=== PATIENT | male | born 1950 | race Caucasian/White ===

== ENCOUNTER 2017-03-28 13:37 | Inpatient (IN) ==
[2017-03-28] MEDS ORDERED: FUROSEMIDE 40 MG/4 ML VIAL IV ONE (15:26)
[2017-03-28] MEDS ORDERED: ONDANSETRON 4 MG/2 ML VIAL IV PRN (15:27)
[2017-03-28] MEDS ORDERED: SENNOSIDES 1 TABLET PO PRN (15:27)
[2017-03-28] MEDS ORDERED: DEXTROSE 31 GM ORAL.SUSP PO PRN (15:27)
[2017-03-28] MEDS ORDERED: DEXTROSE 50% 50 ML VIAL IV PRN (15:27)
[2017-03-28] MEDS ORDERED: HYDROmorphone 2 MG/ML SYRINGE IV PRN (15:27)
[2017-03-28] MEDS ORDERED: IPRATROPIUM/ALBUTEROL 3 ML AMPUL.NEB NEB PRN (15:27)
[2017-03-28] MEDS ORDERED: ACETAMINOPHEN 325 MG TABLET PO PRN (15:27)
[2017-03-28] MEDS ORDERED: NALOXONE HCL 0.4 MG/ML VIAL IV PRN (15:27)
--- NOTE | 2017-03-28 15:45 | Internal Med History&Physical ---
Medical - H&P: HPI Patient information: Note initiated : 03/28/17 at 3:38 pm Service Date, if different from initiated Date: [] Patient: Sandro Bailey 66 y/o M admitted on 03/28/17 for CHF, ESRD. Chief Complaint: [] History of present illness: Mr. Bailey is a 66 year old Male with h/o dm, htn, hld, and ckd stage 5 presents to the hospital from another ER. According to the patient he was doing well till this AM, when he noted he was more short of breath than usual, the patient also notes increased edema in the lower extremities for the last few days. In the ER at the outside facility he underwent a Chest X ray which was reported as pulmonary congestion, his labs were significant for wbc count of 12.8, hb of 8.0, platlet of 296, Na 140, creat 8.63, glucose of 64. FOB was reported as negative. The patient was noted to be in renal failure with fluid overload and wound need dialysis. This is a patient of Dr Hernandez and as per the last note it seems that he has declined dialysis, but is willing to undergo it now. He was therefore transferred here for further eval and management. He was noted to be hypoglycemic on presentation and he did recelive d50 times x by the ER there. GLucose is 118 here The patient denies any other complaints besides sob and edema feet, no fever or chills no urinary complaints, houser was placed by outside facility The patient will be sent to [facility] for Tunneled catheter placement All systems: reviewed and no additional remarkable complaints except as stated ( as per HPI) Medical - H&P: PMH Medical history: Medical History (Last Reviewed 12/06/16 @ 16:26 by Rosa Elena Hernandez MD) Tinea corporis (Chronic) Edema of lower extremity (Chronic) CKD stage 4 due to type 2 diabetes mellitus (Chronic) Gastritis (Chronic) CKD (chronic kidney disease), stage III (Chronic) Guillain-Wayne syndrome (Chronic) Lone atrial fibrillation (Chronic) Bronchitis (Chronic) Presbyopia (Chronic) Regular astigmatism (Chronic) Hypermetropia (Chronic) Nuclear sclerosis (Chronic) Heat exhaustion (Chronic) Nonproliferative diabetic retinopathy (Chronic) 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) Nuclear senile cataract (Chronic) Diabetic neuropathy (Chronic) Seasonal allergic rhinitis (Chronic) Diabetes mellitus, type II (Chronic) Vitamin D deficiency (Chronic) Cervical nerve root compression (Chronic) Left median nerve neuropathy (Chronic) Low back pain (Chronic) Foot drop (Chronic) Obesity (Chronic) Injury of lumbar spine (Chronic) Injury of cervical spine (Chronic) Shoulder pain (Chronic) Carpal tunnel syndrome (Chronic) Cervical disc disorder (Chronic) Hyperlipidemia (Chronic) Gastritis due to nonsteroidal anti-inflammatory drug (NSAID) (Chronic) Diabetic retinopathy (Chronic) Hypertension (Chronic) Metatarsal fracture (Chronic 01/21/11) Surgical history: Past Surgical History (Last Reviewed 12/06/16 @ 16:26 by Rosa Elena Hernandez MD) History of cholecystectomy (Chronic 06/25/80) Pertinent family history: Family History (Last Reviewed 12/06/16 @ 16:26 by Rosa Elena Hernandez MD) Father Diabetes mellitus Cerebrovascular accident (CVA) Dementia Mother Diabetes mellitus Systemic Lupus Erythematosus Cardiomegaly Medical - H&P: Meds Home Medications Medication Instructions Recorded Confirmed Type aspirin 81 mg tablet,delayed 81 mg PO QDAY 08/31/15 12/06/16 History release gabapentin 300 mg capsule 300 mg PO TID 08/31/15 12/06/16 History insulin detemir 100 unit/mL (3 mL) 24 unit SUB-Q QAM ml 08/31/15 12/06/16 History subcutaneous pen glipizide ER 10 mg tablet, 10 mg PO QDAY 10/21/15 12/06/16 History extended release 24 hr calcium acetate 667 mg capsule 667 mg PO TID #90 cap 04/11/16 12/06/16 Rx amlodipine 10 mg tablet 10 mg PO QDAY 30 Days #30 tab 07/21/16 12/06/16 Rx losartan 100 mg tablet 100 mg PO QDAY 30 Days #30 tab 07/21/16 12/06/16 Rx metoprolol tartrate 50 mg tablet 100 mg PO BID 30 Days #120 tab 07/21/16 Rx atorvastatin 40 mg tablet 40 mg PO QDAY 30 Days #30 tab 12/06/16 12/06/16 Rx ergocalciferol (vitamin D2) 50,000 50,000 unit PO QWEEK cap 12/06/16 12/06/16 History unit capsule furosemide 80 mg tablet 80 mg PO BID 30 Days #60 tab 12/06/16 12/06/16 Rx hydralazine 100 mg tablet 100 mg PO TID 30 Days #90 tab 12/06/16 12/06/16 Rx sodium bicarbonate 650 mg tablet 1,300 mg PO BID 30 Days #120 tab 12/06/1612/06 Rx Allergies Allergy/AdvReac Type Severity Reaction Status Date / Time influenza virus vacc Allergy Unknown Unknown Unverified 12/06/16 14:33 trivalent, split [From Fluzone] Medical - H&P: Exam - Constitutional Exam: GENERAL: The patient is a well-developed, well-nourished in no apparent distress. Is alert and oriented x3. VITAL SIGNS: Reviewed and as noted elsewhere. HEENT: Head is normocephalic and atraumatic. Extraocular muscles are intact. Pupils are equal, round, and reactive to light. Nares appeared normal. Mouth appears any without lesions. Mucous membranes are moist. NECK: Normal to inspection, Supple, No lymphadenopathy or thyromegaly. LUNGS: Air entry equal on both sides, no wheezing, adama lower crackles upto mid lungs noted. No accessory muscles of respiration, but pt is mildly tachypenic HEART: Regular rate and rhythm normal, S1 and S2 heard, no Gallop, S3 or Rub Noted, No Gross murmur heard. ABDOMEN: Soft, nontender, and nondistended. Positive bowel sounds. No hepatosplenomegaly was noted. EXTREMITIES: No cyanosis, clubbing, rash, lesions adama edema ++++ NEUROLOGIC: Cranial nerves II through XII are grossly intact. Motor and Sensory System Grossly Intact PSYCHIATRIC: Normal affect, Normal Mood. Appropriate Behavior. SKIN: No ulceration or wounds noted, No jaundice, No rash noted. Medical - H&P: Reslt - Impressions labs done at outside facility reviewed. Medical - H&P: A/P - Narrative A/P Narrative: A/P Renal failure with Fluid overload: Pt to get cath placed today and HD as per nephrology, monitor in pcu status, pt has ckd which has progressed, secondary to uncontrolled htn and dm. Acidosis: nagama secondary to renal failure, check ABG Anemia: normocytic anemia, check iron studies, fob negative at outside facility , monitor, transfuse if drops < 7.0 DM: sliding sacle insulin while in the hospital Hypoglycemia: hold oral meds, d50x2 given glucose normal now, pt asymptomatic. HTN: hold meds for now, monitor bp and resume as tolerated. Leucocytosis: etiology unknown, check ua and procalcitonin, repeat CXR DVT hep sq Diet carb cosnistent renal cardiac Full code Social History - Social History marital status: single occupational status: disabled - Tobacco smoking status: Former smoker - Alcohol alcohol intake frequency: holiday/special occasion only
[2017-03-28] MEDS ORDERED: FUROSEMIDE 100 MG/10 ML VIAL IV ONE (16:12)
[2017-03-28] MEDS: INSULIN LISPRO 1 UNIT/0.01 ML UNIT SQ SCH ×2 (16:20→21:22)
--- NOTE | 2017-03-28 17:00 | Nephrology Consult Note ---
History of Present Illness - Reason for Consult Patient information: Note initiated : 03/28/17 at 4:56 pm Service Date, if different from initiated Date: [] Patient: Sandro Bailey 66 y/o M admitted on 03/28/17 for CHF, ESRD. Chief Complaint: [] Consult date: 03/28/17 chronic renal failure Requesting physician: Linda Eid - Chief Complaint SOB - History of Present Illness Mr Lynn is a 66 y/o pleasant male with PMH of HTN, DM type 2 , CKD and other multiple medical issues who is hospitalised for SOB Patient was feeling well until this am when he noted progressive SOB with minimal exertion. He c/o LE swelling for the last few days He presented to the ER in [place] with this. He was noted to have severe anemia with Hb of 8.0, BUN in 70's, s.creatinine of 8.6 and acidosis with bicarb of 16 He had pulmonary congestion on his CXR Given this patient was transferred to [facility] for evaluation of his renal issues Patient has h/o CKD stage V and he has declined dialysis in the past and chose not to follow with nephrology despite repeated request He agreed for dialysis today and hence was transferred here He denies CP no GI symptoms, denies nausea, vomiting no confusion reported by the family no other recent issues reported Review of Systems All systems PM: reviewed and no additional remarkable complaints except as stated (as in HPI) Past History Past medical history: Uncontrolled HTN Diabetes type 2 with retinopathy, neuropathy and diabetic kidney disease renal osteodystrophy anemia of CKD h/o ? GBS Past surgical history: H/O Cholecystectomy Past family history: parents had DM, father had CVA, mother has h/o SLE Past social history: LIVES ALONE Family states they live close by no current addictions Medications and Allergies Home Medications Medication Instructions Recorded Confirmed Type aspirin 81 mg tablet,delayed 81 mg PO QDAY 08/31/15 03/28/17 History release gabapentin 300 mg capsule 300 mg PO TID 08/31/15 03/28/17 History insulin detemir 100 unit/mL (3 mL) 30 unit SUB-Q QAM ml 08/31/15 03/28/17 History subcutaneous pen glipizide ER 10 mg tablet, 10 mg PO QDAY 10/21/15 03/28/17 History extended release 24 hr calcium acetate 667 mg capsule 667 mg PO TID #90 cap 04/11/16 03/28/17 Rx amlodipine 10 mg tablet 10 mg PO QDAY 30 Days #30 tab 07/21/16 03/28/17 Rx metoprolol tartrate 50 mg tablet 100 mg PO BID 30 Days #120 tab 07/21/16 Rx ergocalciferol (vitamin D2) 50,000 50,000 unit PO QWEEK cap 12/06/16 03/28/17 History unit capsule furosemide 80 mg tablet 80 mg PO BID 30 Days #60 tab 12/06/16 03/28/17 Rx hydralazine 100 mg tablet 100 mg PO TID 30 Days #90 tab 12/06/16 03/28/17 Rx sodium bicarbonate 650 mg tablet 1,300 mg PO BID 30 Days #120 tab 12/06/1603/28 Rx Atorvastatin [Lipitor] 40 mg PO HS 03/28/17 03/28/17 History Allergies Allergy/AdvReac Type Severity Reaction Status Date / Time influenza virus vacc Allergy Unknown Unknown Unverified 12/06/16 14:33 trivalent, split [From Fluzone] Exam - Vital Signs Vital signs: Temp Resp BP Pulse Ox 98.5 F 20 157/84 96 03/28/17 15:09 03/28/17 15:09 03/28/17 15:09 03/28/17 15:09 - General Appearance General appearance: appears started age, obese EENT: mucous membranes moist Neck: JVD Respiratory: rales Cardiology: no rub, edema, normal S1, normal S2 Gastrointestinal: no tenderness, no guarding Integumentary: no rash, warm and dry Neurologic: no asterixis, alert and oriented x3 Musculoskeletal: no erythema, no cyanosis Psychiatric: mood/affect appropriate Assessment and Plan (1) ESRD (end stage renal disease) Patient agrees to initiate dialysis he will have TCC placed at [facility] today will do HD for 2 hrs using revclear 300 dialyser, 3K/2.5ca dialysate at QB 200ML /MIN, QD 300ML/MIN, UF goal of 500cc Will plan on dialysing again tomorrow HTN: h/o uncontrolled HTN will ct home meds UF removal should help anemia: will need work up will follow and manage accordingly Fluid excess: IV lasix and IF removal with dialysis Will follow along appreciate hospitalist help in managing this patient Status: Acute
[2017-03-28 19:33] LABS: Basophils # (Auto) 0.1 K/mcL (0.0-0.3); Basophils % (Auto) 0.4 % (0.0-2.0); Eosinophils # (Auto) 0.5 K/mcL (0.0-0.7); Eosinophils % (Auto) 3.9 % (0.0-7.0); Granulocytes % (Auto) 83.9 % (38.0-78.0); Lymphocytes # (Auto) 0.9 K/mcL (1.5-4.8); Lymphocytes % (Auto) 6.7 % (15.5-49.0); Mean Cell Volume 88.7 fL (80.0-100.0); Mean Corpuscular HGB Conc 33.6 g/dL (31.0-36.0); Mean Corpuscular Hemoglobin 29.8 pg (26.0-34.0); Monocytes # (Auto) 0.7 K/mcL (0.1-0.9); Monocytes % (Auto) 5.1 % (1.0-12.0); Platelet Count 250 K/mcL (140-440); RBC 2.61 M/mcL (4.50-5.90); Red Cell Distribution Width 14.5 % (11.5-14.5)
[2017-03-28 19:56] LABS: ALT/SGPT 9 U/l (0-40); Albumin 3.1 gm/dL (3.2-5.2); Alkaline Phosphatase 82 U/L (39-117); Bilirubin,Direct < 0.2 mg/dL (0.0-0.3); Blood Urea Nitrogen 70 mg/dl (8-23); Gamma Glutamyl Transpeptidase 13 U/L (8-61); Iron 29 mcg/dl (61-157); Magnesium 1.5 mg/dL (1.6-2.5); Transferrin % Saturation 16 % (20-50); Unsaturated Iron Binding 152 mcg/dL (112-346); Uric Acid 8.3 mg/dL (2.5-8.0)
[2017-03-28 20:04] LABS: Ferritin 234.1 ng/ml (30-400)
[2017-03-28 20:11] LABS: Vitamin B12 578.5 pg/ml (243-894)
[2017-03-28] MEDS ORDERED: MAGNESIUM SULFATE 2 GM/50 ML BAG IV ONE (20:24)
[2017-03-28] MEDS: HEPARIN 5,000 UNIT/ML VIAL SQ SCH (21:22)
[2017-03-28] MEDS: 0.9 % SODIUM CHLORIDE 10 ML SYRINGE IV SCH (21:27)
[2017-03-28 23:05] LABS: Appearance,Urine CLEAR; Bacteria,Urine 0 /hpf (0); Bilirubin,Urine NEG (NEG); Color,Urine STRAW; Glucose,Urine (UA) 50 mg/dL (NEG); Leukocyte Esterase,Urine 25 /uL (NEG); Mucus,Urine FEW /hpf (0); Nitrate,Urine NEG (NEG); Protein,Urine 100 mg/dL (NEG); Specific Gravity,Urine 1.006 (1.000-1.035); Urine Blood 0.2 mg/dL (<0.03); Urine RBC > 182 /hpf (0-1); Urine Squamous Epithelial Cell 0 /hpf (0-4); Urine Transitional Epi Cells < 1 /hpf (0-2); Urine WBC 3 /hpf (0-4); Urobilinogen,Urine NEG (NEG)
[2017-03-29] MEDS: 0.9 % SODIUM CHLORIDE 10 ML SYRINGE IV SCH ×3 (05:24→21:28)
[2017-03-29 05:57] LABS: Basophils # (Auto) 0.1 K/mcL (0.0-0.3); Basophils % (Auto) 0.7 % (0.0-2.0); Eosinophils # (Auto) 0.5 K/mcL (0.0-0.7); Eosinophils % (Auto) 4.4 % (0.0-7.0); Granulocytes % (Auto) 80.2 % (38.0-78.0); Lymphocytes # (Auto) 0.9 K/mcL (1.5-4.8); Lymphocytes % (Auto) 8.2 % (15.5-49.0); Mean Cell Volume 88.4 fL (80.0-100.0); Mean Corpuscular HGB Conc 34.2 g/dL (31.0-36.0); Mean Corpuscular Hemoglobin 30.3 pg (26.0-34.0); Monocytes # (Auto) 0.7 K/mcL (0.1-0.9); Monocytes % (Auto) 6.5 % (1.0-12.0); Platelet Count 250 K/mcL (140-440); RBC 2.74 M/mcL (4.50-5.90); Red Cell Distribution Width 14.3 % (11.5-14.5)
[2017-03-29 06:58] LABS: ALT/SGPT 8 U/l (0-40); Albumin 2.9 gm/dL (3.2-5.2); Albumin/Globulin Ratio 0.9 (1.0-2.3); Alkaline Phosphatase 90 U/L (39-117); Bilirubin,Direct < 0.2 mg/dL (0.0-0.3); Blood Urea Nitrogen 52 mg/dl (8-23); Gamma Glutamyl Transpeptidase 13 U/L (8-61); Magnesium 1.9 mg/dL (1.6-2.5); Uric Acid 6.2 mg/dL (2.5-8.0)
[2017-03-29] MEDS: INSULIN LISPRO 1 UNIT/0.01 ML UNIT SQ SCH ×4 (07:25→21:27)
[2017-03-29] MEDS ORDERED: PANTOPRAZOLE 40 MG TABLET PO SCH (07:30)
--- NOTE | 2017-03-29 08:31 | XRay Report ---
HISTORY: Reason for Exam:shortness of breath FINDINGS: There is a generalized haziness in the lung parenchyma bilaterally affecting the right lung greater than left. There is no lobar consolidation or pleural effusion. The heart size is normal. There is a dual-lumen central venous catheter placed through the right subclavian vein into the superior vena cava. No pneumothorax is present. No prior study is available for comparison. IMPRESSION: Bilateral alveolar opacities which could be due to fluid overload, congestive heart failure, pneumonia or nonspecific inflammatory reaction Interpreted and Authenticated by: Cameron Yusuf 03/29/17
[2017-03-29] MEDS: HEPARIN 5,000 UNIT/ML VIAL SQ SCH ×2 (09:06→21:26)
[2017-03-29] MEDS ORDERED: CALCIUM ACETATE 667 MG CAPSULE PO SCH (12:00)
[2017-03-29] MEDS ORDERED: IRON SUCROSE COMPLEX 100 MG/5 ML VIAL IV SCH (12:00)
--- NOTE | 2017-03-29 16:04 | Internal Med Progress Note ---
Medical - PN: Subj Patient information: Note initiated : 03/29/17 at 4:02 pm Service Date, if different from initiated Date: [] Patient: Sandro Bailey 66 y/o M admitted on 03/28/17 for CHF, ESRD/Renal Failure with Fluid Overload. Chief Complaint: [] Interval history: Mr. Bailey is a 66 year old Male with h/o dm, htn, hld, and ckd stage 5 presents to the hospital from another ER. According to the patient he was doing well till this AM, when he noted he was more short of breath than usual, the patient also notes increased edema in the lower extremities for the last few days. In the ER at the outside facility he underwent a Chest X ray which was reported as pulmonary congestion, his labs were significant for wbc count of 12.8, hb of 8.0, platlet of 296, Na 140, creat 8.63, glucose of 64. FOB was reported as negative. The patient was noted to be in renal failure with fluid overload and wound need dialysis. This is a patient of Dr Hernandez and as per the last note it seems that he has declined dialysis, but is willing to undergo it now. He was therefore transferred here for further eval and management. He was noted to be hypoglycemic on presentation and he did recelive d50 times x by the ER there. GLucose is 118 here The patient denies any other complaints besides sob and edema feet, no fever or chills no urinary complaints, houser was placed by outside facility The patient will be sent to [facility] for Tunneled catheter placement March 29 Patient seen examined CXR this AM still showed some congestion, but pt linda for HD today and plan to remove 2 L fluid, repeat CXR after HD Denies any complaints, vitals stable, no fever WBC trending down. clinically stable at this point, xfer to med surg Pertinent ROS: Denies headache, dizziness Denies chest pain, palpitations Denies cough or shortness of breath Denies abdominal pain, nausea or vomiting. - Constitutional Vitals: Vital Signs Temp Pulse Resp BP Pulse Ox 99.1 F H 86 22 157/77 97 03/29/17 14:47 03/29/17 14:47 03/29/17 13:24 03/29/17 14:47 03/29/17 13:01 Period Temp Pulse Resp BP Sys/Frank Pulse Ox Last 24 Hr 98.2 F-99.1 F 65-95 10-28 132-174/69-105 90-98 Intake and Output 03/29/17 03/29/17 03/29/17 05:59 13:59 21:59 Intake Total 50 / 50 580 / 580 Output Total 2420 / 2420 420 / 420 1900 / 1900 Balance -2370 / -2370 160 / 160 -1900 / -1900 Weight 232 lb 14.4 oz Patient Weight 03/30/17 05:59 Weight 232 lb 14.4 oz Intake & Output: Intake & Output 03/29/17 03/29/17 03/29/17 05:59 13:59 21:59 Intake Total 50 / 50 580 / 580 Output Total 2420 / 2420 420 / 420 1900 / 1900 Balance -2370 / -2370 160 / 160 -1900 / -1900 Weight 232 lb 14.4 oz Intake: IV 50 / 50 Oral 580 / 580 Output: Urine Catheter Amount 2420 / 2420 420 / 420 Hemodialysis UF 1900 / 1900 Other: Meal Breakfast Percent of Meal Consumed 100% Exam: Constitutional; Afebrile, cooperative, alert, not in distress. Eyes- No icterus, , No periorbital swelling Ears- Ext ear normal, hearing normal to conversation. Neck- Midline trachea, supple Respiratory system: Air Entry equal on both sides, No crackles or wheezing, no rhonchi. CVS- Rate rhythm regular, S1,S2 heard, no gallop, no rub. edema ++ present Abdomen- Soft nontender abdomen, no organomegaly, no tenderness, no guarding or rigidity, BIRD KEEPER- AOOx3, moving all extremities, no gross focal deficit noted. Medical - PN: Obj Da - Labs CBC & Chem 7: 03/29/17 04:05 03/29/17 04:05 Labs: Abnormal Lab Results 03/29/17 03/29/17 03/28/17 04:05 04:05 22:05 WBC 11.6 H RBC 2.74 L Hgb 8.3 L Hct 24.2 L Gran % 80.2 H Lymph % (Auto) 8.2 L Gran # 9.3 H Lymph # (Auto) 0.9 L Carbon Dioxide 21 L BUN 52 H Creatinine 6.4 H* Glucose Uric Acid Calcium 8.3 L Phosphorus 5.1 H Magnesium Iron TIBC Transferrin % Sat Lactate Dehydrogenase 261 H Albumin 2.9 L Albumin/Globulin Ratio 0.9 L Urine Protein 100 A Urine Glucose (UA) 50 A Urine Occult Blood 0.2 A Ur Leukocyte Esterase 25 A Urine RBC > 182 H 03/28/17 03/28/17 19:00 19:00 WBC 13.0 H RBC 2.61 L Hgb 7.8 L Hct 23.1 L Gran % 83.9 H Lymph % (Auto) 6.7 L Gran # 10.9 H Lymph # (Auto) 0.9 L Carbon Dioxide 18 L BUN 70 H Creatinine 7.4 H* Glucose 109 H Uric Acid 8.3 H Calcium 8.0 L Phosphorus 5.9 H Magnesium 1.5 L Iron 29 L TIBC 181 L Transferrin % Sat 16 L Lactate Dehydrogenase 256 H Albumin 3.1 L Albumin/Globulin Ratio Urine Protein Urine Glucose (UA) Urine Occult Blood Ur Leukocyte Esterase Urine RBC Meds: Medications Acetaminophen (Tylenol) 650 mg PO Q4-6HP PRN PRN Reason: PAIN/FEVER > 101 Albuterol/Ipratropium (Duoneb) 3 ml NEB Q4HRT PRN PRN Reason: Shortness Of Breath Or Wheezing Amlodipine Besylate (Norvasc) 5 mg PO HS [facility] Calcium Acetate (Phoslo) 667 mg PO TIDCC [facility] Last Admin: 03/29/17 12:38 Dose: 667 mg Dextrose (Dextrose 50%) 0 ml IV UD PRN PRN Reason: Hypoglycemia Diagnostic Test (Pha) (Accu-Chek) 1 each FS ACHS [facility] Last Admin: 03/29/17 12:33 Dose: 1 each Ferrous Gluconate (Fergon) 324 mg PO DAILY [facility] Glucose (Insta-Glucose) 15 gm PO PRN PRN PRN Reason: Hypoglycemia Heparin Sodium (Porcine) (Heparin) 5,000 unit SQ Q12 [facility] Last Admin: 03/29/17 09:06 Dose: 5,000 unit Hydromorphone HCl (Dilaudid) 0.5 mg IV Q2HP PRN PRN Reason: Pain Insulin Human Lispro (Humalog) 0 unit SQ ACHS [facility] PRN Reason: Protocol Last Admin: 03/29/17 12:36 Dose: 2 unit Iron Sucrose (Venofer) 200 mg IV TuThSa@1200 [facility] Metoprolol Tartrate (Lopressor) 50 mg PO BID [facility] Naloxone HCl (Narcan) 0.1 mg IV Q2MIN PRN PRN Reason: Opiate Reversal Ondansetron HCl (Zofran) 4 mg IV Q4-6HP PRN PRN Reason: Nausea And Vomiting Pantoprazole Sodium (Protonix) 40 mg PO QAMAC [facility] Last Admin: 03/29/17 07:25 Dose: 40 mg Senna (Senokot) 1 tab PO HSP PRN PRN Reason: Constipation Sodium Chloride (Saline Flush) 10 ml IV Q8 [facility] Last Admin: 03/29/17 05:24 Dose: 10 ml Medical - PN: A/P - Time Spent With Patient Total time spent is greater than 50% in coordination of care (as documented) at patient's floor/unit and/or counseling patient: - Narrative A/P Narrative: A/P Renal failure with Fluid overload: HD yesterday adn today, Check cxr again today Acidosis: nagama secondary to renal failure, should improve with HD Anemia: normocytic anemia, check iron studies, fob negative at outside facility , monitor, transfuse if drops < 7.0, hb is stable so far. DM: sliding sacle insulin while in the hospital HTN: resume home meds. Leucocytosis: etiology unknown, ua has mild leuck esterase, CXR has congestion but could be pna, procalcitonin is low, but given he has low grade temp will culture and start on rocephin and zithromax for now. DVT hep sq Diet carb cosnistent renal cardiac Full code Medical - PN: Qual - VTE Deep Vein Thrombosis/Pulmonary Embolism Present on Admission: No
[2017-03-29] MEDS ORDERED: amLODIPine 10 MG TABLET PO SCH (16:15)
[2017-03-29] MEDS ORDERED: HYDROmorphone 2 MG/ML SYRINGE IV PRN (16:17)
[2017-03-29] MEDS ORDERED: IPRATROPIUM/ALBUTEROL 3 ML AMPUL.NEB NEB PRN (16:17)
[2017-03-29] MEDS ORDERED: ONDANSETRON 4 MG/2 ML VIAL IV PRN (16:17)
[2017-03-29] MEDS ORDERED: DEXTROSE 31 GM ORAL.SUSP PO PRN (16:17)
[2017-03-29] MEDS ORDERED: DEXTROSE 50% 50 ML VIAL IV PRN (16:17)
[2017-03-29] MEDS ORDERED: NALOXONE HCL 0.4 MG/ML VIAL IV PRN (16:17)
[2017-03-29] MEDS ORDERED: AZITHROMYCIN 250 MG TABLET PO ONE (16:17)
[2017-03-29] MEDS ORDERED: ACETAMINOPHEN 325 MG TABLET PO PRN (16:17)
--- NOTE | 2017-03-29 16:59 | XRay Report ---
HISTORY: Reason for Exam:evaluate resolution of chf FINDINGS: The widespread alveolar opacities seen throughout both lungs at 6:42 AM of the same date have improved but not completely resolved. The relatively rapid improvement would be more consistent with pulmonary edema and fluid overload rather than infection or inflammation. There is no pleural effusion. The heart size is within upper limits of normal and remains stable. The dialysis catheter remains well-positioned. IMPRESSION: Improving congestive heart failure or fluid overload Interpreted and Authenticated by: Cameron Yusuf 03/29/17
[2017-03-29] MEDS ORDERED: FUROSEMIDE 40 MG TABLET PO SCH (17:00)
[2017-03-29] MEDS ORDERED: cefTRIAXone 2 GM in DEXTROSE 5% IN WATER 50 ML IV SCH (17:00)
[2017-03-29] MEDS: cefTRIAXone 2 GM in DEXTROSE 5% IN WATER 50 ML IV SCH (17:01)
[2017-03-29] MEDS: CALCIUM ACETATE 667 MG CAPSULE PO SCH (17:02)
--- NOTE | 2017-03-29 20:02 | Nephrology Progress Note ---
Subjective Patient information: Note initiated : 03/29/17 at 8:00 pm Service Date, if different from initiated Date: [] Patient: Sandro Bailey 66 y/o M admitted on 03/28/17 for CHF, ESRD/Renal Failure with Fluid Overload. Chief Complaint: [] Principal diagnosis: Fluid overload Interval history: dialysis initiated last night, no concerns with dialysis feels a little better no SOB reported, denies CP, dizziness edema + Pertinent ROS: as above Objective - Vital Signs Vital signs: Vital Signs Temp Pulse Pulse Resp BP Pulse Ox 03/29/17 14:47 99.1 F H 86 157/77 03/29/17 14:10 91 H 157/82 03/29/17 14:00 80 03/29/17 13:41 94 H 158/71 03/29/17 13:24 22 03/29/17 13:14 26 H 165/81 03/29/17 13:10 90 165/81 03/29/17 13:01 88 19 174/85 97 03/29/17 12:57 95 H 17 164/85 96 03/29/17 12:50 92 H 174/85 03/29/17 12:31 88 24 H 97 03/29/17 12:14 88 26 H 163/82 97 03/29/17 12:09 72 163/82 03/29/17 12:01 89 22 157/83 98 03/29/17 12:00 99.1 F H 03/29/17 11:45 99.1 F H 94 H 140/105 03/29/17 11:44 90 15 140/105 96 03/29/17 11:02 79 24 H 154/78 96 03/29/17 10:02 80 15 154/74 97 03/29/17 09:12 90 10 L 97 03/29/17 09:02 94 H 24 H 164/82 96 03/29/17 08:02 19 164/80 03/29/17 08:00 84 03/29/17 07:02 25 H 156/77 03/29/17 06:05 24 H 03/29/17 06:01 28 H 156/76 03/29/17 05:01 26 H 153/78 03/29/17 04:16 21 03/29/17 04:01 99.0 F H 14 147/70 03/29/17 03:02 24 H 10/05/17 03:01 16 151/76 03/29/17 02:15 26 H 03/29/17 02:01 25 H 148/73 03/29/17 01:01 23 H 137/69 03/29/17 00:01 19 149/71 03/28/17 23:01 24 H 136/76 03/28/17 22:01 24 H 154/76 03/28/17 21:06 20 164/77 03/28/17 21:01 19 144/85 03/28/17 20:51 98.2 F 87 145/78 03/28/17 20:38 20 03/28/17 20:33 21 153/79 03/28/17 20:27 65 153/79 03/28/17 20:01 21 162/81 Intake and Output 03/29/17 03/29/17 03/29/17 05:59 13:59 21:59 Intake Total 50 / 50 580 / 580 Output Total 2420 / 2420 420 / 420 1900 / 1900 Balance -2370 / -2370 160 / 160 -1900 / -1900 Intake: IV 50 / 50 Oral 580 / 580 Output: Urine Catheter Amount 2420 / 2420 420 / 420 Hemodialysis UF 1900 / 1900 Other: Meal Breakfast Percent of Meal Consumed 100% Weight 232 lb 14.4 oz Patient Weight 03/30/17 05:59 Weight 232 lb 14.4 oz Intake & Output: Intake & Output 03/29/17 03/29/17 03/29/17 05:59 13:59 21:59 Intake Total 50 / 50 580 / 580 Output Total 2420 / 2420 420 / 420 1900 / 1900 Balance -2370 / -2370 160 / 160 -1900 / -1900 Weight 232 lb 14.4 oz Intake: IV 50 / 50 Oral 580 / 580 Output: Urine Catheter Amount 2420 / 2420 420 / 420 Hemodialysis UF 1900 / 1900 Other: Meal Breakfast Percent of Meal Consumed 100% - General Appearance General appearance: appears started age EENT: mucous membranes moist Neck: no JVD Respiratory: clear Cardiology: no rub, edema, normal S1, normal S2 Gastrointestinal: no tenderness, no guarding Integumentary: warm and dry Neurologic: no focal deficit, alert and oriented x3 Musculoskeletal: no deformities, no erythema Psychiatric: mood/affect appropriate - Lab 03/29/17 04:05 03/29/17 04:05 Most recent lab results Calcium 8.3 mg/dl (8.6-10.4) L 03/29/17 04:05 Phosphorus 5.1 mg/dL (2.7-4.5) H 03/29/17 04:05 Magnesium 1.9 mg/dL (1.6-2.5) 03/29/17 04:05 Assessment and Plan (1) ESRD (end stage renal disease) ESRD, Will continue HD today, 3 hrs, revaclear 300 dialyser, 3K/2.5CA DIALYSATE , 35 bicarb, UF of 1.5-2L next HD tomorrow, then can be discharged if stable HTN: antihypertensives resumed will follow and optimize anemia: started oral iron will need IV iron and then aranesp malnutrition: will start nepro renal osteodystrophy: will add phos binders Will follow along Status: Acute
[2017-03-29] MEDS ORDERED: CALCIUM ACETATE 667 MG PO SCH ×2 (21:00)
[2017-03-29] MEDS ORDERED: amLODIPine 5 MG TABLET PO SCH ×2 (21:00)
[2017-03-29] MEDS ORDERED: hydrALAZINE 25 MG TABLET PO SCH (21:00)
[2017-03-29] MEDS ORDERED: METOPROLOL TARTRATE 50 MG TABLET PO SCH (21:00)
[2017-03-29] MEDS ORDERED: SENNOSIDES 1 TABLET PO PRN (21:00)
[2017-03-29] MEDS ORDERED: ATORVASTATIN 40 MG TABLET PO SCH (21:00)
[2017-03-29] MEDS ORDERED: GABAPENTIN 300 MG CAPSULE PO SCH (21:00)
[2017-03-29] MEDS ORDERED: METOPROLOL TARTRATE 25 MG TABLET PO SCH ×2 (21:00)
[2017-03-29] MEDS: ATORVASTATIN 20 MG TABLET PO SCH (21:26)
[2017-03-29] MEDS: FUROSEMIDE 40 MG TABLET PO SCH (21:27)
[2017-03-29] MEDS: METOPROLOL TARTRATE 50 MG TABLET PO SCH (21:27)
[2017-03-29] MEDS: GABAPENTIN 300 MG CAPSULE PO SCH (21:28)
[2017-03-29] MEDS: hydrALAZINE 25 MG TABLET PO SCH (21:28)
[2017-03-30] MEDS: 0.9 % SODIUM CHLORIDE 10 ML SYRINGE IV SCH ×3 (05:30→20:20)
[2017-03-30 06:06] LABS: Basophils # (Auto) 0 K/mcL (0.0-0.3); Basophils % (Auto) 0.4 % (0.0-2.0); Eosinophils # (Auto) 0.8 K/mcL (0.0-0.7); Eosinophils % (Auto) 6.7 % (0.0-7.0); Granulocytes % (Auto) 70.6 % (38.0-78.0); Lymphocytes # (Auto) 1.5 K/mcL (1.5-4.8); Lymphocytes % (Auto) 12.9 % (15.5-49.0); Mean Cell Volume 89.6 fL (80.0-100.0); Mean Corpuscular HGB Conc 33.8 g/dL (31.0-36.0); Mean Corpuscular Hemoglobin 30.3 pg (26.0-34.0); Monocytes # (Auto) 1.1 K/mcL (0.1-0.9); Monocytes % (Auto) 9.4 % (1.0-12.0); Platelet Count 254 K/mcL (140-440); Red Cell Distribution Width 14.1 % (11.5-14.5)
[2017-03-30 06:28] LABS: ALT/SGPT 7 U/l (0-40); Albumin 2.8 gm/dL (3.2-5.2); Albumin/Globulin Ratio 0.8 (1.0-2.3); Alkaline Phosphatase 89 U/L (39-117); Bilirubin,Direct < 0.2 mg/dL (0.0-0.3); Blood Urea Nitrogen 31 mg/dl (8-23); Gamma Glutamyl Transpeptidase 13 U/L (8-61); Magnesium 1.7 mg/dL (1.6-2.5); Uric Acid 4.7 mg/dL (2.5-8.0)
[2017-03-30] MEDS: INSULIN LISPRO 1 UNIT/0.01 ML UNIT SQ SCH ×4 (07:13→21:55)
[2017-03-30] MEDS: PANTOPRAZOLE 40 MG TABLET PO SCH (07:14)
[2017-03-30] MEDS: CALCIUM ACETATE 667 MG CAPSULE PO SCH ×3 (08:24→17:20)
[2017-03-30] MEDS: FERROUS GLUCONATE 324 MG TABLET PO SCH (08:25)
[2017-03-30] MEDS: METOPROLOL TARTRATE 50 MG TABLET PO SCH ×2 (08:25→20:18)
[2017-03-30] MEDS: FUROSEMIDE 40 MG TABLET PO SCH ×2 (08:25→20:18)
[2017-03-30] MEDS: hydrALAZINE 25 MG TABLET PO SCH ×3 (08:25→20:17)
[2017-03-30] MEDS: AZITHROMYCIN 250 MG TABLET PO SCH (08:25)
[2017-03-30] MEDS: GABAPENTIN 300 MG CAPSULE PO SCH ×3 (08:26→20:19)
[2017-03-30] MEDS: HEPARIN 5,000 UNIT/ML VIAL SQ SCH ×2 (08:26→20:16)
[2017-03-30] MEDS: cefTRIAXone 2 GM in DEXTROSE 5% IN WATER 50 ML IV SCH (08:26)
[2017-03-30] MEDS: ASPIRIN 81 MG TAB.CHEW PO SCH (08:26)
[2017-03-30] MEDS ORDERED: amLODIPine 10 MG TABLET PO SCH (09:00)
[2017-03-30] MEDS ORDERED: ASPIRIN 81 MG TAB.CHEW PO SCH (09:00)
[2017-03-30] MEDS ORDERED: FERROUS GLUCONATE 324 MG TABLET PO SCH (09:00)
--- NOTE | 2017-03-30 12:11 | Internal Med Progress Note ---
Medical - PN: Subj Patient information: Note initiated : 03/30/17 at 12:08 pm Service Date, if different from initiated Date: [] Patient: Sandro Bailey 66 y/o M admitted on 03/28/17 for CHF, ESRD/Renal Failure with Fluid Overload. Chief Complaint: [] Interval history: Mr. Bailey is a 66 year old Male with h/o dm, htn, hld, and ckd stage 5 presents to the hospital from another ER. According to the patient he was doing well till this AM, when he noted he was more short of breath than usual, the patient also notes increased edema in the lower extremities for the last few days. In the ER at the outside facility he underwent a Chest X ray which was reported as pulmonary congestion, his labs were significant for wbc count of 12.8, hb of 8.0, platlet of 296, Na 140, creat 8.63, glucose of 64. FOB was reported as negative. The patient was noted to be in renal failure with fluid overload and wound need dialysis. This is a patient of Dr Hernandez and as per the last note it seems that he has declined dialysis, but is willing to undergo it now. He was therefore transferred here for further eval and management. He was noted to be hypoglycemic on presentation and he did recelive d50 times x by the ER there. GLucose is 118 here The patient denies any other complaints besides sob and edema feet, no fever or chills no urinary complaints, houser was placed by outside facility The patient will be sent to [facility] for Tunneled catheter placement March 29 Patient seen examined CXR this AM still showed some congestion, but pt linda for HD today and plan to remove 2 L fluid, repeat CXR after HD Denies any complaints, vitals stable, no fever WBC trending down. clinically stable at this point, xfer to med surg March 30 Patient seen examined, no acute overnight events still has leucocytosis, on abx but no other complaints hD today or tomorrow as per nephrology, may be d/c home after HD tomorrow if remains stable microbiology neg so far cxr shows improving congestion. Pertinent ROS: Denies headache, dizziness Denies chest pain, palpitations Denies cough or shortness of breath Denies abdominal pain, nausea or vomiting. - Constitutional Vitals: Vital Signs Temp Pulse Resp BP Pulse Ox 98.2 F 80 20 159/82 95 03/30/17 04:43 03/30/17 04:43 03/30/17 04:43 03/30/17 04:43 03/30/17 04:43 Period Temp Pulse Resp BP Sys/Frank Pulse Ox Last 24 Hr 98.1 F-99.3 F 72-95 17-26 144-174/71-85 95-97 Intake and Output 03/29/17 03/30/17 03/30/17 21:59 05:59 13:59 Intake Total 50 / 50 660 / 660 1210 / 1210 Output Total 1900 / 1900 875 / 875 Balance -1850 / -1850 -215 / -215 1210 / 1210 Weight 233 lb 8 oz Intake & Output: Intake & Output 03/29/17 03/30/17 03/30/17 21:59 05:59 13:59 Intake Total 50 / 50 660 / 660 1210 / 1210 Output Total 1900 / 1900 875 / 875 Balance -1850 / -1850 -215 / -215 1210 / 1210 Weight 233 lb 8 oz Intake: IV 50 / 50 50 / 50 Rocephin 2 gm In Dextrose 5% in 50 / 50 50 / 50 Water 50 ml @ 100 mls/hr IV DAILY [facility] Rx#:[id number] Oral 660 / 660 360 / 360 GI Tube Flush 800 / 800 Output: Urine Catheter Amount 875 / 875 Hemodialysis UF 1900 / 1900 Other: Meal Breakfast Percent of Meal Consumed 100% Feeding Ability Independent Exam: Constitutional; Afebrile, cooperative, alert, not in distress. Eyes- No icterus, , No periorbital swelling Ears- Ext ear normal, hearing normal to conversation. Neck- Midline trachea, supple Respiratory system: Air Entry equal on both sides, No crackles or wheezing, no rhonchi. CVS- Rate rhythm regular, S1,S2 heard, no gallop, no rub. Abdomen- Soft nontender abdomen, no organomegaly, no tenderness, no guarding or rigidity, PROCESS STEWARD- AOOx3, moving all extremities, no gross focal deficit noted. Medical - PN: Obj Da - Labs CBC & Chem 7: 03/30/17 04:50 03/30/17 04:50 Labs: Abnormal Lab Results 03/30/17 03/30/17 03/29/17 04:50 04:50 04:05 WBC 12.0 H RBC 2.70 L Hgb 8.2 L Hct 24.2 L Gran % Lymph % (Auto) 12.9 L Gran # 8.5 H Lymph # (Auto) Cross # (Auto) 1.1 H Eos # (Auto) 0.8 H Carbon Dioxide 21 L BUN 31 H 52 H Creatinine 5.3 H* 6.4 H* Glucose Uric Acid Calcium 8.0 L 8.3 L Phosphorus 5.1 H Magnesium Iron TIBC Transferrin % Sat Lactate Dehydrogenase 261 H Albumin 2.8 L 2.9 L Albumin/Globulin Ratio 0.8 L 0.9 L Urine Protein Urine Glucose (UA) Urine Occult Blood Ur Leukocyte Esterase Urine RBC 03/29/17 03/28/17 03/28/17 04:05 22:05 19:00 WBC 11.6 H RBC 2.74 L Hgb 8.3 L Hct 24.2 L Gran % 80.2 H Lymph % (Auto) 8.2 L Gran # 9.3 H Lymph # (Auto) 0.9 L Cross # (Auto) Eos # (Auto) Carbon Dioxide 18 L BUN 70 H Creatinine 7.4 H* Glucose 109 H Uric Acid 8.3 H Calcium 8.0 L Phosphorus 5.9 H Magnesium 1.5 L Iron 29 L TIBC 181 L Transferrin % Sat 16 L Lactate Dehydrogenase 256 H Albumin 3.1 L Albumin/Globulin Ratio Urine Protein 100 A Urine Glucose (UA) 50 A Urine Occult Blood 0.2 A Ur Leukocyte Esterase 25 A Urine RBC > 182 H 03/28/17 19:00 WBC 13.0 H RBC 2.61 L Hgb 7.8 L Hct 23.1 L Gran % 83.9 H Lymph % (Auto) 6.7 L Gran # 10.9 H Lymph # (Auto) 0.9 L Cross # (Auto) Eos # (Auto) Carbon Dioxide BUN Creatinine Glucose Uric Acid Calcium Phosphorus Magnesium Iron TIBC Transferrin % Sat Lactate Dehydrogenase Albumin Albumin/Globulin Ratio Urine Protein Urine Glucose (UA) Urine Occult Blood Ur Leukocyte Esterase Urine RBC Meds: Medications Acetaminophen (Tylenol) 650 mg PO Q4-6HP PRN PRN Reason: PAIN/FEVER > 101 Albuterol/Ipratropium (Duoneb) 3 ml NEB Q4HRT PRN PRN Reason: Shortness Of Breath Or Wheezing Amlodipine Besylate (Norvasc) 5 mg PO HS [facility] Last Admin: 03/29/17 21:28 Dose: 5 mg Aspirin (Aspirin) 81 mg PO DAILY [facility] Last Admin: 03/30/17 08:26 Dose: 81 mg Atorvastatin Calcium (Lipitor) 40 mg PO HS [facility] Last Admin: 03/29/17 21:26 Dose: 40 mg Azithromycin (Zithromax) 250 mg PO DAILY [facility] Stop: 04/02/17 09:01 Last Admin: 03/30/17 08:25 Dose: 250 mg Calcium Acetate (Phoslo) 667 mg PO TIDCC [facility] Last Admin: 03/30/17 08:24 Dose: 667 mg Dextrose (Dextrose 50%) 0 ml IV UD PRN PRN Reason: Hypoglycemia Diagnostic Test (Pha) (Accu-Chek) 1 each FS ACHS [facility] Last Admin: 03/30/17 07:13 Dose: 1 each Ferrous Gluconate (Fergon) 324 mg PO QAC [facility] Last Admin: 03/30/17 08:25 Dose: 324 mg Furosemide (Lasix) 80 mg PO BID [facility] Last Admin: 03/30/17 08:25 Dose: 80 mg Gabapentin (Neurontin) 300 mg PO TID [facility] Last Admin: 03/30/17 08:26 Dose: 300 mg Glucose (Insta-Glucose) 15 gm PO PRN PRN PRN Reason: Hypoglycemia Heparin Sodium (Porcine) (Heparin) 5,000 unit SQ Q12 [facility] Last Admin: 03/30/17 08:26 Dose: 5,000 unit Hydralazine HCl (Apresoline) 100 mg PO TID [facility] Last Admin: 03/30/17 08:25 Dose: 100 mg Hydromorphone HCl (Dilaudid) 0.5 mg IV Q2HP PRN PRN Reason: Pain Ceftriaxone Sodium 2 gm/ (Dextrose) 50 mls @ 100 mls/hr IV DAILY [facility] Last Infusion: 03/30/17 09:05 Dose: Infused Insulin Human Lispro (Humalog) 0 unit SQ ACHS [facility] PRN Reason: Protocol Last Admin: 03/30/17 07:13 Dose: 1 unit Iron Sucrose (Venofer) 200 mg IV TuThSa@1200 [facility] Metoprolol Tartrate (Lopressor) 50 mg PO BID [facility] Last Admin: 03/30/17 08:25 Dose: 50 mg Naloxone HCl (Narcan) 0.1 mg IV Q2MIN PRN PRN Reason: Opiate Reversal Ondansetron HCl (Zofran) 4 mg IV Q4-6HP PRN PRN Reason: Nausea And Vomiting Pantoprazole Sodium (Protonix) 40 mg PO QAMAC [facility] Last Admin: 03/30/17 07:14 Dose: 40 mg Senna (Senokot) 1 tab PO HSP PRN PRN Reason: Constipation Sodium Chloride (Saline Flush) 10 ml IV Q8 [facility] Last Admin: 03/30/17 05:30 Dose: 10 ml Medical - PN: A/P - Time Spent With Patient Total time spent is greater than 50% in coordination of care (as documented) at patient's floor/unit and/or counseling patient: - Narrative A/P Narrative: A/P Renal failure with Fluid overload: HD x 2, nephrology following, monitor for now. Acidosis: nagama. improved Anemia: normocytic anemia, check iron studies, fob negative at outside facility , monitor, transfuse if drops < 7.0, hb is stable so far. iv iiron as per nephrology DM: sliding sacle insulin while in the hospital HTN: resume home meds. as per nephrology Leucocytosis: stable, on antibiotics, likely early pna? monitor. DVT hep sq Diet carb cosnistent renal cardiac Full code Medical - PN: Qual - VTE Deep Vein Thrombosis/Pulmonary Embolism Present on Admission: No
--- NOTE | 2017-03-30 15:30 | Nephrology Progress Note ---
Subjective Patient information: Note initiated : 03/30/17 at 3:20 pm Service Date, if different from initiated Date: [] Patient: Sandro Bailey 66 y/o M admitted on 03/28/17 for CHF, ESRD/Renal Failure with Fluid Overload. Chief Complaint: [] Principal diagnosis: Fluid overload Interval history: no overnight events SOB is better LE edema has near resolved will get PT today denies any uremic symptoms No GI symptoms Pertinent ROS: as above, all other negative Objective - Vital Signs Vital signs: Vital Signs Temp Pulse Pulse Resp BP BP Pulse Ox 03/30/17 15:18 74 150/89 03/30/17 14:50 72 152/94 03/30/17 14:18 79 150/89 03/30/17 13:48 72 135/89 03/30/17 13:18 71 158/97 03/30/17 12:48 72 152/87 03/30/17 12:23 98.8 F 75 149/87 03/30/17 12:00 98.8 F 149/87 03/30/17 04:43 98.2 F 80 20 159/82 95 03/30/17 00:00 98.1 F 76 18 144/76 96 03/29/17 20:00 99.3 F H 89 20 162/72 96 Intake and Output 03/30/17 03/30/17 03/30/17 05:59 13:59 21:59 Intake Total 660 / 660 1210 / 1210 Output Total 875 / 875 Balance -215 / -215 1210 / 1210 Intake: IV 50 / 50 Rocephin 2 gm In Dextrose 5% in 50 / 50 Water 50 ml @ 100 mls/hr IV DAILY [facility] Rx#:[id number] Oral 660 / 660 360 / 360 GI Tube Flush 800 / 800 Output: Urine Catheter Amount 875 / 875 Other: Meal Breakfast Percent of Meal Consumed 100% Feeding Ability Independent Intake & Output: Intake & Output 03/30/17 03/30/17 03/30/17 05:59 13:59 21:59 Intake Total 660 / 660 1210 / 1210 Output Total 875 / 875 Balance -215 / -215 1210 / 1210 Intake: IV 50 / 50 Rocephin 2 gm In Dextrose 5% in 50 / 50 Water 50 ml @ 100 mls/hr IV DAILY [facility] Rx#:[id number] Oral 660 / 660 360 / 360 GI Tube Flush 800 / 800 Output: Urine Catheter Amount 875 / 875 Other: Meal Breakfast Percent of Meal Consumed 100% Feeding Ability Independent - General Appearance General appearance: appears started age EENT: mucous membranes moist Neck: no JVD Respiratory: clear Cardiology: no rub, no edema, normal S1, normal S2 Gastrointestinal: no tenderness, no guarding Integumentary: no rash, warm and dry Neurologic: no focal deficit Musculoskeletal: no erythema, no clubbing Psychiatric: mood/affect appropriate - Lab 03/30/17 04:50 03/30/17 04:50 Most recent lab results Calcium 8.0 mg/dl (8.6-10.4) L 03/30/17 04:50 Phosphorus 4.1 mg/dL (2.7-4.5) 03/30/17 04:50 Magnesium 1.7 mg/dL (1.6-2.5) 03/30/17 04:50 Assessment and Plan (1) ESRD (end stage renal disease) ESRD, Will continue HD today, 3.5 hrs, revaclear 300 dialyser, 3K/2.5CA DIALYSATE, 35 bicarb, UF of 1.5-2L next HD next week HTN: antihypertensives resumed, will increase amlodipine to 10mg po daily tonight will follow and optimize anemia: started oral iron will need IV iron and then aranesp malnutrition: please start on nepro 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
[2017-03-30] MEDS: ATORVASTATIN 20 MG TABLET PO SCH (20:18)
[2017-03-30] MEDS ORDERED: amLODIPine 5 MG TABLET PO SCH (21:00)
[2017-03-31] MEDS: 0.9 % SODIUM CHLORIDE 10 ML SYRINGE IV SCH ×2 (05:37→14:06)
[2017-03-31 07:32] LABS: Basophils # (Auto) 0.1 K/mcL (0.0-0.3); Basophils % (Auto) 0.7 % (0.0-2.0); Eosinophils # (Auto) 1.2 K/mcL (0.0-0.7); Eosinophils % (Auto) 9.1 % (0.0-7.0); Granulocytes % (Auto) 70.9 % (38.0-78.0); Lymphocytes # (Auto) 1.5 K/mcL (1.5-4.8); Lymphocytes % (Auto) 11.5 % (15.5-49.0); Mean Cell Volume 88.8 fL (80.0-100.0); Mean Corpuscular HGB Conc 33.9 g/dL (31.0-36.0); Mean Corpuscular Hemoglobin 30.1 pg (26.0-34.0); Monocytes % (Auto) 7.8 % (1.0-12.0); Platelet Count 250 K/mcL (140-440); RBC 2.98 M/mcL (4.50-5.90); Red Cell Distribution Width 14.1 % (11.5-14.5)
[2017-03-31 08:09] LABS: ALT/SGPT 8 U/l (0-40); Albumin 2.7 gm/dL (3.2-5.2); Albumin/Globulin Ratio 0.7 (1.0-2.3); Alkaline Phosphatase 108 U/L (39-117); Bilirubin,Direct < 0.2 mg/dL (0.0-0.3); Blood Urea Nitrogen 22 mg/dl (8-23); Gamma Glutamyl Transpeptidase 15 U/L (8-61); Magnesium 1.8 mg/dL (1.6-2.5); Uric Acid 3.3 mg/dL (2.5-8.0)
[2017-03-31] MEDS: PANTOPRAZOLE 40 MG TABLET PO SCH (08:21)
[2017-03-31] MEDS: INSULIN LISPRO 1 UNIT/0.01 ML UNIT SQ SCH ×2 (08:22→12:23)
[2017-03-31] MEDS: hydrALAZINE 25 MG TABLET PO SCH (09:34)
[2017-03-31] MEDS: ASPIRIN 81 MG TAB.CHEW PO SCH (09:35)
[2017-03-31] MEDS: AZITHROMYCIN 250 MG TABLET PO SCH (09:35)
[2017-03-31] MEDS: CALCIUM ACETATE 667 MG CAPSULE PO SCH ×2 (09:35→12:23)
[2017-03-31] MEDS: FUROSEMIDE 40 MG TABLET PO SCH (09:35)
[2017-03-31] MEDS: METOPROLOL TARTRATE 50 MG TABLET PO SCH (09:36)
[2017-03-31] MEDS: FERROUS GLUCONATE 324 MG TABLET PO SCH (09:36)
[2017-03-31] MEDS: GABAPENTIN 300 MG CAPSULE PO SCH (09:36)
[2017-03-31] MEDS: cefTRIAXone 2 GM in DEXTROSE 5% IN WATER 50 ML IV SCH (09:37)
[2017-03-31] MEDS: HEPARIN 5,000 UNIT/ML VIAL SQ SCH (09:37)
[2017-03-31] MEDS ORDERED: IRON SUCROSE COMPLEX 100 MG/5 ML VIAL IV SCH (12:00)
[2017-03-31] MEDS ORDERED: SODIUM POLYSTYRENE SULFONATE 15 GM/60 ML SUSPENSION PO ONE (13:36)
--- NOTE | 2017-03-31 13:38 | Nephrology Progress Note ---
Subjective Patient information: Note initiated : 03/31/17 at 1:37 pm Service Date, if different from initiated Date: [] Patient: Sandro Bailey 66 y/o M admitted on 03/28/17 for CHF, ESRD/Renal Failure with Fluid Overload. Chief Complaint: [] Principal diagnosis: Fluid overload Interval history: patient has no new issues today he denies SOB, CP, dizziness LE edema resolved labs show mild hyperkalemia today Pertinent ROS: as above, all other negative Objective - Vital Signs Vital signs: Vital Signs Temp Pulse Pulse Pulse Resp BP BP 03/31/17 08:00 97.9 F 18 03/31/17 03:43 97.8 F 77 18 03/30/17 23:40 97.8 F 75 20 03/30/17 20:00 98.6 F 82 18 03/30/17 16:00 98.4 F 83 18 162/92 03/30/17 15:45 98.5 F 79 167/92 03/30/17 15:18 74 150/89 03/30/17 14:50 72 152/94 03/30/17 14:18 79 150/89 03/30/17 13:48 72 135/89 BP Pulse Ox 03/31/17 08:00 129/82 94 03/31/17 03:43 127/69 94 03/30/17 23:40 143/78 95 03/30/17 20:00 135/79 95 03/30/17 16:00 95 03/30/17 15:45 03/30/17 15:18 03/30/17 14:50 03/30/17 14:18 03/30/17 13:48 Intake and Output 03/30/17 03/31/17 03/31/17 21:59 05:59 13:59 Intake Total 500 / 500 650 / 650 650 / 650 Output Total 2600 / 2600 850 / 850 1175 / 1175 Balance -2100 / -2100 -200 / -200 -525 / -525 Intake: IV 50 / 50 Rocephin 2 gm In Dextrose 5% in 50 / 50 Water 50 ml @ 100 mls/hr IV DAILY [facility] Rx#:[id number] Oral 500 / 500 650 / 650 600 / 600 Output: Void Amount 1100 / 1100 850 / 850 1175 / 1175 Hemodialysis UF 1500 / 1500 Other: Meal Dinner Lunch Percent of Meal Consumed 100% 100% Feeding Ability Independent Weight 234 lb 8 oz Intake & Output: Intake & Output 03/30/17 03/31/17 03/31/17 21:59 05:59 13:59 Intake Total 500 / 500 650 / 650 650 / 650 Output Total 2600 / 2600 850 / 850 1175 / 1175 Balance -2100 / -2100 -200 / -200 -525 / -525 Weight 234 lb 8 oz Intake: IV 50 / 50 Rocephin 2 gm In Dextrose 5% in 50 / 50 Water 50 ml @ 100 mls/hr IV DAILY [facility] Rx#:[id number] Oral 500 / 500 650 / 650 600 / 600 Output: Void Amount 1100 / 1100 850 / 850 1175 / 1175 Hemodialysis UF 1500 / 1500 Other: Meal Dinner Lunch Percent of Meal Consumed 100% 100% Feeding Ability Independent - General Appearance General appearance: appears started age EENT: mucous membranes moist Neck: no JVD Respiratory: clear Cardiology: no rub, no edema, normal S1, normal S2 Gastrointestinal: no tenderness, no guarding Integumentary: no rash, warm and dry Neurologic: alert and oriented x3 Musculoskeletal: no erythema, no cyanosis Psychiatric: mood/affect appropriate - Lab 03/31/17 05:40 03/31/17 05:40 Most recent lab results Calcium 8.1 mg/dl (8.6-10.4) L 03/31/17 05:40 Phosphorus 3.7 mg/dL (2.7-4.5) 03/31/17 05:40 Magnesium 1.8 mg/dL (1.6-2.5) 03/31/17 05:40 Assessment and Plan (1) ESRD (end stage renal disease) ESRD, HD initiated he will come for HD on Sunday, time provided requested to follow low K diet, one dose of kayexlate given HTN: antihypertensives resumed, hydralazine was cut back will follow on HD and optimize will follow outpt HD appreciate hospitalist help in managing this pt Status: Acute
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
[2017-03-31] MEDS ORDERED: hydrALAZINE 25 MG TABLET PO SCH (21:00)
== END 2017-03-31 15:50 | disposition home or self-care (01) | DRG 683 ==
LOC: ICU 15:09 → SUATTDRO 15:09 → MEDSUR 03-29 15:54
PROVIDERS: ADMIT Internal Medicine; ATTEND Internal Medicine

== ENCOUNTER 2017-05-23 11:50 | Inpatient (IN) ==
[2017-05-23] MEDS ORDERED: INSULIN REGULAR, HUMAN 1 UNIT/0.01 ML UNIT SQ ONE ×2 (12:37→14:24)
--- NOTE | 2017-05-23 12:40 | Cat Scan Report ---
CLINICAL INFORMATION: Trauma loss of consciousness COMPARISON: None. TECHNIQUE: 2.5 mm helical slices were obtained in the skull base to vertex. Following reconstruction, axial reformatted images were reviewed at bone and parenchymal windows. The exam was performed using radiation dose optimization techniques including, but not limited to, automated exposure control, adjustment of the mA and/or kV according to patient size and use of iterative reconstruction technique. FINDINGS: The ventricles, sulci, fissures, and cisterns are symmetrically enlarged compatible with moderate age-related atrophy - no subdural hemorrhage or extra-axial fluid collection appreciated. Patchy chronic ischemic changes in the cerebral white matter are typical for age. There is a 11 mm curvilinear remote infarct in the lateral left thalamus and a 13 mm remote lacunar infarct in the junction of the left internal capsule and left lentiform nucleus. There is no acute cerebral hemorrhage, mass effect, edema or other acute finding. Bone windows show no evidence of fracture or other osseous abnormality IMPRESSION: Moderate atrophy and chronic ischemic changes in the cerebral white matter with old lacunar infarcts in the left lentiform nucleus and left thalamus. There is no hemorrhage or other acute intracerebral abnormality Interpreted and Authenticated by: Kirill Severino 05/23/17
--- NOTE | 2017-05-23 13:02 | Emergency Department Note ---
Fall HPI - General Chief Complaint: Fall Stated Complaint: Fall Time Seen by Provider: 05/23/17 11:53 Source: patient Mode of arrival: wheelchair - History of Present Illness HPI Narrative: Patient presents, states closed head injury. Believes that he fell, hit his head, loss of consciousness last night. States that he feels slightly confused today. Per nursing, oriented to person and place but not well to time or situation. No other pain. Due for dialysis today,it is not been using his usual dose of insulin. Otherwise, poor historian. Denies fevers chills cough shortness of breath abdominal pain or otherwise. - Related Data Home Medications Medication Instructions Recorded Confirmed aspirin 81 mg tablet,delayed 81 mg PO QDAY 08/31/15 03/28/17 release gabapentin 300 mg capsule 300 mg PO TID 08/31/15 03/28/17 insulin detemir 100 unit/mL (3 mL) 30 unit SUB-Q QAM ml 08/31/15 03/28/17 subcutaneous pen glipizide ER 10 mg tablet, 10 mg PO QDAY 10/21/15 03/28/17 extended release 24 hr ergocalciferol (vitamin D2) 50,000 50,000 unit PO QWEEK cap 12/06/16 03/28/17 unit capsule Atorvastatin [Lipitor] 40 mg PO HS 03/28/17 03/28/17 Previous Rx's Medication Instructions Recorded calcium acetate 667 mg capsule 667 mg PO TID #90 cap 04/11/16 amlodipine 10 mg tablet 10 mg PO QDAY 30 Days #30 tab 07/21/16 metoprolol tartrate 50 mg tablet 100 mg PO BID 30 Days #120 tab 07/21/16 Accu-Chek 1 each FS ACHS strip 03/31/17 Acetaminophen [Tylenol] 650 mg PO Q4-6HP PRN tab 03/31/17 Calcium Acetate [Phoslo] 667 mg PO TIDCC cap 03/31/17 Ferrous Gluconate [Fergon] 324 mg PO QAMCC #30 tab 03/31/17 Iron Sucrose Complex [Venofer] 200 mg IV TuThSa@1200 vial 03/31/17 Metoprolol Tartrate [Lopressor] 50 mg PO BID #1 tab 03/31/17 amLODIPine [Norvasc] 10 mg PO HS tab 03/31/17 hydrALAZINE HCL [Hydralazine HCl] 50 mg PO BID 1 Days #90 tab 03/31/17 Allergies Allergy/AdvReac Type Severity Reaction Status Date / Time influenza virus vacc Allergy Unknown Confusion Verified 05/23/17 11:54 trivalent, split [From Fluzone] Review of Systems All systems ED: reviewed and negative except as stated. Fall PMH - Past Medical History Medical history: Reports: diabetes, renal disease Surgical history ED: Reports: non-contributory - Social History smoking status: Former smoker Physical Exam Limitations: no limitations General appearance: other (mild sedation, arouses; normal speech) Head: atraumatic, normocephalic Eye: Present: normal appearance ENT: normal exam, mucous membranes moist Neck: Present: normal inspection Chest: Present: normal inspection, symmetric chest wall rise Respiratory: Present: normal lung sounds bilaterally. Absent: respiratory distress Cardiovascular: Present: regular rate, normal rhythm. Absent: systolic murmur Abdominal: Present: soft. Absent: tenderness Extremities: Present: normal inspection Back: Present: normal inspection Neurological: Absent: alert, oriented X3 Psychiatric: Present: normal affect Skin: Present: warm, dry. Absent: rash Course - Reevaluation(s) Reevaluation #1: Patient continues to be sedate, mild confusion. Labs reviewed, elevated white count Second survey identifies a large diabetic foot ulcer on the right foot, lateral with associated cellulitis Vital Signs Temperature 99.1 F H 05/23/17 11:51 Pulse Rate 83 05/23/17 11:51 Respiratory Rate 18 05/23/17 11:51 Blood Pressure 121/67 05/23/17 11:51 Pulse Oximetry (%) 96 05/23/17 11:51 Temperature 99.1 F H 05/23/17 11:51 Pulse Rate 82 05/23/17 14:02 Respiratory Rate 16 05/23/17 14:02 Blood Pressure 130/69 05/23/17 14:02 Pulse Oximetry (%) 96 05/23/17 14:02 Fall - Lab Data Lab results reviewed: Yes I reviewed the patient's lab results. Result diagrams: 05/23/17 12:32 Lab Results 05/23/17 05/23/17 05/23/17 Range/Units 12:32 12:32 12:32 WBC 22.5 H (4.5-11.0) K/mcL RBC 3.57 L (4.50-5.90) M/mcL Hgb 10.6 L (13.5-16.5) g/dL Hct 31.7 L (41.0-55.0) % POC Hct 33.0 L (41.0-55.0) % MCV 88.9 (80.0-100.0) fL MCH 29.8 (26.0-34.0) pg MCHC 33.5 (31.0-36.0) g/dL RDW 14.4 (11.5-14.5) % Plt Count 330 (140-440) K/mcL MPV 7.9 (7.4-10.4) fL Gran % 85.3 H (38.0-78.0) % Lymph % (Auto) 6.7 L (15.5-49.0) % [place] % (Auto) 6.4 (1.0-12.0) % Eos % (Auto) 1.4 (0.0-7.0) % Baso % (Auto) 0.2 (0.0-2.0) % Gran # 19.2 H (1.8-8.0) K/mcL Lymph # (Auto) 1.5 (1.5-4.8) K/mcL [place] # (Auto) 1.4 H (0.1-0.9) K/mcL Eos # (Auto) 0.3 (0.0-0.7) K/mcL Baso # (Auto) 0 (0.0-0.3) K/mcL VBG Lactic Acid (0.5-2.2) mmol/L POC Sodium 131 L (133-145) mmol/L POC Potassium 4.1 (3.3-5.1) mmol/L POC Chloride 93 L (96-108) mmol/L POC Total CO2 28 (22-30) mmol/L POC BUN 45 H (8-23) mg/dl POC Creatinine 8.7 H* (0.7-1.2) mg/dl POC Glucose 456 H* (70-105) mg/dL POC WB Ioniz Calcium 0.93 L (1.16-1.32) mmol/L Ethyl Alcohol < 0.010 (<0.010) gm/dl 11/29/17 Range/Units 13:17 WBC (4.5-11.0) K/mcL RBC (4.50-5.90) M/mcL Hgb (13.5-16.5) g/dL Hct (41.0-55.0) % POC Hct (41.0-55.0) % MCV (80.0-100.0) fL MCH (26.0-34.0) pg MCHC (31.0-36.0) g/dL RDW (11.5-14.5) % Plt Count (140-440) K/mcL MPV (7.4-10.4) fL Gran % (38.0-78.0) % Lymph % (Auto) (15.5-49.0) % [place] % (Auto) (1.0-12.0) % Eos % (Auto) (0.0-7.0) % Baso % (Auto) (0.0-2.0) % Gran # (1.8-8.0) K/mcL Lymph # (Auto) (1.5-4.8) K/mcL [place] # (Auto) (0.1-0.9) K/mcL Eos # (Auto) (0.0-0.7) K/mcL Baso # (Auto) (0.0-0.3) K/mcL VBG Lactic Acid 1.6 (0.5-2.2) mmol/L POC Sodium (133-145) mmol/L POC Potassium (3.3-5.1) mmol/L POC Chloride (96-108) mmol/L POC Total CO2 (22-30) mmol/L POC BUN (8-23) mg/dl POC Creatinine (0.7-1.2) mg/dl POC Glucose (70-105) mg/dL POC WB Ioniz Calcium (1.16-1.32) mmol/L Ethyl Alcohol (<0.010) gm/dl Disposition Pt seen by MIRR[facility] INSTALLER/PA only: No Clinical Impression: Cellulitis of foot without toes, right, Delirium Diabetic foot ulcer Qualifiers: Diabetic foot ulcer location: midfoot Diabetes mellitus type: type 2 Laterality : right Non-pressure ulcer stage: with fat layer exposed Qualified Code(s): E11.621 - Type 2 diabetes mellitus with foot ulcer; L97.412 - Non-pressure chronic ulcer of right heel and midfoot with fat layer exposed; L97.412 - Non- pressure chronic ulcer of right heel and midfoot with fat layer exposed; L97.412 - Non-pressure chronic ulcer of right heel and midfoot with fat layer exposed; L97.412 - Non-pressure chronic ulcer of right heel and midfoot with fat layer exposed Leukocytosis Qualifiers: Leukocytosis type: bandemia Qualified Code(s): D72.825 - Bandemia Disposition: Xfer As Inpt ([facility]) Condition: Fair Referrals: Brandon Neville [Primary Care Provider] -
[2017-05-23 13:32] LABS: Basophils # (Auto) 0 K/mcL (0.0-0.3); Basophils % (Auto) 0.2 % (0.0-2.0); Eosinophils # (Auto) 0.3 K/mcL (0.0-0.7); Eosinophils % (Auto) 1.4 % (0.0-7.0); Granulocytes % (Auto) 85.3 % (38.0-78.0); Lymphocytes # (Auto) 1.5 K/mcL (1.5-4.8); Lymphocytes % (Auto) 6.7 % (15.5-49.0); Mean Cell Volume 88.9 fL (80.0-100.0); Mean Corpuscular HGB Conc 33.5 g/dL (31.0-36.0); Mean Corpuscular Hemoglobin 29.8 pg (26.0-34.0); Monocytes # (Auto) 1.4 K/mcL (0.1-0.9); Monocytes % (Auto) 6.4 % (1.0-12.0); Platelet Count 330 K/mcL (140-440); RBC 3.57 M/mcL (4.50-5.90); Red Cell Distribution Width 14.4 % (11.5-14.5)
--- NOTE | 2017-05-23 13:55 | XRay Report ---
CLINICAL INFORMATION: Confusion COMPARISON: 03/29/2017 FINDINGS: Right IJ double-lumen catheter tip overlies the right atrium near tricuspid valve. The heart is mildly enlarged but unchanged. Mediastinum and pulmonary vessels are normal. Lungs are clear. No effusions. IMPRESSION: No acute disease - stable Interpreted and Authenticated by: Kirill Severino 05/23/17
[2017-05-23] MEDS ORDERED: PIPERACILLIN SODIUM/TAZOBACTAM 3.375 GM in DEXTROSE 5% IN WATER 50 ML IV ONE (14:14)
[2017-05-23] MEDS ORDERED: VANCOMYCIN 1,000 MG in 0.9 % SODIUM CHLORIDE 250 ML IV ONE (14:14)
[2017-05-23] MEDS ORDERED: PIPERACILLIN SODIUM/TAZOBACTAM 3.375 GM VIAL IV ONE (14:30)
--- NOTE | 2017-05-23 14:56 | Internal Med History&Physical ---
Medical - H&P: HPI Patient information: Note initiated : 05/23/17 at 2:53 pm Service Date, if different from initiated Date: [] Patient: Sandro Bailey 66 y/o M admitted on for Fall. Chief Complaint: [] History of present illness: Mr. Bailey is a 66 year old man with a history of type 2 diabetes, end-stage renal disease, atrial fibrillation, neuropathy, etc. He was apparently in his normal state of health until about 2 days ago when he noticed increased pain and swelling of his right foot. I believe he had a fall as well, although that is less certain. He has been more sleepy than usual, and was sent to the emergency room for evaluation today. In the intensive care unit where I met him, he is quite somnolent. He does awaken for a minute or so with strong verbal and physical stimulation, but then drifts back to sleep again. He seems to indicate that he has not been having fever or chills, headaches or dizziness, new eye or ear symptoms, sore throat or cough. He denies chest pain or palpitations, shortness of breath, abdominal pain, nausea or vomiting, diarrhea or constipation, dysuria. He only admits to pain and swelling of his right foot. He does admit that he has been falling, but could not give me any details about that. He lives alone. Apparently his sister was here earlier, but has left for the day. ER evaluation found him to be delirious. Glucose was greater than 400. Head CT was reported as negative. Lactic acid was normal. White blood cell count was markedly elevated at 22. 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) Lone atrial fibrillation (Chronic) Bronchitis (Chronic) Heat exhaustion (Chronic) Nonproliferative diabetic retinopathy (Chronic) Diabetic neuropathy (Chronic) Seasonal allergic rhinitis (Chronic) Diabetes mellitus, type II (Chronic) Vitamin D deficiency (Chronic) Cervical nerve root compression (Chronic) Left median nerve neuropathy (Chronic) Low back pain (Chronic) Foot drop (Chronic) Obesity (Chronic) Injury of lumbar spine (Chronic) Injury of cervical spine (Chronic) Shoulder pain (Chronic) Carpal tunnel syndrome (Chronic) Cervical disc disorder (Chronic) Hyperlipidemia (Chronic) Gastritis due to nonsteroidal anti-inflammatory drug (NSAID) (Chronic) Hypertension (Chronic) Metatarsal fracture (Chronic 01/21/11) Surgical history: Past Surgical History History of cholecystectomy (Chronic 06/25/80) Medications: Tylenol 650 mg every 6 hours as needed Amlodipine 10 mg nightly Aspirin 81 mg daily Lipitor 40 mg nightly Calcium acetate (PhosLo) 667 mg p.o. 3 times daily Ferrous gluconate 324 mg every morning Lasix 80 mg p.o. twice daily Gabapentin 300 mg 3 times daily Hydralazine decreased 25mg tid? Iron sucrose 200 mg IV Sunday and Sunday Metoprolol tartrate decreased to 50 mg twice daily Vitamin D 2 50,000 units weekly Glipizide ER 10 mg daily Insulin detemir 30 units subcu every morning Tylenol 325 mg every 4 hours as needed Sodium bicarbonate 1300 mg p.o. twice daily Allergies: Influenza vaccine. Family History Father Diabetes mellitus Cerebrovascular accident (CVA) Dementia Mother Diabetes mellitus Systemic Lupus Erythematosus Cardiomegaly social history: LIVES ALONE. Patient denies using tobacco, alcohol, drugs, but his history does not currently appear all that reliable. He says his sister lives nearby. Family states they live close by Medical - H&P: Meds Home Medications Medication Instructions Recorded Confirmed Type Acetaminophen [Tylenol] 325 mg PO Q4-6HP PRN 05/23/17 05/23/17 History Aspirin [Charmaine Chewable Aspirin] 81 mg PO DAILY 05/23/17 05/23/17 History Atorvastatin [Lipitor] 40 mg PO HS 05/23/17 05/23/17 History Calcium Acetate [Phoslo] 667 mg PO TIDCC 05/23/17 05/23/17 History Ergocalciferol (Vitamin D2) 50,000 unit PO WEEKLY 05/23/17 05/23/17 History [Vitamin D2] Ferrous Gluconate [Fergon] 324 mg PO DAILY 05/23/17 05/23/17 History Furosemide [Lasix] 80 mg PO BID 05/23/17 05/23/17 History Gabapentin [Neurontin] 300 mg PO TID 05/23/17 05/23/17 History Insulin Detemir [Levemir Flextouch] 30 unit SQ DAILY 05/23/17 05/23/17 History Metoprolol Tartrate [Lopressor] 50 mg PO BID 05/23/17 05/23/17 History Sodium Bicarbonate 1,300 mg PO BID 05/23/17 05/23/17 History amLODIPine [Norvasc] 10 mg PO DAILY 05/23/17 05/23/17 History glipiZIDE [Glipizide ER] 10 mg PO DAILY 05/23/17 05/23/17 History hydrALAZINE [Apresoline] 25 mg PO TID 05/23/17 05/23/17 History Allergies Allergy/AdvReac Type Severity Reaction Status Date / Time influenza virus vacc Allergy Unknown Confusion Verified 05/23/17 11:54 trivalent, split [From Fluzone] Medical - H&P: Exam - Constitutional Vitals: Temp Pulse Resp BP Pulse Ox 99.1 F H 82 26 H 137/75 96 05/23/17 11:51 05/23/17 14:02 05/23/17 14:32 05/23/17 14:32 05/23/17 14:02 On exam, he is a fairly somnolent man, who is otherwise not in acute distress. He does arouse to voice and tactile stimulation. Head: Normocephalic, atraumatic. Eyes: PERRLA, EOMI, anicteric. Ears: TMs and canals are clear. Pharynx: Pharynx is crowded. No lesions are noted. No exudates are noted. Neck: Appears supple, without lymphadenopathy, JVD, thyromegaly, bruits. Cardiac exam shows regular rate and rhythm with normal S1 and S2, without murmurs, rubs, gallops. Lungs are clear to auscultation, without rales, rhonchi, wheezes. Abdomen is soft and nontender without obvious masses. Bowel sounds are active. Extremities: Both lower legs have a evidence of old stasis dermatitis. His right foot is mildly swollen. The lateral edge of his right distal foot is swollen and has a necrotic appearing ulcer with surrounding erythema and a strong odor. No definite discharge is noted. Neurologic exam: The patient is fairly lethargic, but arousable. Motor exam is grossly nonfocal. Medical - H&P: Reslt - Labs CBC & Chem 7: 05/23/17 12:32 Labs: Short CBC 05/23/17 Range/Units 12:32 WBC 22.5 H (4.5-11.0) K/mcL Hgb 10.6 L (13.5-16.5) g/dL Hct 31.7 L (41.0-55.0) % Plt Count 330 (140-440) K/mcL May 23: CBC: Differential shows 19,200 neutrophils, 1400 monocytes. Chemistry panel: Show sodium 131, chloride 93, BUN 45, creatinine 8.7, glucose 456, ionized calcium low at 0.93 Alcohol level is less than 0.01 Foot x-ray: IMPRESSION: No evidence of osteomyelitis. Large soft tissue ulcer over the fifth metatarsal head with associated cellulitis Chest x-ray: Shows no acute disease. There is a right IJ double-lumen catheter tip at the right atrium. 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 There is no hemorrhage or other acute intracerebral abnormality Medical - H&P: A/P (1) DM type 2, uncontrolled, with renal complications Current visit: Yes Status: Acute (2) Cellulitis of foot without toes, right Current visit: Yes Status: Acute (3) Delirium Current visit: Yes Status: Acute (4) Leukocytosis Current visit: Yes Status: Acute (5) ESRD (end stage renal disease) Current visit: No Status: Acute - Narrative A/P Narrative: #1. Infectious disease. SIRS syndrome Patient presents with signs and symptoms of cellulitis related to a diabetic foot ulcer. -There is no open wound to culture, but blood cultures have been done. -Admit for empiric IV antibiotics with vancomycin and Zosyn. -Wound care consult. -Check pro-calcitonin. - 2. Neurologic. Patient presents with confusion, likely due to medical delirium. -We will watch closely on telemetry. -Frequent Accu-Cheks with the goal of getting his glucoses closer to normal. 3. CODE STATUS: Full code. 4. DVT prophylaxis: Subcu heparin. 5. Endocrine. Type 2 diabetes, patient presents with severe hyperglycemia. He has been given IV insulin, and we will continue with Accu-Cheks and sliding scale insulin, in addition to twice daily Lantus. He is not being given aggressive fluid management at this time, regarding renal failure and tendency to volume overload. -Hyponatremia, likely due to elevated glucose. Hypocalcemia. Continue to monitor. Nephrology to address. 6. Renal. End-stage renal disease. He is due for dialysis this afternoon. -Nephrology consult with Dr. Navarro. -Hypertension. Blood pressures are currently running in a reasonable range. Hold Lasix for now, regarding possible early sepsis. Hold amlodipine if needed. Continue metoprolol and hydralazine. Today's visit took approximately 60 minutes, to review his case with the ER MD, review test results and records, interview and examine the patient, and write orders.
--- NOTE | 2017-05-23 15:28 | XRay Report ---
CLINICAL INFORMATION: Large recurrent foot ulcer on the lateral the MTP joint COMPARISON: None. FINDINGS: Large soft tissue ulceration over the lateral mid metatarsal head appreciated. Moderate inflammation and subcutaneous gas appreciated. There is no specific evidence for osteomyelitis. Hammertoe deformity seen in the second through fifth digits. Joint spaces otherwise normal with alignment. Pes planus noted IMPRESSION: No evidence of osteomyelitis. Large soft tissue ulcer over the fifth metatarsal head with associated cellulitis Interpreted and Authenticated by: Kirill Severino 05/23/17
[2017-05-23] MEDS ORDERED: ONDANSETRON 4 MG/2 ML VIAL IV PRN (16:04)
[2017-05-23] MEDS ORDERED: DOCUSATE SODIUM 100 MG CAPSULE PO PRN (16:04)
[2017-05-23] MEDS ORDERED: ACETAMINOPHEN 325 MG TABLET PO PRN (16:04)
[2017-05-23] MEDS ORDERED: DEXTROSE 50% 50 ML VIAL IV PRN (16:04)
[2017-05-23] MEDS ORDERED: DEXTROSE 31 GM ORAL.SUSP PO PRN (16:04)
[2017-05-23] MEDS ORDERED: VANCOMYCIN PER PHARMACY IV SCH (16:04)
[2017-05-23] MEDS ORDERED: NALOXONE HCL 0.4 MG/ML VIAL IV PRN (16:04)
[2017-05-23] MEDS ORDERED: ALBUTEROL SULFATE 2.5 MG/3 ML NEBULIZER NEB PRN (16:04)
[2017-05-23] MEDS ORDERED: VANCOMYCIN 500 MG in 0.9 % SODIUM CHLORIDE 100 ML IV ONE (16:15)
[2017-05-23] MEDS: INSULIN LISPRO 1 UNIT/0.01 ML UNIT SQ SCH ×2 (16:39→23:01)
--- NOTE | 2017-05-23 17:56 | Nephrology Consult Note ---
History of Present Illness - Reason for Consult Patient information: Note initiated : 05/23/17 at 5:54 pm Service Date, if different from initiated Date: [] Patient: Sandro Bailey 66 y/o M admitted on 05/23/17 for Fall. 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) Nuclear senile cataract (Chronic) Diabetic neuropathy (Chronic) Seasonal allergic rhinitis (Chronic) Diabetes mellitus, type II (Chronic) Vitamin D deficiency (Chronic) Cervical nerve root compression (Chronic) Left median nerve neuropathy (Chronic) Low back pain (Chronic) Foot drop (Chronic) Obesity (Chronic) Injury of lumbar spine (Chronic) Injury of cervical spine (Chronic) Shoulder pain (Chronic) Carpal tunnel syndrome (Chronic) Cervical disc disorder (Chronic) Hyperlipidemia (Chronic) Gastritis due to nonsteroidal anti-inflammatory drug (NSAID) (Chronic) Diabetic retinopathy (Chronic) Hypertension (Chronic) Metatarsal fracture (Chronic 01/21/11) Past surgical history: Past Surgical History History of cholecystectomy (Chronic 06/25/80) Past family history: Family History Father Diabetes mellitus Cerebrovascular accident (CVA) Dementia Mother Diabetes mellitus Systemic Lupus Erythematosus Cardiomegaly Past social history: Past social history: LIVES ALONE Family states they live close by no current addictions Medications and Allergies Allergies Allergy/AdvReac Type Severity Reaction Status Date / Time influenza virus vacc Allergy Unknown Confusion Verified 05/23/17 11:54 trivalent, split [From Fluzone] Exam - Vital Signs Vital signs: Temp Pulse Resp BP Pulse Ox 97.9 F 79 18 138/70 99 05/23/17 16:10 05/23/17 15:45 05/23/17 16:10 05/23/17 16:10 05/23/17 16:10 - General Appearance General appearance: well-developed, well-nourished, appears started age EENT: ATNC, PERRL Neck: no JVD, no thyromegaly Cardiology: no murmurs, no rub, no gallops, regular rate, regular rhythm Gastrointestinal: no tenderness Results - Lab Results 05/23/17 12:32 Assessment and Plan (1) ESRD (end stage renal disease) Plan for hemodialysis in ICU tonight according to his usual HD regimen He is receiving empiric IV antibiotics, follow cultures, CBC Status: Acute
[2017-05-23 18:46] LABS: Estimated Average Glucose(eAG) 214 mg/dL; Hemoglobin A1C 9.1 % HGB (4.0-6.0)
[2017-05-23] MEDS ORDERED: INSULIN DETEMIR 15 UNIT SQ SCH (21:00)
[2017-05-23] MEDS: SODIUM BICARBONATE 650 MG TABLET PO SCH (23:00)
[2017-05-23] MEDS: ATORVASTATIN 20 MG TABLET PO SCH (23:00)
[2017-05-23] MEDS: hydrALAZINE 25 MG TABLET PO SCH (23:00)
[2017-05-23] MEDS: HEPARIN 5,000 UNIT/ML VIAL SQ SCH (23:00)
[2017-05-23] MEDS: METOPROLOL TARTRATE 50 MG TABLET PO SCH (23:00)
[2017-05-23] MEDS: GABAPENTIN 300 MG CAPSULE PO SCH (23:01)
[2017-05-23] MEDS: INSULIN GLARGINE, HUMAN 1 UNIT/0.01 ML SQ SCH (23:02)
[2017-05-24] MEDS: PIPERACILLIN SODIUM/TAZOBACTAM 2.25 GM in DEXTROSE 5% IN WATER 50 ML IV SCH ×2 (00:34→12:10)
[2017-05-24] MEDS: HYDROcodone/APAP 5/325MG TABLET PO PRN ×2 (02:51→10:21)
[2017-05-24 05:08] LABS: Basophils # (Auto) 0 K/mcL (0.0-0.3); Basophils % (Auto) 0.2 % (0.0-2.0); Eosinophils # (Auto) 0.6 K/mcL (0.0-0.7); Eosinophils % (Auto) 2.8 % (0.0-7.0); Granulocytes % (Auto) 84.3 % (38.0-78.0); Lymphocytes # (Auto) 1.7 K/mcL (1.5-4.8); Lymphocytes % (Auto) 7.5 % (15.5-49.0); Mean Cell Volume 89.8 fL (80.0-100.0); Mean Corpuscular HGB Conc 33.1 g/dL (31.0-36.0); Mean Corpuscular Hemoglobin 29.8 pg (26.0-34.0); Monocytes # (Auto) 1.2 K/mcL (0.1-0.9); Monocytes % (Auto) 5.2 % (1.0-12.0); Platelet Count 349 K/mcL (140-440); RBC 3.66 M/mcL (4.50-5.90); Red Cell Distribution Width 14.6 % (11.5-14.5)
[2017-05-24 05:29] LABS: ALT/SGPT 17 U/l (0-40); Albumin 3.3 gm/dL (3.2-5.2); Albumin/Globulin Ratio 0.8 (1.0-2.3); Alkaline Phosphatase 112 U/L (39-117); Bilirubin,Direct < 0.2 mg/dL (0.0-0.3); Blood Urea Nitrogen 25 mg/dl (8-23); Gamma Glutamyl Transpeptidase 23 U/L (8-61); Magnesium 1.8 mg/dL (1.6-2.5); Uric Acid 3.4 mg/dL (2.5-8.0)
[2017-05-24] MEDS: CALCIUM ACETATE 667 MG CAPSULE PO SCH ×3 (07:32→17:32)
[2017-05-24] MEDS: INSULIN GLARGINE, HUMAN 1 UNIT/0.01 ML SQ SCH ×2 (07:32→20:38)
[2017-05-24] MEDS: INSULIN LISPRO 1 UNIT/0.01 ML UNIT SQ SCH ×4 (07:32→20:37)
[2017-05-24] MEDS: METOPROLOL TARTRATE 50 MG TABLET PO SCH ×2 (08:10→20:37)
[2017-05-24] MEDS: ASPIRIN 81 MG TAB.CHEW PO SCH (08:10)
[2017-05-24] MEDS: SODIUM BICARBONATE 650 MG TABLET PO SCH ×2 (08:10→20:49)
[2017-05-24] MEDS: HEPARIN 5,000 UNIT/ML VIAL SQ SCH ×2 (08:10→20:38)
[2017-05-24] MEDS: amLODIPine 10 MG TABLET PO SCH (08:11)
[2017-05-24] MEDS: hydrALAZINE 25 MG TABLET PO SCH ×3 (08:11→20:49)
[2017-05-24] MEDS: FERROUS GLUCONATE 324 MG TABLET PO SCH (08:11)
[2017-05-24] MEDS: GABAPENTIN 300 MG CAPSULE PO SCH ×3 (08:11→20:37)
--- NOTE | 2017-05-24 11:46 | Internal Med Progress Note ---
Medical - PN: Subj Patient information: Note initiated : 05/24/17 at 11:46 am Service Date, if different from initiated Date: [] Patient: Sandro Bailey 66 y/o M admitted on 05/23/17 for Fall/Cellulitis of Right Foot, Diabetic Foot Ulcer. Chief Complaint: [] Interval history: May 23, 2017: History of present illness: Mr. Bailey is a 66 year old man with a history of type 2 diabetes, end-stage renal disease, atrial fibrillation, neuropathy, etc. He was apparently in his normal state of health until about 2 days ago when he noticed increased pain and swelling of his right foot. I believe he had a fall as well, although that is less certain. He has been more sleepy than usual, and was sent to the emergency room for evaluation today. In the intensive care unit where I met him, he is quite somnolent. He does awaken for a minute or so with strong verbal and physical stimulation, but then drifts back to sleep again. He seems to indicate that he has not been having fever or chills, headaches or dizziness, new eye or ear symptoms, sore throat or cough. He denies chest pain or palpitations, shortness of breath, abdominal pain, nausea or vomiting, diarrhea or constipation, dysuria. He only admits to pain and swelling of his right foot. He does admit that he has been falling, but could not give me any details about that. He lives alone. Apparently his sister was here earlier, but has left for the day. ER evaluation found him to be delirious. Glucose was greater than 400. Head CT was reported as negative. Lactic acid was normal. White blood cell count was markedly elevated at 22. May 24: Today, the patient states he is feeling quite a bit better. However, he is still having significant pain in his right foot, which he rates as 9 out of 10. Otherwise, he denies fever chills, chest pain or shortness of breath, abdominal pain, nausea or vomiting, diarrhea or constipation. He underwent dialysis last night, and appears to have tolerated that well. - Constitutional Vitals: Vital Signs Temp Pulse Resp BP Pulse Ox 98.0 F 80 18 145/73 98 05/24/17 07:35 05/24/17 07:37 05/24/17 07:35 05/24/17 07:35 05/24/17 07:35 Period Temp Pulse Resp BP Sys/Frank Pulse Ox Last 24 Hr 97.9 F-99.1 F 79-88 10-26 121-154/65-84 94-100 Intake and Output 05/23/17 05/24/17 05/24/17 21:59 05:59 13:59 Intake Total 300 / 300 500 / 500 600 / 600 Output Total 2049 Balance 300 / 300 -1550 / -1550 600 / 600 Weight 224 lb 8 oz Intake & Output: Intake & Output 05/23/17 05/24/17 05/24/17 21:59 05:59 13:59 Intake Total 300 / 300 500 / 500 600 / 600 Output Total 2049 Balance 300 / 300 -1550 / -1550 600 / 600 Weight 224 lb 8 oz Intake: IV 300 / 300 Zosyn 3.375 gm In Dextrose 5% 50 / 50 in Water 50 ml @ 100 mls/hr IV ONCE ONE Rx#:[id number] Vancomycin 1,000 mg In Sodium 250 / 250 Chloride 0.9% 250 ml @ 250 mls/ hr IV ONCE ONE Rx#:[id number] Oral 500 / 500 600 / 600 Output: Hemodialysis UF 2049 Other: Meal Breakfast Percent of Meal Consumed 100% Feeding Ability Assist with Tray Set Up The patient is awake and alert, sitting up in bed and watching television. Neck is supple without obvious lymphadenopathy or JVD. Cardiac exam shows regular rate and rhythm. Lungs are clear to auscultation. Abdomen is soft and nontender. Extremities: Left foot appears fairly normal. Right foot continues to be quite swollen, red, warm, and very tender to touch. There is a necrotic ulcer on the lateral aspect of the foot, which is very foul- smelling. Neurologic exam: Patient is awake and alert, and exam is generally nonfocal. Medical - PN: Obj Da - Labs CBC & Chem 7: 05/24/17 04:10 05/24/17 04:10 Labs: Abnormal Lab Results 05/24/17 05/24/17 05/23/17 04:10 04:10 16:55 WBC 23.3 H RBC 3.66 L Hgb 10.9 L Hct 32.9 L POC Hct RDW 14.6 H Gran % 84.3 H Lymph % (Auto) 7.5 L Gran # 19.7 H [place] # (Auto) 1.2 H POC Sodium POC Chloride Chloride 93 L POC BUN BUN 25 H Creatinine 4.6 H POC Creatinine POC Glucose Hemoglobin A1c 9.1 H Calcium 8.4 L POC WB Ioniz Calcium Lactate Dehydrogenase 289 H Globulin 3.9 H Albumin/Globulin Ratio 0.8 L 05/23/17 05/23/17 12:32 12:32 WBC 22.5 H RBC 3.57 L Hgb 10.6 L Hct 31.7 L POC Hct 33.0 L RDW Gran % 85.3 H Lymph % (Auto) 6.7 L Gran # 19.2 H [place] # (Auto) 1.4 H POC Sodium 131 L POC Chloride 93 L Chloride POC BUN 45 H BUN Creatinine POC Creatinine 8.7 H* POC Glucose 456 H* Hemoglobin A1c Calcium POC WB Ioniz Calcium 0.93 L Lactate Dehydrogenase Globulin Albumin/Globulin Ratio May 23: Pro-calcitonin is elevated at 1.4, consistent with possible sepsis. Lactic acid was normal at 1.6. Wound Gram stain: Shows many gram-positive cocci in clusters, many gram- negative bacilli. Blood cultures are negative so far. CBC: White blood cell count is 22,500, hemoglobin 10, hematocrit 31, platelets 330,000. Differential shows 19,200 neutrophils, 1400 monocytes. Chemistry panel: Show sodium 131, chloride 93, BUN 45, creatinine 8.7, glucose 456, ionized calcium low at 0.93 Alcohol level is less than 0.01 Foot x-ray: IMPRESSION: No evidence of osteomyelitis. Large soft tissue ulcer over the fifth metatarsal head with associated cellulitis Chest x-ray: Shows no acute disease. There is a right IJ double-lumen catheter tip at the right atrium. 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 There is no hemorrhage or other acute intracerebral abnormality Meds: Medications Acetaminophen (Tylenol) 650 mg PO Q6HP PRN PRN Reason: PAIN/FEVER > 101 Hydrocodone Bitart/Acetaminophen ([place] 5/325mg) 1 tab PO Q4HP PRN PRN Reason: PAIN LEVEL 3-6 Last Admin: 05/24/17 10:21 Dose: 1 tab Albuterol Sulfate (Ventolin) 2.5 mg NEB Q6HRT PRN PRN Reason: Shortness Of Breath Or Wheezing Amlodipine Besylate (Norvasc) 10 mg PO DAILY [facility] Last Admin: 05/24/17 08:11 Dose: 10 mg Aspirin (Aspirin) 81 mg PO DAILY [facility] Last Admin: 05/24/17 08:10 Dose: 81 mg Atorvastatin Calcium (Lipitor) 40 mg PO HS [facility] Last Admin: 05/23/17 23:00 Dose: 40 mg Calcium Acetate (Phoslo) 667 mg PO TIDCC [facility] Last Admin: 05/24/17 07:32 Dose: 667 mg Dextrose (Dextrose 50%) 0 ml IV UD PRN PRN Reason: Hypoglycemia Diagnostic Test (Pha) (Accu-Chek) 1 each FS ACHS [facility] Last Admin: 05/24/17 07:31 Dose: 1 each Docusate Sodium (Colace) 100 mg PO BID PRN PRN Reason: Constipation Ergocalciferol (Drisdol) 50,000 unit PO WEEKLY [facility] Ferrous Gluconate (Fergon) 324 mg PO DAILY [facility] Last Admin: 05/24/17 08:11 Dose: 324 mg Gabapentin (Neurontin) 300 mg PO TID [facility] Last Admin: 05/24/17 08:11 Dose: 300 mg Glucose (Insta-Glucose) 15 gm PO PRN PRN PRN Reason: Hypoglycemia Heparin Sodium (Porcine) (Heparin) 5,000 unit SQ Q12 [facility] Last Admin: 05/24/17 08:10 Dose: 5,000 unit Hydralazine HCl (Apresoline) 25 mg PO TID [facility] Last Admin: 05/24/17 08:11 Dose: 25 mg Piperacillin Sod/Tazobactam (Sod 2.25 gm/ Dextrose) 50 mls @ 100 mls/hr IV Q12H [facility] Last Admin: 05/24/17 00:34 Dose: 100 mls/hr Insulin Glargine (Lantus) 10 unit SQ BID [facility] Last Admin: 05/24/17 07:32 Dose: 10 unit Insulin Human Lispro (Humalog) 0 unit SQ ACHS [facility] PRN Reason: Protocol Last Admin: 05/24/17 07:32 Dose: Not Given Metoprolol Tartrate (Lopressor) 50 mg PO BID [facility] Last Admin: 05/24/17 08:10 Dose: 50 mg Naloxone HCl (Narcan) 0.1 mg IV Q2MIN PRN PRN Reason: Opiate Reversal Ondansetron HCl (Zofran) 4 mg IV Q4HP PRN PRN Reason: Nausea And Vomiting Sodium Bicarbonate (Sodium Bicarbonate) 1,300 mg PO BID [facility] Last Admin: 05/24/17 08:10 Dose: 1,300 mg Vancomycin HCl (Vancomycin Per Pharmacy) 1 order IV UD [facility] Medical - PN: A/P - Time Spent With Patient Total time spent is greater than 50% in coordination of care (as documented) at patient's floor/unit and/or counseling patient: 25 - 35 minutes (1) DM type 2, uncontrolled, with renal complications Status: Acute Current Visit: Yes (2) Cellulitis of foot without toes, right Status: Acute Current Visit: Yes (3) Delirium Status: Acute Current Visit: Yes (4) Leukocytosis Status: Acute Current Visit: Yes (5) ESRD (end stage renal disease) Status: Acute Current Visit: No - Narrative A/P Narrative: #1. Infectious disease. SIRS syndrome Patient presents with signs and symptoms of cellulitis related to a diabetic foot ulcer. Pro-calcitonin indicates possible early sepsis. -The patient is clinically much improved today, although significant leukocytosis persists. He was seen by of wound care today. He may end up doing a debridement tomorrow or Sunday. Vascular studies are pending. -Continue with empiric vancomycin and Zosyn. -Cultures are negative so far. - 2. Neurologic. Patient presents with confusion, likely due to medical delirium. -Mental status is significantly improved today. 3. CODE STATUS: Full code. 4. DVT prophylaxis: Subcu heparin. 5. Endocrine. Type 2 diabetes, patient presents with severe hyperglycemia. -Accu-Cheks are improved today, ranging from 70- 243. We will continue with Accu-Cheks and sliding scale insulin, in addition to twice daily Lantus. He is not being given aggressive fluid management at this time, regarding renal failure and tendency to volume overload. -Hyponatremia, likely due to elevated glucose. Approved. Hypocalcemia. Continue to monitor. Nephrology to address. Continue calcium acetate. 6. Renal. End-stage renal disease. He is due for dialysis again tomorrow. -Nephrology consult with Dr. Navarro initiated.. -Hypertension. Blood pressures are currently running in a reasonable range. Hold Lasix for now, regarding possible early sepsis. Hold amlodipine if needed. Continue metoprolol and hydralazine. Medical - PN: Qual - VTE Deep Vein Thrombosis/Pulmonary Embolism Present on Admission: No
[2017-05-24] MEDS ORDERED: VANCOMYCIN 1,500 MG in 0.9 % SODIUM CHLORIDE 500 ML IV ONE (15:00)
--- NOTE | 2017-05-24 17:37 | Nephrology Progress Note ---
Subjective Patient information: Note initiated : 05/24/17 at 5:35 pm Service Date, if different from initiated Date: [] Patient: Sandro Bailey 66 y/o M admitted on 05/23/17 for Fall/Cellulitis of Right Foot, Diabetic Foot Ulcer. Chief Complaint: [] Principal diagnosis: right diabetic foot Interval history: Sandro appears more alert and conversant today. He denied subjective fever or chills, dyspnea or chest pain. He had hemodialysis last night and tolerated it well. AVF site reveals good bruit, no erythema. He is receiving empiric antimicrobial coverage with iv Vancomycin and Zosyn. Objective - Vital Signs Vital signs: Vital Signs Temp Pulse Pulse Resp BP Pulse Ox 05/24/17 16:00 99.3 F H 84 18 158/72 94 05/24/17 12:13 98.9 F 74 18 132/73 95 05/24/17 07:37 80 05/24/17 07:35 98.0 F 18 145/73 98 05/24/17 07:34 145/73 05/24/17 04:23 135/74 05/24/17 04:22 99.1 F H 16 135/74 96 05/24/17 00:00 98.9 F 84 16 145/74 94 05/23/17 22:05 98 F 05/23/17 21:45 88 141/83 05/23/17 21:30 87 149/74 05/23/17 21:15 86 154/84 05/23/17 21:00 88 149/78 05/23/17 20:30 85 148/82 05/23/17 20:01 82 148/79 05/23/17 20:00 98.8 F 86 81 16 148/78 98 05/23/17 19:30 85 144/80 05/23/17 19:01 81 151/82 05/23/17 18:30 98.1 F 80 140/78 Intake and Output 05/24/17 05/24/17 05/24/17 05:59 13:59 21:59 Intake Total 500 / 500 650 / 650 350 / 350 Output Total 2049 0 / 0 Balance -1550 / -1550 650 / 650 350 / 350 Intake: IV 50 / 50 50 / 50 Zosyn 2.25 gm In Dextrose 5% in 50 / 50 50 / 50 Water 50 ml @ 100 mls/hr IV Q12H [facility] Rx#:[id number] Oral 500 / 500 600 / 600 300 / 300 Output: Void Amount 0 / 0 Hemodialysis UF 2049 Other: Meal Lunch Percent of Meal Consumed 100% Feeding Ability Assist with Tray Set Up Intake & Output: Intake & Output 05/24/17 05/24/17 05/24/17 05:59 13:59 21:59 Intake Total 500 / 500 650 / 650 350 / 350 Output Total 2049 0 / 0 Balance -1550 / -1550 650 / 650 350 / 350 Intake: IV 50 / 50 50 / 50 Zosyn 2.25 gm In Dextrose 5% in 50 / 50 50 / 50 Water 50 ml @ 100 mls/hr IV Q12H [facility] Rx#:[id number] Oral 500 / 500 600 / 600 300 / 300 Output: Void Amount 0 / 0 Hemodialysis UF 2049 Other: Meal Lunch Percent of Meal Consumed 100% Feeding Ability Assist with Tray Set Up - General Appearance General appearance: well-developed, well-nourished, appears started age EENT: ATNC Neck: no JVD, no thyromegaly Cardiology: no murmurs, no rub, no gallops, regular rhythm Gastrointestinal: no tenderness - Lab 05/24/17 04:10 05/24/17 04:10 Most recent lab results Calcium 8.4 mg/dl (8.6-10.4) L 05/24/17 04:10 Phosphorus 3.2 mg/dL (2.7-4.5) 05/24/17 04:10 Magnesium 1.8 mg/dL (1.6-2.5) 05/24/17 04:10 Assessment and Plan (1) ESRD (end stage renal disease) ESRD on HD, admitted with altered mentation and fever. Source is likely right foot infection, possible osteomyelitis, on empiric antibiotics. Hemodynamically stable. Plan for hemodialysis as in patient in am tomorrow. Status: Acute
--- NOTE | 2017-05-24 18:45 | General Surgery Consult Note ---
History of Present Illness Patient information: Note initiated : 05/24/17 at 6:35 pm Service Date, if different from initiated Date: [] Patient: Sandro Bailey 66 y/o M admitted on 05/23/17 for Fall/Cellulitis of Right Foot, Diabetic Foot Ulcer. Chief Complaint: [] Consult date: 05/24/17 Requesting physician: Janeth Yancey (wound care consult) History of present illness: I saw this patient for FIRST time today. HE is admitted to the Hospitalist Service. 66/M IDDM, ESRD on Hemodialysis . Admitted after fall and altered mental status. Noted to have cellulitis and skin necrosis lateral aspect of Right anterior lateral foot. patient on IV Vanco and Zosyn. Wound care services consulted for further management of csssi and sepsis related to DFU infection. Patient for HJD on 05/25/2017 Medications and Allergies Home Medications Medication Instructions Recorded Confirmed Type Acetaminophen [Tylenol] 325 mg PO Q4-6HP PRN 05/23/17 05/23/17 History Aspirin [Charmaine Chewable Aspirin] 81 mg PO DAILY 05/23/17 05/23/17 History Atorvastatin [Lipitor] 40 mg PO HS 05/23/17 05/23/17 History Calcium Acetate [Phoslo] 667 mg PO TIDCC 05/23/17 05/23/17 History Ergocalciferol (Vitamin D2) 50,000 unit PO WEEKLY 05/23/17 05/23/17 History [Vitamin D2] Ferrous Gluconate [Fergon] 324 mg PO DAILY 05/23/17 05/23/17 History Furosemide [Lasix] 80 mg PO BID 05/23/17 05/23/17 History Gabapentin [Neurontin] 300 mg PO TID 05/23/17 05/23/17 History Insulin Detemir [Levemir Flextouch] 30 unit SQ DAILY 05/23/17 05/23/17 History Metoprolol Tartrate [Lopressor] 50 mg PO BID 05/23/17 05/23/17 History Sodium Bicarbonate 1,300 mg PO BID 05/23/17 05/23/17 History amLODIPine [Norvasc] 10 mg PO DAILY 05/23/17 05/23/17 History glipiZIDE [Glipizide ER] 10 mg PO DAILY 05/23/17 05/23/17 History hydrALAZINE [Apresoline] 25 mg PO TID 05/23/17 05/23/17 History Allergies Allergy/AdvReac Type Severity Reaction Status Date / Time influenza virus vacc Allergy Unknown Confusion Verified 05/23/17 11:54 trivalent, split [From Fluzone] Exam Temp Pulse Resp BP Pulse Ox 99.3 F H 84 18 158/72 94 05/24/17 16:00 05/24/17 16:00 05/24/17 16:00 05/24/17 16:00 05/24/17 16:00 - General physical appearance well developed, well nourished, severe distress - Eyes PERRL, normal ocular movement - ENT normal pinna, normal nares, normal mucosa, no congestion - Head Head exam IM: Present: atraumatic, normal inspection, normocephalic - Neck no masses, no bruits, trachea midline, no lymphadectomy, no venous distension - Cardiovascular Cardiovascular exam IM: Present: normal rate and rhythm - Respiratory normal expansion, normal respiratory effort, clear to auscultation - Abdomen Abdomen: Present: soft, non tender, bowel sounds - Integumentary Present: other (CSSSI with skin and sub cutaneous necrosis. RESOLVING periwound erythema and cellulitis. ) - Neurologic Present: other (Peripheral neuropathy both feet and ankle. No other gross focal neurological deficits. No lateralizinf signs and moves all extremities. ) - Musculoskeletal Present: other (Non ambulatory. X- ray right foot soft tissue edema with cellulitis and NO evidence of osteomyelitis or fracture. ) - Psychiatric Present: oriented to time, oriented to person, oriented to place, speech is normal Results - Labs 05/25/17 04:10 05/25/17 04:10 Abnormal lab results 05/23/17 05/24/17 05/24/17 Range/Units 16:55 04:10 04:10 WBC 23.3 H (4.5-11.0) K/mcL RBC 3.66 L (4.50-5.90) M/mcL Hgb 10.9 L (13.5-16.5) g/dL Hct 32.9 L (41.0-55.0) % RDW 14.6 H (11.5-14.5) % Gran % 84.3 H (38.0-78.0) % Lymph % (Auto) 7.5 L (15.5-49.0) % Gran # 19.7 H (1.8-8.0) K/mcL [place] # (Auto) 1.2 H (0.1-0.9) K/mcL Chloride 93 L (96-108) mmol/L BUN 25 H (8-23) mg/dl Creatinine 4.6 H (0.7-1.2) mg/dl Hemoglobin A1c 9.1 H (4.0-6.0) % HGB Calcium 8.4 L (8.6-10.4) mg/dl Lactate Dehydrogenase 289 H (94-250) U/L Globulin 3.9 H (2.2-3.7) gm/dL Albumin/Globulin Ratio 0.8 L (1.0-2.3) Diabetes panel 05/23/17 05/24/17 Range/Units 16:55 04:10 Sodium 135 (133-145) mmol/L Potassium 3.8 (3.3-5.1) mmol/L Chloride 93 L (96-108) mmol/L Carbon Dioxide 27 (22-30) mmol/L BUN 25 H (8-23) mg/dl Creatinine 4.6 H (0.7-1.2) mg/dl Glucose 78 (70-105) mg/dL Hemoglobin A1c 9.1 H (4.0-6.0) % HGB Calcium 8.4 L (8.6-10.4) mg/dl AST 29 (0-37) U/l ALT 17 (0-40) U/l Alkaline Phosphatase 112 (39-117) U/L Total Protein 7.2 (5.9-8.4) gm/dL Albumin 3.3 (3.2-5.2) gm/dL Triglycerides 88 (<150) mg/dl Calcium panel 05/24/17 Range/Units 04:10 Calcium 8.4 L (8.6-10.4) mg/dl Phosphorus 3.2 (2.7-4.5) mg/dL Albumin 3.3 (3.2-5.2) gm/dL Pituitary panel 05/24/17 Range/Units 04:10 Sodium 135 (133-145) mmol/L Potassium 3.8 (3.3-5.1) mmol/L Chloride 93 L (96-108) mmol/L Carbon Dioxide 27 (22-30) mmol/L BUN 25 H (8-23) mg/dl Creatinine 4.6 H (0.7-1.2) mg/dl Glucose 78 (70-105) mg/dL Calcium 8.4 L (8.6-10.4) mg/dl Adrenal panel 05/24/17 Range/Units 04:10 Sodium 135 (133-145) mmol/L Potassium 3.8 (3.3-5.1) mmol/L Chloride 93 L (96-108) mmol/L Carbon Dioxide 27 (22-30) mmol/L BUN 25 H (8-23) mg/dl Creatinine 4.6 H (0.7-1.2) mg/dl Glucose 78 (70-105) mg/dL Calcium 8.4 L (8.6-10.4) mg/dl Total Bilirubin 0.5 (0.0-1.0) mg/dL AST 29 (0-37) U/l ALT 17 (0-40) U/l Alkaline Phosphatase 112 (39-117) U/L Total Protein 7.2 (5.9-8.4) gm/dL Albumin 3.3 (3.2-5.2) gm/dL All other labs normal. Assessment and Plan (1) Sepsis affecting skin Acute csssi, with sepsis affecting skin and sub cutaneous tissue right anterior lateral foot and over fifth toe. Fungal debris toe nails. PLAN : Continue IV antibiotics . Will check wound cultures. Local wound care and await non invasive laser Doppler Sensilase non invasive vascular studies. Wound care orders written. Will reassess again and follow along with you. NEED to speak with patient's family. Explained to patient about wound care management of sepsis. Await stabilization of diabetes and hyperglycemia and hyperosmolar status. Spoke with patient about surgery and possible toe amputation and nail trimming. Status: Acute Priority: High Comment: Plan of care discussed with Dr. Cristiano Terrell Hospitalist Physician.
[2017-05-24] MEDS: ATORVASTATIN 20 MG TABLET PO SCH (20:49)
[2017-05-25] MEDS: PIPERACILLIN SODIUM/TAZOBACTAM 2.25 GM in DEXTROSE 5% IN WATER 50 ML IV SCH ×3 (01:42→23:39)
[2017-05-25 05:22] LABS: Basophils # (Auto) 0.1 K/mcL (0.0-0.3); Basophils % (Auto) 0.3 % (0.0-2.0); Eosinophils # (Auto) 0.5 K/mcL (0.0-0.7); Eosinophils % (Auto) 2.4 % (0.0-7.0); Granulocytes % (Auto) 82.9 % (38.0-78.0); Lymphocytes # (Auto) 1.7 K/mcL (1.5-4.8); Lymphocytes % (Auto) 8.2 % (15.5-49.0); Mean Cell Volume 88.6 fL (80.0-100.0); Mean Corpuscular HGB Conc 33.6 g/dL (31.0-36.0); Mean Corpuscular Hemoglobin 29.7 pg (26.0-34.0); Monocytes # (Auto) 1.3 K/mcL (0.1-0.9); Monocytes % (Auto) 6.2 % (1.0-12.0); Platelet Count 338 K/mcL (140-440); RBC 3.45 M/mcL (4.50-5.90); Red Cell Distribution Width 14.1 % (11.5-14.5)
[2017-05-25 06:14] LABS: ALT/SGPT 24 U/l (0-40); Albumin 2.9 gm/dL (3.2-5.2); Albumin/Globulin Ratio 0.7 (1.0-2.3); Alkaline Phosphatase 104 U/L (39-117); Bilirubin,Direct < 0.2 mg/dL (0.0-0.3); Blood Urea Nitrogen 45 mg/dl (8-23); Gamma Glutamyl Transpeptidase 27 U/L (8-61); Magnesium 1.9 mg/dL (1.6-2.5); Uric Acid 5.2 mg/dL (2.5-8.0)
[2017-05-25] MEDS: INSULIN GLARGINE, HUMAN 1 UNIT/0.01 ML SQ SCH ×2 (08:25→21:48)
[2017-05-25] MEDS: INSULIN LISPRO 1 UNIT/0.01 ML UNIT SQ SCH ×4 (08:26→21:47)
[2017-05-25] MEDS: CALCIUM ACETATE 667 MG CAPSULE PO SCH ×3 (08:54→18:45)
--- NOTE | 2017-05-25 11:05 | Internal Med Progress Note ---
Medical - PN: Subj Patient information: Note initiated : 05/25/17 at 11:04 am Service Date, if different from initiated Date: [] Patient: Sandro Bailey 66 y/o M admitted on 05/23/17 for Fall/Cellulitis of Right Foot, Diabetic Foot Ulcer. Chief Complaint: [] Interval history: May 23, 2017: History of present illness: Mr. Bailey is a 66 year old man with a history of type 2 diabetes, end-stage renal disease, atrial fibrillation, neuropathy, etc. He was apparently in his normal state of health until about 2 days ago when he noticed increased pain and swelling of his right foot. I believe he had a fall as well, although that is less certain. He has been more sleepy than usual, and was sent to the emergency room for evaluation today. In the intensive care unit where I met him, he is quite somnolent. He does awaken for a minute or so with strong verbal and physical stimulation, but then drifts back to sleep again. He seems to indicate that he has not been having fever or chills, headaches or dizziness, new eye or ear symptoms, sore throat or cough. He denies chest pain or palpitations, shortness of breath, abdominal pain, nausea or vomiting, diarrhea or constipation, dysuria. He only admits to pain and swelling of his right foot. He does admit that he has been falling, but could not give me any details about that. He lives alone. Apparently his sister was here earlier, but has left for the day. ER evaluation found him to be delirious. Glucose was greater than 400. Head CT was reported as negative. Lactic acid was normal. White blood cell count was markedly elevated at 22. May 24: Today, the patient states he is feeling quite a bit better. However, he is still having significant pain in his right foot, which he rates as 9 out of 10. Otherwise, he denies fever chills, chest pain or shortness of breath, abdominal pain, nausea or vomiting, diarrhea or constipation. He underwent dialysis last night, and appears to have tolerated that well. May 25: The patient had dialysis this morning. He was quite sleepy when I evaluated him. He continues to run low-grade fevers. Leukocytosis is only modestly improved today. He awakens with significant verbal stimulation. He says his right foot pain is much improved today. He apparently told the dietitian that he does not check blood sugars at home and does not own a glucometer. He is normally followed by a doctor pop at [facility] clinic. He otherwise denies fever or chills, chest pain or palpitations, shortness of breath, abdominal pain, nausea or vomiting or diarrhea. - Constitutional Vitals: Vital Signs Temp Pulse Resp BP Pulse Ox 99.4 F H 85 18 129/79 99 05/25/17 10:50 05/25/17 10:50 05/25/17 07:40 05/25/17 10:50 05/25/17 07:40 Period Temp Pulse Resp BP Sys/Frank Pulse Ox Last 24 Hr 98.9 F-100.6 F 74-96 18-20 129-168/64-80 91-99 Intake and Output 05/24/17 05/25/17 05/25/17 21:59 05:59 13:59 Intake Total 750 / 750 Output Total 0 / 0 Balance 750 / 750 Weight 232 lb 232 lb Patient Weight 05/26/17 05:59 Weight 232 lb Intake & Output: Intake & Output 05/24/17 05/25/17 05/25/17 21:59 05:59 13:59 Intake Total 750 / 750 Output Total 0 / 0 Balance 750 / 750 Weight 232 lb 232 lb Intake: IV 50 / 50 Zosyn 2.25 gm In Dextrose 5% in 50 / 50 Water 50 ml @ 100 mls/hr IV Q12H [facility] Rx#:[id number] Oral 700 / 700 Output: Void Amount 0 / 0 Other: Meal Dinner Percent of Meal Consumed 100% Feeding Ability Assist with Tray Set Up Neck is supple without obvious lymphadenopathy or JVD. Temperature is ranging from 98.8-100.6 Cardiac exam shows regular rate and rhythm. Lungs are clear to auscultation. Abdomen is soft and nontender. Extremities: Left foot appears fairly normal. Right foot continues to be quite swollen, red, warm, and very tender to touch. There is a necrotic ulcer on the lateral aspect of the foot, which is very foul- smelling. Neurologic exam: Patient is quite sleepy today, but notes he is often sleepy after dialysis. exam is generally nonfocal. Medical - PN: Obj Da - Labs CBC & Chem 7: 05/25/17 04:10 05/25/17 04:10 Labs: Abnormal Lab Results 05/25/17 05/25/17 05/24/17 04:10 04:10 04:10 WBC 20.5 H 23.3 H RBC 3.45 L 3.66 L Hgb 10.3 L 10.9 L Hct 30.6 L 32.9 L POC Hct RDW 14.6 H Gran % 82.9 H 84.3 H Lymph % (Auto) 8.2 L 7.5 L Gran # 17.0 H 19.7 H [place] # (Auto) 1.3 H 1.2 H POC Sodium Sodium 131 L POC Chloride Chloride 89 L Anion Gap 19.0 H POC BUN BUN 45 H Creatinine 6.7 H* POC Creatinine Glucose 227 H POC Glucose Hemoglobin A1c Calcium 8.0 L POC WB Ioniz Calcium Lactate Dehydrogenase 260 H Albumin 2.9 L Globulin 3.9 H Albumin/Globulin Ratio 0.7 L 05/24/17 05/23/17 05/23/17 04:10 16:55 12:32 WBC 22.5 H RBC 3.57 L Hgb 10.6 L Hct 31.7 L POC Hct RDW Gran % 85.3 H Lymph % (Auto) 6.7 L Gran # 19.2 H [place] # (Auto) 1.4 H POC Sodium Sodium POC Chloride Chloride 93 L Anion Gap POC BUN BUN 25 H Creatinine 4.6 H POC Creatinine Glucose POC Glucose Hemoglobin A1c 9.1 H Calcium 8.4 L POC WB Ioniz Calcium Lactate Dehydrogenase 289 H Albumin Globulin 3.9 H Albumin/Globulin Ratio 0.8 L 05/23/17 12:32 WBC RBC Hgb Hct POC Hct 33.0 L RDW Gran % Lymph % (Auto) Gran # [place] # (Auto) POC Sodium 131 L Sodium POC Chloride 93 L Chloride Anion Gap POC BUN 45 H BUN Creatinine POC Creatinine 8.7 H* Glucose POC Glucose 456 H* Hemoglobin A1c Calcium POC WB Ioniz Calcium 0.93 L Lactate Dehydrogenase Albumin Globulin Albumin/Globulin Ratio May 25: Wound culture: Is growing strep agalactiae, group B, as well as staph aureus. Susceptibility to follow. May 23: Pro-calcitonin is elevated at 1.4, consistent with possible sepsis. Lactic acid was normal at 1.6. Wound Gram stain: Shows many gram-positive cocci in clusters, many gram- negative bacilli. Blood cultures are negative so far. CBC: White blood cell count is 22,500, hemoglobin 10, hematocrit 31, platelets 330,000. Differential shows 19,200 neutrophils, 1400 monocytes. Chemistry panel: Show sodium 131, chloride 93, BUN 45, creatinine 8.7, glucose 456, ionized calcium low at 0.93 Alcohol level is less than 0.01 Foot x-ray: IMPRESSION: No evidence of osteomyelitis. Large soft tissue ulcer over the fifth metatarsal head with associated cellulitis Chest x-ray: Shows no acute disease. There is a right IJ double-lumen catheter tip at the right atrium. 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 There is no hemorrhage or other acute intracerebral abnormality Meds: Medications Acetaminophen (Tylenol) 650 mg PO Q6HP PRN PRN Reason: PAIN/FEVER > 101 Hydrocodone Bitart/Acetaminophen ([place] 5/325mg) 1 tab PO Q4HP PRN PRN Reason: PAIN LEVEL 3-6 Last Admin: 05/24/17 10:21 Dose: 1 tab Albuterol Sulfate (Ventolin) 2.5 mg NEB Q6HRT PRN PRN Reason: Shortness Of Breath Or Wheezing Amlodipine Besylate (Norvasc) 10 mg PO DAILY [facility] Last Admin: 05/24/17 08:11 Dose: 10 mg Aspirin (Aspirin) 81 mg PO DAILY [facility] Last Admin: 05/24/17 08:10 Dose: 81 mg Atorvastatin Calcium (Lipitor) 40 mg PO HS [facility] Last Admin: 05/24/17 20:49 Dose: 40 mg Calcium Acetate (Phoslo) 667 mg PO TIDCC [facility] Last Admin: 05/25/17 08:54 Dose: 667 mg Dextrose (Dextrose 50%) 0 ml IV UD PRN PRN Reason: Hypoglycemia Diagnostic Test (Pha) (Accu-Chek) 1 each FS ACHS [facility] Last Admin: 05/25/17 07:50 Dose: 1 each Docusate Sodium (Colace) 100 mg PO BID PRN PRN Reason: Constipation Ergocalciferol (Drisdol) 50,000 unit PO WEEKLY [facility] Ferrous Gluconate (Fergon) 324 mg PO DAILY [facility] Last Admin: 05/24/17 08:11 Dose: 324 mg Gabapentin (Neurontin) 300 mg PO TID [facility] Last Admin: 05/24/17 20:37 Dose: 300 mg Glucose (Insta-Glucose) 15 gm PO PRN PRN PRN Reason: Hypoglycemia Heparin Sodium (Porcine) (Heparin) 5,000 unit SQ Q12 [facility] Last Admin: 05/24/17 20:38 Dose: 5,000 unit Hydralazine HCl (Apresoline) 25 mg PO TID [facility] Last Admin: 05/24/17 20:49 Dose: 25 mg Piperacillin Sod/Tazobactam (Sod 2.25 gm/ Dextrose) 50 mls @ 100 mls/hr IV Q12H [facility] Last Admin: 05/25/17 01:42 Dose: 100 mls/hr Insulin Glargine (Lantus) 10 unit SQ BID [facility] Last Admin: 05/25/17 08:25 Dose: 10 unit Insulin Human Lispro (Humalog) 0 unit SQ ACHS [facility] PRN Reason: Protocol Last Admin: 05/25/17 08:26 Dose: 2 unit Metoprolol Tartrate (Lopressor) 50 mg PO BID [facility] Last Admin: 05/24/17 20:37 Dose: 50 mg Naloxone HCl (Narcan) 0.1 mg IV Q2MIN PRN PRN Reason: Opiate Reversal Ondansetron HCl (Zofran) 4 mg IV Q4HP PRN PRN Reason: Nausea And Vomiting Sodium Bicarbonate (Sodium Bicarbonate) 1,300 mg PO BID [facility] Last Admin: 05/24/17 20:49 Dose: 1,300 mg Vancomycin HCl (Vancomycin Per Pharmacy) 1 order IV [facility] [place] Medical - PN: A/P - Time Spent With Patient Total time spent is greater than 50% in coordination of care (as documented) at patient's floor/unit and/or counseling patient: 25 - 35 minutes (1) DM type 2, uncontrolled, with renal complications Status: Acute Current Visit: Yes (2) Cellulitis of foot without toes, right Status: Acute Current Visit: Yes (3) Delirium Status: Acute Current Visit: Yes (4) Leukocytosis Status: Acute Current Visit: Yes (5) ESRD (end stage renal disease) Status: Acute Current Visit: No - Narrative A/P Narrative: #1. Infectious disease. SIRS syndrome Patient presents with signs and symptoms of cellulitis related to a diabetic foot ulcer. Pro-calcitonin indicates possible early sepsis. -The patient is clinically improved today, although significant leukocytosis persists. He was seen by of wound care . He may end up doing a debridement today or tomorrow. Vascular studies are pending. -Continue with empiric vancomycin and Zosyn. -Foot culture is growing staph and strep. Sensitivities are pending. Ideally we would get some deep tissue cultures after debridement. 2. Neurologic. Patient presents with confusion, likely due to medical delirium. -Mental status is waxing and waning a bit. Patient is fairly new to dialysis, and he says it tends to make him very sleepy and fatigued. 3. CODE STATUS: Full code. 4. DVT prophylaxis: Subcu heparin. 5. Endocrine. Type 2 diabetes, patient presents with severe hyperglycemia. -Accu-Cheks are improved today, ranging from 139-310 we will continue with Accu- Cheks and sliding scale insulin, in addition to twice daily Lantus. He is not being given aggressive fluid management at this time, regarding renal failure and tendency to volume overload. -Hyponatremia, likely due to elevated glucose. Hypocalcemia. Continue to monitor. Nephrology to address. Continue calcium acetate. 6. Renal. End-stage renal disease. He is dialyzed today. -Nephrology consult with Dr. Navarro/David. -Hypertension. Blood pressures are currently running a bit high. We will see where he is after dialysis/diuresis. Hold Lasix for now, regarding possible early sepsis. Hold amlodipine if needed. Continue metoprolol and hydralazine. Medical - PN: Qual - VTE Deep Vein Thrombosis/Pulmonary Embolism Present on Admission: No
[2017-05-25] MEDS: METOPROLOL TARTRATE 50 MG TABLET PO SCH ×2 (11:17→21:49)
[2017-05-25] MEDS: GABAPENTIN 300 MG CAPSULE PO SCH ×3 (11:17→21:49)
[2017-05-25] MEDS: amLODIPine 10 MG TABLET PO SCH (11:17)
[2017-05-25] MEDS: FERROUS GLUCONATE 324 MG TABLET PO SCH (11:17)
[2017-05-25] MEDS: ASPIRIN 81 MG TAB.CHEW PO SCH (11:17)
[2017-05-25] MEDS: hydrALAZINE 25 MG TABLET PO SCH ×3 (11:17→21:49)
[2017-05-25] MEDS: HEPARIN 5,000 UNIT/ML VIAL SQ SCH ×2 (13:39→21:50)
[2017-05-25] MEDS: SODIUM BICARBONATE 650 MG TABLET PO SCH ×2 (13:39→21:50)
[2017-05-25] MEDS: HYDROcodone/APAP 5/325MG TABLET PO PRN (15:28)
[2017-05-25] MEDS ORDERED: ONDANSETRON 4 MG/2 ML VIAL IV PRN (15:41)
[2017-05-25] MEDS ORDERED: HYDROcodone/APAP 5/325MG TABLET PO PRN (15:41)
[2017-05-25] MEDS ORDERED: ALBUTEROL SULFATE 2.5 MG/3 ML NEBULIZER NEB PRN (15:41)
[2017-05-25] MEDS ORDERED: DEXTROSE 50% 50 ML VIAL IV PRN (15:41)
[2017-05-25] MEDS ORDERED: DEXTROSE 31 GM ORAL.SUSP PO PRN (15:41)
[2017-05-25] MEDS ORDERED: VANCOMYCIN PER PHARMACY IV SCH (15:41)
[2017-05-25] MEDS ORDERED: DOCUSATE SODIUM 100 MG CAPSULE PO PRN (15:41)
[2017-05-25] MEDS ORDERED: NALOXONE HCL 0.4 MG/ML VIAL IV PRN (15:41)
[2017-05-25] MEDS ORDERED: ACETAMINOPHEN 325 MG TABLET PO PRN (15:41)
--- NOTE | 2017-05-25 16:15 | Nephrology Progress Note ---
Subjective Patient information: Note initiated : 05/25/17 at 4:12 pm Service Date, if different from initiated Date: [] Patient: Sandro Bailey 66 y/o M admitted on 05/23/17 for Fall/Cellulitis of Right Foot, Diabetic Foot Ulcer. Chief Complaint: [] Principal diagnosis: right diabetic foot Interval history: seen this am denies any complaints still has Right foot pain no SOB, CP, dizziness No edema mental status improved fever improving, wbc count trending down Pertinent ROS: negative Objective - Vital Signs Vital signs: Vital Signs Temp Pulse Resp BP Pulse Ox 05/25/17 13:12 99.3 F H 85 137/82 05/25/17 12:51 81 141/85 05/25/17 12:21 85 130/80 05/25/17 12:00 98.8 F 83 18 130/80 95 05/25/17 11:50 98.8 F 81 128/81 05/25/17 11:20 80 126/76 05/25/17 10:50 99.4 F H 85 129/79 05/25/17 10:19 85 141/79 05/25/17 10:00 100.3 F H 87 136/80 05/25/17 07:40 99 F 18 152/66 99 05/25/17 04:00 100.3 F H 91 H 20 149/64 91 05/25/17 00:00 18 168/74 05/24/17 20:00 100.6 F H 96 H 18 163/74 95 Intake and Output 05/25/17 05/25/17 05/25/17 05:59 13:59 21:59 Intake Total 50 / 50 Output Total 1999 Balance 50 / 50 -1999 Intake: IV 50 / 50 Zosyn 2.25 gm In Dextrose 5% in 50 / 50 Water 50 ml @ 100 mls/hr IV Q12H [facility] Rx#:[id number] Output: Hemodialysis UF 1999 Other: Weight 232 lb Patient Weight 05/26/17 05:59 Weight 232 lb Intake & Output: Intake & Output 05/25/17 05/25/17 05/25/17 05:59 13:59 21:59 Intake Total 50 / 50 Output Total 1999 Balance 50 / 50 -1999 Weight 232 lb Intake: IV 50 / 50 Zosyn 2.25 gm In Dextrose 5% in 50 / 50 Water 50 ml @ 100 mls/hr IV Q12H [facility] Rx#:[id number] Output: Hemodialysis UF 1999 - General Appearance General appearance: appears started age EENT: mucous membranes moist Neck: no JVD Respiratory: clear Cardiology: no rub, no edema, normal S1, normal S2 Gastrointestinal: no tenderness, no guarding Integumentary: warm and dry Neurologic: alert and oriented x3 Musculoskeletal: no cyanosis, no clubbing Psychiatric: mood/affect appropriate - Lab 05/25/17 04:10 05/25/17 04:10 Most recent lab results Calcium 8.0 mg/dl (8.6-10.4) L 05/25/17 04:10 Phosphorus 4.3 mg/dL (2.7-4.5) 05/25/17 04:10 Magnesium 1.9 mg/dL (1.6-2.5) 05/25/17 04:10 Assessment and Plan (1) Anemia Status: Acute (2) ESRD (end stage renal disease) HD today for 3.5 hr susing revaclear dialyser, QB 400ML/MIN, QD 800ml/min, 3K/ 2.5Ca dialysate and UF goal of 2-3L Next HD on sunday please dose meds to HD Anemia: Hb at goal WILL MONITOR LE foot cellulitis/infection: culture with staph aureus and strep: on zosyn and vancomycin will need to follow susceptibility HTN: controlled ct current meds Will follow along appreciate hospitalist and wound care help in managing this patient Status: Acute (3) Cellulitis of foot without toes, right Status: Acute
[2017-05-25] MEDS: ATORVASTATIN 20 MG TABLET PO SCH (21:49)
[2017-05-25] MEDS: GENTAMICIN SULFATE 40 MG, CLINDAMYCIN 300 MG, BACITRACIN 25,000 UNIT in SODIUM CHLORIDE... IRR SCH (21:51)
[2017-05-26 06:46] LABS: Basophils # (Auto) 0.1 K/mcL (0.0-0.3); Basophils % (Auto) 0.3 % (0.0-2.0); Eosinophils # (Auto) 0.9 K/mcL (0.0-0.7); Eosinophils % (Auto) 4.7 % (0.0-7.0); Granulocytes % (Auto) 76.9 % (38.0-78.0); Lymphocytes # (Auto) 1.9 K/mcL (1.5-4.8); Lymphocytes % (Auto) 10.1 % (15.5-49.0); Mean Cell Volume 88.4 fL (80.0-100.0); Mean Corpuscular HGB Conc 33.7 g/dL (31.0-36.0); Mean Corpuscular Hemoglobin 29.8 pg (26.0-34.0); Monocytes # (Auto) 1.5 K/mcL (0.1-0.9); Platelet Count 358 K/mcL (140-440); RBC 3.42 M/mcL (4.50-5.90); Red Cell Distribution Width 14.5 % (11.5-14.5)
[2017-05-26 07:15] LABS: ALT/SGPT 30 U/l (0-40); Albumin 3.1 gm/dL (3.2-5.2); Albumin/Globulin Ratio 0.8 (1.0-2.3); Alkaline Phosphatase 101 U/L (39-117); Bilirubin,Direct < 0.2 mg/dL (0.0-0.3); Blood Urea Nitrogen 33 mg/dl (8-23); Gamma Glutamyl Transpeptidase 32 U/L (8-61); Magnesium 1.9 mg/dL (1.6-2.5)
[2017-05-26] MEDS: INSULIN LISPRO 1 UNIT/0.01 ML UNIT SQ SCH ×4 (07:55→21:07)
[2017-05-26] MEDS: amLODIPine 10 MG TABLET PO SCH (09:04)
[2017-05-26] MEDS: GABAPENTIN 300 MG CAPSULE PO SCH ×3 (09:04→21:07)
[2017-05-26] MEDS: INSULIN GLARGINE, HUMAN 1 UNIT/0.01 ML SQ SCH ×2 (09:04→21:06)
[2017-05-26] MEDS: METOPROLOL TARTRATE 50 MG TABLET PO SCH ×2 (09:04→21:08)
[2017-05-26] MEDS: ASPIRIN 81 MG TAB.CHEW PO SCH (09:04)
[2017-05-26] MEDS: CALCIUM ACETATE 667 MG CAPSULE PO SCH ×3 (09:05→17:03)
[2017-05-26] MEDS: hydrALAZINE 25 MG TABLET PO SCH ×3 (09:05→21:07)
[2017-05-26] MEDS: HEPARIN 5,000 UNIT/ML VIAL SQ SCH ×2 (09:05→21:06)
[2017-05-26] MEDS: FERROUS GLUCONATE 324 MG TABLET PO SCH (09:06)
[2017-05-26] MEDS: SODIUM BICARBONATE 650 MG TABLET PO SCH ×2 (09:06→21:15)
[2017-05-26] MEDS: GENTAMICIN SULFATE 40 MG, CLINDAMYCIN 300 MG, BACITRACIN 25,000 UNIT in SODIUM CHLORIDE... IRR SCH (10:45)
[2017-05-26] MEDS: PIPERACILLIN SODIUM/TAZOBACTAM 2.25 GM in DEXTROSE 5% IN WATER 50 ML IV SCH (11:52)
--- NOTE | 2017-05-26 11:57 | Internal Med Progress Note ---
Medical - PN: Subj Patient information: Note initiated : 05/26/17 at 11:57 am Service Date, if different from initiated Date: [] Patient: Sandro Bailey 66 y/o M admitted on 05/23/17 for Fall/Cellulitis of Right Foot, Diabetic Foot Ulcer. Chief Complaint: [] Interval history: May 23, 2017: History of present illness: Mr. Bailey is a 66 year old man with a history of type 2 diabetes, end-stage renal disease, atrial fibrillation, neuropathy, etc. He was apparently in his normal state of health until about 2 days ago when he noticed increased pain and swelling of his right foot. I believe he had a fall as well, although that is less certain. He has been more sleepy than usual, and was sent to the emergency room for evaluation today. In the intensive care unit where I met him, he is quite somnolent. He does awaken for a minute or so with strong verbal and physical stimulation, but then drifts back to sleep again. He seems to indicate that he has not been having fever or chills, headaches or dizziness, new eye or ear symptoms, sore throat or cough. He denies chest pain or palpitations, shortness of breath, abdominal pain, nausea or vomiting, diarrhea or constipation, dysuria. He only admits to pain and swelling of his right foot. He does admit that he has been falling, but could not give me any details about that. He lives alone. Apparently his sister was here earlier, but has left for the day. ER evaluation found him to be delirious. Glucose was greater than 400. Head CT was reported as negative. Lactic acid was normal. White blood cell count was markedly elevated at 22. May 24: Today, the patient states he is feeling quite a bit better. However, he is still having significant pain in his right foot, which he rates as 9 out of 10. Otherwise, he denies fever chills, chest pain or shortness of breath, abdominal pain, nausea or vomiting, diarrhea or constipation. He underwent dialysis last night, and appears to have tolerated that well. May 25: The patient had dialysis this morning. He was quite sleepy when I evaluated him. He continues to run low-grade fevers. Leukocytosis is only modestly improved today. He awakens with significant verbal stimulation. He says his right foot pain is much improved today. He apparently told the dietitian that he does not check blood sugars at home and does not own a glucometer. He is normally followed by a doctor pop at [facility]. He otherwise denies fever or chills, chest pain or palpitations, shortness of breath, abdominal pain, nausea or vomiting or diarrhea. May 26: Today, the patient says he is feeling relatively well. He is noticing only minimal right foot discomfort. He continues to run low-grade fevers and high white blood cell counts, although these are improving. Today he has 2 family members in the room, his mother and I believe his sister. They have lots of questions. Case was reviewed with and Dr. Hernandez. Patient is to go to the OR on Sunday to have further wound debridement, and then decide if the patient might benefit from hyperbaric therapy to help heal his diabetic foot ulcer. Dr. Hernandez says the patient is on a kidney transplant wait list. Her plan is to start peritoneal dialysis once there is no longer infection going on, while awaiting kidney transplant. Patient lives over 2 hours from a hospital. Otherwise, patient denies fever chills, chest pain or shortness of breath, abdominal pain, nausea or vomiting or diarrhea or dysuria. - Constitutional Vitals: Vital Signs Temp Pulse Resp BP Pulse Ox 99.3 F H 80 18 162/69 98 05/26/17 07:15 05/26/17 07:15 05/26/17 07:15 05/26/17 07:15 05/26/17 07:15 Period Temp Pulse Resp BP Sys/Frank Pulse Ox Last 24 Hr 98 F-100.1 F 75-85 18-20 119-162/62-94 94-100 Intake and Output 05/25/17 05/26/17 05/26/17 21:59 05:59 13:59 Intake Total 410 / 410 410 / 410 360 / 360 Output Total 300 / 300 Balance 110 / 110 410 / 410 360 / 360 Weight 224 lb Intake & Output: Intake & Output 05/25/17 05/26/17 05/26/17 21:59 05:59 13:59 Intake Total 410 / 410 410 / 410 360 / 360 Output Total 300 / 300 Balance 110 / 110 410 / 410 360 / 360 Weight 224 lb Intake: IV 50 / 50 50 / 50 Zosyn 2.25 gm In Dextrose 5% in 50 / 50 Water 50 ml @ 100 mls/hr IV Q12H [facility] Rx#:[id number] Oral 360 / 360 360 / 360 360 / 360 Output: Void Amount 300 / 300 Other: Meal Dinner Breakfast Percent of Meal Consumed 100% 100% Feeding Ability Assist with Tray Set Up Independent # Voids 1 0 1 # Bowel Movements 1 1 Neck is supple without obvious lymphadenopathy or JVD. Temperature is ranging from 98-100.1 Cardiac exam shows regular rate and rhythm. Lungs are clear to auscultation. Abdomen is soft and nontender. Extremities: Left foot appears fairly normal. Right foot continues to be swollen, red, warm, but much improved compared to yesterday.. Wound has been debrided, and is now much bladder cleaner, and has no odor. There is still necrotic periwound tissue. Neurologic exam: Patient is more awake today, but continues to be minimally verbal. His family does most of the talking. Medical - PN: Obj Da - Labs CBC & Chem 7: 05/26/17 06:00 05/26/17 06:00 Labs: Abnormal Lab Results 05/26/17 05/26/17 05/25/17 06:00 06:00 04:10 WBC 19.0 H 20.5 H RBC 3.42 L 3.45 L Hgb 10.2 L 10.3 L Hct 30.2 L 30.6 L POC Hct RDW Gran % 82.9 H Lymph % (Auto) 10.1 L 8.2 L Gran # 14.6 H 17.0 H Coryell # (Auto) 1.5 H 1.3 H Eos # (Auto) 0.9 H POC Sodium Sodium POC Chloride Chloride 94 L Anion Gap POC BUN BUN 33 H Creatinine 5.4 H* POC Creatinine Glucose 123 H POC Glucose Hemoglobin A1c Calcium 8.2 L POC WB Ioniz Calcium Phosphorus 4.7 H Lactate Dehydrogenase Albumin 3.1 L Globulin Albumin/Globulin Ratio 0.8 L 05/25/17 05/24/17 05/24/17 04:10 04:10 04:10 WBC 23.3 H RBC 3.66 L Hgb 10.9 L Hct 32.9 L POC Hct RDW 14.6 H Gran % 84.3 H Lymph % (Auto) 7.5 L Gran # 19.7 H Coryell # (Auto) 1.2 H Eos # (Auto) POC Sodium Sodium 131 L POC Chloride Chloride 89 L 93 L Anion Gap 19.0 H POC BUN BUN 45 H 25 H Creatinine 6.7 H* 4.6 H POC Creatinine Glucose 227 H POC Glucose Hemoglobin A1c Calcium 8.0 L 8.4 L POC WB Ioniz Calcium Phosphorus Lactate Dehydrogenase 260 H 289 H Albumin 2.9 L Globulin 3.9 H 3.9 H Albumin/Globulin Ratio 0.7 L 0.8 L 05/23/17 05/23/17 05/23/17 16:55 12:32 12:32 WBC 22.5 H RBC 3.57 L Hgb 10.6 L Hct 31.7 L POC Hct 33.0 L RDW Gran % 85.3 H Lymph % (Auto) 6.7 L Gran # 19.2 H Coryell # (Auto) 1.4 H Eos # (Auto) POC Sodium 131 L Sodium POC Chloride 93 L Chloride Anion Gap POC BUN 45 H BUN Creatinine POC Creatinine 8.7 H* Glucose POC Glucose 456 H* Hemoglobin A1c 9.1 H Calcium POC WB Ioniz Calcium 0.93 L Phosphorus Lactate Dehydrogenase Albumin Globulin Albumin/Globulin Ratio May 25: Wound culture: Is growing strep agalactiae, group B, as well as staph aureus. No susceptibilities done on the strep. Staph aureus is pansensitive. May 23: Pro-calcitonin is elevated at 1.4, consistent with possible sepsis. Lactic acid was normal at 1.6. Wound Gram stain: Shows many gram-positive cocci in clusters, many gram- negative bacilli. Blood cultures are negative so far. CBC: White blood cell count is 22,500, hemoglobin 10, hematocrit 31, platelets 330,000. Differential shows 19,200 neutrophils, 1400 monocytes. Chemistry panel: Show sodium 131, chloride 93, BUN 45, creatinine 8.7, glucose 456, ionized calcium low at 0.93 Alcohol level is less than 0.01 Foot x-ray: IMPRESSION: No evidence of osteomyelitis. Large soft tissue ulcer over the fifth metatarsal head with associated cellulitis Chest x-ray: Shows no acute disease. There is a right IJ double-lumen catheter tip at the right atrium. 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 There is no hemorrhage or other acute intracerebral abnormality Meds: Medications Acetaminophen (Tylenol) 650 mg PO Q6HP PRN PRN Reason: PAIN/FEVER > 101 Hydrocodone Bitart/Acetaminophen ([place] 5/325mg) 1 tab PO Q4HP PRN PRN Reason: PAIN LEVEL 3-6 Last Admin: 05/25/17 21:48 Dose: 1 tab Albuterol Sulfate (Ventolin) 2.5 mg NEB Q6HRT PRN PRN Reason: Shortness Of Breath Or Wheezing Amlodipine Besylate (Norvasc) 10 mg PO DAILY [facility] Last Admin: 05/26/17 09:04 Dose: 10 mg Aspirin (Aspirin) 81 mg PO DAILY [facility] Last Admin: 05/26/17 09:04 Dose: 81 mg Atorvastatin Calcium (Lipitor) 40 mg PO HS [facility] Last Admin: 05/25/17 21:49 Dose: 40 mg Calcium Acetate (Phoslo) 667 mg PO TIDCC [facility] Last Admin: 05/26/17 11:53 Dose: 667 mg Dextrose (Dextrose 50%) 0 ml IV UD PRN PRN Reason: Hypoglycemia Diagnostic Test (Pha) (Accu-Chek) 1 each FS ACHS [facility] Last Admin: 05/26/17 07:15 Dose: 1 each Docusate Sodium (Colace) 100 mg PO BID PRN PRN Reason: Constipation Ergocalciferol (Drisdol) 50,000 unit PO Landa@0900 [facility] Ferrous Gluconate (Fergon) 324 mg PO DAILY [facility] Last Admin: 05/26/17 09:06 Dose: 324 mg Gabapentin (Neurontin) 300 mg PO TID [facility] Last Admin: 05/26/17 09:04 Dose: 300 mg Glucose (Insta-Glucose) 15 gm PO PRN PRN PRN Reason: Hypoglycemia Heparin Sodium (Porcine) (Heparin) 5,000 unit SQ Q12 [facility] Last Admin: 05/26/17 09:05 Dose: 5,000 unit Hydralazine HCl (Apresoline) 25 mg PO TID [facility] Last Admin: 05/26/17 09:05 Dose: 25 mg Piperacillin Sod/Tazobactam (Sod 2.25 gm/ Dextrose) 50 mls @ 100 mls/hr IV Q12H [facility] Last Admin: 05/26/17 11:52 Dose: 100 mls/hr Gentamicin Sulfate 40 mg/Clindamycin Phosphate 300 mg/Bacitracin 25,000 unit/ Sodium Chloride 503 mls @ 0 mls/hr IRR 3-4XD [facility] PRN Reason: As Directed Last Admin: 05/25/17 21:51 Dose: 1 mls/hr Insulin Glargine (Lantus) 10 unit SQ BID [facility] Last Admin: 05/26/17 09:04 Dose: 10 unit Insulin Human Lispro (Humalog) 0 unit SQ ACHS [facility] PRN Reason: Protocol Last Admin: 05/26/17 07:55 Dose: Not Given Metoprolol Tartrate (Lopressor) 50 mg PO BID [facility] Last Admin: 05/26/17 09:04 Dose: 50 mg Naloxone HCl (Narcan) 0.1 mg IV Q2MIN PRN PRN Reason: Opiate Reversal Ondansetron HCl (Zofran) 4 mg IV Q4HP PRN PRN Reason: Nausea And Vomiting Sodium Bicarbonate (Sodium Bicarbonate) 1,300 mg PO BID [facility] Last Admin: 05/26/17 09:06 Dose: 1,300 mg Vancomycin HCl (Vancomycin Per Pharmacy) [address] [facility] Medical - PN: A/P - Time Spent With Patient Total time spent is greater than 50% in coordination of care (as documented) at patient's floor/unit and/or counseling patient: 25 - 35 minutes (1) DM type 2, uncontrolled, with renal complications Status: Acute Current Visit: Yes (2) Cellulitis of foot without toes, right Status: Acute Current Visit: Yes (3) Delirium Status: Acute Current Visit: Yes (4) Leukocytosis Status: Acute Current Visit: Yes (5) ESRD (end stage renal disease) Status: Acute Current Visit: No - Narrative A/P Narrative: #1. Infectious disease. SIRS syndrome Patient presents with signs and symptoms of cellulitis related to a diabetic foot ulcer. Pro-calcitonin indicates possible early sepsis. -The patient is clinically improved today, and leukocytosis is starting to trend down, as is his fever. He is status post debridement, but Dr. Esteves will take him to the OR on Sunday for further debridement. -Continue with empiric vancomycin and Zosyn. -Ideally we would get deep tissue cultures after debridement. -Given that the patient is a diabetic, he may require hyperbaric oxygen to completely heal this wound and avoid amputation. 2. Neurologic. Patient presents with confusion, likely due to medical delirium. Level of alertness seems improved today. 3. CODE STATUS: Full code. 4. DVT prophylaxis: Subcu heparin. 5. Endocrine. Type 2 diabetes, patient presents with severe hyperglycemia. -Accu-Cheks are improved today, ranging from 130 -310 we will continue with Accu -Cheks and sliding scale insulin, -Increase Lantus to 15 units twice daily, as his home dose is 30 units daily. Add back low-dose glipizide and follow. -Hyponatremia, resolved. Hypocalcemia. Continue to monitor. By nephrology, dialysis. Continue calcium acetate. 6. Renal. End-stage renal disease. He is for dialysis tomorrow. Dr. Hernandez plans to start peritoneal dialysis when he is stable, while awaiting kidney transplant. - -Hypertension. Blood pressures are currently running a bit high. Continue amlodipine, hydralazine, metoprolol. Resume Lasix. Medical - PN: Qual - VTE Deep Vein Thrombosis/Pulmonary Embolism Present on Admission: No
--- NOTE | 2017-05-26 14:05 | General Surgery Progress Note ---
Subjective Narrative: Note initiated : 05/26/17 at 1:58 pm Service Date, if different from initiated Date: [] Patient: Sandro Bailey 66 y/o M admitted on 05/23/17 for Fall/Cellulitis of Right Foot, Diabetic Foot Ulcer. Chief Complaint: []I saw patient on 05/25/2017 evening and carried out a bedside selective debridement of necrotic skin and sub cutaneous tissue over Right lateral aspect of 5 th toe. I reassessed patient this morning and reviewed wounds and wound care with Consuelo MONTES DE OCA and patient's sister a nd mother in the room 116 on Telemetry bed. Patient has had an uneventful night. Wound cleaned with Vashe and dressed with GCB solution as instructed. Patient is tolerating this well. There is decreased pain and the malodor from the wound has since resolved. There is periwound dry necrosis along the edges. This wound extends to subcutaneous tissue and synovial soft tissue over bone. RIVAS DFU 2/3 Wound c/s report seen. pansensitive staph aureus. I reviewed his progress with Consuelo MONTES DE OCA and spoke with Dr. Burgess dEwards , Hospitlaist Physician and subsequently with Dr. Hernandez Assistant County Attorney. Objective Temp Pulse Resp BP Pulse Ox 99.1 F H 77 16 134/55 94 05/26/17 11:30 05/26/17 11:30 05/26/17 11:30 05/26/17 11:30 05/26/17 11:30 Low grade temperature. HD stable. No arrhythmias. No pain and the wound odor has resolved. There is demarcating eschar around periwound margin. Wound base showing patch granulation tissue and exposed synovial tissue . DFU Rivas 2/3 Wound culture results reviewed. Pansensitive staph and patient is on IV Zosyn and vancomycin. THere is marginal improvement in leucocytosis and electrolytes. - Additional Data Intake & Output - Last 24 hours: Intake & Output 05/24/17 05/25/17 05/26/17 05/27/17 05:59 05:59 05:59 05:59 Intake Total 800 / 800 1949 / 1949 820 / 820 530 / 530 Output Total 2049 0 / 0 2950 / 2950 Balance -1250 / -1250 1949 -2130 / -2130 530 / 530 Weight 224 lb 8 oz 232 lb 224 lb - Labs 05/26/17 06:00 05/26/17 06:00 Diabetes panel 05/26/17 Range/Units 06:00 Sodium 135 (133-145) mmol/L Potassium 4.3 (3.3-5.1) mmol/L Chloride 94 L (96-108) mmol/L Carbon Dioxide 26 (22-30) mmol/L BUN 33 H (8-23) mg/dl Creatinine 5.4 H* (0.7-1.2) mg/dl Glucose 123 H (70-105) mg/dL Calcium 8.2 L (8.6-10.4) mg/dl AST 33 (0-37) U/l ALT 30 (0-40) U/l Alkaline Phosphatase 101 (39-117) U/L Total Protein 6.8 (5.9-8.4) gm/dL Albumin 3.1 L (3.2-5.2) gm/dL Triglycerides 78 (<150) mg/dl Calcium panel 05/26/17 Range/Units 06:00 Calcium 8.2 L (8.6-10.4) mg/dl Phosphorus 4.7 H (2.7-4.5) mg/dL Albumin 3.1 L (3.2-5.2) gm/dL Pituitary panel 05/26/17 Range/Units 06:00 Sodium 135 (133-145) mmol/L Potassium 4.3 (3.3-5.1) mmol/L Chloride 94 L (96-108) mmol/L Carbon Dioxide 26 (22-30) mmol/L BUN 33 H (8-23) mg/dl Creatinine 5.4 H* (0.7-1.2) mg/dl Glucose 123 H (70-105) mg/dL Calcium 8.2 L (8.6-10.4) mg/dl Adrenal panel 05/26/17 Range/Units 06:00 Sodium 135 (133-145) mmol/L Potassium 4.3 (3.3-5.1) mmol/L Chloride 94 L (96-108) mmol/L Carbon Dioxide 26 (22-30) mmol/L BUN 33 H (8-23) mg/dl Creatinine 5.4 H* (0.7-1.2) mg/dl Glucose 123 H (70-105) mg/dL Calcium 8.2 L (8.6-10.4) mg/dl Total Bilirubin 0.4 (0.0-1.0) mg/dL AST 33 (0-37) U/l ALT 30 (0-40) U/l Alkaline Phosphatase 101 (39-117) U/L Total Protein 6.8 (5.9-8.4) gm/dL Albumin 3.1 L (3.2-5.2) gm/dL Assessment and Plan (1) Sepsis affecting skin Problem details: Plan [facility]. Status: Acute Current Visit: Yes - Narrative A/P Narrative: Assessment : CSSSI with source being right lateral foot alont the distal half of 5 th metatarsal bone. marginal decrease of WBC, Creatinine. Plan: Patient will be hemodialyzed on Sunday on 05/27/2017 . I Plan to schedule his surgery for RIGHT 5 th toe wound debridement vs possible toe amputation and trimming of toe nails on Sunday05/29/2017 I spoke with patient and his family at length . Explained the plan of care ALONG with risks, benefits and complications. FOR OR surgical debridement on 05/26/2017, Possibility of right 5 th toe amputation cannot be ruled out. I have answered all questions of patient and his family. - Time Spent With Patient Total time spent is greater than 50% in coordination of care (as documented) at patient's floor/unit and/or counseling patient: 25 - 35 minutes
--- NOTE | 2017-05-26 14:49 | Nephrology Progress Note ---
Subjective Patient information: Note initiated : 05/26/17 at 2:44 pm Service Date, if different from initiated Date: [] Patient: Sandro Bailey 66 y/o M admitted on 05/23/17 for Fall/Cellulitis of Right Foot, Diabetic Foot Ulcer. Chief Complaint: [] Principal diagnosis: right diabetic foot Interval history: Patient seen this am, family was present as well He still has pain at the wound site No other complaints denies SOB, CP, dizziness Discussed with Dr Priest from wound care, plan is debride the wound in ER on Sunday and then initiate hyperbaric treatment wound culture growing staph aureus which is pansensitive and strep agalactaie no other concerns at this time Pertinent ROS: as above Objective - Vital Signs Vital signs: Vital Signs Temp Pulse Resp BP Pulse Ox 05/26/17 11:30 99.1 F H 77 16 134/55 94 05/26/17 07:15 99.3 F H 80 18 162/69 98 05/26/17 03:38 99.4 F H 77 19 119/71 94 05/25/17 23:47 98 F 75 20 130/70 95 05/25/17 20:00 99.1 F H 78 18 146/62 95 05/25/17 15:46 100.1 F H 18 130/94 100 Intake and Output 05/26/17 05/26/17 05/26/17 05:59 13:59 21:59 Intake Total 410 / 410 530 / 530 Balance 410 / 410 530 / 530 Intake: IV 50 / 50 50 / 50 Zosyn 2.25 gm In Dextrose 5% in 50 / 50 50 / 50 Water 50 ml @ 100 mls/hr IV Q12H [facility] Rx#:[id number] Oral 360 / 360 480 / 480 Other: Meal Lunch Percent of Meal Consumed 100% Feeding Ability Independent # Voids 0 1 # Bowel Movements 1 1 Intake & Output: Intake & Output 05/26/17 05/26/17 05/26/17 05:59 13:59 21:59 Intake Total 410 / 410 530 / 530 Balance 410 / 410 530 / 530 Intake: IV 50 / 50 50 / 50 Zosyn 2.25 gm In Dextrose 5% in 50 / 50 50 / 50 Water 50 ml @ 100 mls/hr IV Q12H [facility] Rx#:[id number] Oral 360 / 360 480 / 480 Other: Meal Lunch Percent of Meal Consumed 100% Feeding Ability Independent # Voids 0 1 # Bowel Movements 1 1 - General Appearance General appearance: appears started age EENT: mucous membranes moist Neck: no JVD Respiratory: clear Cardiology: no rub, no edema, normal S1, normal S2 Gastrointestinal: no tenderness, no organomegaly Integumentary: warm and dry Neurologic: no asterixis, alert and oriented x3 Musculoskeletal: no cyanosis, no clubbing Psychiatric: mood/affect appropriate - Lab 05/26/17 06:00 05/26/17 06:00 Most recent lab results Calcium 8.2 mg/dl (8.6-10.4) L 05/26/17 06:00 Phosphorus 4.7 mg/dL (2.7-4.5) H 05/26/17 06:00 Magnesium 1.9 mg/dL (1.6-2.5) 05/26/17 06:00 Assessment and Plan (1) Anemia Status: Acute (2) ESRD (end stage renal disease) Patient will be diaysed tomorrow in preparation to get his debridement on Sunday please dose meds to HD Anemia: Hb at goal WILL MONITOR LE foot cellulitis/infection: culture with staph aureus and strep: on zosyn and vancomycin HTN: controlled ct current meds Will follow along appreciate hospitalist and wound care help in managing this patient Status: Acute (3) Cellulitis of foot without toes, right Status: Acute
[2017-05-26] MEDS ORDERED: INSULIN GLARGINE, HUMAN 1 UNIT/0.01 ML SQ ONE (16:00)
[2017-05-26] MEDS: glipiZIDE 2.5 MG TAB.XL.24H PO SCH (17:03)
[2017-05-26] MEDS: FUROSEMIDE 80 MG TABLET PO SCH (21:07)
[2017-05-26] MEDS: ATORVASTATIN 20 MG TABLET PO SCH (21:08)
[2017-05-27] MEDS: PIPERACILLIN SODIUM/TAZOBACTAM 2.25 GM in DEXTROSE 5% IN WATER 50 ML IV SCH ×3 (00:10→23:41)
[2017-05-27 06:03] LABS: Basophils # (Auto) 0 K/mcL (0.0-0.3); Basophils % (Auto) 0.2 % (0.0-2.0); Eosinophils % (Auto) 5.7 % (0.0-7.0); Granulocytes % (Auto) 75.7 % (38.0-78.0); Lymphocytes # (Auto) 1.9 K/mcL (1.5-4.8); Lymphocytes % (Auto) 10.6 % (15.5-49.0); Mean Cell Volume 88.6 fL (80.0-100.0); Mean Corpuscular HGB Conc 33.5 g/dL (31.0-36.0); Mean Corpuscular Hemoglobin 29.7 pg (26.0-34.0); Monocytes # (Auto) 1.4 K/mcL (0.1-0.9); Monocytes % (Auto) 7.8 % (1.0-12.0); Platelet Count 400 K/mcL (140-440); RBC 3.46 M/mcL (4.50-5.90); Red Cell Distribution Width 14.5 % (11.5-14.5)
[2017-05-27 06:07] LABS: Appearance,Urine CLEAR; Bacteria,Urine 0 /hpf (0); Bilirubin,Urine NEG (NEG); Color,Urine YELLOW; Glucose,Urine (UA) 150 mg/dL (NEG); Leukocyte Esterase,Urine NEG /uL (NEG); Mucus,Urine FEW /hpf (0); Nitrate,Urine NEG (NEG); Protein,Urine >=500 mg/dL (NEG); Specific Gravity,Urine 1.017 (1.000-1.035); Urine Blood NEG mg/dL (<0.03); Urine Granular Cast 4 /lpf (0); Urine RBC 4 /hpf (0-1); Urine Squamous Epithelial Cell 0 /hpf (0-4); Urine Transitional Epi Cells < 1 /hpf (0-2); Urine WBC 2 /hpf (0-4)
[2017-05-27 06:53] LABS: ALT/SGPT 30 U/l (0-40); Albumin 2.9 gm/dL (3.2-5.2); Albumin/Globulin Ratio 0.8 (1.0-2.3); Alkaline Phosphatase 125 U/L (39-117); Bilirubin,Direct < 0.2 mg/dL (0.0-0.3); Blood Urea Nitrogen 46 mg/dl (8-23); Gamma Glutamyl Transpeptidase 40 U/L (8-61); Magnesium 1.9 mg/dL (1.6-2.5)
[2017-05-27] MEDS: HEPARIN 5,000 UNIT/ML VIAL SQ SCH ×2 (07:38→20:56)
[2017-05-27] MEDS: CALCIUM ACETATE 667 MG CAPSULE PO SCH ×3 (07:38→18:24)
[2017-05-27] MEDS: SODIUM BICARBONATE 650 MG TABLET PO SCH ×2 (07:38→20:54)
[2017-05-27] MEDS: METOPROLOL TARTRATE 50 MG TABLET PO SCH ×2 (07:39→20:55)
[2017-05-27] MEDS: hydrALAZINE 25 MG TABLET PO SCH ×3 (07:39→20:55)
[2017-05-27] MEDS: GABAPENTIN 300 MG CAPSULE PO SCH ×3 (07:39→20:54)
[2017-05-27] MEDS: FUROSEMIDE 80 MG TABLET PO SCH ×2 (07:39→20:55)
[2017-05-27] MEDS: FERROUS GLUCONATE 324 MG TABLET PO SCH (07:39)
[2017-05-27] MEDS: INSULIN LISPRO 1 UNIT/0.01 ML UNIT SQ SCH ×4 (08:12→20:53)
[2017-05-27] MEDS ORDERED: ERGOCALCIFEROL (VITAMIN D2) 50,000 UNIT CAPSULE PO SCH ×2 (09:00)
[2017-05-27] MEDS: amLODIPine 10 MG TABLET PO SCH (09:26)
[2017-05-27] MEDS: glipiZIDE 2.5 MG TAB.XL.24H PO SCH ×2 (09:26→18:24)
[2017-05-27] MEDS: INSULIN GLARGINE, HUMAN 1 UNIT/0.01 ML SQ SCH ×2 (09:26→20:54)
[2017-05-27] MEDS: ASPIRIN 81 MG TAB.CHEW PO SCH (09:26)
--- NOTE | 2017-05-27 11:24 | General Surgery Progress Note ---
Subjective Patient reports: other (Uneventful night. Patient currently undergoing hemodialysis. For OR 05/28/2017) Narrative: Note initiated : 05/27/17 at 11:21 am Service Date, if different from initiated Date: [] Patient: Sandro Bailey 66 y/o M admitted on 05/23/17 for Fall/Cellulitis of Right Foot, Diabetic Foot Ulcer. Chief Complaint: [] Objective Temp Pulse Resp BP Pulse Ox 99.7 F H 82 16 141/57 96 05/27/17 03:50 05/27/17 03:50 05/27/17 03:50 05/27/17 03:50 05/27/17 03:50 T. Max < 100 F. Hemodynamically stable. Currently undergoing hemodialysis. No changes in clinical examination. LOCAL wound care and dressing changes ongoing. Reviewed with FALGUNI Singletary - Additional Data Intake & Output - Last 24 hours: Intake & Output 05/25/17 05/26/17 05/27/17 05/28/17 05:59 05:59 05:59 05:59 Intake Total 1949 820 / 820 1710 / 1710 Output Total 0 / 0 2950 / 2950 300 / 300 Balance 1949 -2130 / -2130 1410 / 1410 Weight 232 lb 224 lb 220 lb - Labs 05/27/17 04:00 05/27/17 04:00 Diabetes panel 05/27/17 Range/Units 04:00 Sodium 136 (133-145) mmol/L Potassium 4.2 (3.3-5.1) mmol/L Chloride 92 L (96-108) mmol/L Carbon Dioxide 24 (22-30) mmol/L BUN 46 H (8-23) mg/dl Creatinine 6.6 H* (0.7-1.2) mg/dl Glucose 127 H (70-105) mg/dL Calcium 8.3 L (8.6-10.4) mg/dl AST 29 (0-37) U/l ALT 30 (0-40) U/l Alkaline Phosphatase 125 H (39-117) U/L Total Protein 6.7 (5.9-8.4) gm/dL Albumin 2.9 L (3.2-5.2) gm/dL Triglycerides 78 (<150) mg/dl Calcium panel 05/27/17 Range/Units 04:00 Calcium 8.3 L (8.6-10.4) mg/dl Phosphorus 4.9 H (2.7-4.5) mg/dL Albumin 2.9 L (3.2-5.2) gm/dL Pituitary panel 05/27/17 Range/Units 04:00 Sodium 136 (133-145) mmol/L Potassium 4.2 (3.3-5.1) mmol/L Chloride 92 L (96-108) mmol/L Carbon Dioxide 24 (22-30) mmol/L BUN 46 H (8-23) mg/dl Creatinine 6.6 H* (0.7-1.2) mg/dl Glucose 127 H (70-105) mg/dL Calcium 8.3 L (8.6-10.4) mg/dl Adrenal panel 05/27/17 Range/Units 04:00 Sodium 136 (133-145) mmol/L Potassium 4.2 (3.3-5.1) mmol/L Chloride 92 L (96-108) mmol/L Carbon Dioxide 24 (22-30) mmol/L BUN 46 H (8-23) mg/dl Creatinine 6.6 H* (0.7-1.2) mg/dl Glucose 127 H (70-105) mg/dL Calcium 8.3 L (8.6-10.4) mg/dl Total Bilirubin 0.3 (0.0-1.0) mg/dL AST 29 (0-37) U/l ALT 30 (0-40) U/l Alkaline Phosphatase 125 H (39-117) U/L Total Protein 6.7 (5.9-8.4) gm/dL Albumin 2.9 L (3.2-5.2) gm/dL Assessment and Plan (1) Sepsis affecting skin Problem details: Plan of care discussed with Dr. Edwards Hospitalist Physician. Status: Acute Current Visit: Yes - Narrative A/P Narrative: Assessment: Cellulitis RIGHT foot improving. CSSSI Right 5 th toe with gangrene demarcating well. X ray reviewed Vascular calcifications Plan: Debridement and toe amputation Right 5 th toe OR 05/28/2017 at 13:00 hours Spoke with patient , family and nursing staff. All questions answered. - Time Spent With Patient Total time spent is greater than 50% in coordination of care (as documented) at patient's floor/unit and/or counseling patient: 15 - 24 minutes
--- NOTE | 2017-05-27 15:15 | Internal Med Progress Note ---
Medical - PN: Subj Patient information: Note initiated : 05/27/17 at 3:08 pm Service Date, if different from initiated Date: [] Patient: Sandro Bailey 66 y/o M admitted on 05/23/17 for Fall/Cellulitis of Right Foot, Diabetic Foot Ulcer. Chief Complaint: [] Interval history: May 23, 2017: History of present illness: Mr. Bailey is a 66 year old man with a history of type 2 diabetes, end-stage renal disease, atrial fibrillation, neuropathy, etc. He was apparently in his normal state of health until about 2 days ago when he noticed increased pain and swelling of his right foot. I believe he had a fall as well, although that is less certain. He has been more sleepy than usual, and was sent to the emergency room for evaluation today. In the intensive care unit where I met him, he is quite somnolent. He does awaken for a minute or so with strong verbal and physical stimulation, but then drifts back to sleep again. He seems to indicate that he has not been having fever or chills, headaches or dizziness, new eye or ear symptoms, sore throat or cough. He denies chest pain or palpitations, shortness of breath, abdominal pain, nausea or vomiting, diarrhea or constipation, dysuria. He only admits to pain and swelling of his right foot. He does admit that he has been falling, but could not give me any details about that. He lives alone. Apparently his sister was here earlier, but has left for the day. ER evaluation found him to be delirious. Glucose was greater than 400. Head CT was reported as negative. Lactic acid was normal. White blood cell count was markedly elevated at 22. May 24: Today, the patient states he is feeling quite a bit better. However, he is still having significant pain in his right foot, which he rates as 9 out of 10. Otherwise, he denies fever chills, chest pain or shortness of breath, abdominal pain, nausea or vomiting, diarrhea or constipation. He underwent dialysis last night, and appears to have tolerated that well. May 25: The patient had dialysis this morning. He was quite sleepy when I evaluated him. He continues to run low-grade fevers. Leukocytosis is only modestly improved today. He awakens with significant verbal stimulation. He says his right foot pain is much improved today. He apparently told the dietitian that he does not check blood sugars at home and does not own a glucometer. He is normally followed by a doctor pop at [facility]. He otherwise denies fever or chills, chest pain or palpitations, shortness of breath, abdominal pain, nausea or vomiting or diarrhea. May 26: Today, the patient says he is feeling relatively well. He is noticing only minimal right foot discomfort. He continues to run low-grade fevers and high white blood cell counts, although these are improving. Today he has 2 family members in the room, his mother and I believe his sister. They have lots of questions. Case was reviewed with and Dr. Hernandez. Patient is to go to the OR on Sunday to have further wound debridement, and then decide if the patient might benefit from hyperbaric therapy to help heal his diabetic foot ulcer. Dr. Hernandez says the patient is on a kidney transplant wait list. Her plan is to start peritoneal dialysis once there is no longer infection going on, while awaiting kidney transplant. Patient lives over 2 hours from a hospital. Otherwise, patient denies fever chills, chest pain or shortness of breath, abdominal pain, nausea or vomiting or diarrhea or dysuria. May 27: The patient continues to be fairly sleepy today. When awakened, he really has no complaints. He is to go to the OR tomorrow for further debridement of his foot ulcer. Appearance of his cellulitis continues to improve, and temperature is trending down, and he is currently afebrile. Leukocytosis has improved from 22,000 down to 18,000, and absolute granulocyte count is trending down as well. Dr. Hernandez thinks that after dialysis today, he should be able to go back to his regular dialysis schedule starting on Sunday. Patient otherwise denies subjective fever or chills, chest pain or shortness of breath, GI or complaints - Constitutional Vitals: Vital Signs Temp Pulse Resp BP Pulse Ox 98.5 F 73 16 133/82 96 05/27/17 11:50 05/27/17 15:00 05/27/17 03:50 05/27/17 15:00 05/27/17 03:50 Period Temp Pulse Resp BP Sys/Frank Pulse Ox Last 24 Hr 98.5 F-100.6 F 70-84 16-24 124-178/57-93 93-96 Intake and Output 05/27/17 05/27/17 05/27/17 05:59 13:59 21:59 Intake Total 100 / 100 Output Total 0 / 0 Balance 100 / 100 He is sleepy, but in no acute distress. Neck is supple without obvious lymphadenopathy or JVD. Cardiac exam shows regular rate and rhythm. Lungs are clear to auscultation. Abdomen is soft and nontender. Extremities: Left foot appears fairly normal. Right foot continues to be swollen, red, warm, but much improved compared to yesterday.. Dressing is clean and dry today. Neurologic exam: Patient is more awake today, but continues to be minimally verbal. Intake & Output: Intake & Output 05/27/17 05/27/17 05/27/17 05:59 13:59 21:59 Intake Total 100 / 100 Output Total 0 / 0 Balance 100 / 100 Intake: Oral 100 / 100 Output: Void Amount 0 / 0 Medical - PN: Obj Da - Labs CBC & Chem 7: 05/27/17 04:00 05/27/17 04:00 Labs: Abnormal Lab Results 05/27/17 05/27/17 05/26/17 04:00 04:00 16:00 WBC 18.3 H RBC 3.46 L Hgb 10.3 L Hct 30.6 L Gran % Lymph % (Auto) 10.6 L Gran # 13.9 H Ogle # (Auto) 1.4 H Eos # (Auto) 1.0 H Sodium Chloride 92 L Anion Gap 20.0 H BUN 46 H Creatinine 6.6 H* Glucose 127 H Calcium 8.3 L Phosphorus 4.9 H Alkaline Phosphatase 125 H Lactate Dehydrogenase 264 H Albumin 2.9 L Globulin 3.8 H Albumin/Globulin Ratio 0.8 L Urine Protein >=500 A Urine Glucose (UA) 150 A Urine Urobilinogen 2.0 A Urine RBC 4 H Granular Casts 4 H 05/26/17 05/26/17 05/25/17 06:00 06:00 04:10 WBC 19.0 H 20.5 H RBC 3.42 L 3.45 L Hgb 10.2 L 10.3 L Hct 30.2 L 30.6 L Gran % 82.9 H Lymph % (Auto) 10.1 L 8.2 L Gran # 14.6 H 17.0 H Ogle # (Auto) 1.5 H 1.3 H Eos # (Auto) 0.9 H Sodium Chloride 94 L Anion Gap BUN 33 H Creatinine 5.4 H* Glucose 123 H Calcium 8.2 L Phosphorus 4.7 H Alkaline Phosphatase Lactate Dehydrogenase Albumin 3.1 L Globulin Albumin/Globulin Ratio 0.8 L Urine Protein Urine Glucose (UA) Urine Urobilinogen Urine RBC Granular Casts 05/25/17 04:10 WBC RBC Hgb Hct Gran % Lymph % (Auto) Gran # Ogle # (Auto) Eos # (Auto) Sodium 131 L Chloride 89 L Anion Gap 19.0 H BUN 45 H Creatinine 6.7 H* Glucose 227 H Calcium 8.0 L Phosphorus Alkaline Phosphatase Lactate Dehydrogenase 260 H Albumin 2.9 L Globulin 3.9 H Albumin/Globulin Ratio 0.7 L Urine Protein Urine Glucose (UA) Urine Urobilinogen Urine RBC Granular Casts May 25: Wound culture: Is growing strep agalactiae, group B, as well as staph aureus. No susceptibilities done on the strep. Staph aureus is pansensitive. May 23: Pro-calcitonin is elevated at 1.4, consistent with possible sepsis. Lactic acid was normal at 1.6. Wound Gram stain: Shows many gram-positive cocci in clusters, many gram- negative bacilli. Blood cultures are negative so far. CBC: White blood cell count is 22,500, hemoglobin 10, hematocrit 31, platelets 330,000. Differential shows 19,200 neutrophils, 1400 monocytes. Chemistry panel: Show sodium 131, chloride 93, BUN 45, creatinine 8.7, glucose 456, ionized calcium low at 0.93 Alcohol level is less than 0.01 Foot x-ray: IMPRESSION: No evidence of osteomyelitis. Large soft tissue ulcer over the fifth metatarsal head with associated cellulitis Chest x-ray: Shows no acute disease. There is a right IJ double-lumen catheter tip at the right atrium. 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 There is no hemorrhage or other acute intracerebral abnormality Meds: Medications Acetaminophen (Tylenol) 650 mg PO Q6HP PRN PRN Reason: PAIN/FEVER > 101 Hydrocodone Bitart/Acetaminophen ([place] 5/325mg) 1 tab PO Q4HP PRN PRN Reason: PAIN LEVEL 3-6 Last Admin: 05/25/17 21:48 Dose: 1 tab Albuterol Sulfate (Ventolin) 2.5 mg NEB Q6HRT PRN PRN Reason: Shortness Of Breath Or Wheezing Amlodipine Besylate (Norvasc) 10 mg PO DAILY [facility] Last Admin: 05/27/17 09:26 Dose: 10 mg Aspirin (Aspirin) 81 mg PO DAILY [facility] Last Admin: 05/27/17 09:26 Dose: 81 mg Atorvastatin Calcium (Lipitor) 40 mg PO HS [facility] Last Admin: 05/26/17 21:08 Dose: 40 mg Calcium Acetate (Phoslo) 667 mg PO TIDCC [facility] Last Admin: 05/27/17 07:38 Dose: 667 mg Dextrose (Dextrose 50%) 0 ml IV UD PRN PRN Reason: Hypoglycemia Diagnostic Test (Pha) (Accu-Chek) 1 each FS ACHS [facility] Last Admin: 05/27/17 08:11 Dose: 1 each Docusate Sodium (Colace) 100 mg PO BID PRN PRN Reason: Constipation Ergocalciferol (Drisdol) 50,000 unit PO Landa@0900 [facility] Last Admin: 05/27/17 07:39 Dose: 50,000 unit Ferrous Gluconate (Fergon) 324 mg PO DAILY [facility] Last Admin: 05/27/17 07:39 Dose: 324 mg Furosemide (Lasix) 80 mg PO BID [facility] Last Admin: 05/27/17 07:39 Dose: 80 mg Gabapentin (Neurontin) 300 mg PO TID [facility] Last Admin: 05/27/17 07:39 Dose: 300 mg Glipizide (Glucotrol Xl) 2.5 mg PO BIDAC [facility] Last Admin: 05/27/17 09:26 Dose: 2.5 mg Glucose (Insta-Glucose) 15 gm PO PRN PRN PRN Reason: Hypoglycemia Heparin Sodium (Porcine) (Heparin) 5,000 unit SQ Q12 [facility] Last Admin: 05/27/17 07:38 Dose: 5,000 unit Hydralazine HCl (Apresoline) 25 mg PO TID [facility] Last Admin: 05/27/17 07:39 Dose: 25 mg Piperacillin Sod/Tazobactam (Sod 2.25 gm/ Dextrose) 50 mls @ 100 mls/hr IV Q12H [facility] Last Admin: 05/27/17 00:10 Dose: 100 mls/hr Gentamicin Sulfate 40 mg/Clindamycin Phosphate 300 mg/Bacitracin 25,000 unit/ Sodium Chloride 503 mls @ 0 mls/hr IRR 3-4XD [facility] PRN Reason: As Directed Last Admin: 05/26/17 10:45 Dose: 1 mls/hr Insulin Glargine (Lantus) 15 unit SQ BID [facility] Last Admin: 05/27/17 09:26 Dose: 15 unit Insulin Human Lispro (Humalog) 0 unit SQ ACHS [facility] PRN Reason: Protocol Last Admin: 05/27/17 08:12 Dose: Not Given Metoprolol Tartrate (Lopressor) 50 mg PO BID [facility] Last Admin: 05/27/17 07:39 Dose: 50 mg Naloxone HCl (Narcan) 0.1 mg IV Q2MIN PRN PRN Reason: Opiate Reversal Ondansetron HCl (Zofran) 4 mg IV Q4HP PRN PRN Reason: Nausea And Vomiting Sodium Bicarbonate (Sodium Bicarbonate) 1,300 mg PO BID [facility] Last Admin: 05/27/17 07:38 Dose: 1,300 mg Vancomycin HCl (Vancomycin Per Pharmacy) 1 order IV UD [facility] Medical - PN: A/P - Time Spent With Patient Total time spent is greater than 50% in coordination of care (as documented) at patient's floor/unit and/or counseling patient: 25 - 35 minutes (1) DM type 2, uncontrolled, with renal complications Status: Acute Current Visit: Yes (2) Cellulitis of foot without toes, right Status: Acute Current Visit: Yes (3) Delirium Status: Acute Current Visit: Yes (4) Leukocytosis Status: Acute Current Visit: Yes (5) ESRD (end stage renal disease) Status: Acute Current Visit: No - Narrative A/P Narrative: #1. Infectious disease. SIRS syndrome Patient presents with signs and symptoms of cellulitis related to a diabetic foot ulcer. Pro-calcitonin indicates possible early sepsis. -The patient is clinically improved today, and leukocytosis is starting to trend down, as is his fever. He is status post debridement, but Dr. Esteves will take him to the OR on Sunday for further debridement. -Continue with empiric vancomycin and Zosyn. -Ideally we would get deep tissue cultures after debridement. -Given that the patient is a diabetic, he may require hyperbaric oxygen to completely heal this wound and avoid amputation. 2. Neurologic. Patient presents with confusion, likely due to medical delirium. Level of alertness seems improved . 3. CODE STATUS: Full code. 4. DVT prophylaxis: Subcu heparin. 5. Endocrine. Type 2 diabetes, patient presents with severe hyperglycemia. -Accu-Cheks are ranging from 101-384 we will continue with Accu-Cheks and sliding scale insulin, -Increase Lantus to 15 units twice daily, as his home dose is 30 units daily. Added back low-dose glipizide and follow. Last Accu-Chek read at 101. -Hyponatremia, resolved. Hypocalcemia. Continue to monitor. By nephrology, dialysis. Continue calcium acetate. 6. Renal. End-stage renal disease. He is having dialysis today, and then probably again on Sunday. Dr. Hernandez plans to start peritoneal dialysis when he is stable, while awaiting kidney transplant. We will not have an inpatient dialysis nurse available starting tomorrow, but her current tentative plan will be to discharge the patient to swing bed status , and then continue with outpatient dialysis on Sunday. This would allow us to keep him here while continues to work on his wound care. - -Hypertension. Blood pressures were running a bit high. Continue amlodipine, hydralazine, metoprolol. Lasix was resumed, and blood pressures are improved. Approximately 35 minutes was spent today, reviewing patient's test results, interviewing and examining him, having several discussions with staff about plan of care, and touching base with Dr. Hernandez and Dr. Esteves. Medical - PN: Qual - VTE Deep Vein Thrombosis/Pulmonary Embolism Present on Admission: No
--- NOTE | 2017-05-27 16:07 | Nephrology Progress Note ---
Subjective Patient information: Note initiated : 05/27/17 at 4:05 pm Service Date, if different from initiated Date: [] Patient: Sandro Bailey 66 y/o M admitted on 05/23/17 for Fall/Cellulitis of Right Foot, Diabetic Foot Ulcer. Chief Complaint: [] Principal diagnosis: right diabetic foot Interval history: Patient seen today during dialysis He has no n ew compliants he denies SOB, CP, dizziness He denies any GI complaints He is anticipated to go to OR tomorrow for debridement of his wound Pertinent ROS: as above Objective - Vital Signs Vital signs: Vital Signs Temp Pulse Pulse Resp BP BP Pulse Ox 05/27/17 15:50 97.6 F 78 132/82 05/27/17 15:30 75 135/71 05/27/17 15:15 79 129/81 05/27/17 15:00 73 133/82 05/27/17 14:45 75 124/80 05/27/17 14:30 74 133/81 05/27/17 14:15 78 134/80 05/27/17 14:00 79 136/78 05/27/17 13:45 73 178/78 05/27/17 13:30 72 135/85 05/27/17 13:15 78 156/83 05/27/17 13:00 73 136/93 05/27/17 12:45 72 151/83 05/27/17 12:30 75 133/81 05/27/17 12:15 74 144/81 05/27/17 12:00 71 144/80 05/27/17 11:50 98.5 F 70 140/78 05/27/17 03:50 99.7 F H 82 16 141/57 96 05/27/17 00:15 99.9 F H 77 20 146/57 94 05/26/17 20:40 100.6 F H 84 24 H 151/66 93 05/26/17 17:50 99.6 F H 80 18 137/73 93 Intake and Output 05/27/17 05/27/17 05/27/17 05:59 13:59 21:59 Intake Total 100 / 100 Output Total 0 / 0 3050 / 3050 Balance 100 / 100 -3050 / -3050 Intake: Oral 100 / 100 Output: Void Amount 0 / 0 Hemodialysis UF 3050 / 3050 Intake & Output: Intake & Output 05/27/17 05/27/17 05/27/17 05:59 13:59 21:59 Intake Total 100 / 100 Output Total 0 / 0 3050 / 3050 Balance 100 / 100 -3050 / -3050 Intake: Oral 100 / 100 Output: Void Amount 0 / 0 Hemodialysis UF 3049 / 3049 - General Appearance General appearance: appears started age EENT: mucous membranes moist Neck: no JVD Respiratory: clear Cardiology: no rub, no edema, normal S1, normal S2 Gastrointestinal: no tenderness, no organomegaly Integumentary: no rash, warm and dry Neurologic: alert and oriented x3 Musculoskeletal: no erythema, no cyanosis Psychiatric: mood/affect appropriate - Lab 05/27/17 04:00 05/27/17 04:00 Most recent lab results Calcium 8.3 mg/dl (8.6-10.4) L 05/27/17 04:00 Phosphorus 4.9 mg/dL (2.7-4.5) H 05/27/17 04:00 Magnesium 1.9 mg/dL (1.6-2.5) 05/27/17 04:00 Assessment and Plan (1) Anemia Status: Acute (2) ESRD (end stage renal disease) Patient dialysed today for 4 hrs using revaclear max dialyser, 3K/2.5Ca dialysate, at FH153FT/MIN, ep410gx/min and UF goal of 3L achieved please dose meds to HD next HD likely on sunday until interim need arises Anemia: Hb at goal WILL MONITOR LE foot cellulitis/infection: culture with staph aureus and strep: on zosyn and vancomycin, wound irrigation, debridement tomorrow HTN: controlled ct current meds Will follow along no acute human resources operations manager dialysis nurse starting tomorrow until 06/08 will need to discuss dialysis with case management and administration, if stable may consider dialysing in outpt until appreciate hospitalist and wound care help in managing this patient Status: Acute (3) Cellulitis of foot without toes, right Status: Acute
--- NOTE | 2017-05-27 17:52 | XRay Report ---
CLINICAL INFORMATION: PICC PLACEMENT COMPARISON: 05/23/2017 FINDINGS: Moderate cardiomegaly is unchanged. Mediastinum and pulmonary vasculature are normal Right double-lumen catheter tip is near the tricuspid valve. PICC line tip is within the right atrium. Lungs are clear - suboptimal inspiratory result IMPRESSION: No acute disease Right PICC line tip in the right atrium. Right-sided double-lumen catheter tip near the tricuspid valve. Consider withdrawing double-lumen catheter 6 cm and the PICC line 4 cm Interpreted and Authenticated by: Kirill Severino 05/27/17
[2017-05-27 19:20] LABS: Ionized Calcium 1.08 mmol/L (1.16-1.32)
[2017-05-27 19:39] LABS: Blood Urea Nitrogen 17 mg/dl (8-23)
[2017-05-27] MEDS: ATORVASTATIN 20 MG TABLET PO SCH (20:55)
[2017-05-27] MEDS: 0.9 % SODIUM CHLORIDE 10 ML SYRINGE IV SCH (20:58)
[2017-05-28 05:03] LABS: Basophils # (Auto) 0.1 K/mcL (0.0-0.3); Basophils % (Auto) 0.3 % (0.0-2.0); Eosinophils # (Auto) 0.8 K/mcL (0.0-0.7); Eosinophils % (Auto) 4.2 % (0.0-7.0); Granulocytes % (Auto) 77.2 % (38.0-78.0); Lymphocytes # (Auto) 1.9 K/mcL (1.5-4.8); Lymphocytes % (Auto) 10.3 % (15.5-49.0); Mean Cell Volume 88.6 fL (80.0-100.0); Mean Corpuscular HGB Conc 33.6 g/dL (31.0-36.0); Mean Corpuscular Hemoglobin 29.8 pg (26.0-34.0); Monocytes # (Auto) 1.5 K/mcL (0.1-0.9); Platelet Count 447 K/mcL (140-440); RBC 3.63 M/mcL (4.50-5.90); Red Cell Distribution Width 14.1 % (11.5-14.5)
[2017-05-28] MEDS: INSULIN LISPRO 1 UNIT/0.01 ML UNIT SQ SCH ×4 (07:15→22:09)
[2017-05-28] MEDS: glipiZIDE 2.5 MG TAB.XL.24H PO SCH ×2 (07:20→16:48)
[2017-05-28] MEDS: FERROUS GLUCONATE 324 MG TABLET PO SCH (07:21)
[2017-05-28] MEDS: HEPARIN 5,000 UNIT/ML VIAL SQ SCH (07:21)
[2017-05-28] MEDS: FUROSEMIDE 80 MG TABLET PO SCH ×2 (07:21→20:26)
[2017-05-28] MEDS: CALCIUM ACETATE 667 MG CAPSULE PO SCH ×3 (07:21→16:49)
[2017-05-28] MEDS: ASPIRIN 81 MG TAB.CHEW PO SCH (07:21)
[2017-05-28] MEDS: SODIUM BICARBONATE 650 MG TABLET PO SCH (07:22)
[2017-05-28] MEDS: GABAPENTIN 300 MG CAPSULE PO SCH ×2 (07:22→14:47)
[2017-05-28] MEDS: INSULIN GLARGINE, HUMAN 1 UNIT/0.01 ML SQ SCH (07:23)
[2017-05-28] MEDS: amLODIPine 10 MG TABLET PO SCH (08:39)
[2017-05-28] MEDS: 0.9 % SODIUM CHLORIDE 10 ML SYRINGE IV SCH (08:39)
[2017-05-28] MEDS: hydrALAZINE 25 MG TABLET PO SCH ×2 (08:39→14:55)
[2017-05-28] MEDS: METOPROLOL TARTRATE 50 MG TABLET PO SCH (08:39)
[2017-05-28] MEDS: PIPERACILLIN SODIUM/TAZOBACTAM 2.25 GM in DEXTROSE 5% IN WATER 50 ML IV SCH (11:30)
[2017-05-28] MEDS ORDERED: VANCOMYCIN 1,500 MG in 0.9 % SODIUM CHLORIDE 500 ML IV ONE (14:00)
--- NOTE | 2017-05-28 14:22 | Discharge Summary ---
Medical - DS: Prov Patient information: Note initiated : 05/28/17 at 2:06 pm Service Date, if different from initiated Date: [] Patient: Sandro Bailey 66 y/o M admitted on 05/23/17 for Fall/Cellulitis of Right Foot, Diabetic Foot Ulcer. Chief Complaint: [] Date of admission: 05/23/17 15:45 Discharge date: 05/28/17 Primary care physician: Nelson Faith. Nephrology: Dr. Hernandez Admitting clinician: Janeth Yancey Consults: 05/23/17 16:04 Consult to Physician [CONS] Stat Comment: esrd Consulting Provider: Ricky Navarro Reason For Exam: Physician to Consult 05/24/17 07:46 Consult to Physician [CONS] Routine Comment: R foot wound, cellulitis Consulting Provider: Marcus Priest Reason For Exam: Physician to Consult Attending physician on discharge: Janeth Yancey Medical - DS: Meds - Discharge Medications Active and Home Medications: Home Medications Acetaminophen [Tylenol] 325 mg PO Q4-6HP PRN 05/23/17 [History Confirmed Last Taken Unknown] Aspirin [Charmaine Chewable Aspirin] 81 mg PO DAILY 05/23/17 [History Confirmed Last Taken Unknown] Atorvastatin [Lipitor] 40 mg PO HS 05/23/17 [History Confirmed 05/23/17 Last Taken Unknown] Calcium Acetate [Phoslo] 667 mg PO TIDCC 05/23/17 [History Confirmed 05/23/17 Last Taken Unknown] Ergocalciferol (Vitamin D2) [Vitamin D2] 50,000 unit PO WEEKLY 05/23/17 [ History Confirmed 05/23/17 Last Taken Unknown] Ferrous Gluconate [Fergon] 324 mg PO DAILY 05/23/17 [History Confirmed 05/23/17 Last Taken Unknown] Furosemide [Lasix] 80 mg PO BID 05/23/17 [History Confirmed 05/23/17 Last Taken Unknown] Gabapentin [Neurontin] 300 mg PO TID 05/23/17 [History Confirmed 05/23/17 Last Taken Unknown] Insulin Detemir [Levemir Flextouch] 30 unit SQ DAILY 05/23/17 [History Confirmed 05/23/17 Last Taken Unknown] Metoprolol Tartrate [Lopressor] 50 mg PO BID 05/23/17 [History Confirmed Last Taken Unknown] Sodium Bicarbonate 1,300 mg PO BID 05/23/17 [History Confirmed 05/23/17 Last Taken Unknown] amLODIPine [Norvasc] 10 mg PO DAILY 05/23/17 [History Confirmed 05/23/17 Last Taken Unknown] glipiZIDE [Glipizide ER] 10 mg PO DAILY 05/23/17 [History Confirmed 05/23/17 Last Taken Unknown] hydrALAZINE [Apresoline] 25 mg PO TID 05/23/17 [History Confirmed 05/23/17 Last Taken Unknown] Medical - DS: Hosp Hospital course: Mr. Bailey is a 66 year old M - Time Spent with Patient Total time spent providing and/or coordinating discharge services: Medical - DS: Exam - Constitutional Vitals: Vital Signs Temp Pulse Pulse Resp BP BP BP 05/28/17 11:35 97.7 F 18 161/70 05/28/17 07:44 99.3 F H 84 20 144/66 05/28/17 04:00 99.9 F H 83 20 147/68 05/27/17 23:50 98.7 F 79 22 149/78 05/27/17 19:10 97.9 F 81 22 145/76 05/27/17 16:00 98.8 F 74 16 137/70 05/27/17 15:50 97.6 F 78 132/82 05/27/17 15:30 75 135/71 05/27/17 15:15 79 129/81 05/27/17 15:00 73 133/82 05/27/17 14:45 75 124/80 05/27/17 14:30 74 133/81 05/27/17 14:15 78 134/80 Pulse Ox 05/28/17 11:35 94 05/28/17 07:44 95 05/28/17 04:00 93 05/27/17 23:50 95 05/27/17 19:10 95 05/27/17 16:00 95 05/27/17 15:50 05/27/17 15:30 05/27/17 15:15 05/27/17 15:00 05/27/17 14:45 05/27/17 14:30 05/27/17 14:15 Intake and Output 12/04/17 12/04/17 12/04/17 05:59 13:59 21:59 Intake Total 50 / 50 Output Total 450 / 450 Balance -400 / -400 Intake: IV 50 / 50 Zosyn 2.25 gm In Dextrose 5% in 50 / 50 Water 50 ml @ 100 mls/hr IV Q12H [facility] Rx#:[id number] Output: Void Amount 450 / 450 Other: Weight 221 lb Medical - DS: Data Labs on day of discharge: Labs from last 24 hours 05/28/17 05/28/17 05/28/17 05:45 04:00 04:00 WBC 18.2 H RBC 3.63 L Hgb 10.8 L Hct 32.2 L MCV 88.6 MCH 29.8 MCHC 33.6 RDW 14.1 Plt Count 447 H MPV 7.7 Gran % 77.2 Lymph % (Auto) 10.3 L [place] % (Auto) 8.0 Eos % (Auto) 4.2 Baso % (Auto) 0.3 Gran # 14.0 H Lymph # (Auto) 1.9 [place] # (Auto) 1.5 H Eos # (Auto) 0.8 H Baso # (Auto) 0.1 POC PT POC INR APTT 44 H TNP Sodium Potassium Chloride Carbon Dioxide Anion Gap BUN Creatinine GFR Calculation Glucose Ionized Calcium Danita Random Vancomycin Vancomycin Dose Vanco Last Dose Time 05/28/17 05/27/17 05/27/17 04:00 16:20 16:20 WBC RBC Hgb Hct MCV MCH MCHC RDW Plt Count MPV Gran % Lymph % (Auto) [place] % (Auto) Eos % (Auto) Baso % (Auto) Gran # Lymph # (Auto) [place] # (Auto) Eos # (Auto) Baso # (Auto) POC PT 11.7 L POC INR 1.0 APTT 40 H Sodium 134 Potassium 3.7 Chloride 89 L Carbon Dioxide 28 Anion Gap 17.0 H BUN 17 Creatinine 3.1 H GFR Calculation 20 Glucose 111 H Ionized Calcium Danita 1.08 L Random Vancomycin 9.0 Vancomycin Dose Not Reportable Vanco Last Dose Time Not Reportable Preliminary micro results at discharge 05/23/17 13:11 Blood Culture - Preliminary Blood 05/23/17 13:17 Blood Culture - Preliminary Blood Medical - DS: A/P - Problem Maintenance (1) DM type 2, uncontrolled, with renal complications Status: Acute (2) Cellulitis of foot without toes, right Status: Acute (3) Delirium Status: Acute (4) Leukocytosis Status: Acute Qualifiers: Leukocytosis type: bandemia Qualified Code(s): D72.825 - Bandemia (5) ESRD (end stage renal disease) Status: Acute - Follow up Plan Follow up with: Brandon Neville [Primary Care Provider] - Prognosis: Fair Medical - DS: Qual - VTE Deep Vein Thrombosis/Pulmonary Embolism Present on Admission: No
--- NOTE | 2017-05-28 17:05 | Orthopedic Consult Note ---
History of Present Illness - [facility] Patient information: Note initiated : 05/28/17 at 5:03 pm Service Date, if different from initiated Date: [] Patient: Sandro Bailey 66 y/o M admitted on 05/23/17 for Fall/Cellulitis of Right Foot, Diabetic Foot Ulcer. Chief Complaint: [right foot infection] Consult date: 05/28/17 Requesting physician: Marcus Priest Consult reason: other (osteo right foot) History of present illness: Severe sudden onset infection with necrosis of the right foot lateral aspect. He has a severe set of medical problems including advanced renal failure and is currently on dialysis. The would has been progressing rapidly. Review of Systems Constitutional: as per HPI Medications and Allergies Home Medications Medication Instructions Recorded Confirmed Type Aspirin [Charmaine Chewable Aspirin] 81 mg PO DAILY 05/23/17 05/23/17 History Atorvastatin [Lipitor] 40 mg PO HS 05/23/17 05/23/17 History Calcium Acetate [Phoslo] 667 mg PO TIDCC 05/23/17 05/23/17 History Ergocalciferol (Vitamin D2) 50,000 unit PO WEEKLY 05/23/17 05/23/17 History [Vitamin D2] Ferrous Gluconate [Fergon] 324 mg PO DAILY 05/23/17 05/23/17 History Furosemide [Lasix] 80 mg PO BID 05/23/17 05/23/17 History Gabapentin [Neurontin] 300 mg PO TID 05/23/17 05/23/17 History Metoprolol Tartrate [Lopressor] 50 mg PO BID 05/23/17 05/23/17 History Sodium Bicarbonate 1,300 mg PO BID 05/23/17 05/23/17 History amLODIPine [Norvasc] 10 mg PO DAILY 05/23/17 05/23/17 History hydrALAZINE [Apresoline] 25 mg PO TID 05/23/17 05/23/17 History 0.9 % Sodium Chloride [Saline 10 ml IV Q12 syringe 05/28/17 Rx Flush] Accu-Chek 1 each FS ACHS strip 05/28/17 Rx Acetaminophen [Tylenol] 650 mg PO Q6HP PRN tablet 05/28/17 Rx Albuterol Sulfate [Ventolin] 2.5 mg NEB Q6HRT PRN ampul.neb 05/28/17 Rx Bacitracin 25,000 unit IRR 3-4XD vial 05/28/17 Rx Clindamycin [Cleocin] 300 mg IRR 3-4XD vial 05/28/17 Rx Docusate Sodium [Colace] 100 mg PO BID PRN capsule 05/28/17 Rx Gentamicin Sulfate 40 mg IRR 3-4XD vial 05/28/17 Rx HYDROcodone/APAP 5/325MG [[place] 1 tab PO Q4HP PRN tablet 05/28/17 Rx 5/325Mg] Heparin 5,000 unit SQ Q12 vial 05/28/17 Rx Heparin Flush 2 ml IV Q12 syringe 05/28/17 Rx Insulin Glargine, Human [Lantus] 15 unit SQ BID unit 05/28/17 Rx Insulin Lispro [Humalog] See Protocol SQ ACHS unit 05/28/17 Rx Naloxone HCl [Narcan] 0.1 mg IV Q2MIN PRN vial 05/28/17 Rx Ondansetron [Zofran] 4 mg IV Q4HP PRN vial 05/28/17 Rx Piperacillin Sodium/Tazobactam 2.25 gm IV Q12H vial 05/28/17 Rx [Zosyn] glipiZIDE [Glucotrol Xl] 2.5 mg PO BIDAC tab.xl.24h 05/28/17 Rx Allergies Allergy/AdvReac Type Severity Reaction Status Date / Time influenza virus vacc Allergy Unknown Confusion Verified 05/23/17 11:54 trivalent, split [From Fluzone] Physical Examination - Ankle & Foot right Ankle appearance: erythema (Open lesion to right fifth MTPJ with probing to bone. Consistent with osteomyelitis.) Foot appearance: normal Foot swelling: lateral Tenderness with palpation: none Ankle alignment: normal Foot alignment: normal Hammer toe location: none Claw toe location: none Full ROM: yes ROM: dorsiflexion: [id number]_46_OR0_45_40 6 ROM: plantarflexion: [id number]_OR0_45_40 6 ROM: eversion: [id number]_OR0_[id number]_40 6 ROM: first MTP joint flexion: [id number]_OR45_45_0 1 ROM: first MTP joint extension: [id number]_OR45_45_0 1 Strength: dorsiflexion: 5/5 Strength: plantarflexion: 5/5 Strength: inversion: 5/5 Strength: eversion: 5/5 Strength: toe extension: 5/5 Strength: toe flexion: 5/5 - Cervical Spine Neck pain: none Tenderness with palpation: none Full ROM: yes ROM: flexion: [id number]_46_OR0_45_90 11 ROM: extension: [id number]_[id number]_45_90 11 ROM: rotation right: [id number]_[id number]_90 11 ROM: rotation left: [id number]_[id number]_45_90 11 ROM: lateral flexion right: [id number]_46_OR0_45_60 8 ROM: lateral flexion left: [id number]_46_OR0_45_60 8 - Lumbar Spine Back pain: none Tenderness with palpation: none Appearance: normal Full ROM: yes ROM: flexion: [id number]_140 12 ROM: extension: [id number]_46_OR45_45_0 1 ROM: rotation right: [id number]_46_OR45_45_0 1 ROM: rotation left: [id number]_46_OR45_45_0 1 ROM: lateral flexion right: [id number]_46_OR45_45_0 1 ROM: lateral flexion left: [id number]_46_OR45_45_0 1 Assessment and Plan (1) Cellulitis of foot without toes, right Cardiac exam shows regular rate and rhythm with normal S1 and S2, without murmurs, rubs, gallops. Lungs are clear to auscultation, without rales, rhonchi, wheezes Status: Acute Priority: High Comment: PLAN: Amputation of right fifth toe and metatarsal, debridment of necrotic tissue right foot
[2017-05-28] MEDS ORDERED: PROPOFOL 200 MG/20 ML VIAL IV ONE (17:20)
[2017-05-28] MEDS ORDERED: MIDAZOLAM 2 MG/2 ML VIAL IV ONE (17:20)
[2017-05-28] MEDS ORDERED: DEXAMETHASONE 10 MG/ML VIAL IV ONE (17:20)
[2017-05-28] MEDS ORDERED: fentaNYL 100 MCG/2 ML VIAL IV ONE (17:20)
[2017-05-28] MEDS ORDERED: ONDANSETRON 4 MG/2 ML VIAL IV ONE (17:20)
[2017-05-28] MEDS ORDERED: LIDOCAINE HCL/PF 100 MG/5 ML SYRINGE IV ONE (17:20)
[2017-05-28] MEDS ORDERED: IPRATROPIUM/ALBUTEROL 3 ML AMPUL.NEB NEB PRN ×2 (17:32→19:22)
[2017-05-28] MEDS ORDERED: LACTATED RINGERS 250 ML IV PRN ×2 (17:32→19:22)
[2017-05-28] MEDS ORDERED: BENZOCAINE/MENTHOL 1 LOZENGE PO PRN ×2 (17:32→19:22)
[2017-05-28] MEDS ORDERED: NALOXONE HCL 0.4 MG/ML VIAL IV PRN ×2 (17:32→19:22)
[2017-05-28] MEDS ORDERED: MEPERIDINE 25 MG/ML SYRINGE IV PRN ×2 (17:32→19:22)
[2017-05-28] MEDS ORDERED: ONDANSETRON 4 MG/2 ML VIAL IV PRN ×3 (17:32→19:22)
[2017-05-28] MEDS ORDERED: diphenhydrAMINE 50 MG/ML VIAL IV PRN ×2 (17:32→19:22)
[2017-05-28] MEDS ORDERED: FLUMAZENIL 0.1 MG/ML ML IV PRN ×2 (17:32→19:22)
[2017-05-28] MEDS ORDERED: fentaNYL 100 MCG/2 ML VIAL IV PRN ×2 (17:32→19:22)
--- NOTE | 2017-05-28 17:32 | Internal Med Progress Note ---
Medical - PN: Subj Patient information: Note initiated : 05/28/17 at 5:28 pm Service Date, if different from initiated Date: [] Patient: Sandro Bailey 66 y/o M admitted on 05/23/17 for Fall/Cellulitis of Right Foot, Diabetic Foot Ulcer. Chief Complaint: [] Interval history: May 23, 2017: History of present illness: Mr. Bailey is a 66 year old man with a history of type 2 diabetes, end-stage renal disease, atrial fibrillation, neuropathy, etc. He was apparently in his normal state of health until about 2 days ago when he noticed increased pain and swelling of his right foot. I believe he had a fall as well, although that is less certain. He has been more sleepy than usual, and was sent to the emergency room for evaluation today. In the intensive care unit where I met him, he is quite somnolent. He does awaken for a minute or so with strong verbal and physical stimulation, but then drifts back to sleep again. He seems to indicate that he has not been having fever or chills, headaches or dizziness, new eye or ear symptoms, sore throat or cough. He denies chest pain or palpitations, shortness of breath, abdominal pain, nausea or vomiting, diarrhea or constipation, dysuria. He only admits to pain and swelling of his right foot. He does admit that he has been falling, but could not give me any details about that. He lives alone. Apparently his sister was here earlier, but has left for the day. ER evaluation found him to be delirious. Glucose was greater than 400. Head CT was reported as negative. Lactic acid was normal. White blood cell count was markedly elevated at 22. May 24: Today, the patient states he is feeling quite a bit better. However, he is still having significant pain in his right foot, which he rates as 9 out of 10. Otherwise, he denies fever chills, chest pain or shortness of breath, abdominal pain, nausea or vomiting, diarrhea or constipation. He underwent dialysis last night, and appears to have tolerated that well. May 25: The patient had dialysis this morning. He was quite sleepy when I evaluated him. He continues to run low-grade fevers. Leukocytosis is only modestly improved today. He awakens with significant verbal stimulation. He says his right foot pain is much improved today. He apparently told the dietitian that he does not check blood sugars at home and does not own a glucometer. He is normally followed by a doctor pop at [facility]. He otherwise denies fever or chills, chest pain or palpitations, shortness of breath, abdominal pain, nausea or vomiting or diarrhea. May 26: Today, the patient says he is feeling relatively well. He is noticing only minimal right foot discomfort. He continues to run low-grade fevers and high white blood cell counts, although these are improving. Today he has 2 family members in the room, his mother and I believe his sister. They have lots of questions. Case was reviewed with and Dr. Hernandez. Patient is to go to the OR on Sunday to have further wound debridement, and then decide if the patient might benefit from hyperbaric therapy to help heal his diabetic foot ulcer. Dr. Hernandez says the patient is on a kidney transplant wait list. Her plan is to start peritoneal dialysis once there is no longer infection going on, while awaiting kidney transplant. Patient lives over 2 hours from a hospital. Otherwise, patient denies fever chills, chest pain or shortness of breath, abdominal pain, nausea or vomiting or diarrhea or dysuria. May 27: The patient continues to be fairly sleepy today. When awakened, he really has no complaints. He is to go to the OR tomorrow for further debridement of his foot ulcer. Appearance of his cellulitis continues to improve, and temperature is trending down, and he is currently afebrile. Leukocytosis has improved from 22,000 down to 18,000, and absolute granulocyte count is trending down as well. Dr. Hernandez thinks that after dialysis today, he should be able to go back to his regular dialysis schedule starting on Sunday. Patient otherwise denies subjective fever or chills, chest pain or shortness of breath, GI or complaints. May 28: Today, the patient is very sleepy, he does not wake up much when I try to interview him. He has been seen by podiatry today, and is going to the OR this evening for probable amputation and debridement of his wound. - Constitutional Vitals: Vital Signs Temp Pulse Resp BP Pulse Ox 98.7 F 84 20 140/76 93 05/28/17 15:50 05/28/17 07:44 05/28/17 15:50 05/28/17 15:50 05/28/17 15:50 Period Temp Pulse Resp BP Sys/Frank Pulse Ox Last 24 Hr 97.7 F-99.9 F 79-84 18-22 134-161/66-78 93-95 Intake and Output 05/28/17 05/28/17 05/28/17 05:59 13:59 21:59 Intake Total 50 / 50 50 / 50 500 / 500 Output Total 450 / 450 525 / 525 Balance -400 / -400 50 / 50 -25 / -25 Weight 221 lb Intake & Output: Intake & Output 05/28/17 05/28/17 05/28/17 05:59 13:59 21:59 Intake Total 50 / 50 50 / 50 500 / 500 Output Total 450 / 450 525 / 525 Balance -400 / -400 50 / 50 -25 / -25 Weight 221 lb Intake: IV 50 / 50 50 / 50 500 / 500 Zosyn 2.25 gm In Dextrose 5% in 50 / 50 50 / 50 Water 50 ml @ 100 mls/hr IV Q12H [facility] Rx#:[id number] Vancomycin 1,500 mg In Sodium 500 / 500 Chloride 0.9% 500 ml @ 333.3 mls/hr IV ONCE@1400 ONE Rx#: [id number] Output: Void Amount 450 / 450 525 / 525 Other: # Voids 2 He is sleepy, but in no acute distress. Neck is supple without obvious lymphadenopathy or JVD. Cardiac exam shows regular rate and rhythm. Lungs are clear to auscultation. Abdomen is soft and nontender. Extremities: Left foot appears fairly normal. Right foot continues to be swollen, red, warm, and wound has more necrotic tissue around it today. There is also increased odor today. Neurologic exam: Patient continues to appear groggy, and continues to be minimally verbal. Medical - PN: Obj Da - Labs CBC & Chem 7: 05/28/17 04:00 05/27/17 16:20 Labs: Abnormal Lab Results 05/28/17 05/28/17 05/27/17 05:45 04:00 16:20 WBC 18.2 H RBC 3.63 L Hgb 10.8 L Hct 32.2 L Plt Count 447 H Lymph % (Auto) 10.3 L Gran # 14.0 H Gates # (Auto) 1.5 H Eos # (Auto) 0.8 H POC PT 11.7 L APTT 44 H 40 H Chloride Anion Gap BUN Creatinine Glucose Calcium Ionized Calcium Danita Phosphorus Alkaline Phosphatase Lactate Dehydrogenase Albumin Globulin Albumin/Globulin Ratio Urine Protein Urine Glucose (UA) Urine Urobilinogen Urine RBC Granular Casts 05/27/17 05/27/17 05/27/17 16:20 04:00 04:00 WBC 18.3 H RBC 3.46 L Hgb 10.3 L Hct 30.6 L Plt Count Lymph % (Auto) 10.6 L Gran # 13.9 H Gates # (Auto) 1.4 H Eos # (Auto) 1.0 H POC PT APTT Chloride 89 L 92 L Anion Gap 17.0 H 20.0 H BUN 46 H Creatinine 3.1 H 6.6 H* Glucose 111 H 127 H Calcium 8.3 L Ionized Calcium Danita 1.08 L Phosphorus 4.9 H Alkaline Phosphatase 125 H Lactate Dehydrogenase 264 H Albumin 2.9 L Globulin 3.8 H Albumin/Globulin Ratio 0.8 L Urine Protein Urine Glucose (UA) Urine Urobilinogen Urine RBC Granular Casts 05/26/17 05/26/17 05/26/17 16:00 06:00 06:00 WBC 19.0 H RBC 3.42 L Hgb 10.2 L Hct 30.2 L Plt Count Lymph % (Auto) 10.1 L Gran # 14.6 H Gates # (Auto) 1.5 H Eos # (Auto) 0.9 H POC PT APTT Chloride 94 L Anion Gap BUN 33 H Creatinine 5.4 H* Glucose 123 H Calcium 8.2 L Ionized Calcium Danita Phosphorus 4.7 H Alkaline Phosphatase Lactate Dehydrogenase Albumin 3.1 L Globulin Albumin/Globulin Ratio 0.8 L Urine Protein >=500 A Urine Glucose (UA) 150 A Urine Urobilinogen 2.0 A Urine RBC 4 H Granular Casts 4 H May 27: Chest x-ray: IMPRESSION: No acute disease. Right PICC line tip in the right atrium. Right-sided double-lumen catheter tip near the tricuspid valve. Consider withdrawing double-lumen catheter 6 cm and the PICC line 4 cm May 25: Wound culture: Is growing strep agalactiae, group B, as well as staph aureus. No susceptibilities done on the strep. Staph aureus is pansensitive. May 23: Pro-calcitonin is elevated at 1.4, consistent with possible sepsis. Lactic acid was normal at 1.6. Wound Gram stain: Shows many gram-positive cocci in clusters, many gram- negative bacilli. Blood cultures are negative so far. CBC: White blood cell count is 22,500, hemoglobin 10, hematocrit 31, platelets 330,000. Differential shows 19,200 neutrophils, 1400 monocytes. Chemistry panel: Show sodium 131, chloride 93, BUN 45, creatinine 8.7, glucose 456, ionized calcium low at 0.93 Alcohol level is less than 0.01 Foot x-ray: IMPRESSION: No evidence of osteomyelitis. Large soft tissue ulcer over the fifth metatarsal head with associated cellulitis Chest x-ray: Shows no acute disease. There is a right IJ double-lumen catheter tip at the right atrium. 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 There is no hemorrhage or other acute intracerebral abnormality Meds: Medications Acetaminophen (Tylenol) 650 mg PO Q6HP PRN PRN Reason: PAIN/FEVER > 101 Hydrocodone Bitart/Acetaminophen ([place] 5/325mg) 1 tab PO Q4HP PRN PRN Reason: PAIN LEVEL 3-6 Last Admin: 05/25/17 21:48 Dose: 1 tab Albuterol Sulfate (Ventolin) 2.5 mg NEB Q6HRT PRN PRN Reason: Shortness Of Breath Or Wheezing Amlodipine Besylate (Norvasc) 10 mg PO DAILY [facility] Last Admin: 05/28/17 08:39 Dose: 10 mg Aspirin (Aspirin) 81 mg PO DAILY [facility] Last Admin: 05/28/17 07:21 Dose: Not Given Atorvastatin Calcium (Lipitor) 40 mg PO HS [facility] Last Admin: 05/27/17 20:55 Dose: 40 mg Calcium Acetate (Phoslo) 667 mg PO TIDCC [facility] Last Admin: 05/28/17 16:49 Dose: Not Given Dextrose (Dextrose 50%) 0 ml IV UD PRN PRN Reason: Hypoglycemia Diagnostic Test (Pha) (Accu-Chek) 1 each FS ACHS [facility] Last Admin: 05/28/17 16:48 Dose: 1 each Docusate Sodium (Colace) 100 mg PO BID PRN PRN Reason: Constipation Ergocalciferol (Drisdol) 50,000 unit PO Landa@0900 [facility] Last Admin: 05/27/17 07:39 Dose: 50,000 unit Ferrous Gluconate (Fergon) 324 mg PO DAILY [facility] Last Admin: 05/28/17 07:21 Dose: Not Given Furosemide (Lasix) 80 mg PO BID [facility] Last Admin: 05/28/17 07:21 Dose: Not Given Gabapentin (Neurontin) 300 mg PO TID [facility] Last Admin: 05/28/17 14:47 Dose: Not Given Glipizide (Glucotrol Xl) 2.5 mg PO BIDAC [facility] Last Admin: 05/28/17 16:48 Dose: Not Given Glucose (Insta-Glucose) 15 gm PO PRN PRN PRN Reason: Hypoglycemia Heparin Sodium (Porcine) (Heparin) 5,000 unit SQ Q12 [facility] Last Admin: 05/28/17 07:21 Dose: Not Given Heparin Sodium (Porcine) (Heparin Flush) 2 ml IV Q12 [facility] Last Admin: 05/28/17 13:40 Dose: 2 ml Hydralazine HCl (Apresoline) 25 mg PO TID [facility] Last Admin: 05/28/17 14:55 Dose: 25 mg Piperacillin Sod/Tazobactam (Sod 2.25 gm/ Dextrose) 50 mls @ 100 mls/hr IV Q12H [facility] Last Infusion: 05/28/17 12:05 Dose: Infused Gentamicin Sulfate 40 mg/Clindamycin Phosphate 300 mg/Bacitracin 25,000 unit/ Sodium Chloride 503 mls @ 0 mls/hr IRR 3-4XD [facility] PRN Reason: As Directed Last Admin: 05/26/17 10:45 Dose: 1 mls/hr Insulin Glargine (Lantus) 15 unit SQ BID [facility] Last Admin: 05/28/17 07:23 Dose: Not Given Insulin Human Lispro (Humalog) 0 unit SQ ACHS [facility] PRN Reason: Protocol Last Admin: 05/28/17 16:48 Dose: Not Given Metoprolol Tartrate (Lopressor) 50 mg PO BID [facility] Last Admin: 05/28/17 08:39 Dose: 50 mg Naloxone HCl (Narcan) 0.1 mg IV Q2MIN PRN PRN Reason: Opiate Reversal Ondansetron HCl (Zofran) 4 mg IV Q4HP PRN PRN Reason: Nausea And Vomiting Sodium Bicarbonate (Sodium Bicarbonate) 1,300 mg PO BID [facility] Last Admin: 05/28/17 07:22 Dose: Not Given Sodium Chloride (Saline Flush) 10 ml IV Q12 [facility] Last Admin: 05/28/17 08:39 Dose: 10 ml Vancomycin HCl (Vancomycin Per Pharmacy) 1 order IV UD [facility] Medical - PN: A/P - Time Spent With Patient Total time spent is greater than 50% in coordination of care (as documented) at patient's floor/unit and/or counseling patient: 15 - 24 minutes (1) DM type 2, uncontrolled, with renal complications Status: Acute Current Visit: Yes (2) Cellulitis of foot without toes, right Problem details: PLAN: Amputation of right fifth toe and metatarsal, debridment of necrotic tissue right foot Status: Acute Current Visit: Yes (3) Delirium Status: Acute Current Visit: Yes (4) Leukocytosis Status: Acute Current Visit: Yes (5) ESRD (end stage renal disease) Status: Acute Current Visit: No - Narrative A/P Narrative: #1. Infectious disease. SIRS syndrome Patient presents with signs and symptoms of cellulitis related to a diabetic foot ulcer. Pro-calcitonin indicates possible early sepsis. -The patient is clinically improved but his leukocytosis is not coming down quickly. He will go for wound debridement and possible partial foot amputation this evening. -Continue with empiric vancomycin and Zosyn. -Ideally we would get deep tissue cultures after debridement. -Given that the patient is a diabetic, he may require hyperbaric oxygen to completely heal this wound and avoid amputation. 2. Neurologic. Patient presents with confusion, likely due to medical delirium. Level of alertness seems improved . 3. CODE STATUS: Full code. 4. DVT prophylaxis: Subcu heparin. 5. Endocrine. Type 2 diabetes, patient presents with severe hyperglycemia. -Accu-Cheks are ranging from 71-255 we will continue with Accu-Cheks and sliding scale insulin, -Increased Lantus to 15 units twice daily, as his home dose is 30 units daily. Added back low-dose glipizide and follow. -Hyponatremia, resolved. Hypocalcemia. Continue to monitor. By nephrology, dialysis. Continue calcium acetate. 6. Renal. End-stage renal disease. He is having dialysis today, and then probably again on Sunday. Dr. Hernandez plans to start peritoneal dialysis when he is stable, while awaiting kidney transplant. We will not have an inpatient dialysis nurse available starting today, but her current tentative plan will be to discharge the patient to swing bed status, and then continue with outpatient dialysis on Sunday. This would allow us to keep him here while and Dr. Salazar continues to work on his wound care. - -Hypertension. Blood pressures were running a bit high. Continue amlodipine, hydralazine, metoprolol. Lasix was resumed, and blood pressures are improved. Approximately 25 minutes was spent today, reviewing patient's test results, interviewing and examining him, reviewing plan of care with staff, and writing orders. Medical - PN: Qual - VTE Deep Vein Thrombosis/Pulmonary Embolism Present on Admission: No
[2017-05-28] MEDS ORDERED: BACITRACIN 50,000 UNIT VIAL IR ONE (17:40)
[2017-05-28] MEDS ORDERED: CLINDAMYCIN 600 MG/4 ML VIAL IR ONE (17:40)
[2017-05-28] MEDS ORDERED: GENTAMICIN SULFATE 800 MG/20 ML VIAL IR ONE (17:41)
[2017-05-28] MEDS ORDERED: LACTATED RINGERS 1,000 ML IV SCH ×2 (17:45→19:22)
--- NOTE | 2017-05-28 17:54 | Brief Operative Note ---
Date of procedure: 05/28/17 Pre-op diagnosis: Osteomyelitis with necrosis right fifth mtpj Post-op diagnosis: same Procedure: Amputation right fifth toe, Partial amputation right fifth metatarsal, Debridement right fifth lateral ulceration Grafts/Implants: No Anesthesia: GETA Complications: none Surgeon: Roberth Salazar [employer] O[employer] Planner: Marcus Priest Estimated blood loss (cc): 50 Specimens Removed/Pathology: other (bone and soft tissue right foot) Condition: stable Disposition: floor
[2017-05-28] MEDS ORDERED: VANCOMYCIN PER PHARMACY IV SCH (19:22)
[2017-05-28] MEDS ORDERED: DOCUSATE SODIUM 100 MG CAPSULE PO PRN (19:22)
[2017-05-28] MEDS ORDERED: HYDROcodone/APAP 5/325MG TABLET PO PRN (19:22)
[2017-05-28] MEDS ORDERED: DEXTROSE 50% 50 ML VIAL IV PRN (19:22)
[2017-05-28] MEDS ORDERED: ACETAMINOPHEN 325 MG TABLET PO PRN (19:22)
[2017-05-28] MEDS ORDERED: DEXTROSE 31 GM ORAL.SUSP PO PRN (19:22)
[2017-05-28] MEDS ORDERED: ALBUTEROL SULFATE 2.5 MG/3 ML NEBULIZER NEB PRN (19:22)
[2017-05-28] MEDS ORDERED: HYDROcodone/APAP 5/325MG TABLET PO ONE (19:44)
[2017-05-28] MEDS ORDERED: ATORVASTATIN 20 MG TABLET PO SCH (21:00)
[2017-05-28] MEDS ORDERED: SODIUM BICARBONATE 650 MG TABLET PO SCH (21:00)
[2017-05-28] MEDS ORDERED: METOPROLOL TARTRATE 50 MG TABLET PO SCH (21:00)
[2017-05-28] MEDS ORDERED: GABAPENTIN 300 MG CAPSULE PO SCH (21:00)
[2017-05-28] MEDS ORDERED: 0.9 % SODIUM CHLORIDE 10 ML SYRINGE IV SCH (21:00)
[2017-05-28] MEDS ORDERED: hydrALAZINE 25 MG TABLET PO SCH (21:00)
[2017-05-28] MEDS ORDERED: HEPARIN 5,000 UNIT/ML VIAL SQ SCH (21:00)
[2017-05-28] MEDS ORDERED: INSULIN GLARGINE, HUMAN 1 UNIT/0.01 ML SQ SCH (21:00)
[2017-05-28 21:26] LABS: Ionized Calcium 1.07 mmol/L (1.16-1.32)
[2017-05-28 21:39] LABS: Blood Urea Nitrogen 35 mg/dl (8-23)
[2017-05-29] MEDS ORDERED: PIPERACILLIN SODIUM/TAZOBACTAM 2.25 GM in DEXTROSE 5% IN WATER 50 ML IV SCH
[2017-05-29] MEDS: FUROSEMIDE 80 MG TABLET PO SCH (07:24)
[2017-05-29] MEDS: INSULIN LISPRO 1 UNIT/0.01 ML UNIT SQ SCH (07:24)
[2017-05-29] MEDS ORDERED: glipiZIDE 2.5 MG TAB.XL.24H PO SCH (07:30)
[2017-05-29 07:36] LABS: Basophils # (Auto) 0 K/mcL (0.0-0.3); Basophils % (Auto) 0.2 % (0.0-2.0); Eosinophils # (Auto) 0.1 K/mcL (0.0-0.7); Eosinophils % (Auto) 0.5 % (0.0-7.0); Granulocytes % (Auto) 92.5 % (38.0-78.0); Lymphocytes # (Auto) 0.8 K/mcL (1.5-4.8); Lymphocytes % (Auto) 6.1 % (15.5-49.0); Mean Cell Volume 85.4 fL (80.0-100.0); Mean Corpuscular HGB Conc 34.2 g/dL (31.0-36.0); Mean Corpuscular Hemoglobin 29.2 pg (26.0-34.0); Monocytes # (Auto) 0.1 K/mcL (0.1-0.9); Monocytes % (Auto) 0.7 % (1.0-12.0); Platelet Count 447 K/mcL (140-440); Red Cell Distribution Width 13.3 % (11.5-14.5)
--- NOTE | 2017-05-29 07:37 | Discharge Summary ---
Medical - DS: Prov Patient information: Note initiated : 05/29/17 at 7:30 am Service Date, if different from initiated Date: [] Patient: Sandro Bailey 66 y/o M admitted on 05/23/17 for Fall/Cellulitis of Right Foot, Diabetic Foot Ulcer. Chief Complaint: [] Date of admission: 05/23/17 15:45 Discharge date: 05/29/17 Primary care physician: Brandon Neville Admitting clinician: Janeth Yancey Consults: 05/23/17 16:04 Consult to Physician [CONS] Stat Comment: esrd Consulting Provider: Ricky Navarro Reason For Exam: Physician to Consult 05/24/17 07:46 Consult to Physician [CONS] Routine Comment: R foot wound, cellulitis Consulting Provider: Marcus Priest Reason For Exam: Physician to Consult Rocio Salazar, podiatry Attending physician on discharge: Janeth Yancey Medical - DS: Meds - Discharge Medications Active and Home Medications: Discharge medications: Acetaminophen (Tylenol) 650 mg PO Q6HP PRN PRN Reason: PAIN/FEVER > 101 Hydrocodone Bitart/Acetaminophen (Citra 5/325mg) 1 tab PO Q4HP PRN PRN Reason: PAIN LEVEL 3-6 Last Admin: 05/25/17 21:48 Dose: 1 tab Albuterol Sulfate (Ventolin) 2.5 mg NEB Q6HRT PRN PRN Reason: Shortness Of Breath Or Wheezing Amlodipine Besylate (Norvasc) 10 mg PO DAILY [facility] Last Admin: 05/28/17 08:39 Dose: 10 mg Aspirin (Aspirin) 81 mg PO DAILY [facility] Last Admin: 05/28/17 07:21 Dose: Not Given Atorvastatin Calcium (Lipitor) 40 mg PO HS [facility] Last Admin: 05/27/17 20:55 Dose: 40 mg Calcium Acetate (Phoslo) 667 mg PO TIDCC [facility] Last Admin: 05/28/17 16:49 Dose: Not Given Dextrose (Dextrose 50%) 0 ml IV UD PRN PRN Reason: Hypoglycemia Diagnostic Test (Pha) (Accu-Chek) 1 each FS ACHS [facility] Last Admin: 05/28/17 16:48 Dose: 1 each Docusate Sodium (Colace) 100 mg PO BID PRN PRN Reason: Constipation Ergocalciferol (isdol) 50,000 unit PO Landa@0900 [facility] Last Admin: 05/27/17 07:39 Dose: 50,000 unit Ferrous Gluconate (Fergon) 324 mg PO DAILY [facility] Last Admin: 05/28/17 07:21 Dose: Not Given Furosemide (Lasix) 80 mg PO BID [facility] Last Admin: 05/28/17 07:21 Dose: Not Given Gabapentin (Neurontin) 300 mg PO TID [facility] Last Admin: 05/28/17 14:47 Dose: Not Given Glipizide (Glucotrol Xl) 2.5 mg PO BIDAC [facility] Last Admin: 05/28/17 16:48 Dose: Not Given Glucose (Insta-Glucose) 15 gm PO PRN PRN PRN Reason: Hypoglycemia Heparin Sodium (Porcine) (Heparin) 5,000 unit SQ Q12 [facility] Last Admin: 05/28/17 07:21 Dose: Not Given Heparin Sodium (Porcine) (Heparin Flush) 2 ml IV Q12 [facility] Last Admin: 05/28/17 13:40 Dose: 2 ml Hydralazine HCl (Apresoline) 25 mg PO TID [facility] Last Admin: 05/28/17 14:55 Dose: 25 mg Piperacillin Sod/Tazobactam (Sod 2.25 gm/ Dextrose) 50 mls @ 100 mls/hr IV Q12H [facility] Last Infusion: 05/28/17 12:05 Dose: Infused Gentamicin Sulfate 40 mg/Clindamycin Phosphate 300 mg/Bacitracin 25,000 unit/ Sodium Chloride 503 mls @ 0 mls/hr IRR 3-4XD [facility] PRN Reason: As Directed Last Admin: 05/26/17 10:45 Dose: 1 mls/hr Insulin Glargine (Lantus) 15 unit SQ BID [facility] Last Admin: 05/28/17 07:23 Dose: Not Given Insulin Human Lispro (Humalog) 0 unit SQ ACHS [facility] PRN Reason: Protocol Last Admin: 05/28/17 16:48 Dose: Not Given Metoprolol Tartrate (Lopressor) 50 mg PO BID [facility] Last Admin: 05/28/17 08:39 Dose: 50 mg Naloxone HCl (Narcan) 0.1 mg IV Q2MIN PRN PRN Reason: Opiate Reversal Ondansetron HCl (Zofran) 4 mg IV Q4HP PRN PRN Reason: Nausea And Vomiting Sodium Bicarbonate (Sodium Bicarbonate) 1,300 mg PO BID [facility] Last Admin: 05/28/17 07:22 Dose: Not Given Sodium Chloride (Saline Flush) 10 ml IV Q12 [facility] Last Admin: 05/28/17 08:39 Dose: 10 ml Vancomycin HCl (Vancomycin Per Pharmacy) 1 order IV UD [facility] Previous home Medications Aspirin [Charmaine Chewable Aspirin] 81 mg PO DAILY 05/23/17 [History Confirmed Last Taken Unknown] Atorvastatin [Lipitor] 40 mg PO HS 05/23/17 [History Confirmed 05/23/17 Last Taken Unknown] Calcium Acetate [Phoslo] 667 mg PO TIDCC 05/23/17 [History Confirmed 05/23/17 Last Taken Unknown] Ergocalciferol (Vitamin D2) [Vitamin D2] 50,000 unit PO WEEKLY 05/23/17 [ History Confirmed 05/23/17 Last Taken Unknown] Ferrous Gluconate [Fergon] 324 mg PO DAILY 05/23/17 [History Confirmed 05/23/17 Last Taken Unknown] Furosemide [Lasix] 80 mg PO BID 05/23/17 [History Confirmed 05/23/17 Last Taken Unknown] Gabapentin [Neurontin] 300 mg PO TID 05/23/17 [History Confirmed 05/23/17 Last Taken Unknown] Metoprolol Tartrate [Lopressor] 50 mg PO BID 05/23/17 [History Confirmed Last Taken Unknown] Sodium Bicarbonate 1,300 mg PO BID 05/23/17 [History Confirmed 05/23/17 Last Taken Unknown] amLODIPine [Norvasc] 10 mg PO DAILY 05/23/17 [History Confirmed 05/23/17 Last Taken Unknown] hydrALAZINE [Apresoline] 25 mg PO TID 05/23/17 [History Confirmed 05/23/17 Last Taken Unknown] 0.9 % Sodium Chloride [Saline Flush] 10 ml IV Q12 syringe 05/28/17 [Rx Last Taken Unknown] Accu-Chek 1 each FS ACHS strip 05/28/17 [Rx Last Taken Unknown] Acetaminophen [Tylenol] 650 mg PO Q6HP PRN tablet 05/28/17 [Rx Last Taken Unknown] Albuterol Sulfate [Ventolin] 2.5 mg NEB Q6HRT PRN ampul.neb 05/28/17 [Rx Last Taken Unknown] Bacitracin 25,000 unit IRR 3-4XD vial 05/28/17 [Rx Last Taken Unknown] Clindamycin [Cleocin] 300 mg IRR 3-4XD vial 05/28/17 [Rx Last Taken Unknown] Docusate Sodium [Colace] 100 mg PO BID PRN capsule 05/28/17 [Rx Last Taken Unknown] Gentamicin Sulfate 40 mg IRR 3-4XD vial 05/28/17 [Rx Last Taken Unknown] HYDROcodone/APAP 5/325MG [Citra 5/325Mg] 1 tab PO Q4HP PRN tablet 05/28/17 [Rx Last Taken Unknown] Heparin 5,000 unit SQ Q12 vial 05/28/17 [Rx Last Taken Unknown] Heparin Flush 2 ml IV Q12 syringe 05/28/17 [Rx Last Taken Unknown] Insulin Glargine, Human [Lantus] 15 unit SQ BID unit 05/28/17 [Rx Last Taken Unknown] Insulin Lispro [Humalog] See Protocol SQ ACHS unit 05/28/17 [Rx Last Taken Unknown] Naloxone HCl [Narcan] 0.1 mg IV Q2MIN PRN vial 05/28/17 [Rx Last Taken Unknown] Ondansetron [Zofran] 4 mg IV Q4HP PRN vial 05/28/17 [Rx Last Taken Unknown] Piperacillin Sodium/Tazobactam [Zosyn] 2.25 gm IV Q12H vial 05/28/17 [Rx Last Taken Unknown] glipiZIDE [Glucotrol Xl] 2.5 mg PO BIDAC tab.xl.24h 05/28/17 [Rx Last Taken Unknown] Medical - DS: Hosp Hospital course: Mr. Bailey is a 66 year old M May 23, 2017: History of present illness: Mr. Bailey is a 66 year old man with a history of type 2 diabetes, end-stage renal disease, atrial fibrillation, neuropathy, etc. He was apparently in his normal state of health until about 2 days ago when he noticed increased pain and swelling of his right foot. I believe he had a fall as well, although that is less certain. He has been more sleepy than usual, and was sent to the emergency room for evaluation today. In the intensive care unit where I met him, he is quite somnolent. He does awaken for a minute or so with strong verbal and physical stimulation, but then drifts back to sleep again. He seems to indicate that he has not been having fever or chills, headaches or dizziness, new eye or ear symptoms, sore throat or cough. He denies chest pain or palpitations, shortness of breath, abdominal pain, nausea or vomiting, diarrhea or constipation, dysuria. He only admits to pain and swelling of his right foot. He does admit that he has been falling, but could not give me any details about that. He lives alone. Apparently his sister was here earlier, but has left for the day. ER evaluation found him to be delirious. Glucose was greater than 400. Head CT was reported as negative. Lactic acid was normal. White blood cell count was markedly elevated at 22. May 24: Today, the patient states he is feeling quite a bit better. However, he is still having significant pain in his right foot, which he rates as 9 out of 10. Otherwise, he denies fever chills, chest pain or shortness of breath, abdominal pain, nausea or vomiting, diarrhea or constipation. He underwent dialysis last night, and appears to have tolerated that well. .... May 29: Hospital course: -Patient was admitted with early sepsis related to a severe right foot diabetic ulcer infection. He was treated with IV vancomycin and Zosyn. He underwent foot debridement with , and then last night went back to the OR with and Dr. Salazar and had his right fifth toe and part of the metatarsal bone amputated, to help control infection. White blood cell counts were initially very high around 23,000, and are slowly trending downwards, and today read at 12,600. He will be discharged to swing bed status today, and continue with wound care, dialysis, and likely with hyperbaric oxygen therapy. -Mental status seemed somewhat depressed when he first arrived, but he is now back to normal. -Accu-Cheks have run quite high at times. He is now back on just 30 units a day , plus sliding scale insulin and low-dose glipizide. Glucoses are trending down. -For his end-stage renal disease, he has been receiving dialysis under the direction of Dr. Hernandez. I believe hemodialysis is being used until he goes home , and then they hope to get him set up for peritoneal dialysis, while awaiting renal transplant. He apparently lives quite far away from the hospital. -The patient denies fever chills today, chest pain or shortness of breath, GI or complaints. He denies significant pain in his foot. He is sleepy, but in no acute distress. Neck is supple without obvious lymphadenopathy or JVD. Cardiac exam shows regular rate and rhythm. Lungs are clear to auscultation. Abdomen is soft and nontender. Extremities: Left foot appears fairly normal. Right foot continues to be swollen,, but has a new bandage on today. There is quite a bit of bloody drainage. The bandage is left intact. The patient reports the foot feels better. Neurologic exam: Patient continues to appear groggy, and continues to be minimally verbal. A/P Narrative: #1. Infectious disease. SIRS syndrome Patient presents with signs and symptoms of cellulitis related to a diabetic foot ulcer. Pro-calcitonin indicates possible early sepsis. -He is status post partial amputation, and will have ongoing wound care. Continue empiric vancomycin and Zosyn for now. -Given that the patient is a diabetic, he may require hyperbaric oxygen to completely heal this wound and avoid amputation. 2. Neurologic. Patient presents with confusion, likely due to medical delirium. Level of alertness seems improved . 3. CODE STATUS: Full code. 4. DVT prophylaxis: Subcu heparin. 5. Endocrine. Type 2 diabetes, patient presents with severe hyperglycemia. -Accu-Cheks are a bit labile, ranging from 70-470 we will continue with Accu- Cheks and sliding scale insulin, -Increased Lantus to 15 units twice daily, as his home dose is 30 units daily. Added back low-dose glipizide and follow. -Hyponatremia, resolved. Hypocalcemia. Continue to monitor. By nephrology, dialysis. Continue calcium acetate. 6. Renal. End-stage renal disease. He is having dialysis today, and then probably again on Sunday. Dr. Hernandez plans to start peritoneal dialysis when he is stable, while awaiting kidney transplant. - continue with outpatient dialysis on Sunday. -Hypertension. Blood pressures were running a bit high. Continue amlodipine, hydralazine, metoprolol. Lasix was resumed, and blood pressures are improved. Discharge diagnosis: Infected right foot diabetic ulcer. SIRS. ESRD. Hypertension. - Time Spent with Patient Total time spent providing and/or coordinating discharge services: Greater than 30 minutes Medical - DS: Exam - Constitutional Vitals: Vital Signs Temp Pulse Pulse Pulse Resp BP BP 05/29/17 07:21 05/29/17 03:23 96.6 F L 65 18 105/57 05/29/17 00:00 97.1 F 67 18 135/60 05/28/17 21:30 68 129/61 05/28/17 20:30 70 144/70 05/28/17 20:00 71 157/78 05/28/17 19:30 71 150/70 05/28/17 19:15 70 161/72 05/28/17 19:00 68 162/78 05/28/17 18:40 95.3 F L 72 20 151/77 05/28/17 18:25 98.7 F 70 67 65 16 149/78 140/70 05/28/17 18:10 98.7 F 66 67 65 16 149/78 127/66 05/28/17 18:05 98.7 F 66 64 65 16 149/78 108/60 05/28/17 18:00 63 18 117/62 05/28/17 17:55 98.7 F 66 66 20 149/78 96/64 05/28/17 15:50 98.7 F 20 140/76 05/28/17 14:49 134/68 05/28/17 11:35 97.7 F 18 161/70 05/28/17 07:44 99.3 F H 84 20 144/66 Pulse Ox 05/29/17 07:21 96 05/29/17 03:23 92 05/29/17 00:00 94 05/28/17 21:30 94 05/28/17 20:30 92 05/28/17 20:00 97 05/28/17 19:30 92 05/28/17 19:15 94 05/28/17 19:00 94 05/28/17 18:40 91 05/28/17 18:25 94 05/28/17 18:10 97 05/28/17 18:05 98 05/28/17 18:00 97 05/28/17 17:55 96 05/28/17 15:50 93 05/28/17 14:49 05/28/17 11:35 94 05/28/17 07:44 95 Intake and Output 05/28/17 05/29/17 05/29/17 21:59 05:59 13:59 Intake Total 900 / 900 650 / 650 Output Total 525 / 525 Balance 375 / 375 650 / 650 Intake: IV 500 / 500 50 / 50 Zosyn 2.25 gm In Dextrose 5% in 50 / 50 Water 50 ml @ 100 mls/hr IV Q12H [facility] Rx#:[id number] Vancomycin 1,500 mg In Sodium 500 / 500 Chloride 0.9% 500 ml @ 333.3 mls/hr IV ONCE@1400 [facility] Rx#: [id number] Oral 600 / 600 IV - Manual Only 400 / 400 Output: Void Amount 525 / 525 Other: # Voids 2 Weight 220 lb Medical - DS: Data Labs on day of discharge: Labs from last 24 hours 05/29/17 05/29/17 05/28/17 04:30 04:30 20:32 WBC Pending RBC Pending Hgb Pending Hct Pending MCV Pending MCH Pending MCHC Pending RDW Pending Plt Count Pending MPV Pending PT Pending INR Pending APTT Sodium 133 Potassium 5.1 Chloride 89 L Carbon Dioxide 25 Anion Gap 19.0 H BUN 35 H Creatinine 5.8 H* GFR Calculation 9 Glucose 179 H Ionized Calcium Danita 1.07 L 05/28/17 05:45 WBC RBC Hgb Hct MCV MCH MCHC RDW Plt Count MPV PT INR APTT 44 H Sodium Potassium Chloride Carbon Dioxide Anion Gap BUN Creatinine GFR Calculation Glucose Ionized Calcium Danita May 27: Chest x-ray: IMPRESSION: No acute disease. Right PICC line tip in the right atrium. Right-sided double-lumen catheter tip near the tricuspid valve. Consider withdrawing double-lumen catheter 6 cm and the PICC line 4 cm May 25: Wound culture: Is growing strep agalactiae, group B, as well as staph aureus. No susceptibilities done on the strep. Staph aureus is pansensitive. May 23: Pro-calcitonin is elevated at 1.4, consistent with possible sepsis. Lactic acid was normal at 1.6. Wound Gram stain: Shows many gram-positive cocci in clusters, many gram- negative bacilli. Blood cultures are negative so far. CBC: White blood cell count is 22,500, hemoglobin 10, hematocrit 31, platelets 330,000. Differential shows 19,200 neutrophils, 1400 monocytes. Chemistry panel: Show sodium 131, chloride 93, BUN 45, creatinine 8.7, glucose 456, ionized calcium low at 0.93 Alcohol level is less than 0.01 Foot x-ray: IMPRESSION: No evidence of osteomyelitis. Large soft tissue ulcer over the fifth metatarsal head with associated cellulitis Chest x-ray: Shows no acute disease. There is a right IJ double-lumen catheter tip at the right atrium. 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 There is no hemorrhage or other acute intracerebral abnormality Medical - DS: A/P - Patient/Caregiver Discharge Instructions Activity: as per physical therapy Diet: Renal/Consistent Carbs Additional Instructions: Discharge Medications ( same as inpatient): Acetaminophen (Tylenol) 650 mg PO Q6HP PRN PRN Reason: PAIN/FEVER > 101 Hydrocodone Bitart/Acetaminophen (Citra 5/325mg) 1 tab PO Q4HP PRN PRN Reason: PAIN LEVEL 3-6 Last Admin: 05/25/17 21:48 Dose: 1 tab Albuterol Sulfate (Ventolin) 2.5 mg NEB Q6HRT PRN PRN Reason: Shortness Of Breath Or Wheezing Amlodipine Besylate (Norvasc) 10 mg PO DAILY [facility] Last Admin: 05/28/17 08:39 Dose: 10 mg Aspirin (Aspirin) 81 mg PO DAILY [facility] Last Admin: 05/28/17 07:21 Dose: Not Given Atorvastatin Calcium (Lipitor) 40 mg PO HS [facility] Last Admin: 05/27/17 20:55 Dose: 40 mg Calcium Acetate (Phoslo) 667 mg PO TIDCC [facility] Last Admin: 05/28/17 16:49 Dose: Not Given Dextrose (Dextrose 50%) 0 ml IV UD PRN PRN Reason: Hypoglycemia Diagnostic Test (Pha) (Accu-Chek) 1 each FS ACHS [facility] Last Admin: 05/28/17 16:48 Dose: 1 each Docusate Sodium (Colace) 100 mg PO BID PRN PRN Reason: Constipation Ergocalciferol (Drisdol) 50,000 unit PO Landa@0900 [facility] Last Admin: 05/27/17 07:39 Dose: 50,000 unit Ferrous Gluconate (Fergon) 324 mg PO DAILY [facility] Last Admin: 05/28/17 07:21 Dose: Not Given Furosemide (Lasix) 80 mg PO BID [facility] Last Admin: 05/28/17 07:21 Dose: Not Given Gabapentin (Neurontin) 300 mg PO TID [facility] Last Admin: 05/28/17 14:47 Dose: Not Given Glipizide (Glucotrol Xl) 2.5 mg PO BIDAC [facility] Last Admin: 05/28/17 16:48 Dose: Not Given Glucose (Insta-Glucose) 15 gm PO PRN PRN PRN Reason: Hypoglycemia Heparin Sodium (Porcine) (Heparin) 5,000 unit SQ Q12 [facility] Last Admin: 05/28/17 07:21 Dose: Not Given Heparin Sodium (Porcine) (Heparin Flush) 2 ml IV Q12 [facility] Last Admin: 05/28/17 13:40 Dose: 2 ml Hydralazine HCl (Apresoline) 25 mg PO TID [facility] Last Admin: 05/28/17 14:55 Dose: 25 mg Piperacillin Sod/Tazobactam (Sod 2.25 gm/ Dextrose) 50 mls @ 100 mls/hr IV Q12H [facility] Last Infusion: 05/28/17 12:05 Dose: Infused Gentamicin Sulfate 40 mg/Clindamycin Phosphate 300 mg/Bacitracin 25,000 unit/ Sodium Chloride 503 mls @ 0 mls/hr IRR 3-4XD [facility] PRN Reason: As Directed Last Admin: 05/26/17 10:45 Dose: 1 mls/hr Insulin Glargine (Lantus) 15 unit SQ BID [facility] Last Admin: 05/28/17 07:23 Dose: Not Given Insulin Human Lispro (Humalog) 0 unit SQ ACHS [facility] PRN Reason: Protocol Last Admin: 05/28/17 16:48 Dose: Not Given Metoprolol Tartrate (Lopressor) 50 mg PO BID [facility] Last Admin: 05/28/17 08:39 Dose: 50 mg Naloxone HCl (Narcan) 0.1 mg IV Q2MIN PRN PRN Reason: Opiate Reversal Ondansetron HCl (Zofran) 4 mg IV Q4HP PRN PRN Reason: Nausea And Vomiting Sodium Bicarbonate (Sodium Bicarbonate) 1,300 mg PO BID [facility] Last Admin: 05/28/17 07:22 Dose: Not Given Sodium Chloride (Saline Flush) 10 ml IV Q12 [facility] Last Admin: 05/28/17 08:39 Dose: 10 ml Vancomycin HCl (Vancomycin Per Pharmacy) 1 order IV UD [facility] Other Amb Orders: Aspiration Precautions Location: Determined By Patient Fall Risk Location: Determined By Patient OT Discharge Order Location: Determined By Patient Physical Therapy at Discharge - General Location: Determined By Patient Wound Care/Dressings Location: Determined By Patient Outpatient PICC Care Location: Determined By Patient Basic Metabolic Panel Time Frame: 2 Days, Location: Determined By Patient - Problem Maintenance (1) DM type 2, uncontrolled, with renal complications Status: Acute (2) Cellulitis of foot without toes, right Status: Acute Comment: PLAN: Amputation of right fifth toe and metatarsal, debridment of necrotic tissue right foot (3) Delirium Status: Acute (4) Leukocytosis Status: Acute Qualifiers: Leukocytosis type: bandemia Qualified Code(s): D72.825 - Bandemia (5) ESRD (end stage renal disease) Status: Acute - Follow up Plan Follow up with: Brandon Neville [Primary Care Provider] - Rosa Elena Hernandez MD [Physician] - Marcus Priest MD [Physician] - Disposition: [facility] Swing Bed Prognosis: Fair Rehab Potential: Fair Overall status at discharge: patient is progressing back to baseline Medical - DS: Qual - VTE Deep Vein Thrombosis/Pulmonary Embolism Present on Admission: No
[2017-05-29] MEDS ORDERED: CALCIUM ACETATE 667 MG CAPSULE PO SCH (08:00)
[2017-05-29] MEDS ORDERED: amLODIPine 10 MG TABLET PO SCH (09:00)
[2017-05-29] MEDS ORDERED: FERROUS GLUCONATE 324 MG TABLET PO SCH (09:00)
[2017-05-29] MEDS ORDERED: ASPIRIN 81 MG TAB.CHEW PO SCH (09:00)
--- NOTE | 2017-05-29 09:34 | Operative Note ---
DATE OF OPERATION: 05/28/2017 PREOPERATIVE DIAGNOSIS: Osteomyelitis with necrosis, right fifth metatarsophalangeal joint. POSTOPERATIVE DIAGNOSIS: Osteomyelitis with necrosis, right fifth metatarsophalangeal joint. PROCEDURE: 1. Partial amputation, right fifth metatarsal. 2. Amputation, right fifth toe. 3. Debridement of right fifth lateral ulceration. SURGEON: Roberth Salazar DPM. GREY PERCHER: Marcus Priest M.D. ANESTHESIA: GETA. COMPLICATIONS: None. ESTIMATED BLOOD LOSS: 50 mL. TOURNIQUET TIME: None. SPECIMEN: Bone and soft tissue of right foot, culture and pathology. CONDITION: Stable. DISPOSITION: Floor. INDICATION FOR PROCEDURE: Dr. Priest consulted myself on 05/28/2017 with a patient with a severe osteomyelitis and necrotic fifth ray. It was suggested to perform a partial amputation with debridement of wound of the fifth ray. I agreed to this procedure and patient was consented, and the procedure was performed later that afternoon. PROCEDURE IN DETAIL: The patient was brought to the operating room and placed on the operating table in supine position. The right lower extremity was scrubbed, prepped and draped in the usual aseptic manner. After a complete timeout and review procedure was performed, a circumferential incision was placed around the fifth toe. The fifth toe was carefully dissected in a full-thickness flap and was passed from the operative field and sent to be analyzed under pathological analysis. Procedure #2 was amputation of right fifth ray. An additional incision was performed circumferential around the necrotic tissue that was present on the lateral aspect of the foot, approximately 4 cm total by 2 cm from anterior to posterior. This area was debrided in a complete full-thickness dissection. The central base of the one-third of the fifth metatarsal was transected utilizing a sagittal saw blade. This bone was added to the pathological specimen after it was passed from the operative field. Copious amount of sterile saline was used to irrigate the area via pulse lavage with antibiotic mixture. A total of 3 liters was used to irrigate this area via pulse lavage. An additional clear margin of bone was sent for separate pathological analysis of the fifth metatarsal base, approximately 0.5 cm in length. This area was then irrigated and closure was partially performed with 0 Vicryl to close space over the exposed bone. Additional cauterization was performed to control hemostasis for the flap. Dressings were then applied consisting of Xeroform, 4 x 4 gauze soaked in Betadine, standard 4 x 4 gauze, Kerlix, Coban, and Salty wrap. The patient tolerated the procedure and anesthesia well and was transferred to his room on the floor for continued followup with antibiotic therapy. Dr. Priest will resume care of this patient as a wound care patient, outpatient and inpatient. [email or web address] Job ID: [id number] Doc ID: [id number] Roberth Salazar DPM
--- NOTE | 2017-06-01 13:06 | Surgical Pathology Report ---
HISTOLOGY SPECIMEN MICROSCOPIC DIAGNOSIS SPECIMEN A - FOOT, RIGHT DISTAL BONE/TOE, AMPUTATION: -- LARGE GANGRENOUS EPIDERMAL ULCERATION WITH FAT NECROSIS, FIBROSIS, ABSCESS AND ACUTE OSTEOMYELITIS. -- CUTANEOUS AND SOFT TISSUE MARGINS APPEAR VIABLE BUT HAVE ISCHEMIC CHANGE. -- NO NEOPLASIA OR MALIGNANCY IDENTIFIED. SPECIMEN B - BONE, RIGHT FOOT PROXIMAL, BIOPSY: -- OSTEOSCLEROTIC LAMELLAR BONE WITH ASSOCIATED FIBROADIPOSE TISSUE. -- NEGATIVE FOR OSTEOMYELITIS. (ACP:djf) PROCEDURAL IMPRESSION Right foot osteomyelitis. GROSS DESCRIPTION Specimen A is received as right distal bone/toe amputation and consists of an amputated toe with lateral portion of foot and segment of metatarsal bone. The entire specimen measures 9.5 cm in length with an A-P measurement of 4.5 cm and an M-L measurement of 2.5 cm. The metatarsal bone and toe measure up to 9.5 cm. The bone does protrude from medial soft tissue up to 2 cm and has a diameter of 1 cm. The toe alone measures 3 x 2.5 x 2 cm. The nail plate is thickened and irregular and measures 1 x 1.2 cm. There is a large ulcer on the lateral edge of the foot that measures up to 6.9 x 4.5 cm. The ulcer has a gangrenous appearance with dark black and green areas of discoloration with black/dark green areas of discoloration, along with extensive hemorrhage and exudate. Sections of the bony and skin/soft tissue resection submitted in A1. Study Director cross sections of ulceration and underlying bone are submitted in A2-A3 (after decalcification). Specimen B is received in formalin as right foot proximal bone and consists of a segment of bone that measures up to 1.5 cm in length with a diameter of 1.6 cm. There is a small amount of attached fibroadipose tissue. The marrow is dark red. After decalcification, bone resection and tissue entirely submitted in B1-B2. (ACP:adj) Electronically Signed by: Johnathan Yusuf M.D.
[2017-06-03] MEDS ORDERED: ERGOCALCIFEROL (VITAMIN D2) 50,000 UNIT CAPSULE PO SCH (09:00)
== END 2017-05-29 08:11 | disposition other institution (70) | DRG 853 ==
LOC: ED 11:50 → SUATTDRO 15:45 → ICU 15:45 → MEDSUR 05-27 09:39
PROVIDERS: ADMIT Internal Medicine; ATTEND Internal Medicine

== ENCOUNTER 2017-06-04 13:04 | Inpatient (IN) ==
[~2017-06-04 13:04] MED LIST: PIPERACILLIN SODIUM/TAZOBACTAM 3.375 GM in DEXTROSE 5% IN WATER 50 ML IV SCH
--- NOTE | 2017-06-04 13:24 | Internal Med History&Physical ---
Medical - H&P: HPI Patient information: Note initiated : 06/04/17 at 1:22 pm Service Date, if different from initiated Date: [] Patient: Sandro Bailey 66 y/o M admitted on 06/04/17 for Sepsis, Cellulitis. Chief Complaint: [] History of present illness: Mr. Bailey is a 66 year old M History of present illness: -The patient was discharged to swing bed status on May 29. His foot wound has gotten progressively better. He is doing very well currently with a wound VAC and current IV antibiotics. His white blood cell count was still a little high on admit to discharge, but was trending down. Unfortunately, it is now trending up again, for uncertain reasons. Lowest we have seen it was 15,000, and he is now back up to 19,000, with granulocyte count up to 14,400. At this point, it would appear that he still has ongoing infection somewhere. He will need further workup to investigate this, and probable change in treatment plan. Will be discharged from swing bed status today, and back to inpatient status. I reviewed his case again with Dr. Salazar from podiatry. We think that the next best step is probably to do a tagged white blood cell scan, to see if an abscess or other occult infection shows up. The patient's only complaint today, is a mild sore throat. He otherwise denies fever chills, headaches or dizziness, sinus symptoms teeth symptoms or earache. He denies chest pain or palpitations, shortness of breath or cough, GI or symptoms. -Type 2 diabetes. The patient's blood sugar has not been well controlled, so we have gradually been increasing insulin and oral meds. It is overall improved , but still not at goal. This may be partly due to ongoing infection. -Patient has to need to receive 3 times a week dialysis for his end-stage renal disease. 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 GBS Tinea corporis (Chronic) Edema of lower extremity (Chronic) CKD stage 4 due to type 2 diabetes mellitus (Chronic) Gastritis (Chronic) Guillain-Hollywood syndrome (Chronic) Lone atrial fibrillation (Chronic) Bronchitis (Chronic) Heat exhaustion (Chronic) Nonproliferative diabetic retinopathy (Chronic) Diabetic neuropathy (Chronic) Seasonal allergic rhinitis (Chronic) Diabetes mellitus, type II (Chronic) Vitamin D deficiency (Chronic) Cervical nerve root compression (Chronic) Left median nerve neuropathy (Chronic) Low back pain (Chronic) Foot drop (Chronic) Obesity (Chronic) Injury of lumbar spine (Chronic) Injury of cervical spine (Chronic) Shoulder pain (Chronic) Carpal tunnel syndrome (Chronic) Cervical disc disorder (Chronic) Hyperlipidemia (Chronic) Gastritis due to nonsteroidal anti-inflammatory drug (NSAID) (Chronic) Hypertension (Chronic) Metatarsal fracture (Chronic 01/21/11) Surgical history: Past Surgical History History of cholecystectomy (Chronic 06/25/80) Allergies: Influenza vaccine Medications: acetaminophen (Tylenol) 650 mg PO Q6HP PRN PRN Reason: PAIN/FEVER > 101 Hydrocodone Bitart/Acetaminophen ([place] 5/325mg) 1 tab PO Q4HP PRN PRN Reason: PAIN LEVEL 3-6 Albuterol Sulfate (Ventolin) 2.5 mg NEB Q4HP PRN PRN Reason: Shortness Of Breath Albuterol Sulfate (Ventolin) 2.5 mg NEB Q6HP PRN PRN Reason: Shortness Of Breath Or Wheezing Amlodipine Besylate (Norvasc) 10 mg PO DAILY [facility] Last Admin: 06/03/17 08:24 Dose: 10 mg Aspirin (Aspirin) 81 mg PO DAILY [facility] Last Admin: 06/03/17 08:24 Dose: 81 mg Atorvastatin Calcium (Lipitor) 40 mg PO HS [facility] Last Admin: 06/02/17 20:32 Dose: 40 mg Calcium Acetate (Phoslo) 667 mg PO TIDCC [facility] Last Admin: 06/03/17 11:25 Dose: 667 mg Dextrose (Dextrose 50%) 0 ml IV UD PRN PRN Reason: Hypoglycemia Diagnostic Test (Pha) (Accu-Chek) 1 each FS ACHS [facility] Last Admin: 06/03/17 11:25 Dose: 1 each Docusate Sodium (Colace) 100 mg PO BID PRN PRN Reason: Constipation Last Admin: 06/01/17 09:50 Dose: 100 mg Ergocalciferol (Drisdol) 50,000 unit PO Landa@0900 [facility] Last Admin: 06/03/17 08:24 Dose: 50,000 unit Ferrous Gluconate (Fergon) 324 mg PO DAILY [facility] Last Admin: 06/03/17 08:24 Dose: 324 mg Furosemide (Lasix) 80 mg PO BID [facility] Last Admin: 06/03/17 08:24 Dose: 80 mg Gabapentin (Neurontin) 300 mg PO TID [facility] Last Admin: 06/03/17 08:23 Dose: 300 mg Glipizide (Glucotrol Xl) 5 mg PO BIDAC [facility] Last Admin: 06/03/17 07:29 Dose: 5 mg Glucose (Insta-Glucose) 15 gm PO PRN PRN PRN Reason: Hypoglycemia Heparin Sodium (Porcine) (Heparin) 5,000 unit SQ Q12 [facility] Last Admin: 06/03/17 08:18 Dose: 5,000 unit Heparin Sodium (Porcine) (Heparin Flush) 2 ml IV Q12 [facility] Last Admin: 06/03/17 08:20 Dose: 2 ml Hydralazine HCl (Apresoline) 25 mg PO TID [facility] Last Admin: 06/03/17 08:24 Dose: 25 mg Piperacillin Sod/Tazobactam (Sod 2.25 gm/ Dextrose) 50 mls @ 100 mls/hr IV Q12H [facility] Last Admin: 06/03/17 11:24 Dose: 100 mls/hr Clindamycin Phosphate 600 mg/ (Sodium Chloride) 54 mls @ 100 mls/hr IV Q6H [facility] Last Admin: 06/03/17 13:01 Dose: 100 mls/hr Insulin Glargine (Lantus) 25 unit SQ BID [facility] Last Admin: 06/03/17 08:17 Dose: 25 unit Insulin Human Lispro (Humalog) 0 unit SQ ACHS [facility] PRN Reason: Protocol Last Admin: 06/03/17 11:31 Dose: 9 unit Metoprolol Tartrate (Lopressor) 50 mg PO BID [facility] Last Admin: 06/03/17 08:23 Dose: 50 mg Naloxone HCl (Narcan) 0.1 mg IV Q2MIN PRN PRN Reason: Opiate Reversal Ondansetron HCl (Zofran) 4 mg IV Q4HP PRN PRN Reason: Nausea And Vomiting Sodium Bicarbonate (Sodium Bicarbonate) 1,300 mg PO BID [facility] Last Admin: 06/03/17 08:24 Dose: 1,300 mg Sodium Chloride (Saline Flush) 10 ml IV Q8 [facility] Last Admin: 06/03/17 13:02 Dose: 10 ml Sodium Chloride (Saline Flush) 10 ml IV Q12 [facility] Last Admin: 06/03/17 08:25 Dose: 10 ml Vancomycin HCl (Vancomycin Per Pharmacy) 1 order IV UD [facility] Family History Father Diabetes mellitus Cerebrovascular accident (CVA) Dementia Mother Diabetes mellitus Systemic Lupus Erythematosus Cardiomegaly social history: LIVES ALONE. Patient denies using tobacco, alcohol, drugs, but his history does not currently appear all that reliable. He says his sister lives nearby. Family states they live close by Medical - H&P: Meds Home Medications Medication Instructions Recorded Confirmed Type Aspirin [Charmaine Chewable Aspirin] 81 mg PO DAILY 05/23/17 05/29/17 History Atorvastatin [Lipitor] 40 mg PO HS 05/23/17 05/29/17 History Calcium Acetate [Phoslo] 667 mg PO TIDCC 05/23/17 05/29/17 History Ergocalciferol (Vitamin D2) 50,000 unit PO WEEKLY 05/23/17 05/29/17 History [Vitamin D2] Ferrous Gluconate [Fergon] 324 mg PO DAILY 05/23/17 05/29/17 History Furosemide [Lasix] 80 mg PO BID 05/23/17 05/29/17 History Gabapentin [Neurontin] 300 mg PO TID 05/23/17 05/29/17 History Metoprolol Tartrate [Lopressor] 50 mg PO BID 05/23/17 05/29/17 History Sodium Bicarbonate 1,300 mg PO BID 05/23/17 05/29/17 History amLODIPine [Norvasc] 10 mg PO DAILY 05/23/17 05/29/17 History hydrALAZINE [Apresoline] 25 mg PO TID 05/23/17 05/29/17 History 0.9 % Sodium Chloride [Saline 10 ml IV Q12 syringe 05/28/17 05/29/17 Rx Flush] Acetaminophen [Tylenol] 650 mg PO Q6HP PRN tablet 05/28/17 05/29/17 Rx Docusate Sodium [Colace] 100 mg PO BID PRN capsule 05/28/17 05/29/17 Rx HYDROcodone/APAP 5/325MG [[place] 1 tab PO Q4HP PRN tablet 05/28/17 05/29/17 Rx 5/325Mg] Heparin 5,000 unit SQ Q12 vial 05/28/17 05/29/17 Rx Heparin Flush 2 ml IV Q12 syringe 05/28/17 05/29/17 Rx Insulin Glargine, Human [Lantus] 15 unit SQ BID unit 05/28/17 05/29/17 Rx Naloxone HCl [Narcan] 0.1 mg IV Q2MIN PRN vial 05/28/17 05/29/17 Rx Ondansetron [Zofran] 4 mg IV Q4HP PRN vial 05/28/17 05/29/17 Rx Piperacillin Sodium/Tazobactam 2.25 gm IV Q12H vial 05/28/17 05/29/17 Rx [Zosyn] glipiZIDE [Glucotrol Xl] 2.5 mg PO BIDAC tab.xl.24h 05/28/17 05/29/17 Rx Albuterol Sulfate [Ventolin] 2.5 mg NEB Q6HP PRN ampul.neb 05/29/17 05/29/17 Rx 0.9 % Sodium Chloride [Saline 10 ml IV Q8 syringe 06/04/17 Rx Flush] Accu-Chek 1 each FS ACHS strip 06/04/17 Rx Albuterol Sulfate [Ventolin] 2.5 mg NEB Q4HP PRN ampul.neb 06/04/17 Rx Clindamycin [Cleocin] 600 mg IV Q6H vial 06/04/17 Rx Dextrose [Insta-Glucose] 15 gm PO PRN PRN oral.susp 06/04/17 Rx Heparin 5,000 unit SQ Q12 vial 06/04/17 Rx Insulin Lispro [Humalog] See Protocol SQ ACHS unit 06/04/17 Rx Piperacillin Sodium/Tazobactam 2.25 gm IV Q12H vial 06/04/17 Rx [Zosyn] Allergies Allergy/AdvReac Type Severity Reaction Status Date / Time influenza virus vacc AdvReac Intermediate Other Verified 05/29/17 08:28 trivalent, split [From Fluzone] Medical - H&P: Exam - Constitutional Vitals: On exam, he is a well-developed well-nourished man in no acute distress. He is awake and alert, with normal affect. He is mildly hard of hearing. Head: Normocephalic, atraumatic. Eyes: PERRLA, EOMI, anicteric. Ears: TMs and canals are clear. Pharynx: Pharynx is crowded. No lesions are noted. No exudates are noted. Neck: Appears supple, without lymphadenopathy, JVD, thyromegaly, bruits. Cardiac exam shows regular rate and rhythm with normal S1 and S2, without murmurs, rubs, gallops. Lungs are clear to auscultation, without rales, rhonchi, wheezes. Abdomen is soft and nontender without obvious masses. Bowel sounds are active. Extremities: Both lower legs have a evidence of old stasis dermatitis. His right foot now has a wound VAC in place. Almost all the previous edema has resolved. Erythema has resolved. The wound VAC appears to have minimal drainage. The foot is not especially tender. Neither extremity shows any significant edema. Neurologic exam: Patient is awake and alert, calm and cooperative. Cranial nerves and motor exam are grossly nonfocal. Medical - H&P: Reslt - Labs Labs: June 04: CBC: White blood cell count is 18,600, hemoglobin 7.5, hematocrit 22, platelets 535,000. Differential shows 13,900 neutrophils, 1000 monocytes, 1100 eosinophils. June 03: Chemistry panel: Sodium 136, potassium 4.0, chloride 93, CO2 27, anion gap 16, BUN 54, creatinine 6.2, glucose 119 Uric acid is low at 8.3 LFTs, magnesium, are within normal limits Previous: June 02: Urinalysis shows 100 mg of protein, 50 of glucose, negative for leukocyte esterase or nitrates. June 01: Chest x-ray: Is read as a normal film, without signs of pneumonia. May 30: CBC: White blood cell count 21,000, hemoglobin 9, hematocrit 26, platelets 411, 000. 84% neutrophils. Chemistry panel: Sodium is 130, potassium 4.1, chloride 91, CO2 26, anion gap 13 , BUN 37, creatinine 4.3, glucose 384 Calcium 7.6, albumin 2.8, other LFTs within normal limits May 27: Chest x-ray: IMPRESSION: No acute disease. Right PICC line tip in the right atrium. Right-sided double-lumen catheter tip near the tricuspid valve. Consider withdrawing double-lumen catheter 6 cm and the PICC line 4 cm May 25: Wound culture: Is growing strep agalactiae, group B, as well as staph aureus. No susceptibilities done on the strep. Staph aureus is pansensitive. May 23: Pro-calcitonin is elevated at 1.4, consistent with possible sepsis. Lactic acid was normal at 1.6. Wound Gram stain: Shows many gram-positive cocci in clusters, many gram- negative bacilli. Blood cultures are negative so far. CBC: White blood cell count is 22,500, hemoglobin 10, hematocrit 31, platelets 330,000. Differential shows 19,200 neutrophils, 1400 monocytes. Chemistry panel: Show sodium 131, chloride 93, BUN 45, creatinine 8.7, glucose 456, ionized calcium low at 0.93 Alcohol level is less than 0.01 Foot x-ray: IMPRESSION: No evidence of osteomyelitis. Large soft tissue ulcer over the fifth metatarsal head with associated cellulitis Chest x-ray: Shows no acute disease. There is a right IJ double-lumen catheter tip at the right atrium. 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 There is no hemorrhage or other acute intracerebral abnormality Medical - H&P: A/P - Narrative A/P Narrative: #1. Infectious disease. SIRS syndrome Patient presented with signs and symptoms of cellulitis related to a diabetic foot ulcer. Pro-calcitonin indicated possible early sepsis. He is now status post partial amputation, and has wound VAC in place. His foot cellulitis appears to have completely resolved, and pain is well controlled. -Unfortunately, his white blood cell count is back up again, for uncertain reasons. He is at risk for C. difficile colitis, but has not had any diarrhea or abdominal symptoms. He has a mild sore throat today, but no fever. And on exam the pharynx does not show any swelling or exudates. Total granulocyte count slightly improved today, after adding IV clindamycin. However platelet count continues to trend upwards. It is not clear if this is an acute phase reactant, or if perhaps he has some underlying bone marrow pathology. If the tagged white blood cell scan is negative, we may need to start doing CAT scans of chest abdomen and pelvis, looking for occult abscess. Another option would be to discontinue all antibiotics and see what his white blood cell count and temperature do, and then reculture. I added clindamycin for better anaerobe coverage, regarding possible gangrene at presentation. He has a wound VAC in place now, and is being followed by Dr. Salazar of podiatry. 2. Neurologic. Level of alertness seems improved . 3. CODE STATUS: Full code. 4. DVT prophylaxis: Subcu heparin. 5. Endocrine. Type 2 diabetes, uncontrolled. This may be aggravated by the stress of surgery and infection. His blood glucoses have run quite high during this hospitalization, but he in fact told the dietitian that he does not have a glucometer at home, so probably does not have good control at home, and probably does not adjust his medications based on glucoses. Glucoses today trending up again, ranging from 115-251. -Continue to increase insulin sliding scale and glipizide, as needed. -Mild pseudohyponatremia due to hyperglycemia, resolved.. Hypocalcemia. Improved. Managed by nephrology. Continue calcium acetate. 6. Renal. End-stage renal disease. He will continue with dialysis Sunday, , Sunday. Dr. Hernandez plans to start peritoneal dialysis when he is stable, while awaiting kidney transplant. - continue with outpatient dialysis . #7.-Hypertension. Blood pressures were running a bit high. Continue amlodipine, hydralazine, metoprolol and Lasix. Blood pressures are well controlled currently. #8. Hematologic. Hemoglobin and hematocrit have been drifting downwards. His baseline appears to be around 10 and 30. Today he has dropped to 7.9 and 23. If this drops any further, he may require transfusion. He did appear to have quite a bit of oozing after his foot surgery, and that is the likely source. It is not clear how much of this could be dilutional between dialysis treatments. addendum: I met with of wound care and Dr. Salazar of podiatry again this evening. We reviewed the patient's ongoing leukocytosis. Neither of them think his foot wound is the source at this point. They agreed that it might be worth a trial off all antibiotics, to see what evolves. Since the white blood cell count did drop a little after added clindamycin, I will wait until tomorrow to see what the white blood cell count looks like. If that is not improved, then I agree we should just stop all antibiotics and see if he develops fever or other signs of infection. We have ordered a tagged white blood cell scan to be done over at [facility]. This is a 2 day test.
[2017-06-04] MEDS ORDERED: NALOXONE HCL 0.4 MG/ML VIAL IV PRN (13:33)
[2017-06-04] MEDS ORDERED: MAGNESIUM HYDROXIDE 30 ML ORAL.SUSP PO PRN (13:33)
[2017-06-04] MEDS ORDERED: ONDANSETRON 4 MG/2 ML VIAL IV PRN (13:33)
[2017-06-04] MEDS ORDERED: ALBUTEROL SULFATE 2.5 MG/3 ML NEBULIZER NEB PRN (13:33)
[2017-06-04] MEDS ORDERED: CALCIUM CARBONATE 500 MG TAB.CHEW CHEWED PRN (13:33)
[2017-06-04] MEDS ORDERED: DEXTROSE 31 GM ORAL.SUSP PO PRN (13:33)
[2017-06-04] MEDS ORDERED: ACETAMINOPHEN 325 MG TABLET PO PRN (13:33)
[2017-06-04] MEDS ORDERED: DOCUSATE SODIUM 100 MG CAPSULE PO PRN (13:33)
[2017-06-04] MEDS ORDERED: DEXTROSE 50% 50 ML VIAL IV PRN (13:33)
[2017-06-04] MEDS: 0.9 % SODIUM CHLORIDE 10 ML SYRINGE IV SCH ×2 (15:04→22:42)
[2017-06-04] MEDS: CLINDAMYCIN 600 MG in 0.9 % SODIUM CHLORIDE 50 ML IV SCH ×2 (16:41→23:20)
[2017-06-04] MEDS: INSULIN LISPRO 1 UNIT/0.01 ML UNIT SQ SCH ×2 (16:41→21:05)
[2017-06-04] MEDS: HEPARIN 5,000 UNIT/ML VIAL SQ SCH (21:06)
[2017-06-04] MEDS: PIPERACILLIN SODIUM/TAZOBACTAM 2.25 GM in DEXTROSE 5% IN WATER 50 ML IV SCH (22:43)
[2017-06-05] MEDS: CLINDAMYCIN 600 MG in 0.9 % SODIUM CHLORIDE 50 ML IV SCH ×3 (05:35→17:59)
[2017-06-05] MEDS: 0.9 % SODIUM CHLORIDE 10 ML SYRINGE IV SCH ×4 (05:35→20:32)
[2017-06-05 05:36] LABS: Basophils # (Auto) 0.1 K/mcL (0.0-0.3); Basophils % (Auto) 0.4 % (0.0-2.0); Eosinophils # (Auto) 0.9 K/mcL (0.0-0.7); Eosinophils % (Auto) 4.8 % (0.0-7.0); Granulocytes % (Auto) 76.8 % (38.0-78.0); Lymphocytes # (Auto) 2.4 K/mcL (1.5-4.8); Lymphocytes % (Auto) 12.1 % (15.5-49.0); Mean Cell Volume 89.5 fL (80.0-100.0); Mean Corpuscular HGB Conc 32.9 g/dL (31.0-36.0); Mean Corpuscular Hemoglobin 29.5 pg (26.0-34.0); Monocytes # (Auto) 1.2 K/mcL (0.1-0.9); Monocytes % (Auto) 5.9 % (1.0-12.0); Platelet Count 576 K/mcL (140-440); RBC 2.66 M/mcL (4.50-5.90); Red Cell Distribution Width 14.3 % (11.5-14.5)
[2017-06-05 07:01] LABS: ALT/SGPT 20 U/l (0-40); Albumin 3.2 gm/dL (3.2-5.2); Albumin/Globulin Ratio 0.9 (1.0-2.3); Alkaline Phosphatase 92 U/L (39-117); Bilirubin,Direct < 0.2 mg/dL (0.0-0.3); Blood Urea Nitrogen 44 mg/dl (8-23); C-Reactive Protein 0.9 mg/dl (0.0-0.8); Gamma Glutamyl Transpeptidase 29 U/L (8-61); Magnesium 2.1 mg/dL (1.6-2.5); Uric Acid 4.9 mg/dL (2.5-8.0)
[2017-06-05] MEDS: INSULIN LISPRO 1 UNIT/0.01 ML UNIT SQ SCH ×4 (07:01→20:31)
--- NOTE | 2017-06-05 08:03 | Orthopedic Consult Note ---
History of Present Illness - [facility] Patient information: Note initiated : 06/05/17 at 8:03 am Service Date, if different from initiated Date: [] Patient: Sandro Bailey 66 y/o M admitted on 06/04/17 for Sepsis, Cellulitis. Chief Complaint: [right foot sore] Consult date: 06/04/17 Requesting physician: Janeth Yancey Consult reason: other (gangrene right foot) History of present illness: Patient presented to Hospital care proximally 2 weeks prior with a black sore to his right forefoot. This was diagnosed as a gangrenous infection requiring emergent amputation and debridement of this portion of tissue. Following the procedure he had a wound VAC placed and his labs appear to be resuming normal. On the day of his scheduled to transfer to a long-term acute care facility he was then transferred to inpatient admit from swing bed status due to uncertain cause of her elevated white blood cell count. The white cell count was trending downwards and took a turn for an increased turn and white blood cell concentration. He is currently over 19,000. He has not complained of many symptoms during his hospital stay. He has not had any fever or chills nausea vomiting shortness of breath or diarrhea. He's only had some minor symptoms unrelated to his foot surgery. Review of Systems Constitutional: as per [facility] Medications and Allergies Home Medications Medication Instructions Recorded Confirmed Type Aspirin [Charmaine Chewable Aspirin] 81 mg PO DAILY 05/23/17 05/29/17 History Atorvastatin [Lipitor] 40 mg PO HS 05/23/17 05/29/17 History Calcium Acetate [Phoslo] 667 mg PO TIDCC 05/23/17 05/29/17 History Ergocalciferol (Vitamin D2) 50,000 unit PO WEEKLY 05/23/17 05/29/17 History [Vitamin D2] Ferrous Gluconate [Fergon] 324 mg PO DAILY 05/23/17 05/29/17 History Furosemide [Lasix] 80 mg PO BID 05/23/17 05/29/17 History Gabapentin [Neurontin] 300 mg PO TID 05/23/17 05/29/17 History Metoprolol Tartrate [Lopressor] 50 mg PO BID 05/23/17 05/29/17 History Sodium Bicarbonate 1,300 mg PO BID 05/23/17 05/29/17 History amLODIPine [Norvasc] 10 mg PO DAILY 05/23/17 05/29/17 History hydrALAZINE [Apresoline] 25 mg PO TID 05/23/17 05/29/17 History 0.9 % Sodium Chloride [Saline 10 ml IV Q12 syringe 05/28/17 05/29/17 Rx Flush] Acetaminophen [Tylenol] 650 mg PO Q6HP PRN tablet 05/28/17 05/29/17 Rx Docusate Sodium [Colace] 100 mg PO BID PRN capsule 05/28/17 05/29/17 Rx HYDROcodone/APAP 5/325MG [[place] 1 tab PO Q4HP PRN tablet 05/28/17 05/29/17 Rx 5/325Mg] Heparin 5,000 unit SQ Q12 vial 05/28/17 05/29/17 Rx Heparin Flush 2 ml IV Q12 syringe 05/28/17 05/29/17 Rx Insulin Glargine, Human [Lantus] 15 unit SQ BID unit 05/28/17 05/29/17 Rx Naloxone HCl [Narcan] 0.1 mg IV Q2MIN PRN vial 05/28/17 05/29/17 Rx Ondansetron [Zofran] 4 mg IV Q4HP PRN vial 05/28/17 05/29/17 Rx Piperacillin Sodium/Tazobactam 2.25 gm IV Q12H vial 05/28/17 05/29/17 Rx [Zosyn] glipiZIDE [Glucotrol Xl] 2.5 mg PO BIDAC tab.xl.24h 05/28/17 05/29/17 Rx Albuterol Sulfate [Ventolin] 2.5 mg NEB Q6HP PRN ampul.neb 05/29/17 05/29/17 Rx 0.9 % Sodium Chloride [Saline 10 ml IV Q8 syringe 06/04/17 Rx Flush] Accu-Chek 1 each FS ACHS strip 06/04/17 Rx Albuterol Sulfate [Ventolin] 2.5 mg NEB Q4HP PRN ampul.neb 06/04/17 Rx Clindamycin [Cleocin] 600 mg IV Q6H vial 06/04/17 Rx Dextrose [Insta-Glucose] 15 gm PO PRN PRN oral.susp 06/04/17 Rx Heparin 5,000 unit SQ Q12 vial 06/04/17 Rx Insulin Lispro [Humalog] See Protocol SQ ACHS unit 06/04/17 Rx Piperacillin Sodium/Tazobactam 2.25 gm IV Q12H vial 06/04/17 Rx [Zosyn] Allergies Allergy/AdvReac Type Severity Reaction Status Date / Time influenza virus vacc AdvReac Intermediate Other Verified 05/29/17 08:28 trivalent, split [From Fluzone] Physical Examination - Ankle & Foot right Foot appearance: other (4 x 3 x 0.8 cm ulceration to the right foot. This is surgical wound. Granular in nature. Areas of application of silver nitrate to control bleeding. Non-malodorous non-purulent or serous drainage. Only scant hematogenous drainage.) Tenderness with palpation: none Ankle pain worse with weight bearing: No Ankle pain relieved by non-weight bearing: No Foot pain worse with weight bearing: No Tingling/Numbness: foot Hallux valgus measurement: 5 degrees ROM: eversion: 40 degrees ROM: first MTP joint flexion: 45 degrees ROM: first MTP joint extension: 10 degrees Assessment and Plan (1) Ulcer of right foot due to type 2 diabetes mellitus Status: Acute Priority: Medium Comment: 06/05/2017: 1. Will continue wound VAC 2. Change wound VAC every 48 hours and as needed 3. One signs of infection is shown to be eradication and wound appears granular , in the future, there will likely be a skin graft placed over ulceration 4. Future evaluation will also include foot mobility evaluation to prevent further ulceration 5. Also vascular evaluation to evaluate positive gangrene infection 6. Shoe modification to reduce high-pressure areas and support foot given altered function following amputation of partial fifth metatarsal. 7. Continue to evaluate the foot to see if the elevated white blood cell count is indeed due to an occult infection of the right foot. 8. Continue daily podiatric assessment of patient's condition and contaminant healing factors
[2017-06-05] MEDS: HEPARIN 5,000 UNIT/ML VIAL SQ SCH ×2 (08:53→20:30)
[2017-06-05] MEDS: PIPERACILLIN SODIUM/TAZOBACTAM 2.25 GM in DEXTROSE 5% IN WATER 50 ML IV SCH ×2 (11:12→23:02)
[2017-06-05] MEDS ORDERED: ONDANSETRON 4 MG/2 ML VIAL IV PRN (15:39)
[2017-06-05] MEDS ORDERED: HYDROcodone/APAP 5/325MG TABLET PO PRN (15:39)
[2017-06-05] MEDS ORDERED: ALBUTEROL SULFATE 2.5 MG/3 ML NEBULIZER NEB PRN (15:39)
[2017-06-05] MEDS ORDERED: ACETAMINOPHEN 325 MG TABLET PO PRN (15:39)
[2017-06-05] MEDS ORDERED: DOCUSATE SODIUM 100 MG CAPSULE PO PRN (15:39)
[2017-06-05] MEDS ORDERED: NALOXONE HCL 0.4 MG/ML VIAL IV PRN (15:39)
[2017-06-05] MEDS: amLODIPine 10 MG TABLET PO SCH (16:18)
[2017-06-05] MEDS: ASPIRIN 81 MG TAB.CHEW PO SCH (16:18)
[2017-06-05] MEDS: FERROUS GLUCONATE 324 MG TABLET PO SCH (16:19)
[2017-06-05] MEDS: CALCIUM ACETATE 667 MG CAPSULE PO SCH (16:55)
[2017-06-05] MEDS ORDERED: glipiZIDE 2.5 MG TAB.XL.24H PO SCH (17:00)
[2017-06-05] MEDS ORDERED: INSULIN LISPRO 1 UNIT/0.01 ML UNIT SQ SCH (17:00)
--- NOTE | 2017-06-05 18:15 | Internal Med Progress Note ---
Medical - PN: Subj Patient information: Note initiated : 06/05/17 at 6:12 pm Service Date, if different from initiated Date: [] Patient: Sandro Bailey 66 y/o M admitted on 06/04/17 for Sepsis, Cellulitis. Chief Complaint: [] Interval history: -The patient was discharged to swing bed status on May 29. His foot wound has gotten progressively better. He is doing very well currently with a wound VAC and current IV antibiotics. His white blood cell count was still a little high on admit to discharge, but was trending down. Unfortunately, it is now trending up again, for uncertain reasons. Lowest we have seen it was 15,000, and he is now back up to 19,000, with granulocyte count up to 14,400. At this point, it would appear that he still has ongoing infection somewhere. He will need further workup to investigate this, and probable change in treatment plan. Will be discharged from swing bed status today, and back to inpatient status. I reviewed his case again with Dr. Salazar from podiatry. We think that the next best step is probably to do a tagged white blood cell scan, to see if an abscess or other occult infection shows up. The patient's only complaint today, is a mild sore throat. He otherwise denies fever chills, headaches or dizziness, sinus symptoms teeth symptoms or earache. He denies chest pain or palpitations, shortness of breath or cough, GI or symptoms. -Type 2 diabetes. The patient's blood sugar has not been well controlled, so we have gradually been increasing insulin and oral meds. It is overall improved , but still not at goal. This may be partly due to ongoing infection. -Patient has to need to receive 3 times a week dialysis for his end-stage renal disease. June 05 patient seen examined, lying in bed comfortably, denies any acute complaints, he was admitted for foot infection, was placed to swing bed status, but due to his worsening wbc count is now back to inpatient status he has no clinical e/o infection podiatry notes that the leg is likely not the source of infection, blood cx have been negative Pt was started on clindamycin, but i am not sure how much it add to exisitn zosyn. will d/c same for now, patient is planned to get a tagged wbc scan tomorrow to evaluate for potential pocket, will do selective imaging based on that HD planned for tomorrow. Pertinent ROS: Denies headache, dizziness Denies chest pain, palpitations Denies cough or shortness of breath Denies abdominal pain, nausea or vomiting. - Constitutional Vitals: Vital Signs Temp Pulse Resp BP Pulse Ox 97.8 F 65 14 140/79 95 06/05/17 16:00 06/05/17 07:30 06/05/17 16:00 06/05/17 16:00 06/05/17 16:00 Period Temp Pulse Resp BP Sys/Frank Pulse Ox Last 24 Hr 97.7 F-98.8 F 65-80 12-24 122-149/64-79 94-98 Intake and Output 06/05/17 06/05/17 06/05/17 05:59 13:59 21:59 Intake Total 154 / 154 158 / 158 420 / 420 Output Total 800 / 800 820 / 820 Balance -646 / -646 158 / 158 -400 / -400 Weight 222 lb 8 oz Patient Weight 06/06/17 05:59 Weight 222 lb 8 oz Intake & Output: Intake & Output 06/05/17 06/05/17 06/05/17 05:59 13:59 21:59 Intake Total 154 / 154 158 / 158 420 / 420 Output Total 800 / 800 820 / 820 Balance -646 / -646 158 / 158 -400 / -400 Weight 222 lb 8 oz Intake: IV 104 / 104 158 / 158 Cleocin 600 mg In Sodium 54 / 54 108 / 108 Chloride 0.9% 50 ml @ 100 mls/ hr IV Q6H [facility] Rx#:[id number] Zosyn 2.25 gm In Dextrose 5% in 50 / 50 50 / 50 Water 50 ml @ 100 mls/hr IV Q12H [facility] Rx#:[id number] Oral 50 / 50 420 / 420 Output: Drainage 0 / 0 Right Foot Woundvac 0 / 0 Void Amount 800 / 800 820 / 820 Other: Meal Dinner Percent of Meal Consumed 100% Feeding Ability Assist with Tray Set Up # Voids 1 Exam: Constitutional; Afebrile, cooperative, alert, not in distress. Eyes- No icterus, , No periorbital swelling Ears- Ext ear normal, hearing normal to conversation. Neck- Midline trachea, supple Respiratory system: Air Entry equal on both sides, No crackles or wheezing, no rhonchi. CVS- Rate rhythm regular, S1,S2 heard, no gallop, no rub. Abdomen- Soft nontender abdomen, no organomegaly, no tenderness, no guarding or rigidity, [employer]- AOOx3, moving all extremities, no gross focal deficit noted. Medical - PN: Obj Da - Labs CBC & Chem 7: 06/05/17 04:00 06/05/17 04:00 Labs: Abnormal Lab Results 06/05/17 06/05/17 04:00 04:00 WBC 19.6 H RBC 2.66 L Hgb 7.8 L Hct 23.8 L Plt Count 576 H Lymph % (Auto) 12.1 L Gran # 15.1 H [place] # (Auto) 1.2 H Eos # (Auto) 0.9 H Chloride 93 L BUN 44 H Creatinine 5.5 H* Glucose 254 H Calcium 8.2 L C-Reactive Protein 0.9 H Albumin/Globulin Ratio 0.9 L Meds: Medications Acetaminophen (Tylenol) 650 mg PO Q6HP PRN PRN Reason: PAIN/FEVER > 101 Hydrocodone Bitart/Acetaminophen ([place] 5/325mg) 1 tab PO Q4HP PRN PRN Reason: PAIN LEVEL 3-6 Albuterol Sulfate (Ventolin) 2.5 mg NEB Q6HP PRN PRN Reason: Shortness Of Breath Or Wheezing Amlodipine Besylate (Norvasc) 10 mg PO DAILY [facility] Last Admin: 06/05/17 16:18 Dose: 10 mg Aspirin (Aspirin) 81 mg PO DAILY [facility] Last Admin: 06/05/17 16:18 Dose: 81 mg Atorvastatin Calcium (Lipitor) 40 mg PO HS [facility] Calcium Acetate (Phoslo) 667 mg PO TIDCC [facility] Last Admin: 06/05/17 16:55 Dose: 667 mg Calcium Carbonate/Glycine (Tums) 1,000 mg CHEWED Q4HP PRN PRN Reason: Dyspepsia Dextrose (Dextrose 50%) 0 ml IV UD PRN PRN Reason: Hypoglycemia Diagnostic Test (Pha) (Accu-Chek) 1 each FS ACHS [facility] Last Admin: 06/05/17 16:53 Dose: 1 each Docusate Sodium (Colace) 100 mg PO BID PRN PRN Reason: Constipation Ergocalciferol (Drisdol) 50,000 unit PO Landa@0900 [facility] Ferrous Gluconate (Fergon) 324 mg PO DAILY [facility] Last Admin: 06/05/17 16:19 Dose: 324 mg Furosemide (Lasix) 80 mg PO BID [facility] Gabapentin (Neurontin) 300 mg PO TID [facility] Glucose (Insta-Glucose) 15 gm PO PRN PRN PRN Reason: Hypoglycemia Heparin Sodium (Porcine) (Heparin) 5,000 unit SQ Q12 [facility] Last Admin: 06/05/17 08:53 Dose: 5,000 unit Heparin Sodium (Porcine) (Heparin Flush) 2 ml IV Q12 [facility] Hydralazine HCl (Apresoline) 25 mg PO TID [facility] Clindamycin Phosphate 600 mg/ (Sodium Chloride) 54 mls @ 100 mls/hr IV Q6H [facility] Last Admin: 06/05/17 17:59 Dose: 100 mls/hr Piperacillin Sod/Tazobactam (Sod 2.25 gm/ Dextrose) 50 mls @ 100 mls/hr IV Q12H [facility] Last Infusion: 06/05/17 11:52 Dose: Infused Insulin Glargine (Lantus) 15 unit SQ BID [facility] Insulin Human Lispro (Humalog) 0 unit SQ ACHS [facility] PRN Reason: Protocol Last Admin: 06/05/17 16:54 Dose: 9 unit Magnesium Hydroxide (Milk Of Magnesia) 30 ml PO DAILYP PRN PRN Reason: Constipation Metoprolol Tartrate (Lopressor) 50 mg PO BID [facility] Naloxone HCl (Narcan) 0.1 mg IV Q2MIN PRN PRN Reason: Opiate Reversal Ondansetron HCl (Zofran) 4 mg IV Q6HP PRN PRN Reason: Nausea And Vomiting Sodium Bicarbonate (Sodium Bicarbonate) 1,300 mg PO BID [facility] Sodium Chloride (Saline Flush) 10 ml IV Q8 [facility] Last Admin: 06/05/17 14:00 Dose: 10 ml Medical - PN: A/P - Time Spent With Patient Total time spent is greater than 50% in coordination of care (as documented) at patient's floor/unit and/or counseling patient: - Narrative A/P Narrative: A/P Narrative: Left leg cellulitis related to DM foot ulcer on zosyn, mssa and strep positive from cultures podiatry following wound vac in place clinically no e/o gangrene at present, clinidamycin discontinued. Leucocytosis: etiology, reactive vs untreated ifnection tagged wbc scan planned. monitor consider davis CT DM uncontrolled glucose incease dose of lantus to 20 units bid anemia/ secondary to esrd, sepsis, acute infection, monitor consider xfusion as needed. ESRd on HD Hypertension. Continue amlodipine, hydralazine, metoprolol and Lasix. Medical - PN: Qual - VTE Deep Vein Thrombosis/Pulmonary Embolism Present on Admission: No
[2017-06-05] MEDS: INSULIN GLARGINE, HUMAN 1 UNIT/0.01 ML SQ SCH (20:31)
[2017-06-05] MEDS: ATORVASTATIN 20 MG TABLET PO SCH (20:33)
[2017-06-05] MEDS: METOPROLOL TARTRATE 50 MG TABLET PO SCH (20:33)
[2017-06-05] MEDS: hydrALAZINE 25 MG TABLET PO SCH (20:33)
[2017-06-05] MEDS: SODIUM BICARBONATE 650 MG TABLET PO SCH (20:33)
[2017-06-05] MEDS: GABAPENTIN 300 MG CAPSULE PO SCH (20:33)
[2017-06-05] MEDS: FUROSEMIDE 80 MG TABLET PO SCH (20:33)
[2017-06-05] MEDS ORDERED: 0.9 % SODIUM CHLORIDE 10 ML SYRINGE IV SCH (21:00)
[2017-06-05] MEDS ORDERED: HEPARIN 5,000 UNIT/ML VIAL SQ SCH (21:00)
[2017-06-05] MEDS ORDERED: PIPERACILLIN SODIUM/TAZOBACTAM 2.25 GM VIAL IV SCH (21:00)
[2017-06-05] MEDS ORDERED: INSULIN GLARGINE, HUMAN 1 UNIT/0.01 ML SQ SCH (21:00)
[2017-06-06] MEDS: 0.9 % SODIUM CHLORIDE 10 ML SYRINGE IV SCH ×3 (04:28→20:35)
[2017-06-06 05:53] LABS: Basophils # (Auto) 0.1 K/mcL (0.0-0.3); Basophils % (Auto) 0.5 % (0.0-2.0); Eosinophils # (Auto) 1.1 K/mcL (0.0-0.7); Eosinophils % (Auto) 6.6 % (0.0-7.0); Lymphocytes # (Auto) 2.2 K/mcL (1.5-4.8); Lymphocytes % (Auto) 12.4 % (15.5-49.0); Mean Cell Volume 89.9 fL (80.0-100.0); Mean Corpuscular Hemoglobin 29.6 pg (26.0-34.0); Monocytes % (Auto) 5.5 % (1.0-12.0); Platelet Count 621 K/mcL (140-440); RBC 2.68 M/mcL (4.50-5.90); Red Cell Distribution Width 15.2 % (11.5-14.5)
[2017-06-06 06:41] LABS: ALT/SGPT 17 U/l (0-40); Albumin 3.3 gm/dL (3.2-5.2); Alkaline Phosphatase 81 U/L (39-117); Bilirubin,Direct < 0.2 mg/dL (0.0-0.3); Blood Urea Nitrogen 54 mg/dl (8-23); C-Reactive Protein 0.7 mg/dl (0.0-0.8); Gamma Glutamyl Transpeptidase 29 U/L (8-61); Magnesium 2.2 mg/dL (1.6-2.5); Uric Acid 6.6 mg/dL (2.5-8.0)
[2017-06-06] MEDS: INSULIN LISPRO 1 UNIT/0.01 ML UNIT SQ SCH ×4 (07:28→20:35)
[2017-06-06 08:05] LABS: Erythrocyte Sedimentation Rate 87 mm/hr (0-15)
[2017-06-06] MEDS: INSULIN GLARGINE, HUMAN 1 UNIT/0.01 ML SQ SCH ×2 (08:52→20:36)
[2017-06-06] MEDS: SODIUM BICARBONATE 650 MG TABLET PO SCH (08:52)
[2017-06-06] MEDS: HEPARIN 5,000 UNIT/ML VIAL SQ SCH ×2 (08:52→20:36)
[2017-06-06] MEDS: ASPIRIN 81 MG TAB.CHEW PO SCH (08:53)
[2017-06-06] MEDS: amLODIPine 10 MG TABLET PO SCH (08:53)
[2017-06-06] MEDS: METOPROLOL TARTRATE 50 MG TABLET PO SCH ×2 (08:53→20:37)
[2017-06-06] MEDS: hydrALAZINE 25 MG TABLET PO SCH ×2 (08:53→16:59)
[2017-06-06] MEDS: GABAPENTIN 300 MG CAPSULE PO SCH ×3 (08:53→20:36)
[2017-06-06] MEDS: FUROSEMIDE 80 MG TABLET PO SCH ×2 (08:53→20:36)
[2017-06-06] MEDS: CALCIUM ACETATE 667 MG CAPSULE PO SCH ×3 (08:53→17:00)
[2017-06-06] MEDS: FERROUS GLUCONATE 324 MG TABLET PO SCH (08:53)
[2017-06-06] MEDS: PIPERACILLIN SODIUM/TAZOBACTAM 2.25 GM in DEXTROSE 5% IN WATER 50 ML IV SCH ×2 (11:11→22:47)
--- NOTE | 2017-06-06 16:24 | Orthopedic Progress Note ---
Subjective Patient information: Note initiated : 06/06/17 at 4:22 pm Service Date, if different from initiated Date: [] Patient: Sandro Bailye 66 y/o M admitted on 06/04/17 for Sepsis, Cellulitis. Chief Complaint: [right foot infection] Principal diagnosis: Right foot gangrene Interval history: no major changes, and downward trend from by white blood cell count Pertinent ROS: no fever chills nausea or vomiting Objective Vital signs: Vital Signs Temp Pulse Pulse Resp BP BP Pulse Ox 06/06/17 16:16 69 84/59 06/06/17 15:48 72 107/67 06/06/17 15:18 62 126/78 06/06/17 14:50 97.9 F 62 148/82 06/06/17 07:48 97.5 F 16 147/71 98 06/06/17 07:24 93 06/06/17 03:28 98.0 F 71 16 133/73 97 06/06/17 00:00 97.6 F 63 16 124/61 96 06/05/17 20:00 98.0 F 80 20 130/68 97 Intake and Output 06/06/17 06/06/17 06/06/17 05:59 13:59 21:59 Intake Total 300 / 300 240 / 240 Output Total 900 / 900 Balance 300 / 300 -660 / -660 Intake: Oral 300 / 300 240 / 240 Output: Void Amount 900 / 900 Other: Meal Breakfast Percent of Meal Consumed 100% Intake & Output: Intake & Output 06/06/17 06/06/17 06/06/17 05:59 13:59 21:59 Intake Total 300 / 300 240 / 240 Output Total 900 / 900 Balance 300 / 300 -660 / -660 Intake: Oral 300 / 300 240 / 240 Output: Void Amount 900 / 900 Other: Meal Breakfast Percent of Meal Consumed 100% Incision: Yes healing, Yes draining, Yes red, Yes clean and dry Incision clean and dry: Yes Dressing: Yes intact Weight bearing status: partial - Periperhal Pulses Peripheral pulses: 1+: dorsalis pedis (L), dorsalis pedis (R), posterior tibialis (L), posterior tibialis (R) - Diagnostic Results Ankle x-ray: image reviewed - Labs CBC & BMP: 06/06/17 04:00 06/06/17 04:00 Labs: 06/06/17 06/05/17 04:00 04:00 Hgb 7.9 L 7.8 L Hct 24.1 L 23.8 L Assessment and Plan (1) Ulcer of right foot due to type 2 diabetes mellitus Status: Acute Priority: Medium Comment: 06/06/17: 1. Continue wound VAC therapy changed every 48 H 2. Evaluate wound for graft once white cell count has stabilized and wound appears granular 06/05/2017: 1. Will continue wound VAC 2. Change wound VAC every 48 hours and as needed 3. One signs of infection is shown to be eradication and wound appears granular , in the future, there will likely be a skin graft placed over ulceration 4. Future evaluation will also include foot mobility evaluation to prevent further ulceration 5. Also vascular evaluation to evaluate positive gangrene infection 6. Shoe modification to reduce high-pressure areas and support foot given altered function following amputation of partial fifth metatarsal. 7. Continue to evaluate the foot to see if the elevated white blood cell count is indeed due to an occult infection of the right foot. 8. Continue daily podiatric assessment of patient's condition and contaminant healing factors
--- NOTE | 2017-06-06 19:32 | Nephrology Progress Note ---
Subjective Patient information: Note initiated : 06/06/17 at 7:29 pm Service Date, if different from initiated Date: [] Patient: Sandro Bailey 66 y/o M admitted on 06/04/17 for Sepsis, Cellulitis. Chief Complaint: [] Principal diagnosis: Right foot gangrene Interval history: Patient seen this am and during dialysis He c/o weakness He has no other new complaints denies pain, SOB, CP, dizziness No edema had tagged WBC scan today, remainder tomorrow, this is to evaluate for persistent elevated WBC count no concerns Pertinent ROS: as above Objective - Vital Signs Vital signs: Vital Signs Temp Pulse Pulse Resp BP BP Pulse Ox 06/06/17 18:28 97.5 F 72 117/72 06/06/17 18:10 79 91/65 06/06/17 18:02 72 108/72 06/06/17 17:46 71 114/70 06/06/17 17:32 72 92/64 06/06/17 17:17 74 127/77 06/06/17 17:02 68 116/73 06/06/17 16:47 71 119/78 06/06/17 16:32 69 109/74 06/06/17 16:16 69 84/59 06/06/17 16:00 97.0 F 16 108/72 98 06/06/17 15:48 72 107/67 06/06/17 15:18 62 126/78 06/06/17 14:50 97.9 F 62 148/82 06/06/17 07:48 97.5 F 16 147/71 98 06/06/17 07:24 93 06/06/17 03:28 98.0 F 71 16 133/73 97 06/06/17 00:00 97.6 F 63 16 124/61 96 06/05/17 20:00 98.0 F 80 20 130/68 97 Intake and Output 06/06/17 06/06/17 06/06/17 05:59 13:59 21:59 Intake Total 300 / 300 240 / 240 Output Total 900 / 900 1929 Balance 300 / 300 -660 / -660 -1929 / -1929 Intake: Oral 300 / 300 240 / 240 Output: Void Amount 900 / 900 Hemodialysis UF 1929 Other: Meal Breakfast Percent of Meal Consumed 100% Intake & Output: Intake & Output 06/06/17 06/06/17 06/06/17 05:59 13:59 21:59 Intake Total 300 / 300 240 / 240 Output Total 900 / 900 1929 Balance 300 / 300 -660 / -660 -1929 / -1929 Intake: Oral 300 / 300 240 / 240 Output: Void Amount 900 / 900 Hemodialysis UF 1929 Other: Meal Breakfast Percent of Meal Consumed 100% - General Appearance General appearance: appears started age, chronically ill EENT: mucous membranes moist Neck: no JVD Respiratory: clear Cardiology: no rub, normal S1, normal S2 Gastrointestinal: no tenderness, no organomegaly Integumentary: no rash, warm and dry Neurologic: no focal deficit, alert and oriented x3 Musculoskeletal: no erythema, no cyanosis Psychiatric: mood/affect appropriate - Lab 06/06/17 04:00 06/06/17 04:00 Most recent lab results Calcium 8.6 mg/dl (8.6-10.4) 06/06/17 04:00 Phosphorus 4.7 mg/dL (2.7-4.5) H 06/06/17 04:00 Magnesium 2.2 mg/dL (1.6-2.5) 06/06/17 04:00 Assessment and Plan (1) ESRD (end stage renal disease) HD today for 3hrs 45min, QB 400m/min, QD 800ml/min, 3K/2.5Ca dialysate, UF goal of 1-2L Next HD on sunday HTN: BP low normal, will cut back on antihypertensives and re evaluate DW as he is loosing weight diabetic ulcer: on antibiotics, wound vac persistent leucocytosis: chronic however this is a little worse, will follow wbc tagged scan result anemia of chronic disease: will need aranesp this week, will get this arranged Will follow along Status: Chronic (2) Diabetic foot ulcer Status: Acute Priority: Medium Comment: 06/03/2017: Patient seems in consistent attidude today, cooperative and relaxed. He does not have much pain from the foot and is fairly comfortable. The wound vac is not recieving much fluid, mostly contained in the tubing. He will need continued VAC therapy every other day [facility]. 06/02/2017: Patient seen and evaluated at bedside today. He is not having any new issues. Discussion regarding his care as an outpatient performed. VAC changes to be done approximatly every other day. 06/01/2017: Patient continue with VAC therapy. He is tolerating the VAC without issues. Bleeding is contained. He is likely be discharged Sunday to a long-term care facility. He will resume wound care treatment out-patient. He is to follow-up Sunday of that week following discharge. 05/31/2017 Wound VAC likely be applied today as the bleeding is decreasing. The plan for outpatient therapy including wound VAC and possible hyperbaric oxygen therapy if patient qualifies and is a good candidate. Tissue will either granulate in or there may be need for additional amputation should very continue to demarcate. Possible consult for vascular surgery to aid in vascular arterial disease. Continue partial weightbearing right foot. Will continue to follow daily basis - podiatric foot and ankle surgery 05/30/17 After changing dressings it was noted that the wound was still actively bleeding with some dripping from the incision. In the past this has been clotted aided with Surgicel, compression and gauze therapy. Dressings are be changed daily basis. Once no longer activly bleeding, continuing his wound VAC may be employed to improve granulation to this area. A partial thickness skin grafting utilized in the future to aid with closure of this deficit. Depending on the nature of the amputation there may be need for additional reconstructive surgery to aid with restoring a functional foot. Qualifiers: Diabetic foot ulcer location: midfoot Diabetes mellitus type: type 2 Laterality: right Non-pressure ulcer stage: with fat layer exposed Qualified Code(s): E11.621 - Type 2 diabetes mellitus with foot ulcer; L97.412 - Non-pressure chronic ulcer of right heel and midfoot with fat layer exposed; L97.412 - Non-pressure chronic ulcer of right heel and midfoot with fat layer exposed; L97.412 - Non-pressure chronic ulcer of right heel and midfoot with fat layer exposed; L97.412 - Non-pressure chronic ulcer of right heel and midfoot with fat layer exposed (3) Leukocytosis Status: Acute Qualifiers: Leukocytosis type: bandemia Qualified Code(s): D72.825 - Bandemia (4) Anemia Status: Acute
--- NOTE | 2017-06-06 20:25 | Internal Med Progress Note ---
Medical - PN: Subj Patient information: Note initiated : 06/06/17 at 8:23 pm Service Date, if different from initiated Date: [] Patient: Sandro Bailey 66 y/o M admitted on 06/04/17 for Sepsis, Cellulitis. Chief Complaint: [] Interval history: -The patient was discharged to swing bed status on May 29. His foot wound has gotten progressively better. He is doing very well currently with a wound VAC and current IV antibiotics. His white blood cell count was still a little high on admit to discharge, but was trending down. Unfortunately, it is now trending up again, for uncertain reasons. Lowest we have seen it was 15,000, and he is now back up to 19,000, with granulocyte count up to 14,400. At this point, it would appear that he still has ongoing infection somewhere. He will need further workup to investigate this, and probable change in treatment plan. Will be discharged from swing bed status today, and back to inpatient status. I reviewed his case again with Dr. Salazar from podiatry. We think that the next best step is probably to do a tagged white blood cell scan, to see if an abscess or other occult infection shows up. The patient's only complaint today, is a mild sore throat. He otherwise denies fever chills, headaches or dizziness, sinus symptoms teeth symptoms or earache. He denies chest pain or palpitations, shortness of breath or cough, GI or symptoms. -Type 2 diabetes. The patient's blood sugar has not been well controlled, so we have gradually been increasing insulin and oral meds. It is overall improved , but still not at goal. This may be partly due to ongoing infection. -Patient has to need to receive 3 times a week dialysis for his end-stage renal disease. June 05 patient seen examined, lying in bed comfortably, denies any acute complaints, he was admitted for foot infection, was placed to swing bed status, but due to his worsening wbc count is now back to inpatient status he has no clinical e/o infection podiatry notes that the leg is likely not the source of infection, blood cx have been negative Pt was started on clindamycin, but i am not sure how much it add to exisitn zosyn. will d/c same for now, patient is planned to get a tagged wbc scan tomorrow to evaluate for potential pocket, will do selective imaging based on that HD planned for tomorrow. Jun 06 patient seen examined, has no complaints, no concerns on HD part 1 of tagged wbc scan done today, rest tomorrow cx are neg WBC Trending down today, appreciate podiatry and nephrology consult. Pertinent ROS: Denies headache, dizziness Denies chest pain, palpitations Denies cough or shortness of breath Denies abdominal pain, nausea or vomiting. - Constitutional Vitals: Vital Signs Temp Pulse Resp BP Pulse Ox 97.5 F 72 16 117/72 98 06/06/17 18:28 06/06/17 18:28 06/06/17 16:00 06/06/17 18:28 06/06/17 16:00 Period Temp Pulse Resp BP Sys/Frank Pulse Ox Last 24 Hr 97.0 F-98.0 F 62-79 16-16 84-148/59-82 93-98 Intake and Output 06/06/17 06/06/17 06/06/17 05:59 13:59 21:59 Intake Total 300 / 300 240 / 240 Output Total 900 / 900 1930 / 1930 Balance 300 / 300 -660 / -660 -1930 / -1930 Intake & Output: Intake & Output 06/06/17 06/06/17 06/06/17 05:59 13:59 21:59 Intake Total 300 / 300 240 / 240 Output Total 900 / 900 1929 / 1930 Balance 300 / 300 -660 / -660 -1930 / -1930 Intake: Oral 300 / 300 240 / 240 Output: Void Amount 900 / 900 Hemodialysis UF 1929 Other: Meal Breakfast Percent of Meal Consumed 100% Exam: Constitutional; Afebrile, cooperative, alert, not in distress. Eyes- No icterus, , No periorbital swelling Ears- Ext ear normal, hearing normal to conversation. Neck- Midline trachea, supple Respiratory system: Air Entry equal on both sides, No crackles or wheezing, no rhonchi. CVS- Rate rhythm regular, S1,S2 heard, no gallop, no rub. Abdomen- Soft nontender abdomen, no organomegaly, no tenderness, no guarding or rigidity, SYSTEMS INTEGRATOR- AOOx3, moving all extremities, no gross focal deficit noted. Medical - PN: Obj Da - Labs CBC & Chem 7: 06/06/17 04:00 06/06/17 04:00 Labs: Abnormal Lab Results 06/06/17 06/06/17 06/05/17 04:00 04:00 04:00 WBC 17.4 H RBC 2.68 L Hgb 7.9 L Hct 24.1 L RDW 15.2 H Plt Count 621 H Lymph % (Auto) 12.4 L Gran # 13.1 H Bullock # (Auto) 1.0 H Eos # (Auto) 1.1 H ESR 87 H Chloride 93 L Anion Gap 18.0 H BUN 54 H 44 H Creatinine 6.6 H* 5.5 H* Glucose 118 H 254 H Calcium 8.2 L Phosphorus 4.7 H C-Reactive Protein 0.9 H Albumin/Globulin Ratio 0.9 L 06/05/17 04:00 WBC 19.6 H RBC 2.66 L Hgb 7.8 L Hct 23.8 L RDW Plt Count 576 H Lymph % (Auto) 12.1 L Gran # 15.1 H Bullock # (Auto) 1.2 H Eos # (Auto) 0.9 H ESR Chloride Anion Gap BUN Creatinine Glucose Calcium Phosphorus C-Reactive Protein Albumin/Globulin Ratio Meds: Medications Acetaminophen (Tylenol) 650 mg PO Q6HP PRN PRN Reason: PAIN/FEVER > 101 Hydrocodone Bitart/Acetaminophen ([place] 5/325mg) 1 tab PO Q4HP PRN PRN Reason: PAIN LEVEL 3-6 Albuterol Sulfate (Ventolin) 2.5 mg NEB Q6HP PRN PRN Reason: Shortness Of Breath Or Wheezing Amlodipine Besylate (Norvasc) 10 mg PO DAILY [facility] Last Admin: 06/06/17 08:53 Dose: 10 mg Aspirin (Aspirin) 81 mg PO DAILY [facility] Last Admin: 06/06/17 08:53 Dose: 81 mg Atorvastatin Calcium (Lipitor) 40 mg PO HS [facility] Last Admin: 06/05/17 20:33 Dose: 40 mg Calcium Acetate (Phoslo) 667 mg PO TIDCC [facility] Last Admin: 06/06/17 17:00 Dose: Not Given Calcium Carbonate/Glycine (Tums) 1,000 mg CHEWED Q4HP PRN PRN Reason: Dyspepsia Dextrose (Dextrose 50%) 0 ml IV UD PRN PRN Reason: Hypoglycemia Diagnostic Test (Pha) (Accu-Chek) 1 each FS ACHS [facility] Last Admin: 06/06/17 20:15 Dose: 1 each Docusate Sodium (Colace) 100 mg PO BID PRN PRN Reason: Constipation Ergocalciferol (Drisdol) 50,000 unit PO Landa@0900 [facility] Ferrous Gluconate (Fergon) 324 mg PO DAILY [facility] Last Admin: 06/06/17 08:53 Dose: 324 mg Furosemide (Lasix) 80 mg PO BID [facility] Last Admin: 06/06/17 08:53 Dose: 80 mg Gabapentin (Neurontin) 300 mg PO TID [facility] Last Admin: 06/06/17 17:00 Dose: Not Given Glucose (Insta-Glucose) 15 gm PO PRN PRN PRN Reason: Hypoglycemia Heparin Sodium (Porcine) (Heparin) 5,000 unit SQ Q12 [facility] Last Admin: 06/06/17 08:52 Dose: 5,000 unit Heparin Sodium (Porcine) (Heparin Flush) 2 ml IV Q12 [facility] Last Admin: 06/06/17 08:51 Dose: 2 ml Piperacillin Sod/Tazobactam (Sod 2.25 gm/ Dextrose) 50 mls @ 100 mls/hr IV Q12H [facility] Last Admin: 06/06/17 11:11 Dose: Not Given Insulin Glargine (Lantus) 20 unit SQ BID [facility] Last Admin: 06/06/17 08:52 Dose: 20 unit Insulin Human Lispro (Humalog) 0 unit SQ [facility] PRN Reason: Protocol Last Admin: 06/06/17 16:48 Dose: Not Given Magnesium Hydroxide (Milk Of Magnesia) 30 ml PO DAILYP PRN PRN Reason: Constipation Metoprolol Tartrate (Lopressor) 50 mg PO BID [facility] Last Admin: 06/06/17 08:53 Dose: 50 mg Naloxone HCl (Narcan) 0.1 mg IV Q2MIN PRN PRN Reason: Opiate Reversal Ondansetron HCl (Zofran) 4 mg IV Q6HP PRN PRN Reason: Nausea And Vomiting Sodium Chloride (Saline Flush) 10 ml IV Q8 [facility] Last Admin: 06/06/17 14:14 Dose: Not Given Medical - PN: A/P - Time Spent With Patient Total time spent is greater than 50% in coordination of care (as documented) at patient's floor/unit and/or counseling patient: - Narrative A/P Narrative: A/P Narrative: Left leg cellulitis related to DM foot ulcer on zosyn, mssa and strep positive from cultures podiatry following wound vac in place clinically no e/o gangrene at present, clinidamycin discontinued. Leucocytosis: etiology, reactive vs untreated infection tagged wbc scan planned. part one done today, part two tomorrow. consider davis CT if needed If scan neg, consider d/c antibiotics and see if any new symptoms develop to help guide investigations. DM uncontrolled glucose glucose in AM was normal, will monitor today before adjusting dose. anemia/ secondary to esrd, sepsis, acute infection, monitor consider xfusion as needed. ESRd on HD Hypertension. Continue amlodipine, hydralazine, metoprolol and Lasix. DVT hep sq Diet carb/ renal Medical - PN: Qual - VTE Deep Vein Thrombosis/Pulmonary Embolism Present on Admission: No
[2017-06-06] MEDS: ATORVASTATIN 20 MG TABLET PO SCH (20:36)
[2017-06-07] MEDS: 0.9 % SODIUM CHLORIDE 10 ML SYRINGE IV SCH ×3 (04:30→23:50)
[2017-06-07 06:11] LABS: Basophils # (Auto) 0.1 K/mcL (0.0-0.3); Basophils % (Auto) 0.3 % (0.0-2.0); Eosinophils # (Auto) 0.8 K/mcL (0.0-0.7); Eosinophils % (Auto) 3.9 % (0.0-7.0); Granulocytes % (Auto) 79.4 % (38.0-78.0); Lymphocytes # (Auto) 2.2 K/mcL (1.5-4.8); Lymphocytes % (Auto) 10.9 % (15.5-49.0); Mean Cell Volume 89.1 fL (80.0-100.0); Mean Corpuscular HGB Conc 33.6 g/dL (31.0-36.0); Mean Corpuscular Hemoglobin 29.9 pg (26.0-34.0); Monocytes # (Auto) 1.1 K/mcL (0.1-0.9); Monocytes % (Auto) 5.5 % (1.0-12.0); Platelet Count 641 K/mcL (140-440); RBC 2.88 M/mcL (4.50-5.90); Red Cell Distribution Width 14.9 % (11.5-14.5)
[2017-06-07 06:53] LABS: ALT/SGPT 18 U/l (0-40); Albumin 3.6 gm/dL (3.2-5.2); Alkaline Phosphatase 94 U/L (39-117); Bilirubin,Direct < 0.2 mg/dL (0.0-0.3); Blood Urea Nitrogen 30 mg/dl (8-23); C-Reactive Protein 0.7 mg/dl (0.0-0.8); Gamma Glutamyl Transpeptidase 29 U/L (8-61); Magnesium 2.1 mg/dL (1.6-2.5)
[2017-06-07 07:17] LABS: Erythrocyte Sedimentation Rate 102 mm/hr (0-15)
[2017-06-07] MEDS: INSULIN LISPRO 1 UNIT/0.01 ML UNIT SQ SCH ×4 (07:22→21:47)
[2017-06-07] MEDS: INSULIN GLARGINE, HUMAN 1 UNIT/0.01 ML SQ SCH ×2 (08:31→21:47)
[2017-06-07] MEDS: HEPARIN 5,000 UNIT/ML VIAL SQ SCH ×2 (08:32→21:48)
[2017-06-07] MEDS: FUROSEMIDE 80 MG TABLET PO SCH ×2 (08:33→21:49)
[2017-06-07] MEDS: METOPROLOL TARTRATE 50 MG TABLET PO SCH ×2 (08:33→21:49)
[2017-06-07] MEDS: amLODIPine 10 MG TABLET PO SCH (08:33)
[2017-06-07] MEDS: ASPIRIN 81 MG TAB.CHEW PO SCH (08:33)
[2017-06-07] MEDS: FERROUS GLUCONATE 324 MG TABLET PO SCH (08:33)
[2017-06-07] MEDS: CALCIUM ACETATE 667 MG CAPSULE PO SCH ×3 (08:33→16:48)
[2017-06-07] MEDS: GABAPENTIN 300 MG CAPSULE PO SCH ×3 (08:33→21:48)
[2017-06-07] MEDS: PIPERACILLIN SODIUM/TAZOBACTAM 2.25 GM in DEXTROSE 5% IN WATER 50 ML IV SCH ×2 (11:00→23:50)
--- NOTE | 2017-06-07 14:39 | Internal Med Progress Note ---
Medical - PN: Subj Patient information: Note initiated : 06/07/17 at 2:37 pm Service Date, if different from initiated Date: [] Patient: Sandro Bailey 66 y/o M admitted on 06/04/17 for Sepsis, Cellulitis. Chief Complaint: [] Interval history: -The patient was discharged to swing bed status on May 29. His foot wound has gotten progressively better. He is doing very well currently with a wound VAC and current IV antibiotics. His white blood cell count was still a little high on admit to discharge, but was trending down. Unfortunately, it is now trending up again, for uncertain reasons. Lowest we have seen it was 15,000, and he is now back up to 19,000, with granulocyte count up to 14,400. At this point, it would appear that he still has ongoing infection somewhere. He will need further workup to investigate this, and probable change in treatment plan. Will be discharged from swing bed status today, and back to inpatient status. I reviewed his case again with Dr. Salazar from podiatry. We think that the next best step is probably to do a tagged white blood cell scan, to see if an abscess or other occult infection shows up. The patient's only complaint today, is a mild sore throat. He otherwise denies fever chills, headaches or dizziness, sinus symptoms teeth symptoms or earache. He denies chest pain or palpitations, shortness of breath or cough, GI or symptoms. -Type 2 diabetes. The patient's blood sugar has not been well controlled, so we have gradually been increasing insulin and oral meds. It is overall improved , but still not at goal. This may be partly due to ongoing infection. -Patient has to need to receive 3 times a week dialysis for his end-stage renal disease. June 05 patient seen examined, lying in bed comfortably, denies any acute complaints, he was admitted for foot infection, was placed to swing bed status, but due to his worsening wbc count is now back to inpatient status he has no clinical e/o infection podiatry notes that the leg is likely not the source of infection, blood cx have been negative Pt was started on clindamycin, but i am not sure how much it add to exisitn zosyn. will d/c same for now, patient is planned to get a tagged wbc scan tomorrow to evaluate for potential pocket, will do selective imaging based on that HD planned for tomorrow. Jun 06 patient seen examined, has no complaints, no concerns on HD part 1 of tagged wbc scan done today, rest tomorrow cx are neg WBC Trending down today, appreciate podiatry and nephrology consult. Jun 07 Patient seen examined lying down in bed, no issues reviewed case with podiatry, wound not infected wbc scan second phase today, will review results and decide on future plan. Pertinent ROS: Denies headache, dizziness Denies chest pain, palpitations Denies cough or shortness of breath Denies abdominal pain, nausea or vomiting. - Constitutional Vitals: Vital Signs Temp Pulse Resp BP Pulse Ox 97.1 F 72 14 113/68 96 06/07/17 12:00 06/07/17 07:59 06/07/17 12:00 06/07/17 12:00 06/07/17 12:00 Period Temp Pulse Resp BP Sys/Frank Pulse Ox Last 24 Hr 97.0 F-98.3 F 62-79 14-24 84-148/59-82 96-99 Intake and Output 06/07/17 06/07/17 06/07/17 05:59 13:59 21:59 Intake Total 290 / 290 180 / 180 Balance 290 / 290 180 / 180 Intake & Output: Intake & Output 06/07/17 06/07/17 06/07/17 05:59 13:59 21:59 Intake Total 290 / 290 180 / 180 Balance 290 / 290 180 / 180 Intake: IV 50 / 50 Zosyn 2.25 gm In Dextrose 5% in 50 / 50 Water 50 ml @ 100 mls/hr IV Q12H [facility] Rx#:[id number] Oral 240 / 240 180 / 180 Other: Meal Breakfast Percent of Meal Consumed 90 Feeding Ability Assist with Tray Set Up Exam: Constitutional; Afebrile, cooperative, alert, not in distress. Eyes- No icterus, , No periorbital swelling Ears- Ext ear normal, hearing normal to conversation. Neck- Midline trachea, supple Respiratory system: Air Entry equal on both sides, No crackles or wheezing, no rhonchi. CVS- Rate rhythm regular, S1,S2 heard, no gallop, no rub. Abdomen- Soft nontender abdomen, no organomegaly, no tenderness, no guarding or rigidity, SUBSTANCE ABUSE NURSE- AOOx3, moving all extremities, no gross focal deficit noted. Medical - PN: Obj Da - Labs CBC & Chem 7: 06/07/17 04:00 06/07/17 04:00 Labs: Abnormal Lab Results 06/07/17 06/07/17 06/06/17 04:00 04:00 04:00 WBC 20.1 H RBC 2.88 L Hgb 8.6 L Hct 25.6 L RDW 14.9 H Plt Count 641 H Gran % 79.4 H Lymph % (Auto) 10.9 L Gran # 16.0 H Schuyler # (Auto) 1.1 H Eos # (Auto) 0.8 H ESR 102 H Chloride 91 L Anion Gap 18.0 H BUN 30 H 54 H Creatinine 4.7 H 6.6 H* Glucose 118 H Calcium Phosphorus 4.7 H Lactate Dehydrogenase 254 H C-Reactive Protein Albumin/Globulin Ratio 06/06/17 06/05/17 06/05/17 04:00 04:00 04:00 WBC 17.4 H 19.6 H RBC 2.68 L 2.66 L Hgb 7.9 L 7.8 L Hct 24.1 L 23.8 L RDW 15.2 H Plt Count 621 H 576 H Gran % Lymph % (Auto) 12.4 L 12.1 L Gran # 13.1 H 15.1 H Schuyler # (Auto) 1.0 H 1.2 H Eos # (Auto) 1.1 H 0.9 H ESR 87 H Chloride 93 L Anion Gap BUN 44 H Creatinine 5.5 H* Glucose 254 H Calcium 8.2 L Phosphorus Lactate Dehydrogenase C-Reactive Protein 0.9 H Albumin/Globulin Ratio 0.9 L Meds: Medications Acetaminophen (Tylenol) 650 mg PO Q6HP PRN PRN Reason: PAIN/FEVER > 101 Hydrocodone Bitart/Acetaminophen ([place] 5/325mg) 1 tab PO Q4HP PRN PRN Reason: PAIN LEVEL 3-6 Albuterol Sulfate (Ventolin) 2.5 mg NEB Q6HP PRN PRN Reason: Shortness Of Breath Or Wheezing Amlodipine Besylate (Norvasc) 10 mg PO DAILY [facility] Last Admin: 06/07/17 08:33 Dose: 10 mg Aspirin (Aspirin) 81 mg PO DAILY [facility] Last Admin: 06/07/17 08:33 Dose: 81 mg Atorvastatin Calcium (Lipitor) 40 mg PO HS [facility] Last Admin: 06/06/17 20:36 Dose: 40 mg Calcium Acetate (Phoslo) 667 mg PO TIDCC [facility] Last Admin: 06/07/17 12:08 Dose: 667 mg Calcium Carbonate/Glycine (Tums) 1,000 mg CHEWED Q4HP PRN PRN Reason: Dyspepsia Dextrose (Dextrose 50%) 0 ml IV UD PRN PRN Reason: Hypoglycemia Diagnostic Test (Pha) (Accu-Chek) 1 each FS ACHS [facility] Last Admin: 06/07/17 11:07 Dose: 1 each Docusate Sodium (Colace) 100 mg PO BID PRN PRN Reason: Constipation Ergocalciferol (Drisdol) 50,000 unit PO Landa@0900 [facility] Ferrous Gluconate (Fergon) 324 mg PO DAILY [facility] Last Admin: 06/07/17 08:33 Dose: 324 mg Furosemide (Lasix) 80 mg PO BID [facility] Last Admin: 06/07/17 08:33 Dose: 80 mg Gabapentin (Neurontin) 300 mg PO TID [facility] Last Admin: 06/07/17 08:33 Dose: 300 mg Glucose (Insta-Glucose) 15 gm PO PRN PRN PRN Reason: Hypoglycemia Heparin Sodium (Porcine) (Heparin) 5,000 unit SQ Q12 [facility] Last Admin: 06/07/17 08:32 Dose: 5,000 unit Heparin Sodium (Porcine) (Heparin Flush) 2 ml IV Q12 [facility] Last Admin: 06/07/17 08:32 Dose: 2 ml Piperacillin Sod/Tazobactam (Sod 2.25 gm/ Dextrose) 50 mls @ 100 mls/hr IV Q12H [facility] Last Admin: 06/07/17 11:00 Dose: 100 mls/hr Insulin Glargine (Lantus) 20 unit SQ BID [facility] Last Admin: 06/07/17 08:31 Dose: 20 unit Insulin Human Lispro (Humalog) 0 unit SQ ACHS [facility] PRN Reason: Protocol Last Admin: 06/07/17 11:07 Dose: 6 unit Magnesium Hydroxide (Milk Of Magnesia) 30 ml PO DAILYP PRN PRN Reason: Constipation Metoprolol Tartrate (Lopressor) 50 mg PO BID [facility] Last Admin: 06/07/17 08:33 Dose: 50 mg Naloxone HCl (Narcan) 0.1 mg IV Q2MIN PRN PRN Reason: Opiate Reversal Ondansetron HCl (Zofran) 4 mg IV Q6HP PRN PRN Reason: Nausea And Vomiting Sodium Chloride (Saline Flush) 10 ml IV Q8 [facility] Last Admin: 06/07/17 04:30 Dose: 10 ml Medical - PN: A/P - Time Spent With Patient Total time spent is greater than 50% in coordination of care (as documented) at patient's floor/unit and/or counseling patient: - Narrative A/P Narrative: A/P Narrative: Left leg cellulitis related to DM foot ulcer on zosyn, mssa and strep positive from cultures podiatry following wound vac in place clinically no e/o gangrene at present, clinidamycin discontinued. Leucocytosis: etiology, reactive vs untreated infection, wbc up again today, tagged wbc scan part 2 today, consider davis CT if needed If scan neg, consider d/c antibiotics and see if any new symptoms develop to help guide investigations. DM uncontrolled glucose glucose in AM was normal, ok control, one high reading, continue presnt regime and mointor. anemia/ secondary to esrd, sepsis, acute infection, monitor consider xfusion as needed. ESRd on HD Hypertension. Continue amlodipine, hydralazine, metoprolol and Lasix. DVT hep sq Diet carb/ renal Medical - PN: Qual - VTE Deep Vein Thrombosis/Pulmonary Embolism Present on Admission: No
--- NOTE | 2017-06-07 15:25 | Orthopedic Progress Note ---
Subjective Patient information: Note initiated : 06/07/17 at 3:23 pm Service Date, if different from initiated Date: [] Patient: Sandro Bailey 66 y/o M admitted on 06/04/17 for Sepsis, Cellulitis. Chief Complaint: [right foot infection] Principal diagnosis: Right foot gangrene Interval history: No new complaints, foot does not hurt. Some sore throat Pertinent ROS: no fever, chills, nausea, or vomiting Objective Vital signs: Vital Signs Temp Pulse Pulse Resp BP BP Pulse Ox 06/07/17 12:00 97.1 F 14 113/68 96 06/07/17 07:59 72 98 06/07/17 07:34 97.6 F 72 14 118/65 98 06/07/17 04:00 97.9 F 72 22 118/67 97 06/07/17 00:00 98.3 F 74 24 H 116/68 97 06/06/17 20:00 97.7 F 75 24 H 130/72 99 06/06/17 18:28 97.5 F 72 117/72 06/06/17 18:10 79 91/65 06/06/17 18:02 72 108/72 06/06/17 17:46 71 114/70 06/06/17 17:32 72 92/64 06/06/17 17:17 74 127/77 06/06/17 17:02 68 116/73 06/06/17 16:47 71 119/78 06/06/17 16:32 69 109/74 06/06/17 16:16 69 84/59 06/06/17 16:00 97.0 F 16 108/72 98 06/06/17 15:48 72 107/67 Intake and Output 06/07/17 06/07/17 06/07/17 05:59 13:59 21:59 Intake Total 290 / 290 180 / 180 Balance 290 / 290 180 / 180 Intake: IV 50 / 50 Zosyn 2.25 gm In Dextrose 5% in 50 / 50 Water 50 ml @ 100 mls/hr IV Q12H [facility] Rx#:[id number] Oral 240 / 240 180 / 180 Other: Meal Breakfast Lunch Percent of Meal Consumed 90 100% Feeding Ability Assist with Tray Set Up Intake & Output: Intake & Output 06/07/17 06/07/17 06/07/17 05:59 13:59 21:59 Intake Total 290 / 290 180 / 180 Balance 290 / 290 180 / 180 Intake: IV 50 / 50 Zosyn 2.25 gm In Dextrose 5% in 50 / 50 Water 50 ml @ 100 mls/hr IV Q12H [facility] Rx#:[id number] Oral 240 / 240 180 / 180 Other: Meal Breakfast Lunch Percent of Meal Consumed 90 100% Feeding Ability Assist with Tray Set Up Incision: Yes draining, Yes swollen Dressing: Yes intact, Yes splint in place Weight bearing status: partial Neurological exam IM: Yes abnormal gait - Periperhal Pulses Peripheral pulses: 1+: dorsalis pedis (L), dorsalis pedis (R), posterior tibialis (L), posterior tibialis (R) - Diagnostic Results Ankle x-ray: image reviewed - Labs CBC & BMP: 06/07/17 04:00 06/07/17 04:00 Labs: 06/07/17 06/06/17 06/05/17 04:00 04:00 04:00 Hgb 8.6 L 7.9 L 7.8 L Hct 25.6 L 24.1 L 23.8 L Assessment and Plan (1) Ulcer of right foot due to type 2 diabetes mellitus Status: Acute Priority: Medium Comment: 06/07/17: 1. Continue wound VAC therapy changed every 48 H 2. Evaluate wound for graft once white cell count has stabilized and wound appears granular 3. Higher WBC may be present in absense of infection, will continue to investigate
[2017-06-07] MEDS: ATORVASTATIN 20 MG TABLET PO SCH (21:48)
[2017-06-08] MEDS: 0.9 % SODIUM CHLORIDE 10 ML SYRINGE IV SCH ×3 (05:24→21:01)
[2017-06-08 06:55] LABS: Basophils # (Auto) 0.1 K/mcL (0.0-0.3); Basophils % (Auto) 0.3 % (0.0-2.0); Eosinophils # (Auto) 0.8 K/mcL (0.0-0.7); Eosinophils % (Auto) 5.2 % (0.0-7.0); Granulocytes % (Auto) 78.2 % (38.0-78.0); Lymphocytes # (Auto) 1.8 K/mcL (1.5-4.8); Mean Corpuscular Hemoglobin 30.3 pg (26.0-34.0); Monocytes # (Auto) 0.8 K/mcL (0.1-0.9); Monocytes % (Auto) 5.3 % (1.0-12.0); Platelet Count 607 K/mcL (140-440); RBC 2.83 M/mcL (4.50-5.90); Red Cell Distribution Width 15.3 % (11.5-14.5)
[2017-06-08 07:34] LABS: ALT/SGPT 18 U/l (0-40); Albumin 3.5 gm/dL (3.2-5.2); Albumin/Globulin Ratio 0.9 (1.0-2.3); Alkaline Phosphatase 92 U/L (39-117); Bilirubin,Direct < 0.2 mg/dL (0.0-0.3); Blood Urea Nitrogen 50 mg/dl (8-23); C-Reactive Protein 0.6 mg/dl (0.0-0.8); Gamma Glutamyl Transpeptidase 27 U/L (8-61); Magnesium 2.4 mg/dL (1.6-2.5); Uric Acid 6.5 mg/dL (2.5-8.0)
[2017-06-08 07:47] LABS: Erythrocyte Sedimentation Rate 95 mm/hr (0-15)
[2017-06-08] MEDS: INSULIN GLARGINE, HUMAN 1 UNIT/0.01 ML SQ SCH ×2 (08:05→21:00)
[2017-06-08] MEDS: CALCIUM ACETATE 667 MG CAPSULE PO SCH ×3 (08:06→17:30)
[2017-06-08] MEDS: INSULIN LISPRO 1 UNIT/0.01 ML UNIT SQ SCH ×4 (08:06→21:00)
--- NOTE | 2017-06-08 11:27 | Orthopedic Progress Note ---
Subjective Patient information: Note initiated : 06/08/17 at 11:25 am Service Date, if different from initiated Date: [] Patient: Sandro Bailey 66 y/o M admitted on 06/04/17 for Sepsis, Cellulitis. Chief Complaint: [right foot sore] Principal diagnosis: Right foot gangrene Interval history: continue dialysis treatment with out any changes. Foot remains the same as it has for the last several days. No new complaints Pertinent ROS: no chills fever vomiting or nausea. Objective Vital signs: Vital Signs Temp Pulse Pulse Resp BP BP Pulse Ox 06/08/17 11:00 78 120/78 06/08/17 10:45 74 143/83 06/08/17 10:30 73 140/85 06/08/17 10:15 70 136/81 06/08/17 10:00 98.5 F 71 139/80 06/08/17 07:55 97.1 F 20 137/75 97 06/08/17 04:00 97.7 F 65 14 125/76 97 06/08/17 00:00 97.5 F 65 14 133/72 97 06/07/17 20:00 97.2 F 69 16 136/81 97 06/07/17 16:00 97.1 F 14 130/70 98 06/07/17 12:00 97.1 F 14 113/68 96 Intake and Output 06/07/17 06/08/17 06/08/17 21:59 05:59 13:59 Intake Total 120 / 120 290 / 290 200 / 200 Output Total 475 / 475 0 / 0 Balance -355 / -355 290 / 290 200 / 200 Intake: IV 50 / 50 Zosyn 2.25 gm In Dextrose 5% in 50 / 50 Water 50 ml @ 100 mls/hr IV Q12H [facility] Rx#:[id number] Oral 120 / 120 240 / 240 200 / 200 Output: Void Amount 475 / 475 0 / 0 Other: Meal Dinner Breakfast Percent of Meal Consumed 100% 100% Feeding Ability Independent Weight 216 lb 8 oz 216 lb 8 oz Patient Weight 06/09/17 05:59 Weight 216 lb 8 oz Intake & Output: Intake & Output 06/07/17 06/08/17 06/08/17 21:59 05:59 13:59 Intake Total 120 / 120 290 / 290 200 / 200 Output Total 475 / 475 0 / 0 Balance -355 / -355 290 / 290 200 / 200 Weight 216 lb 8 oz 216 lb 8 oz Intake: IV 50 / 50 Zosyn 2.25 gm In Dextrose 5% in 50 / 50 Water 50 ml @ 100 mls/hr IV Q12H [facility] Rx#:[id number] Oral 120 / 120 240 / 240 200 / 200 Output: Void Amount 475 / 475 0 / 0 Other: Meal Dinner Breakfast Percent of Meal Consumed 100% 100% Feeding Ability Independent Incision: Yes healing, Yes red Dressing: Yes dry, Yes intact Weight bearing status: partial (to heel) - Periperhal Pulses Peripheral pulses: 1+: dorsalis pedis (L), dorsalis pedis (R), posterior tibialis (L), posterior tibialis (R) - Diagnostic Results Ankle x-ray: image reviewed - Labs CBC & BMP: 06/08/17 04:00 06/08/17 04:00 Labs: 06/08/17 06/07/17 06/06/17 04:00 04:00 04:00 Hgb 8.6 L 8.6 L 7.9 L Hct 25.2 L 25.6 L 24.1 L 06/05/17 04:00 Hgb 7.8 L Hct 23.8 L Assessment and Plan (1) Ulcer of right foot due to type 2 diabetes mellitus Status: Acute Priority: Medium Comment: to be discharged okay from podiatric perspective: Follow up in clinic in early next week for application of wound VAC outpatient therapy. Maybe discontinue wound VAC for discharge from hospital
--- NOTE | 2017-06-08 12:25 | Nephrology Progress Note ---
Subjective Patient information: Note initiated : 06/08/17 at 12:24 pm Service Date, if different from initiated Date: [] Patient: Sandro Bailey 66 y/o M admitted on 06/04/17 for Sepsis, Cellulitis. Chief Complaint: [] Principal diagnosis: Right foot gangrene Interval history: Sandro reported feeling well. No c/o fever or dyspnea. He is scheduled for dialysis today. Objective - Vital Signs Vital signs: Vital Signs Temp Pulse Pulse Resp BP BP Pulse Ox 06/08/17 12:00 98.5 F 80 12 113/76 126/79 06/08/17 11:45 70 120/80 06/08/17 11:30 75 121/80 06/08/17 11:15 72 126/79 06/08/17 11:00 78 120/78 06/08/17 10:45 74 143/83 06/08/17 10:30 73 140/85 06/08/17 10:15 70 136/81 06/08/17 10:00 98.5 F 71 139/80 06/08/17 07:55 97.1 F 20 137/75 97 06/08/17 04:00 97.7 F 65 14 125/76 97 06/08/17 00:00 97.5 F 65 14 133/72 97 06/07/17 20:00 97.2 F 69 16 136/81 97 06/07/17 16:00 97.1 F 14 130/70 98 Intake and Output 06/07/17 06/08/17 06/08/17 21:59 05:59 13:59 Intake Total 120 / 120 290 / 290 200 / 200 Output Total 475 / 475 0 / 0 Balance -355 / -355 290 / 290 200 / 200 Intake: IV 50 / 50 Zosyn 2.25 gm In Dextrose 5% in 50 / 50 Water 50 ml @ 100 mls/hr IV Q12H [facility] Rx#:[id number] Oral 120 / 120 240 / 240 200 / 200 Output: Void Amount 475 / 475 0 / 0 Other: Meal Dinner Breakfast Percent of Meal Consumed 100% 100% Feeding Ability Independent Weight 216 lb 8 oz 216 lb 8 oz Patient Weight 06/09/17 05:59 Weight 216 lb 8 oz Intake & Output: Intake & Output 12/14/17 12/15/17 12/15/17 21:59 05:59 13:59 Intake Total 120 / 120 290 / 290 200 / 200 Output Total 475 / 475 0 / 0 Balance -355 / -355 290 / 290 200 / 200 Weight 216 lb 8 oz 216 lb 8 oz Intake: IV 50 / 50 Zosyn 2.25 gm In Dextrose 5% in 50 / 50 Water 50 ml @ 100 mls/hr IV Q12H [facility] Rx#:[id number] Oral 120 / 120 240 / 240 200 / 200 Output: Void Amount 475 / 475 0 / 0 Other: Meal Dinner Breakfast Percent of Meal Consumed 100% 100% Feeding Ability Independent - General Appearance General appearance: well-developed, well-nourished, appears started age EENT: ATNC Neck: no JVD, no thyromegaly Cardiology: no murmurs, regular rate, regular rhythm Gastrointestinal: no tenderness - Lab 06/08/17 04:00 06/08/17 04:00 Most recent lab results Calcium 9.0 mg/dl (8.6-10.4) 06/08/17 04:00 Phosphorus 5.9 mg/dL (2.7-4.5) H 06/08/17 04:00 Magnesium 2.4 mg/dL (1.6-2.5) 06/08/17 04:00 Assessment and Plan (1) ESRD (end stage renal disease) Clinically stable. Hemodialysis today. Will follow. Status: Chronic
[2017-06-08] MEDS: PIPERACILLIN SODIUM/TAZOBACTAM 2.25 GM in DEXTROSE 5% IN WATER 50 ML IV SCH (14:52)
[2017-06-08] MEDS: HEPARIN 5,000 UNIT/ML VIAL SQ SCH ×2 (14:52→23:25)
[2017-06-08] MEDS: METOPROLOL TARTRATE 50 MG TABLET PO SCH ×2 (14:56→23:25)
[2017-06-08] MEDS: FERROUS GLUCONATE 324 MG TABLET PO SCH (14:57)
[2017-06-08] MEDS: amLODIPine 10 MG TABLET PO SCH (14:57)
[2017-06-08] MEDS: ASPIRIN 81 MG TAB.CHEW PO SCH (14:57)
[2017-06-08] MEDS: FUROSEMIDE 80 MG TABLET PO SCH ×2 (14:57→23:25)
[2017-06-08] MEDS: GABAPENTIN 300 MG CAPSULE PO SCH ×3 (14:57→21:01)
--- NOTE | 2017-06-08 17:30 | Internal Med Progress Note ---
Medical - PN: Subj Patient information: Note initiated : 06/08/17 at 5:28 pm Service Date, if different from initiated Date: [] Patient: Sandro Bailey 66 y/o M admitted on 06/04/17 for Sepsis, Cellulitis. Chief Complaint: [] Interval history: -The patient was discharged to swing bed status on May 29. His foot wound has gotten progressively better. He is doing very well currently with a wound VAC and current IV antibiotics. His white blood cell count was still a little high on admit to discharge, but was trending down. Unfortunately, it is now trending up again, for uncertain reasons. Lowest we have seen it was 15,000, and he is now back up to 19,000, with granulocyte count up to 14,400. At this point, it would appear that he still has ongoing infection somewhere. He will need further workup to investigate this, and probable change in treatment plan. Will be discharged from swing bed status today, and back to inpatient status. I reviewed his case again with Dr. Salazar from podiatry. We think that the next best step is probably to do a tagged white blood cell scan, to see if an abscess or other occult infection shows up. The patient's only complaint today, is a mild sore throat. He otherwise denies fever chills, headaches or dizziness, sinus symptoms teeth symptoms or earache. He denies chest pain or palpitations, shortness of breath or cough, GI or symptoms. -Type 2 diabetes. The patient's blood sugar has not been well controlled, so we have gradually been increasing insulin and oral meds. It is overall improved , but still not at goal. This may be partly due to ongoing infection. -Patient has to need to receive 3 times a week dialysis for his end-stage renal disease. June 05 patient seen examined, lying in bed comfortably, denies any acute complaints, he was admitted for foot infection, was placed to swing bed status, but due to his worsening wbc count is now back to inpatient status he has no clinical e/o infection podiatry notes that the leg is likely not the source of infection, blood cx have been negative Pt was started on clindamycin, but i am not sure how much it add to exisitn zosyn. will d/c same for now, patient is planned to get a tagged wbc scan tomorrow to evaluate for potential pocket, will do selective imaging based on that HD planned for tomorrow. Dec 13 patient seen examined, has no complaints, no concerns on HD part 1 of tagged wbc scan done today, rest tomorrow cx are neg WBC Trending down today, appreciate podiatry and nephrology consult. Dec 14 Patient seen examined lying down in bed, no issues reviewed case with podiatry, wound not infected wbc scan second phase today, will review results and decide on future plan. Dec 15 Pt seen examined, no issues reported comfortable in bed Tagged WBC scan is reported prelim negative, some update in right foot which is expected wbc luisa today, but not normal given no clinical e/o infection, will stop zosyn and see how he does There is no clinical e/o infection as per podiatry, wound looks clean Hold ABX completely and see if wbc worsens significantly check leucocyte alkaline phosphatse, given mild arian positivity check c3, and c4 , Pertinent ROS: Denies headache, dizziness Denies chest pain, palpitations Denies cough or shortness of breath Denies abdominal pain, nausea or vomiting. - Constitutional Vitals: Vital Signs Temp Pulse Resp BP Pulse Ox 97.7 F 70 16 134/75 96 06/08/17 16:00 06/08/17 13:55 06/08/17 16:00 06/08/17 16:00 06/08/17 16:00 Period Temp Pulse Resp BP Sys/Frank Pulse Ox Last 24 Hr 97.1 F-98.5 F 65-80 12-20 104-143/70-88 96-97 Intake and Output 06/08/17 06/08/17 06/08/17 05:59 13:59 21:59 Intake Total 290 / 290 200 / 200 570 / 570 Output Total 0 / 0 1500 / 1500 1000 / 1000 Balance 290 / 290 -1300 / -1300 -430 / -430 Weight 216 lb 8 oz Patient Weight 06/09/17 05:59 Weight 216 lb 8 oz Intake & Output: Intake & Output 06/08/17 06/08/17 06/08/17 05:59 13:59 21:59 Intake Total 290 / 290 200 / 200 570 / 570 Output Total 0 / 0 1500 / 1500 1000 / 1000 Balance 290 / 290 -1300 / -1300 -430 / -430 Weight 216 lb 8 oz Intake: IV 50 / 50 50 / 50 Zosyn 2.25 gm In Dextrose 5% in 50 / 50 50 / 50 Water 50 ml @ 100 mls/hr IV Q12H [facility] Rx#:[id number] Oral 240 / 240 200 / 200 520 / 520 Output: Drainage 0 / 0 Right Foot Woundvac 0 / 0 Void Amount 0 / 0 1000 / 1000 Hemodialysis UF 1500 / 1500 Other: Meal Breakfast Lunch Percent of Meal Consumed 100% 100% Feeding Ability Independent Independent # Bowel Movements 1 Exam: Constitutional; Afebrile, cooperative, alert, not in distress. Eyes- No icterus, , No periorbital swelling Ears- Ext ear normal, hearing normal to conversation. Neck- Midline trachea, supple Respiratory system: Air Entry equal on both sides, No crackles or wheezing, no rhonchi. CVS- Rate rhythm regular, S1,S2 heard, no gallop, no rub. Abdomen- Soft nontender abdomen, no organomegaly, no tenderness, no guarding or rigidity, PAID INTERN- AOOx3, moving all extremities, no gross focal deficit noted. Medical - PN: Obj Da - Labs CBC & Chem 7: 06/08/17 04:00 06/08/17 04:00 Labs: Abnormal Lab Results 06/08/17 06/08/17 06/07/17 04:00 04:00 07:44 WBC 16.1 H RBC 2.83 L Hgb 8.6 L Hct 25.2 L RDW 15.3 H Plt Count 607 H Gran % 78.2 H Lymph % (Auto) 11.0 L Gran # 12.6 H [place] # (Auto) Eos # (Auto) 0.8 H ESR 95 H Chloride 91 L Anion Gap 17.0 H BUN 50 H Creatinine 6.9 H* Glucose 122 H Phosphorus 5.9 H Lactate Dehydrogenase 260 H Albumin/Globulin Ratio 0.9 L ARIAN Screen Pos 1:80 or greater A 06/07/17 06/07/17 06/06/17 04:00 04:00 04:00 WBC 20.1 H RBC 2.88 L Hgb 8.6 L Hct 25.6 L RDW 14.9 H Plt Count 641 H Gran % 79.4 H Lymph % (Auto) 10.9 L Gran # 16.0 H [place] # (Auto) 1.1 H Eos # (Auto) 0.8 H ESR 102 H Chloride 91 L Anion Gap 18.0 H BUN 30 H 54 H Creatinine 4.7 H 6.6 H* Glucose 118 H Phosphorus 4.7 H Lactate Dehydrogenase 254 H Albumin/Globulin Ratio ARIAN Screen 06/06/17 04:00 WBC 17.4 H RBC 2.68 L Hgb 7.9 L Hct 24.1 L RDW 15.2 H Plt Count 621 H Gran % Lymph % (Auto) 12.4 L Gran # 13.1 H [place] # (Auto) 1.0 H Eos # (Auto) 1.1 H ESR 87 H Chloride Anion Gap BUN Creatinine Glucose Phosphorus Lactate Dehydrogenase Albumin/Globulin Ratio ARIAN Screen Meds: Medications Acetaminophen (Tylenol) 650 mg PO Q6HP PRN PRN Reason: PAIN/FEVER > 101 Hydrocodone Bitart/Acetaminophen ([place] 5/325mg) 1 tab PO Q4HP PRN PRN Reason: PAIN LEVEL 3-6 Albuterol Sulfate (Ventolin) 2.5 mg NEB Q6HP PRN PRN Reason: Shortness Of Breath Or Wheezing Amlodipine Besylate (Norvasc) 10 mg PO DAILY [facility] Last Admin: 06/08/17 14:57 Dose: 10 mg Aspirin (Aspirin) 81 mg PO DAILY [facility] Last Admin: 06/08/17 14:57 Dose: 81 mg Atorvastatin Calcium (Lipitor) 40 mg PO HS [facility] Last Admin: 06/07/17 21:48 Dose: 40 mg Calcium Acetate (Phoslo) 667 mg PO TIDCC [facility] Last Admin: 06/08/17 14:56 Dose: 667 mg Calcium Carbonate/Glycine (Tums) 1,000 mg CHEWED Q4HP PRN PRN Reason: Dyspepsia Dextrose (Dextrose 50%) 0 ml IV UD PRN PRN Reason: Hypoglycemia Diagnostic Test (Pha) (Accu-Chek) 1 each FS ACHS [facility] Last Admin: 06/08/17 11:46 Dose: 1 each Docusate Sodium (Colace) 100 mg PO BID PRN PRN Reason: Constipation Ergocalciferol (Drisdol) 50,000 unit PO Landa@0900 [facility] Ferrous Gluconate (Fergon) 324 mg PO DAILY [facility] Last Admin: 06/08/17 14:57 Dose: 324 mg Furosemide (Lasix) 80 mg PO BID [facility] Last Admin: 06/08/17 14:57 Dose: 80 mg Gabapentin (Neurontin) 300 mg PO TID [facility] Last Admin: 06/08/17 14:58 Dose: 300 mg Glucose (Insta-Glucose) 15 gm PO PRN PRN PRN Reason: Hypoglycemia Heparin Sodium (Porcine) (Heparin) 5,000 unit SQ Q12 [facility] Last Admin: 06/08/17 14:52 Dose: 5,000 unit Heparin Sodium (Porcine) (Heparin Flush) 2 ml IV Q12 [facility] Last Admin: 06/08/17 14:58 Dose: 2 ml Insulin Glargine (Lantus) 20 unit SQ BID [facility] Last Admin: 06/08/17 08:05 Dose: 20 unit Insulin Human Lispro (Humalog) 0 unit SQ ACHS [facility] PRN Reason: Protocol Last Admin: 06/08/17 11:46 Dose: 3 unit Magnesium Hydroxide (Milk Of Magnesia) 30 ml PO DAILYP PRN PRN Reason: Constipation Metoprolol Tartrate (Lopressor) 50 mg PO BID [facility] Last Admin: 06/08/17 14:56 Dose: 50 mg Naloxone HCl (Narcan) 0.1 mg IV Q2MIN PRN PRN Reason: Opiate Reversal Ondansetron HCl (Zofran) 4 mg IV Q6HP PRN PRN Reason: Nausea And Vomiting Sodium Chloride (Saline Flush) 10 ml IV Q8 [facility] Last Admin: 06/08/17 14:59 Dose: 10 ml Medical - PN: A/P - Time Spent With Patient Total time spent is greater than 50% in coordination of care (as documented) at patient's floor/unit and/or counseling patient: - Narrative A/P Narrative: A/P Narrative: Left leg cellulitis related to DM foot ulcer on zosyn, mssa and strep positive from cultures podiatry following wound vac in place clinically no e/o gangrene at present, clinidamycin discontinued. on zosynw hich will be discontinued today as there is no e/o infection tagged wbc scan is neg for any uptake besides right ankle and there is no e/o infection there. Leucocytosis: etiology, reactive vs untreated infection, wbc down today, esr is elevated, crp neg tagged wbc scan is negative. d/c all abx and see how patient responds. check c3, c4 in light of arian positivity check LAP consider hematology follow up as outpatient if patient remains stable, he does have chr eosinophilia, elevated monocytes, wonder if any myelproliferative disorder is present. DM uncontrolled glucose glucose is at goal continue present regime and monitor. anemia/ secondary to esrd, sepsis, acute infection, monitor consider xfusion as needed. ESRd on HD Hypertension. Continue amlodipine, hydralazine, metoprolol and Lasix. DVT hep sq Diet carb/ renal Medical - PN: Qual - VTE Deep Vein Thrombosis/Pulmonary Embolism Present on Admission: No
[2017-06-08] MEDS: ATORVASTATIN 20 MG TABLET PO SCH (21:01)
[2017-06-09] MEDS: 0.9 % SODIUM CHLORIDE 10 ML SYRINGE IV SCH ×3 (04:27→20:31)
[2017-06-09 06:39] LABS: Basophils # (Auto) 0.1 K/mcL (0.0-0.3); Basophils % (Auto) 0.5 % (0.0-2.0); Eosinophils # (Auto) 0.9 K/mcL (0.0-0.7); Eosinophils % (Auto) 5.3 % (0.0-7.0); Granulocytes % (Auto) 79.1 % (38.0-78.0); Lymphocytes # (Auto) 1.8 K/mcL (1.5-4.8); Lymphocytes % (Auto) 11.3 % (15.5-49.0); Mean Cell Volume 88.7 fL (80.0-100.0); Mean Corpuscular HGB Conc 33.6 g/dL (31.0-36.0); Mean Corpuscular Hemoglobin 29.9 pg (26.0-34.0); Monocytes # (Auto) 0.6 K/mcL (0.1-0.9); Monocytes % (Auto) 3.8 % (1.0-12.0); Platelet Count 577 K/mcL (140-440); RBC 2.86 M/mcL (4.50-5.90); Red Cell Distribution Width 15.7 % (11.5-14.5)
[2017-06-09 07:01] LABS: Complement C3 127.2 mg/dl (90-180)
[2017-06-09 07:14] LABS: ALT/SGPT 16 U/l (0-40); Albumin 3.5 gm/dL (3.2-5.2); Albumin/Globulin Ratio 0.9 (1.0-2.3); Alkaline Phosphatase 92 U/L (39-117); Bilirubin,Direct < 0.2 mg/dL (0.0-0.3); Blood Urea Nitrogen 32 mg/dl (8-23); Gamma Glutamyl Transpeptidase 26 U/L (8-61); Magnesium 2.2 mg/dL (1.6-2.5); Uric Acid 4.5 mg/dL (2.5-8.0)
[2017-06-09] MEDS: INSULIN LISPRO 1 UNIT/0.01 ML UNIT SQ SCH ×4 (07:54→20:29)
[2017-06-09] MEDS: CALCIUM ACETATE 667 MG CAPSULE PO SCH ×3 (07:54→17:20)
[2017-06-09 08:07] LABS: Erythrocyte Sedimentation Rate 98 mm/hr (0-15)
[2017-06-09] MEDS: GABAPENTIN 300 MG CAPSULE PO SCH ×4 (09:06→20:31)
[2017-06-09] MEDS: HEPARIN 5,000 UNIT/ML VIAL SQ SCH ×2 (09:06→20:30)
[2017-06-09] MEDS: amLODIPine 10 MG TABLET PO SCH (09:06)
[2017-06-09] MEDS: FERROUS GLUCONATE 324 MG TABLET PO SCH (09:06)
[2017-06-09] MEDS: ASPIRIN 81 MG TAB.CHEW PO SCH (09:06)
[2017-06-09] MEDS: FUROSEMIDE 80 MG TABLET PO SCH ×2 (09:06→20:31)
[2017-06-09] MEDS: METOPROLOL TARTRATE 50 MG TABLET PO SCH ×2 (09:06→20:31)
[2017-06-09] MEDS: INSULIN GLARGINE, HUMAN 1 UNIT/0.01 ML SQ SCH ×2 (09:07→20:30)
[2017-06-09 14:46] LABS: Control Score 205
[2017-06-09] MEDS: ATORVASTATIN 20 MG TABLET PO SCH (20:32)
--- NOTE | 2017-06-09 22:20 | Internal Med Progress Note ---
Medical - PN: Subj Patient information: Note initiated : 06/09/17 at 10:18 pm Service Date, if different from initiated Date: [] Patient: Sandro Bailey 66 y/o M admitted on 06/04/17 for Sepsis, Cellulitis. Chief Complaint: [] Interval history: -The patient was discharged to swing bed status on May 29. His foot wound has gotten progressively better. He is doing very well currently with a wound VAC and current IV antibiotics. His white blood cell count was still a little high on admit to discharge, but was trending down. Unfortunately, it is now trending up again, for uncertain reasons. Lowest we have seen it was 15,000, and he is now back up to 19,000, with granulocyte count up to 14,400. At this point, it would appear that he still has ongoing infection somewhere. He will need further workup to investigate this, and probable change in treatment plan. Will be discharged from swing bed status today, and back to inpatient status. I reviewed his case again with Dr. Salazar from podiatry. We think that the next best step is probably to do a tagged white blood cell scan, to see if an abscess or other occult infection shows up. The patient's only complaint today, is a mild sore throat. He otherwise denies fever chills, headaches or dizziness, sinus symptoms teeth symptoms or earache. He denies chest pain or palpitations, shortness of breath or cough, GI or symptoms. -Type 2 diabetes. The patient's blood sugar has not been well controlled, so we have gradually been increasing insulin and oral meds. It is overall improved , but still not at goal. This may be partly due to ongoing infection. -Patient has to need to receive 3 times a week dialysis for his end-stage renal disease. June 05 patient seen examined, lying in bed comfortably, denies any acute complaints, he was admitted for foot infection, was placed to swing bed status, but due to his worsening wbc count is now back to inpatient status he has no clinical e/o infection podiatry notes that the leg is likely not the source of infection, blood cx have been negative Pt was started on clindamycin, but i am not sure how much it add to exisitn zosyn. will d/c same for now, patient is planned to get a tagged wbc scan tomorrow to evaluate for potential pocket, will do selective imaging based on that HD planned for tomorrow. Dec 13 patient seen examined, has no complaints, no concerns on HD part 1 of tagged wbc scan done today, rest tomorrow cx are neg WBC Trending down today, appreciate podiatry and nephrology consult. May 14 Patient seen examined lying down in bed, no issues reviewed case with podiatry, wound not infected wbc scan second phase today, will review results and decide on future plan. May 15 Pt seen examined, no issues reported comfortable in bed Tagged WBC scan is reported prelim negative, some update in right foot which is expected wbc luisa today, but not normal given no clinical e/o infection, will stop zosyn and see how he does There is no clinical e/o infection as per podiatry, wound looks clean Hold ABX completely and see if wbc worsens significantly check leucocyte alkaline phosphatse, given mild arian positivity check c3, and c4 , Jun 09 WBC stable after Abx stopped yesterday. LAP, C3, C4 pending BG controlled Needs reminders to continue to restrict WB to heel only ROS: No fever - Constitutional Vitals: Vital Signs Temp Pulse Resp BP Pulse Ox 98.8 F 66 14 130/68 97 06/09/17 20:00 06/09/17 20:00 06/09/17 20:00 06/09/17 20:00 06/09/17 20:00 Period Temp Pulse Resp BP Sys/Frank Pulse Ox Last 24 Hr 97.3 F-98.8 F 60-72 14-20 113-132/62-77 96-100 Intake and Output 06/09/17 06/09/17 06/10/17 13:59 21:59 05:59 Intake Total 720 / 720 180 / 180 Output Total 0 / 0 Balance 720 / 720 180 / 180 Weight 214 lb Patient Weight 06/10/17 05:59 Weight 214 lb Intake & Output: Intake & Output 06/09/17 06/09/17 06/10/17 13:59 21:59 05:59 Intake Total 720 / 720 180 / 180 Output Total 0 / 0 Balance 720 / 720 180 / 180 Weight 214 lb Intake: Oral 720 / 720 180 / 180 Output: Drainage 0 / 0 Right Foot Woundvac 0 / 0 Other: Meal Lunch Dinner Percent of Meal Consumed 100% 100% Feeding Ability Independent Independent # Voids 1 # Bowel Movements 1 Exam: Constitutional; NAD, sleeping comfortably Eyes- No icterus, , No periorbital swelling Ears- Ext ear normal, hearing normal to conversation. Neck- Midline trachea, supple Respiratory- Air Entry equal on both sides, No crackles or wheezing, no rhonchi. CV- Rate rhythm regular, S1,S2 heard, no gallop, no rub. Abdomen- Soft nontender abdomen, no organomegaly, no tenderness, no guarding or rigidity, Ext: wound vac on foot Medical - PN: Obj Da - Labs CBC & Chem 7: 06/09/17 04:00 06/09/17 04:00 Labs: Abnormal Lab Results 06/09/17 06/09/17 06/08/17 04:00 04:00 04:00 WBC 16.2 H RBC 2.86 L Hgb 8.5 L Hct 25.4 L RDW 15.7 H Plt Count 577 H Gran % 79.1 H Lymph % (Auto) 11.3 L Gran # 12.8 H [place] # (Auto) Eos # (Auto) 0.9 H ESR 98 H Chloride 94 L 91 L Anion Gap 17.0 H 17.0 H BUN 32 H 50 H Creatinine 5.1 H* 6.9 H* Glucose 122 H Phosphorus 4.8 H 5.9 H Lactate Dehydrogenase 260 H Albumin/Globulin Ratio 0.9 L 0.9 L ARIAN Screen 06/08/17 06/07/17 06/07/17 04:00 07:44 04:00 WBC 16.1 H RBC 2.83 L Hgb 8.6 L Hct 25.2 L RDW 15.3 H Plt Count 607 H Gran % 78.2 H Lymph % (Auto) 11.0 L Gran # 12.6 H [place] # (Auto) Eos # (Auto) 0.8 H ESR 95 H Chloride 91 L Anion Gap BUN 30 H Creatinine 4.7 H Glucose Phosphorus Lactate Dehydrogenase 254 H Albumin/Globulin Ratio ARIAN Screen Pos 1:80 or greater A 06/07/17 04:00 WBC 20.1 H RBC 2.88 L Hgb 8.6 L Hct 25.6 L RDW 14.9 H Plt Count 641 H Gran % 79.4 H Lymph % (Auto) 10.9 L Gran # 16.0 H [place] # (Auto) 1.1 H Eos # (Auto) 0.8 H ESR 102 H Chloride Anion Gap BUN Creatinine Glucose Phosphorus Lactate Dehydrogenase Albumin/Globulin Ratio ARIAN Screen Meds: Medications Acetaminophen (Tylenol) 650 mg PO Q6HP PRN PRN Reason: PAIN/FEVER > 101 Hydrocodone Bitart/Acetaminophen ([place] 5/325mg) 1 tab PO Q4HP PRN PRN Reason: PAIN LEVEL 3-6 Albuterol Sulfate (Ventolin) 2.5 mg NEB Q6HP PRN PRN Reason: Shortness Of Breath Or Wheezing Amlodipine Besylate (Norvasc) 10 mg PO DAILY [facility] Last Admin: 06/09/17 09:06 Dose: 10 mg Aspirin (Aspirin) 81 mg PO DAILY [facility] Last Admin: 06/09/17 09:06 Dose: 81 mg Atorvastatin Calcium (Lipitor) 40 mg PO HS [facility] Last Admin: 06/09/17 20:32 Dose: 40 mg Calcium Acetate (Phoslo) 667 mg PO TIDCC [facility] Last Admin: 06/09/17 17:20 Dose: 667 mg Calcium Carbonate/Glycine (Tums) 1,000 mg CHEWED Q4HP PRN PRN Reason: Dyspepsia Dextrose (Dextrose 50%) 0 ml IV UD PRN PRN Reason: Hypoglycemia Diagnostic Test (Pha) (Accu-Chek) 1 each FS ACHS [facility] Last Admin: 06/09/17 20:29 Dose: 1 each Docusate Sodium (Colace) 100 mg PO BID PRN PRN Reason: Constipation Last Admin: 06/09/17 09:06 Dose: 100 mg Ergocalciferol (Drisdol) 50,000 unit PO Landa@0900 [facility] Ferrous Gluconate (Fergon) 324 mg PO DAILY [facility] Last Admin: 06/09/17 09:06 Dose: 324 mg Furosemide (Lasix) 80 mg PO BID [facility] Last Admin: 06/09/17 20:31 Dose: 80 mg Gabapentin (Neurontin) 300 mg PO TID [facility] Last Admin: 06/09/17 20:31 Dose: 300 mg Glucose (Insta-Glucose) 15 gm PO PRN PRN PRN Reason: Hypoglycemia Heparin Sodium (Porcine) (Heparin) 5,000 unit SQ Q12 [facility] Last Admin: 06/09/17 20:30 Dose: 5,000 unit Heparin Sodium (Porcine) (Heparin Flush) 2 ml IV Q12 [facility] Last Admin: 06/09/17 20:30 Dose: 2 ml Insulin Glargine (Lantus) 20 unit SQ BID [facility] Last Admin: 06/09/17 20:30 Dose: 20 unit Insulin Human Lispro (Humalog) 0 unit SQ ACHS [facility] PRN Reason: Protocol Last Admin: 06/09/17 20:29 Dose: 6 unit Magnesium Hydroxide (Milk Of Magnesia) 30 ml PO DAILYP PRN PRN Reason: Constipation Metoprolol Tartrate (Lopressor) 50 mg PO BID [facility] Last Admin: 06/09/17 20:31 Dose: 50 mg Naloxone HCl (Narcan) 0.1 mg IV Q2MIN PRN PRN Reason: Opiate Reversal Ondansetron HCl (Zofran) 4 mg IV Q6HP PRN PRN Reason: Nausea And Vomiting Sodium Chloride (Saline Flush) 10 ml IV Q8 [facility] Last Admin: 06/09/17 20:31 Dose: 10 ml Medical - PN: A/P - Time Spent With Patient Total time spent is greater than 50% in coordination of care (as documented) at patient's floor/unit and/or counseling patient: 15 - 24 minutes - Narrative A/P Narrative: A/P Narrative: Left leg cellulitis related to DM foot ulcer--cellulitis resolved. on zosyn, mssa and strep positive from cultures, clinically not infected per podiatry. Persistent leukocytosis is unlikely to be r/t foot infection podiatry following wound vac in place--per podiatry can be DC'd when discharged from hospital and f /u with Dr. Salazar for application of wound vac in office tagged wbc scan is neg for any uptake besides right ankle and there is no e/o infection there. Leucocytosis: etiology, likely reactive, wbc down today, esr is elevated, crp neg tagged wbc scan is negative. d/c all abx and see how patient responds. f/u c3, c4 in light of arian positivity f/u LAP consider hematology follow up as outpatient if patient remains stable, he does have chr eosinophilia, elevated monocytes, peripheral smear did not show any dysplasia, but wonder if any myeloproliferative disorder is present. DM glucose is at goal continue present regimen and monitor. anemia/ secondary to esrd, sepsis, acute infection, monitor consider xfusion as needed. H/H stable ESRd on HD Hypertension. Continue amlodipine, hydralazine, metoprolol and Lasix. DVT hep sq Diet carb/ renal Dispo: still needs reminder re: WB. will need SNF on DC. ADOD 1-2 days. Medical - PN: Qual - VTE Deep Vein Thrombosis/Pulmonary Embolism Present on Admission: No
[2017-06-10] MEDS: 0.9 % SODIUM CHLORIDE 10 ML SYRINGE IV SCH ×3 (04:20→21:36)
[2017-06-10 06:31] LABS: ALT/SGPT 16 U/l (0-40); Albumin 3.5 gm/dL (3.2-5.2); Alkaline Phosphatase 94 U/L (39-117); Bilirubin,Direct < 0.2 mg/dL (0.0-0.3); Blood Urea Nitrogen 48 mg/dl (8-23); Gamma Glutamyl Transpeptidase 25 U/L (8-61); Magnesium 2.3 mg/dL (1.6-2.5); Uric Acid 6.5 mg/dL (2.5-8.0)
[2017-06-10] MEDS: INSULIN LISPRO 1 UNIT/0.01 ML UNIT SQ SCH ×4 (08:07→21:38)
[2017-06-10] MEDS ORDERED: ERGOCALCIFEROL (VITAMIN D2) 50,000 UNIT CAPSULE PO SCH (09:00)
[2017-06-10] MEDS: FUROSEMIDE 80 MG TABLET PO SCH ×2 (09:12→21:38)
[2017-06-10] MEDS: FERROUS GLUCONATE 324 MG TABLET PO SCH (09:12)
[2017-06-10] MEDS: amLODIPine 10 MG TABLET PO SCH (09:12)
[2017-06-10] MEDS: METOPROLOL TARTRATE 50 MG TABLET PO SCH ×2 (09:12→21:37)
[2017-06-10] MEDS: GABAPENTIN 300 MG CAPSULE PO SCH ×3 (09:12→21:38)
[2017-06-10] MEDS: CALCIUM ACETATE 667 MG CAPSULE PO SCH ×3 (09:12→17:15)
[2017-06-10] MEDS: ASPIRIN 81 MG TAB.CHEW PO SCH (09:12)
[2017-06-10] MEDS: HEPARIN 5,000 UNIT/ML VIAL SQ SCH ×2 (09:17→21:36)
[2017-06-10] MEDS: INSULIN GLARGINE, HUMAN 1 UNIT/0.01 ML SQ SCH ×2 (09:18→21:36)
--- NOTE | 2017-06-10 12:43 | Internal Med Progress Note ---
Medical - PN: Subj Patient information: Note initiated : 06/10/17 at 12:41 pm Service Date, if different from initiated Date: [] Patient: Sandro Bailey 66 y/o M admitted on 06/04/17 for Sepsis, Cellulitis. Chief Complaint: [] Interval history: -The patient was discharged to swing bed status on May 29. His foot wound has gotten progressively better. He is doing very well currently with a wound VAC and current IV antibiotics. His white blood cell count was still a little high on admit to discharge, but was trending down. Unfortunately, it is now trending up again, for uncertain reasons. Lowest we have seen it was 15,000, and he is now back up to 19,000, with granulocyte count up to 14,400. At this point, it would appear that he still has ongoing infection somewhere. He will need further workup to investigate this, and probable change in treatment plan. Will be discharged from swing bed status today, and back to inpatient status. I reviewed his case again with Dr. Salazar from podiatry. We think that the next best step is probably to do a tagged white blood cell scan, to see if an abscess or other occult infection shows up. The patient's only complaint today, is a mild sore throat. He otherwise denies fever chills, headaches or dizziness, sinus symptoms teeth symptoms or earache. He denies chest pain or palpitations, shortness of breath or cough, GI or symptoms. -Type 2 diabetes. The patient's blood sugar has not been well controlled, so we have gradually been increasing insulin and oral meds. It is overall improved , but still not at goal. This may be partly due to ongoing infection. -Patient has to need to receive 3 times a week dialysis for his end-stage renal disease. June 05 patient seen examined, lying in bed comfortably, denies any acute complaints, he was admitted for foot infection, was placed to swing bed status, but due to his worsening wbc count is now back to inpatient status he has no clinical e/o infection podiatry notes that the leg is likely not the source of infection, blood cx have been negative Pt was started on clindamycin, but i am not sure how much it add to exisitn zosyn. will d/c same for now, patient is planned to get a tagged wbc scan tomorrow to evaluate for potential pocket, will do selective imaging based on that HD planned for tomorrow. Dec 13 patient seen examined, has no complaints, no concerns on HD part 1 of tagged wbc scan done today, rest tomorrow cx are neg WBC Trending down today, appreciate podiatry and nephrology consult. Dec 14 Patient seen examined lying down in bed, no issues reviewed case with podiatry, wound not infected wbc scan second phase today, will review results and decide on future plan. Dec 15 Pt seen examined, no issues reported comfortable in bed Tagged WBC scan is reported prelim negative, some update in right foot which is expected wbc luisa today, but not normal given no clinical e/o infection, will stop zosyn and see how he does There is no clinical e/o infection as per podiatry, wound looks clean Hold ABX completely and see if wbc worsens significantly check leucocyte alkaline phosphatse, given mild arian positivity check c3, and c4 , May 16 WBC stable after Abx stopped yesterday. LAP, C3, C4 pending BG controlled Needs reminders to continue to restrict WB to heel only Jun 10 WBC inadvertently not ordered for today. Trend tomorrow LAP, C3, C4 all normal. Pt feels well; no complaints. D/W CM re: arranging wound vac. ROS: No fever - Constitutional Vitals: Vital Signs Temp Pulse Resp BP Pulse Ox 97.3 F 70 16 114/63 98 06/10/17 11:34 06/10/17 11:34 06/10/17 11:34 06/10/17 11:34 06/10/17 11:34 Period Temp Pulse Resp BP Sys/Frank Pulse Ox Last 24 Hr 95.7 F-98.8 F 60-70 14-20 114-138/63-77 97-98 Intake and Output 06/09/17 06/10/17 06/10/17 21:59 05:59 13:59 Intake Total 180 / 180 600 / 600 600 / 600 Output Total 700 / 700 Balance 180 / 180 -100 / -100 600 / 600 Weight 214 lb Intake & Output: Intake & Output 06/09/17 06/10/17 06/10/17 21:59 05:59 13:59 Intake Total 180 / 180 600 / 600 600 / 600 Output Total 700 / 700 Balance 180 / 180 -100 / -100 600 / 600 Weight 214 lb Intake: Oral 180 / 180 600 / 600 600 / 600 Output: Drainage 0 / 0 Right Foot Woundvac 0 / 0 Void Amount 700 / 700 Other: Meal Dinner Breakfast Percent of Meal Consumed 100% 100% Feeding Ability Independent # Voids 1 # Bowel Movements 1 Exam: Constitutional; NAD Eyes- No icterus, , No periorbital swelling Ears- Ext ear normal, hearing normal to conversation. Neck- Midline trachea, supple Respiratory- Air Entry equal on both sides, No crackles or wheezing, no rhonchi. CV- Rate rhythm regular, S1,S2 heard, no gallop, no rub. Abdomen- Soft nontender abdomen, no organomegaly, no tenderness, no guarding or rigidity, Ext: wound vac on foot, visible portion of wound is without erythema or exudate Medical - PN: Obj Da - Labs CBC & Chem 7: 06/09/17 04:00 06/10/17 04:00 Labs: Abnormal Lab Results 06/10/17 06/10/17 06/09/17 04:00 04:00 04:00 WBC RBC Hgb Hct RDW Plt Count Gran % Lymph % (Auto) Gran # Eos # (Auto) ESR 97 H Chloride 93 L 94 L Carbon Dioxide 21 L Anion Gap 19.0 H 17.0 H BUN 48 H 32 H Creatinine 6.9 H* 5.1 H* Glucose Phosphorus 6.5 H* 4.8 H Lactate Dehydrogenase Albumin/Globulin Ratio 0.9 L ARIAN Screen 06/09/17 06/08/17 06/08/17 04:00 04:00 04:00 WBC 16.2 H 16.1 H RBC 2.86 L 2.83 L Hgb 8.5 L 8.6 L Hct 25.4 L 25.2 L RDW 15.7 H 15.3 H Plt Count 577 H 607 H Gran % 79.1 H 78.2 H Lymph % (Auto) 11.3 L 11.0 L Gran # 12.8 H 12.6 H Eos # (Auto) 0.9 H 0.8 H ESR 98 H 95 H Chloride 91 L Carbon Dioxide Anion Gap 17.0 H BUN 50 H Creatinine 6.9 H* Glucose 122 H Phosphorus 5.9 H Lactate Dehydrogenase 260 H Albumin/Globulin Ratio 0.9 L ARIAN Screen 06/07/17 07:44 WBC RBC Hgb Hct RDW Plt Count Gran % Lymph % (Auto) Gran # Eos # (Auto) ESR Chloride Carbon Dioxide Anion Gap BUN Creatinine Glucose Phosphorus Lactate Dehydrogenase Albumin/Globulin Ratio ARIAN Screen Pos 1:80 or greater A Meds: Medications Acetaminophen (Tylenol) 650 mg PO Q6HP PRN PRN Reason: PAIN/FEVER > 101 Hydrocodone Bitart/Acetaminophen ([place] 5/325mg) 1 tab PO Q4HP PRN PRN Reason: PAIN LEVEL 3-6 Albuterol Sulfate (Ventolin) 2.5 mg NEB Q6HP PRN PRN Reason: Shortness Of Breath Or Wheezing Amlodipine Besylate (Norvasc) 10 mg PO DAILY [facility] Last Admin: 06/10/17 09:12 Dose: 10 mg Aspirin (Aspirin) 81 mg PO DAILY [facility] Last Admin: 06/10/17 09:12 Dose: 81 mg Atorvastatin Calcium (Lipitor) 40 mg PO HS [facility] Last Admin: 06/09/17 20:32 Dose: 40 mg Calcium Acetate (Phoslo) 667 mg PO TIDCC [facility] Last Admin: 06/10/17 11:36 Dose: 667 mg Calcium Carbonate/Glycine (Tums) 1,000 mg CHEWED Q4HP PRN PRN Reason: Dyspepsia Dextrose (Dextrose 50%) 0 ml IV UD PRN PRN Reason: Hypoglycemia Diagnostic Test (Pha) (Accu-Chek) 1 each FS ACHS [facility] Last Admin: 06/10/17 11:36 Dose: 1 each Docusate Sodium (Colace) 100 mg PO BID PRN PRN Reason: Constipation Last Admin: 06/09/17 09:06 Dose: 100 mg Ergocalciferol (Drisdol) 50,000 unit PO Landa@0900 [facility] Last Admin: 06/10/17 09:12 Dose: 50,000 unit Ferrous Gluconate (Fergon) 324 mg PO DAILY [facility] Last Admin: 06/10/17 09:12 Dose: 324 mg Furosemide (Lasix) 80 mg PO BID [facility] Last Admin: 06/10/17 09:12 Dose: 80 mg Gabapentin (Neurontin) 300 mg PO TID [facility] Last Admin: 06/10/17 09:12 Dose: 300 mg Glucose (Insta-Glucose) 15 gm PO PRN PRN PRN Reason: Hypoglycemia Heparin Sodium (Porcine) (Heparin) 5,000 unit SQ Q12 [facility] Last Admin: 06/10/17 09:17 Dose: 5,000 unit Heparin Sodium (Porcine) (Heparin Flush) 2 ml IV Q12 [facility] Last Admin: 06/10/17 09:14 Dose: 2 ml Insulin Glargine (Lantus) 20 unit SQ BID [facility] Last Admin: 06/10/17 09:18 Dose: 20 unit Insulin Human Lispro (Humalog) 0 unit SQ ACHS [facility] PRN Reason: Protocol Last Admin: 06/10/17 11:36 Dose: Not Given Magnesium Hydroxide (Milk Of Magnesia) 30 ml PO DAILYP PRN PRN Reason: Constipation Metoprolol Tartrate (Lopressor) 50 mg PO BID [facility] Last Admin: 06/10/17 09:12 Dose: 50 mg Naloxone HCl (Narcan) 0.1 mg IV Q2MIN PRN PRN Reason: Opiate Reversal Ondansetron HCl (Zofran) 4 mg IV Q6HP PRN PRN Reason: Nausea And Vomiting Sodium Chloride (Saline Flush) 10 ml IV Q8 [facility] Last Admin: 06/10/17 04:20 Dose: 10 ml Medical - PN: A/P - Time Spent With Patient Total time spent is greater than 50% in coordination of care (as documented) at patient's floor/unit and/or counseling patient: - Narrative A/P Narrative: A/P Narrative: Left leg cellulitis related to DM foot ulcer--cellulitis resolved. on zosyn, mssa and strep positive from cultures, clinically not infected per podiatry. Persistent leukocytosis is unlikely to be r/t foot infection podiatry following wound vac in place--per podiatry can be DC'd when discharged from hospital and f /u with Dr. Salazar for application of wound vac in office tagged wbc scan is neg for any uptake besides right ankle and there is no e/o infection there. Leucocytosis: etiology, likely reactive, wbc trending, esr is elevated, crp neg tagged wbc scan is negative. d/c'd all abx to see how patient responds. ARIAN+, C3 and C4 normal, LAP normal consider hematology follow up as outpatient if patient remains stable, he does have chr eosinophilia, elevated monocytes, peripheral smear did not show any dysplasia, but wonder if any myeloproliferative disorder is present. DM glucose is at goal continue present regimen and monitor. anemia/ secondary to esrd, sepsis, acute infection, monitor consider xfusion as needed. H/H stable ESRd on HD Hypertension. Continue amlodipine, hydralazine, metoprolol and Lasix. DVT hep sq Diet carb/ renal Dispo: still needs reminder re: WB. will need SNF on DC. ADOD 1-2 days. Medical - PN: Qual - VTE Deep Vein Thrombosis/Pulmonary Embolism Present on Admission: No
--- NOTE | 2017-06-10 14:47 | Orthopedic Progress Note ---
Subjective Patient information: Note initiated : 06/10/17 at 2:42 pm Service Date, if different from initiated Date: [] Patient: Sandro Bailey 66 y/o M admitted on 06/04/17 for Sepsis, Cellulitis. Chief Complaint: [right foot sore] Principal diagnosis: Right foot gangrene Interval history: Continues to have a sore throat. No foot pain. Pertinent ROS: No fever, chills nausea or vomiting Objective Vital signs: Vital Signs Temp Pulse Pulse Resp BP Pulse Ox 06/10/17 11:34 97.3 F 70 16 114/63 98 06/10/17 08:00 95.7 F L 66 20 138/75 98 06/10/17 03:40 97.6 F 66 20 132/73 06/09/17 23:20 98.5 F 66 16 135/77 97 06/09/17 20:00 98.8 F 66 14 130/68 97 06/09/17 16:00 98.4 F 60 18 130/77 98 Intake and Output 06/10/17 06/10/17 06/10/17 05:59 13:59 21:59 Intake Total 600 / 600 840 / 840 Output Total 700 / 700 Balance -100 / -100 840 / 840 Intake: Oral 600 / 600 840 / 840 Output: Drainage 0 / 0 Right Foot Woundvac 0 / 0 Void Amount 700 / 700 Other: Meal Lunch Percent of Meal Consumed 100% # Voids 1 # Bowel Movements 1 Intake & Output: Intake & Output 06/10/17 06/10/17 06/10/17 05:59 13:59 21:59 Intake Total 600 / 600 840 / 840 Output Total 700 / 700 Balance -100 / -100 840 / 840 Intake: Oral 600 / 600 840 / 840 Output: Drainage 0 / 0 Right Foot Woundvac 0 / 0 Void Amount 700 / 700 Other: Meal Lunch Percent of Meal Consumed 100% # Voids 1 # Bowel Movements 1 Incision: Yes inflamed, Yes clean and dry Dressing: Yes dry, Yes intact Weight bearing status: partial Neurological exam IM: Yes alert - Periperhal Pulses Peripheral pulses: 1+: dorsalis pedis (L), dorsalis pedis (R), posterior tibialis (L), posterior tibialis (R) - Diagnostic Results Ankle x-ray: image reviewed - Labs CBC & BMP: 06/09/17 04:00 06/10/17 04:00 Labs: 06/09/17 06/08/17 06/07/17 04:00 04:00 04:00 Hgb 8.5 L 8.6 L 8.6 L Hct 25.4 L 25.2 L 25.6 L 06/06/17 06/05/17 04:00 04:00 Hgb 7.9 L 7.8 L Hct 24.1 L 23.8 L Assessment and Plan (1) Ulcer of right foot due to type 2 diabetes mellitus Status: Acute Priority: Medium Comment: To be discharged when able and controlled from medical standpoint. Continue wound VAC and resume upon discharge.
[2017-06-10] MEDS: ATORVASTATIN 20 MG TABLET PO SCH (21:37)
[2017-06-11] MEDS: 0.9 % SODIUM CHLORIDE 10 ML SYRINGE IV SCH ×3 (04:25→20:33)
[2017-06-11 05:58] LABS: Basophils # (Auto) 0.1 K/mcL (0.0-0.3); Basophils % (Auto) 0.6 % (0.0-2.0); Eosinophils # (Auto) 0.8 K/mcL (0.0-0.7); Granulocytes % (Auto) 77.5 % (38.0-78.0); Lymphocytes # (Auto) 1.6 K/mcL (1.5-4.8); Lymphocytes % (Auto) 11.5 % (15.5-49.0); Mean Cell Volume 88.1 fL (80.0-100.0); Monocytes # (Auto) 0.6 K/mcL (0.1-0.9); Monocytes % (Auto) 4.4 % (1.0-12.0); Platelet Count 481 K/mcL (140-440); RBC 2.74 M/mcL (4.50-5.90); Red Cell Distribution Width 16.1 % (11.5-14.5)
[2017-06-11 06:48] LABS: Erythrocyte Sedimentation Rate 95 mm/hr (0-15)
[2017-06-11 06:59] LABS: ALT/SGPT 14 U/l (0-40); Albumin 3.3 gm/dL (3.2-5.2); Albumin/Globulin Ratio 0.9 (1.0-2.3); Alkaline Phosphatase 94 U/L (39-117); Bilirubin,Direct < 0.2 mg/dL (0.0-0.3); Blood Urea Nitrogen 62 mg/dl (8-23); Gamma Glutamyl Transpeptidase 23 U/L (8-61); Magnesium 2.4 mg/dL (1.6-2.5); Uric Acid 7.7 mg/dL (2.5-8.0)
[2017-06-11] MEDS: INSULIN LISPRO 1 UNIT/0.01 ML UNIT SQ SCH ×4 (07:45→20:32)
[2017-06-11] MEDS: CALCIUM ACETATE 667 MG CAPSULE PO SCH ×3 (08:55→17:47)
[2017-06-11] MEDS: GABAPENTIN 300 MG CAPSULE PO SCH ×3 (08:55→20:33)
[2017-06-11] MEDS: FERROUS GLUCONATE 324 MG TABLET PO SCH (08:56)
[2017-06-11] MEDS: FUROSEMIDE 80 MG TABLET PO SCH ×2 (08:56→20:34)
[2017-06-11] MEDS: ASPIRIN 81 MG TAB.CHEW PO SCH (08:56)
[2017-06-11] MEDS: HEPARIN 5,000 UNIT/ML VIAL SQ SCH ×2 (08:56→20:32)
[2017-06-11] MEDS: METOPROLOL TARTRATE 50 MG TABLET PO SCH ×2 (08:56→20:33)
[2017-06-11] MEDS: INSULIN GLARGINE, HUMAN 1 UNIT/0.01 ML SQ SCH ×2 (08:56→20:32)
[2017-06-11] MEDS: amLODIPine 10 MG TABLET PO SCH (08:56)
--- NOTE | 2017-06-11 13:01 | Nephrology Progress Note ---
Subjective Patient information: Note initiated : 06/11/17 at 1:00 pm Service Date, if different from initiated Date: [] Patient: Sandro Bailey 66 y/o M admitted on 06/04/17 for Sepsis, Cellulitis. Chief Complaint: [] Principal diagnosis: Right foot gangrene Interval history: Sandro denied, dyspnea, nausea, vomiting. Objective - Vital Signs Vital signs: Vital Signs Temp Pulse Pulse Resp BP BP Pulse Ox 06/11/17 12:43 66 118/74 06/11/17 12:13 67 119/72 06/11/17 11:49 97.3 F 18 120/68 97 06/11/17 11:43 69 129/74 06/11/17 11:13 67 123/94 06/11/17 10:44 68 117/74 06/11/17 10:15 69 120/77 06/11/17 09:45 98.4 F 70 138/79 06/11/17 07:51 18 97 06/11/17 07:20 95 06/11/17 07:00 97.5 F 66 18 132/71 97 06/11/17 03:05 98.0 F 66 20 132/70 96 06/10/17 23:48 98.0 F 68 16 117/68 96 06/10/17 19:54 97.2 F 68 18 130/68 97 06/10/17 15:27 97.6 F 68 18 115/66 98 Intake and Output 06/10/17 06/11/17 06/11/17 21:59 05:59 13:59 Intake Total 720 / 720 100 / 100 300 / 300 Output Total 0 / 0 800 / 800 Balance 720 / 720 100 / 100 -500 / -500 Intake: Oral 720 / 720 100 / 100 300 / 300 Output: Drainage 0 / 0 Right Foot Woundvac 0 / 0 Void Amount 0 / 0 800 / 800 Other: Meal Dinner Breakfast Percent of Meal Consumed 100% 100% Feeding Ability Independent Independent # Voids 1 # Bowel Movements 1 Weight 217 lb 8 oz Intake & Output: Intake & Output 06/10/17 06/11/17 06/11/17 21:59 05:59 13:59 Intake Total 720 / 720 100 / 100 300 / 300 Output Total 0 / 0 800 / 800 Balance 720 / 720 100 / 100 -500 / -500 Weight 217 lb 8 oz Intake: Oral 720 / 720 100 / 100 300 / 300 Output: Drainage 0 / 0 Right Foot Woundvac 0 / 0 Void Amount 0 / 0 800 / 800 Other: Meal Dinner Breakfast Percent of Meal Consumed 100% 100% Feeding Ability Independent Independent # Voids 1 # Bowel Movements 1 - General Appearance General appearance: well-developed, well-nourished, appears started age EENT: ATNC Neck: no JVD, no carotid bruit Respiratory: clear Cardiology: no edema, normal S1, normal S2 Gastrointestinal: no tenderness - Lab 06/11/17 04:00 06/11/17 04:00 Most recent lab results Calcium 8.6 mg/dl (8.6-10.4) 06/11/17 04:00 Phosphorus 7.5 mg/dL (2.7-4.5) H* 06/11/17 04:00 Magnesium 2.4 mg/dL (1.6-2.5) 06/11/17 04:00 Assessment and Plan (1) ESRD (end stage renal disease) Clinically stable. Hemodialysis today. Will follow. Status: Chronic
--- NOTE | 2017-06-11 17:29 | Internal Med Progress Note ---
Medical - PN: Subj Patient information: Note initiated : 06/11/17 at 5:25 pm Service Date, if different from initiated Date: [] Patient: Sandro Bailey 66 y/o M admitted on 06/04/17 for Sepsis, Cellulitis. Chief Complaint: [] Interval history: -The patient was discharged to swing bed status on May 29. His foot wound has gotten progressively better. He is doing very well currently with a wound VAC and current IV antibiotics. His white blood cell count was still a little high on admit to discharge, but was trending down. Unfortunately, it is now trending up again, for uncertain reasons. Lowest we have seen it was 15,000, and he is now back up to 19,000, with granulocyte count up to 14,400. At this point, it would appear that he still has ongoing infection somewhere. He will need further workup to investigate this, and probable change in treatment plan. Will be discharged from swing bed status today, and back to inpatient status. I reviewed his case again with Dr. Salazar from podiatry. We think that the next best step is probably to do a tagged white blood cell scan, to see if an abscess or other occult infection shows up. The patient's only complaint today, is a mild sore throat. He otherwise denies fever chills, headaches or dizziness, sinus symptoms teeth symptoms or earache. He denies chest pain or palpitations, shortness of breath or cough, GI or symptoms. -Type 2 diabetes. The patient's blood sugar has not been well controlled, so we have gradually been increasing insulin and oral meds. It is overall improved , but still not at goal. This may be partly due to ongoing infection. -Patient has to need to receive 3 times a week dialysis for his end-stage renal disease. June 05 patient seen examined, lying in bed comfortably, denies any acute complaints, he was admitted for foot infection, was placed to swing bed status, but due to his worsening wbc count is now back to inpatient status he has no clinical e/o infection podiatry notes that the leg is likely not the source of infection, blood cx have been negative Pt was started on clindamycin, but i am not sure how much it add to exisitn zosyn. will d/c same for now, patient is planned to get a tagged wbc scan tomorrow to evaluate for potential pocket, will do selective imaging based on that HD planned for tomorrow. Dec 13 patient seen examined, has no complaints, no concerns on HD part 1 of tagged wbc scan done today, rest tomorrow cx are neg WBC Trending down today, appreciate podiatry and nephrology consult. Dec 14 Patient seen examined lying down in bed, no issues reviewed case with podiatry, wound not infected wbc scan second phase today, will review results and decide on future plan. Dec 15 Pt seen examined, no issues reported comfortable in bed Tagged WBC scan is reported prelim negative, some update in right foot which is expected wbc luisa today, but not normal given no clinical e/o infection, will stop zosyn and see how he does There is no clinical e/o infection as per podiatry, wound looks clean Hold ABX completely and see if wbc worsens significantly check leucocyte alkaline phosphatse, given mild stevan positivity check c3, and c4 , May 16 WBC stable after Abx stopped yesterday. LAP, C3, C4 pending BG controlled Needs reminders to continue to restrict WB to heel only Jun 10 WBC inadvertently not ordered for today. Trend tomorrow LAP, C3, C4 all normal. Pt feels well; no complaints. D/W CM re: arranging wound vac. ROS: No fever June 11: The patient continues to say that he is feeling fine. He denies significant pain in his foot. He still has trouble remembering all the time to only use partial weightbearing on that foot. White blood cell count is a bit lower today at 13,600, with lower absolute neutrophil count of 10,500. Sed rate remains elevated at 95. Otherwise, he denies fever chills, chest pain or shortness of breath, cough, GI or symptoms. - Constitutional Vitals: Vital Signs Temp Pulse Resp BP Pulse Ox 97.5 F 65 18 117/69 97 06/11/17 16:00 06/11/17 13:29 06/11/17 16:00 06/11/17 16:00 06/11/17 16:00 Period Temp Pulse Resp BP Sys/Frank Pulse Ox Last 24 Hr 97.2 F-98.4 F 65-70 16-20 117-138/68-94 95-97 Intake and Output 06/11/17 06/11/17 06/11/17 05:59 13:59 21:59 Intake Total 100 / 100 300 / 300 Output Total 0 / 0 3300 / 3300 Balance 100 / 100 -3000 / -3000 Intake & Output: Intake & Output 06/11/17 06/11/17 06/11/17 05:59 13:59 21:59 Intake Total 100 / 100 300 / 300 Output Total 0 / 0 3300 / 3300 Balance 100 / 100 -3000 / -3000 Intake: Oral 100 / 100 300 / 300 Output: Drainage 0 / 0 Right Foot Woundvac 0 / 0 Void Amount 0 / 0 800 / 800 Hemodialysis UF 2500 / 2500 Other: Meal Breakfast Percent of Meal Consumed 100% Feeding Ability Independent On exam, he is awake and alert. He continues to be quite hard of hearing. He is complaining of feeling a bit cold, and asked me to help cover him up. Neck is supple without obvious lymphadenopathy or JVD. Cardiac exam shows regular rate and rhythm. Lungs are clear to auscultation. Abdomen is soft and nontender. Extremities show no edema. His right foot still has the wound VAC in place, without obvious drainage or erythema or significant tenderness. Neurologic exam is grossly nonfocal Medical - PN: Obj Da - Labs CBC & Chem 7: 06/11/17 04:00 06/11/17 04:00 Labs: Abnormal Lab Results 06/11/17 06/11/17 06/10/17 04:00 04:00 04:00 WBC 13.6 H RBC 2.74 L Hgb 8.2 L Hct 24.1 L RDW 16.1 H Plt Count 481 H Gran % Lymph % (Auto) 11.5 L Gran # 10.5 H Eos # (Auto) 0.8 H ESR 95 H 97 H Sodium 130 L Chloride 90 L Carbon Dioxide 19 L Anion Gap 21.0 H BUN 62 H Creatinine 8.3 H* Phosphorus 7.5 H* Albumin/Globulin Ratio 0.9 L 06/10/17 06/09/17 06/09/17 04:00 04:00 04:00 WBC 16.2 H RBC 2.86 L Hgb 8.5 L Hct 25.4 L RDW 15.7 H Plt Count 577 H Gran % 79.1 H Lymph % (Auto) 11.3 L Gran # 12.8 H Eos # (Auto) 0.9 H ESR 98 H Sodium Chloride 93 L 94 L Carbon Dioxide 21 L Anion Gap 19.0 H 17.0 H BUN 48 H 32 H Creatinine 6.9 H* 5.1 H* Phosphorus 6.5 H* 4.8 H Albumin/Globulin Ratio 0.9 L June 04: CBC: White blood cell count is 18,600, hemoglobin 7.5, hematocrit 22, platelets 535,000. Differential shows 13,900 neutrophils, 1000 monocytes, 1100 eosinophils. Blood cultures: Are negative. June 03: Chemistry panel: Sodium 136, potassium 4.0, chloride 93, CO2 27, anion gap 16, BUN 54, creatinine 6.2, glucose 119 Uric acid is low at 8.3 LFTs, magnesium, are within normal limits Previous: June 02: Urinalysis shows 100 mg of protein, 50 of glucose, negative for leukocyte esterase or nitrates. June 01: Chest x-ray: Is read as a normal film, without signs of pneumonia. May 30: CBC: White blood cell count 21,000, hemoglobin 9, hematocrit 26, platelets 411, 000. 84% neutrophils. Chemistry panel: Sodium is 130, potassium 4.1, chloride 91, CO2 26, anion gap 13 , BUN 37, creatinine 4.3, glucose 384 Calcium 7.6, albumin 2.8, other LFTs within normal limits May 27: Chest x-ray: IMPRESSION: No acute disease. Right PICC line tip in the right atrium. Right-sided double-lumen catheter tip near the tricuspid valve. Consider withdrawing double-lumen catheter 6 cm and the PICC line 4 cm May 25: Wound culture: Is growing strep agalactiae, group B, as well as staph aureus. No susceptibilities done on the strep. Staph aureus is pansensitive. May 23: Pro-calcitonin is elevated at 1.4, consistent with possible sepsis. Lactic acid was normal at 1.6. Wound Gram stain: Shows many gram-positive cocci in clusters, many gram- negative bacilli. Blood cultures are negative so far. CBC: White blood cell count is 22,500, hemoglobin 10, hematocrit 31, platelets 330,000. Differential shows 19,200 neutrophils, 1400 monocytes. Chemistry panel: Show sodium 131, chloride 93, BUN 45, creatinine 8.7, glucose 456, ionized calcium low at 0.93 Alcohol level is less than 0.01 Foot x-ray: IMPRESSION: No evidence of osteomyelitis. Large soft tissue ulcer over the fifth metatarsal head with associated cellulitis Chest x-ray: Shows no acute disease. There is a right IJ double-lumen catheter tip at the right atrium. 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 There is no hemorrhage or other acute intracerebral abnormality Meds: Medications Acetaminophen (Tylenol) 650 mg PO Q6HP PRN PRN Reason: PAIN/FEVER > 101 Hydrocodone Bitart/Acetaminophen ([place] 5/325mg) 1 tab PO Q4HP PRN PRN Reason: PAIN LEVEL 3-6 Albuterol Sulfate (Ventolin) 2.5 mg NEB Q6HP PRN PRN Reason: Shortness Of Breath Or Wheezing Amlodipine Besylate (Norvasc) 10 mg PO DAILY [facility] Last Admin: 06/11/17 08:56 Dose: 10 mg Aspirin (Aspirin) 81 mg PO DAILY [facility] Last Admin: 06/11/17 08:56 Dose: 81 mg Atorvastatin Calcium (Lipitor) 40 mg PO HS [facility] Last Admin: 06/10/17 21:37 Dose: 40 mg Calcium Acetate (Phoslo) 667 mg PO TIDCC [facility] Last Admin: 06/11/17 14:23 Dose: 667 mg Calcium Carbonate/Glycine (Tums) 1,000 mg CHEWED Q4HP PRN PRN Reason: Dyspepsia Dextrose (Dextrose 50%) 0 ml IV UD PRN PRN Reason: Hypoglycemia Diagnostic Test (Pha) (Accu-Chek) 1 each FS ACHS [facility] Last Admin: 06/11/17 12:26 Dose: 1 each Docusate Sodium (Colace) 100 mg PO BID PRN PRN Reason: Constipation Last Admin: 06/09/17 09:06 Dose: 100 mg Ergocalciferol (Drisdol) 50,000 unit PO Landa@0900 [facility] Last Admin: 06/10/17 09:12 Dose: 50,000 unit Ferrous Gluconate (Fergon) 324 mg PO DAILY [facility] Last Admin: 06/11/17 08:56 Dose: 324 mg Furosemide (Lasix) 80 mg PO BID [facility] Last Admin: 06/11/17 08:56 Dose: 80 mg Gabapentin (Neurontin) 300 mg PO TID [facility] Last Admin: 06/11/17 14:29 Dose: 300 mg Glucose (Insta-Glucose) 15 gm PO PRN PRN PRN Reason: Hypoglycemia Heparin Sodium (Porcine) (Heparin) 5,000 unit SQ Q12 [facility] Last Admin: 06/11/17 08:56 Dose: 5,000 unit Heparin Sodium (Porcine) (Heparin Flush) 2 ml IV Q12 [facility] Last Admin: 06/11/17 08:56 Dose: 2 ml Gentamicin Sulfate 40 mg/Clindamycin Phosphate 300 mg/Bacitracin 25,000 unit/ Sodium Chloride 503 mls @ 0 mls/hr IRR Q24H [facility] PRN Reason: As Directed Insulin Glargine (Lantus) 20 unit SQ BID [facility] Last Admin: 06/11/17 08:56 Dose: 20 unit Insulin Human Lispro (Humalog) 0 unit SQ ACHS [facility] PRN Reason: Protocol Last Admin: 06/11/17 12:26 Dose: Not Given Magnesium Hydroxide (Milk Of Magnesia) 30 ml PO DAILYP PRN PRN Reason: Constipation Metoprolol Tartrate (Lopressor) 50 mg PO BID [facility] Last Admin: 06/11/17 08:56 Dose: 50 mg Naloxone HCl (Narcan) 0.1 mg IV Q2MIN PRN PRN Reason: Opiate Reversal Ondansetron HCl (Zofran) 4 mg IV Q6HP PRN PRN Reason: Nausea And Vomiting Sodium Chloride (Saline Flush) 10 ml IV Q8 [facility] Last Admin: 06/11/17 14:23 Dose: 10 ml Medical - PN: A/P - Time Spent With Patient Total time spent is greater than 50% in coordination of care (as documented) at patient's floor/unit and/or counseling patient: 25 - 35 minutes - Narrative A/P Narrative: A/P Narrative: #1. Left leg cellulitis related to DM foot ulcer--cellulitis resolved. -on zosyn, mssa and strep positive from cultures, clinically not infected per podiatry. Persistent leukocytosis is unlikely to be r/t foot infection. podiatry following. -wound vac in place--I reviewed wound care with the wound care team today. It sounds like he will likely go to a [facility] facility tomorrow, with a wound VAC, but we will revisit this in the morning. -tagged wbc scan is neg for any uptake besides right ankle and there is no e/o infection there. #2. Hematologic. Patient has had persistently elevated white blood cell count and platelets for quite some time. All antibiotics have been discontinued. White blood cell count actually looks improved today, as does the platelet count.. STEVAN+, C3 and C4 normal, LAP normal consider hematology follow up as outpatient if patient remains stable. he does have chr eosinophilia, elevated monocytes, peripheral smear did not show any dysplasia, but wonder if any myeloproliferative disorder is present. -anemia/ secondary to esrd, sepsis, acute infection, monitor consider xfusion as needed. H/H stable #3. Endocrine. DM type II. glucose is finally at goal, today ranging from 70s-137 -continue present regimen and monitor. #4. Renal. ESRd on HD #5. Hypertension. Controlled. Continue amlodipine, hydralazine, metoprolol and Lasix. #6. DVT prophylaxis: Hep sq #7. Diet carb/ renal #8. Dispo: still needs reminder re: WB. will need SNF on DC. Medical - PN: Qual - VTE Deep Vein Thrombosis/Pulmonary Embolism Present on Admission: No
[2017-06-11] MEDS: ATORVASTATIN 20 MG TABLET PO SCH (20:34)
[2017-06-12] MEDS: 0.9 % SODIUM CHLORIDE 10 ML SYRINGE IV SCH (04:25)
[2017-06-12 06:07] LABS: Basophils # (Auto) 0 K/mcL (0.0-0.3); Basophils % (Auto) 0.3 % (0.0-2.0); Eosinophils # (Auto) 0.6 K/mcL (0.0-0.7); Eosinophils % (Auto) 5.3 % (0.0-7.0); Granulocytes % (Auto) 76.6 % (38.0-78.0); Lymphocytes # (Auto) 1.5 K/mcL (1.5-4.8); Lymphocytes % (Auto) 12.3 % (15.5-49.0); Mean Cell Volume 88.3 fL (80.0-100.0); Mean Corpuscular HGB Conc 33.9 g/dL (31.0-36.0); Monocytes # (Auto) 0.7 K/mcL (0.1-0.9); Monocytes % (Auto) 5.5 % (1.0-12.0); Platelet Count 449 K/mcL (140-440); RBC 2.73 M/mcL (4.50-5.90); Red Cell Distribution Width 15.5 % (11.5-14.5)
[2017-06-12 06:50] LABS: ALT/SGPT 13 U/l (0-40); Albumin 3.5 gm/dL (3.2-5.2); Alkaline Phosphatase 97 U/L (39-117); Bilirubin,Direct < 0.2 mg/dL (0.0-0.3); Blood Urea Nitrogen 38 mg/dl (8-23); Gamma Glutamyl Transpeptidase 23 U/L (8-61); Magnesium 2.1 mg/dL (1.6-2.5); Uric Acid 4.3 mg/dL (2.5-8.0)
[2017-06-12 07:22] LABS: Erythrocyte Sedimentation Rate 98 mm/hr (0-15)
[2017-06-12] MEDS: INSULIN LISPRO 1 UNIT/0.01 ML UNIT SQ SCH ×2 (07:48→12:17)
[2017-06-12] MEDS ORDERED: GENTAMICIN SULFATE 40 MG, CLINDAMYCIN 300 MG, BACITRACIN 25,000 UNIT in SODIUM CHLORIDE... IRR SCH (08:00)
[2017-06-12] MEDS: INSULIN GLARGINE, HUMAN 1 UNIT/0.01 ML SQ SCH (08:55)
[2017-06-12] MEDS: HEPARIN 5,000 UNIT/ML VIAL SQ SCH (08:55)
[2017-06-12] MEDS: ASPIRIN 81 MG TAB.CHEW PO SCH (08:56)
[2017-06-12] MEDS: FERROUS GLUCONATE 324 MG TABLET PO SCH (08:56)
[2017-06-12] MEDS: METOPROLOL TARTRATE 50 MG TABLET PO SCH (08:56)
[2017-06-12] MEDS: GABAPENTIN 300 MG CAPSULE PO SCH (08:56)
[2017-06-12] MEDS: FUROSEMIDE 80 MG TABLET PO SCH (08:56)
[2017-06-12] MEDS: CALCIUM ACETATE 667 MG CAPSULE PO SCH ×2 (08:56→12:16)
[2017-06-12] MEDS: amLODIPine 10 MG TABLET PO SCH (08:56)
--- NOTE | 2017-06-12 10:19 | Discharge Summary ---
Medical - DS: Prov Patient information: Note initiated : 06/12/17 at 10:19 am Service Date, if different from initiated Date: [] Patient: Sandro Bailey 66 y/o M admitted on 06/04/17 for Sepsis, Cellulitis. Chief Complaint: [] Date of admission: 06/04/17 13:09 Discharge date: 06/12/17 Primary care physician: Nelson Faith, phone number [phone] Admitting clinician: Janeth Yancey Consults: 06/04/17 13:40 Consult to Physician [CONS] Routine Comment: Consulting Provider: Roberth Salazar Reason For Exam: Physician to Consult 06/08/17 09:30 Consult to Physician [CONS] Routine Comment: Consulting Provider: [facility] Reason For Exam: Physician to Consult , wound care Dr. Hernandez, nephrology Attending physician on discharge: Janeth Yancey Medical - DS: Meds - Discharge Medications Prescriptions: HYDROcodone/APAP 5/325MG [Duncan 5/325Mg] 1 tab PO Q4HP PRN #30 tab PRN Reason: Pain Level 3-6 Ondansetron HCl [Zofran ODT] 4 mg SL Q4HP PRN #1 tab PRN Reason: Nausea Active and Home Medications: Discharge medications: Saline flushes every 8 hours Tylenol 650 mg every 6 hours as needed Albuterol nebs every 6 hours as needed Norvasc 10 mg daily Aspirin 81 mg daily Atorvastatin 40 mg nightly Calcium acetate 667 mg p.o. 3 times daily Tums 1000 mg every 8 hours as needed Glucose tabs 15 g p.o. as needed hypoglycemia Colace 100 mg p.o. twice daily as needed Vitamin D 50,000 units weekly Iron gluconate 324 mg daily Lasix 80 mg p.o. twice daily Gabapentin 300 mg p.o. 3 times daily Gentamicin, clindamycin irrigations to wound, q. wound change. Heparin 5000 units subcu every 12 hours for DVT prophylaxis Heparin flushes 2 mL IV every 12 hours Duncan 5/325 1 tab every 4 hours as needed pain Lantus 20 units subcu twice daily Humalog sliding scale, high dose, before meals and at bedtime Magnesium hydroxide 30 mL daily as needed constipation Metoprolol 50 mg p.o. twice daily next line naloxone 0.1 mg IV every 2 minutes as needed Zofran 4 mg sublingual every 4 hours as needed Previous swing bed/home Medications: Aspirin [Charmaine Chewable Aspirin] 81 mg PO DAILY 05/23/17 [History Confirmed 06/10 Last Taken 06/03/17 81 MG.] Atorvastatin [Lipitor] 40 mg PO HS 05/23/17 [History Confirmed 06/05/17 Last Taken 06/03/17 40 MG.] Calcium Acetate [Phoslo] 667 mg PO TIDCC 05/23/17 [History Confirmed 06/05/17 Last Taken 06/03/17 667 MG.] Ergocalciferol (Vitamin D2) [Vitamin D2] 50,000 unit PO WEEKLY 05/23/17 [ History Confirmed 06/05/17 Last Taken 06/03/17 23886 UNITS] Ferrous Gluconate [Fergon] 324 mg PO DAILY 05/23/17 [History Confirmed 06/05/17 Last Taken 06/03/17 324 MG.] Furosemide [Lasix] 80 mg PO BID 05/23/17 [History Confirmed 06/05/17 Last Taken 06/03/17 80 MG.] Gabapentin [Neurontin] 300 mg PO TID 05/23/17 [History Confirmed 06/05/17 Last Taken 06/03/17 300 MG.] Metoprolol Tartrate [Lopressor] 50 mg PO BID 05/23/17 [History Confirmed Last Taken 06/03/17 09:00 50 MG.] Sodium Bicarbonate 1,300 mg PO BID 05/23/17 [History Confirmed 06/05/17 Last Taken 06/03/17 21:00 1300 MG.] amLODIPine [Norvasc] 10 mg PO DAILY 05/23/17 [History Confirmed 06/05/17 Last Taken 06/03/17 10 MG.] hydrALAZINE [Apresoline] 25 mg PO TID 05/23/17 [History Confirmed 06/05/17 Last Taken 06/03/17 25 MG.] Acetaminophen [Tylenol] 650 mg PO Q6HP PRN tablet 05/28/17 [Rx Confirmed Last Taken Unknown] Docusate Sodium [Colace] 100 mg PO BID PRN capsule 05/28/17 [Rx Confirmed 06/05 Last Taken Unknown] HYDROcodone/APAP 5/325MG [Duncan 5/325Mg] 1 tab PO Q4HP PRN tablet 05/28/17 [Rx Confirmed 06/05/17 Last Taken Unknown] Heparin 5,000 unit SQ Q12 vial 05/28/17 [Rx Confirmed 06/05/17 Last Taken 06/05 09:00 5000 UNITS] Heparin Flush 2 ml IV Q12 syringe 05/28/17 [Rx Confirmed 06/05/17 Last Taken 21:00 2 ML.] Insulin Glargine, Human [Lantus] 15 unit SQ BID unit 05/28/17 [Rx Confirmed 06/10 Last Taken 06/04/17 15 UNITS] Naloxone HCl [Narcan] 0.1 mg IV Q2MIN PRN vial 05/28/17 [Rx Confirmed 06/05/17 Last Taken Unknown] Ondansetron [Zofran] 4 mg IV Q4HP PRN vial 05/28/17 [Rx Confirmed 06/05/17 Last Taken Unknown] glipiZIDE [Glucotrol Xl] 2.5 mg PO BIDAC tab.xl.24h 05/28/17 [Rx Confirmed 06/10 Last Taken 06/03/17 2.5 MG.] Albuterol Sulfate [Ventolin] 2.5 mg NEB Q6HP PRN ampul.neb 05/29/17 [Rx Confirmed 06/05/17 Last Taken Unknown] Accu-Chek 1 each FS ACHS strip 06/04/17 [Rx Confirmed 06/05/17 Last Taken 06/05 1 EACH] Clindamycin [Cleocin] 600 mg IV Q6H vial 06/04/17 [Rx Confirmed 06/05/17 Last Taken 06/05/17 600 MG.] Dextrose [Insta-Glucose] 15 gm PO PRN PRN oral.susp 06/04/17 [Rx Confirmed 06/10 Last Taken Unknown] Insulin Lispro [Humalog] See Protocol SQ ACHS unit 06/04/17 [Rx Confirmed 06/05 Last Taken 06/05/17 11:30 3 UNITS] 0.9 % Sodium Chloride [Saline Flush] 2 ml IV Q12 06/05/17 [History Confirmed 06/10 Last Taken 06/05/17 2 ML.] Piperacillin Sodium/Tazobactam [Zosyn] 2.25 gm IV Q12 06/05/17 [History Confirmed 06/05/17 Last Taken 06/05/17 11:00 2.25 GM] Medical - DS: Hosp Hospital course: Mr. Bailey is a 66 year old M June 04, 2017: History of present illness: -The patient was discharged to swing bed status on May 29. His foot wound has gotten progressively better. He is doing very well currently with a wound VAC and current IV antibiotics. His white blood cell count was still a little high on admit to discharge, but was trending down. Unfortunately, it is now trending up again, for uncertain reasons. Lowest we have seen it was 15,000, and he is now back up to 19,000, with granulocyte count up to 14,400. At this point, it would appear that he still has ongoing infection somewhere. He will need further workup to investigate this, and probable change in treatment plan. Will be discharged from swing bed status today, and back to inpatient status. I reviewed his case again with Dr. Salazar from podiatry. We think that the next best step is probably to do a tagged white blood cell scan, to see if an abscess or other occult infection shows up. The patient's only complaint today, is a mild sore throat. He otherwise denies fever chills, headaches or dizziness, sinus symptoms teeth symptoms or earache. He denies chest pain or palpitations, shortness of breath or cough, GI or symptoms. -Type 2 diabetes. The patient's blood sugar has not been well controlled, so we have gradually been increasing insulin and oral meds. It is overall improved , but still not at goal. This may be partly due to ongoing infection. -Patient has to need to receive 3 times a week dialysis for his end-stage renal disease. June 05 patient seen examined, lying in bed comfortably, denies any acute complaints, he was admitted for foot infection, was placed to swing bed status, but due to his worsening wbc count is now back to inpatient status he has no clinical e/o infection podiatry notes that the leg is likely not the source of infection, blood cx have been negative Pt was started on clindamycin, but i am not sure how much it add to exisitn zosyn. will d/c same for now, patient is planned to get a tagged wbc scan tomorrow to evaluate for potential pocket, will do selective imaging based on that HD planned for tomorrow. Dec 13 patient seen examined, has no complaints, no concerns on HD part 1 of tagged wbc scan done today, rest tomorrow cx are neg WBC Trending down today, appreciate podiatry and nephrology consult. Dec 14 Patient seen examined lying down in bed, no issues reviewed case with podiatry, wound not infected wbc scan second phase today, will review results and decide on future plan. Dec 15 Pt seen examined, no issues reported comfortable in bed Tagged WBC scan is reported prelim negative, some update in right foot which is expected wbc luisa today, but not normal given no clinical e/o infection, will stop zosyn and see how he does There is no clinical e/o infection as per podiatry, wound looks clean Hold ABX completely and see if wbc worsens significantly check leucocyte alkaline phosphatse, given mild arian positivity check c3, and c4 , May 16 WBC stable after Abx stopped yesterday. LAP, C3, C4 pending BG controlled Needs reminders to continue to restrict WB to heel only Jun 10 WBC inadvertently not ordered for today. Trend tomorrow LAP, C3, C4 all normal. Pt feels well; no complaints. D/W CM re: arranging wound vac. ROS: No fever June 11: The patient continues to say that he is feeling fine. He denies significant pain in his foot. He still has trouble remembering all the time to only use partial weightbearing on that foot. White blood cell count is a bit lower today at 13,600, with lower absolute neutrophil count of 10,500. Sed rate remains elevated at 95. Otherwise, he denies fever chills, chest pain or shortness of breath, cough, GI or symptoms. June 12, hospital course: -Patient was readmitted on June 04, for ongoing leukocytosis of uncertain etiology. He underwent a tagged white blood cell scan, that really only lit up in his right foot. Surgery felt this was not indicative of infection, but more due to postop changes. We could not find a source for his leukocytosis, so eventually all antibiotics were discontinued. The patient is actually done well since then. He has remained afebrile, and white blood cell count has been trending down each day. 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 He now has a wound VAC in place, and the wound is looking very good. Unfortunately, the patient is having a hard time complying with physical therapy directions to keep all weight off of his forefoot. He will require ongoing physical therapy with frequent reminders to bear weight appropriately, to allow the foot to heal. -Patient also has end-stage renal disease and is on dialysis 3 days a week. He seems to be tolerating that okay, but there is an issue for the long-term, as [place], and travel to and from dialysis could be an issue. Dr. Hernandez has discussed possibly doing peritoneal dialysis, versus renal transplant. -We had great difficulty initially controlling the patient's blood glucoses. It appears that he really had not been managing it very closely at home, and reported that he did not even own a glucometer. He is now on twice daily Lantus and sliding scale Humalog, and blood sugars have been much better controlled recently. -Blood pressures initially had been quite high, but are much better controlled lately. Today, the patient says he feels fine. He denies fevers or chills, chest pain or palpitations, shortness of breath or cough, GI or symptoms. On exam, he is awake and alert. He continues to be quite hard of hearing. Neck is supple without obvious lymphadenopathy or JVD. Cardiac exam shows regular rate and rhythm. Lungs are clear to auscultation. Abdomen is soft and nontender. Extremities show no edema. His right foot still has the wound VAC in place, without obvious drainage or erythema or significant tenderness. Neurologic exam is grossly nonfocal A/P Narrative: #1. Left leg cellulitis related to DM foot ulcer--cellulitis resolved. -on zosyn, mssa and strep positive from cultures, clinically not infected per podiatry. Persistent leukocytosis is unlikely to be r/t foot infection. podiatry following. -wound vac in place--I reviewed wound care with the wound care team yesterday. If the wound VAC needs to be removed, we will resume clindamycin, gentamicin, bacitracin wet-to-dry dressings, but hopefully the wound VAC treatment will not be interrupted for a long period Local wound care seems to be adequate at this time, for warding off infection. Patient will follow up with the wound care clinic as directed. #2. Hematologic. Patient has had persistently elevated white blood cell count and platelets for quite some time. All antibiotics have been discontinued. White blood cell count and platelets have been improving ever since. (ARIAN+, C3 and C4 normal, LAP normal consider hematology follow up as outpatient if patient remains stable. he does have chr eosinophilia, elevated monocytes, peripheral smear did not show any dysplasia, but wonder if any myeloproliferative disorder is present. ) -anemia/ secondary to esrd, sepsis, acute infection, monitor consider xfusion as needed. H/H stable #3. Endocrine. DM type II. glucose is finally at goal, today ranging from 103-249. -continue present regimen: Lantus twice daily plus sliding scale Humalog. #4. Renal. ESRd on HD, 3 days a week. #5. Hypertension. Controlled. Continue amlodipine,, aspirin, Lipitor, Lasix, metoprolol. Hydralazine has been discontinued. #6. DVT prophylaxis: Hep sq #7. Diet carb/ renal #8. Dispo: still needs reminder re: nonweightbearing status on the right forefoot.. Patient will be transferred to rehab today, for ongoing physical therapy and occupational therapy. He seems to lack understanding of his disease processes, and seems a bit forgetful when it comes to following directions. Discharge diagnosis: Leukocytosis of uncertain etiology. Infected diabetic foot ulcer.DM2. HTN - Time Spent with Patient Total time spent providing and/or coordinating discharge services: Greater than 30 minutes Medical - DS: Exam - Constitutional Vitals: Vital Signs Temp Pulse Pulse Resp BP BP Pulse Ox 06/12/17 07:18 98.4 F 20 119/69 95 06/12/17 07:10 96 06/12/17 03:25 98.8 F 67 20 122/65 96 06/11/17 23:52 98.1 F 72 20 128/67 94 06/11/17 20:00 98.6 F 75 20 124/66 93 06/11/17 16:00 97.5 F 18 117/69 97 06/11/17 13:29 97.6 F 65 124/74 06/11/17 13:13 67 119/78 06/11/17 12:43 66 118/74 06/11/17 12:13 67 119/72 06/11/17 11:49 97.3 F 18 120/68 97 06/11/17 11:43 69 129/74 06/11/17 11:13 67 123/94 06/11/17 10:44 68 117/74 Intake and Output 06/11/17 06/12/17 06/12/17 21:59 05:59 13:59 Intake Total 240 / 240 720 / 720 Balance 240 / 240 720 / 720 Intake: Oral 240 / 240 720 / 720 Other: Weight 213 lb Medical - DS: Data Labs on day of discharge: Labs from last 24 hours 06/12/17 06/12/17 04:30 04:30 WBC 12.0 H RBC 2.73 L Hgb 8.2 L Hct 24.1 L MCV 88.3 MCH 30.0 MCHC 33.9 RDW 15.5 H Plt Count 449 H MPV 7.8 Gran % 76.6 Lymph % (Auto) 12.3 L Hettinger % (Auto) 5.5 Eos % (Auto) 5.3 Baso % (Auto) 0.3 Gran # 9.2 H Lymph # (Auto) 1.5 Hettinger # (Auto) 0.7 Eos # (Auto) 0.6 Baso # (Auto) 0 ESR 98 H Sodium 132 L Potassium 4.5 Chloride 91 L Carbon Dioxide 24 Anion Gap 17.0 H BUN 38 H Creatinine 5.5 H* GFR Calculation 10 Glucose 129 H Uric Acid 4.3 Calcium 8.5 L Phosphorus 5.0 H Magnesium 2.1 Total Bilirubin 0.2 Direct Bilirubin < 0.2 GGT 23 AST 14 ALT 13 Alkaline Phosphatase 97 Lactate Dehydrogenase 201 Total Protein 7.0 Albumin 3.5 Globulin 3.5 Albumin/Globulin Ratio 1.0 Triglycerides 99 June 04: CBC: White blood cell count is 18,600, hemoglobin 7.5, hematocrit 22, platelets 535,000. Differential shows 13,900 neutrophils, 1000 monocytes, 1100 eosinophils. Blood cultures: Are negative. June 03: Chemistry panel: Sodium 136, potassium 4.0, chloride 93, CO2 27, anion gap 16, BUN 54, creatinine 6.2, glucose 119 Uric acid is low at 8.3 LFTs, magnesium, are within normal limits Previous: June 02: Urinalysis shows 100 mg of protein, 50 of glucose, negative for leukocyte esterase or nitrates. June 01: Chest x-ray: Is read as a normal film, without signs of pneumonia. May 30: CBC: White blood cell count 21,000, hemoglobin 9, hematocrit 26, platelets 411, 000. 84% neutrophils. Chemistry panel: Sodium is 130, potassium 4.1, chloride 91, CO2 26, anion gap 13 , BUN 37, creatinine 4.3, glucose 384 Calcium 7.6, albumin 2.8, other LFTs within normal limits May 27: Chest x-ray: IMPRESSION: No acute disease. Right PICC line tip in the right atrium. Right-sided double-lumen catheter tip near the tricuspid valve. Consider withdrawing double-lumen catheter 6 cm and the PICC line 4 cm May 25: Wound culture: Is growing strep agalactiae, group B, as well as staph aureus. No susceptibilities done on the strep. Staph aureus is pansensitive. May 23: Pro-calcitonin is elevated at 1.4, consistent with possible sepsis. Lactic acid was normal at 1.6. Wound Gram stain: Shows many gram-positive cocci in clusters, many gram- negative bacilli. Blood cultures are negative so far. CBC: White blood cell count is 22,500, hemoglobin 10, hematocrit 31, platelets 330,000. Differential shows 19,200 neutrophils, 1400 monocytes. Chemistry panel: Show sodium 131, chloride 93, BUN 45, creatinine 8.7, glucose 456, ionized calcium low at 0.93 Alcohol level is less than 0.01 Foot x-ray: IMPRESSION: No evidence of osteomyelitis. Large soft tissue ulcer over the fifth metatarsal head with associated cellulitis Chest x-ray: Shows no acute disease. There is a right IJ double-lumen catheter tip at the right atrium. 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 There is no hemorrhage or other acute intracerebral abnormality Medical - DS: A/P - Patient/Caregiver Discharge Instructions Activity: as per physical therapy Diet: Renal/Consistent Carbs Additional Instructions: Wound care, right foot: If the wound VAC cannot be continued, change back to wet to moist gentamicin, clindamycin, bacitracin soaked gauze, followed by dry gauze and Kerlix, until wound VAC is again available non weightbearing status on the right forefoot. OT and ST Renal/Consistent Carbohydrate Activity per physical therapy. Partial weight bearing, [facility] touch. Prescriptions: HYDROcodone/APAP 5/325MG [Duncan 5/325Mg] 1 tab PO Q4HP PRN #30 tab PRN Reason: Pain Level 3-6 Ondansetron HCl [Zofran ODT] 4 mg SL Q4HP PRN #1 tab PRN Reason: Nausea Other Amb Orders: Aspiration Precautions Location: Determined By Patient Fall Risk Location: Determined By Patient OT Discharge Order Location: Determined By Patient Physical Therapy at Discharge - General Location: Determined By Patient Wound Care/Dressings Location: Determined By Patient Walker Location: Determined By Patient Complete Blood Count Time Frame: 2 Days, Location: Determined By Patient - Follow up Plan Disposition: Xfer SNF Prognosis: Good Rehab Potential: Good I certify that the patient requires SNF services: Yes Overall status at discharge: patient is progressing back to baseline Medical - DS: Qual - VTE Deep Vein Thrombosis/Pulmonary Embolism Present on Admission: No
== END 2017-06-12 13:00 | DRG 638 ==
LOC: MEDSUR 13:09
PROVIDERS: ADMIT Internal Medicine; ATTEND Internal Medicine

== ENCOUNTER 2018-03-09 12:38 | Observation (INO) ==
[2018-03-09] MEDS ORDERED: IOPAMIDOL 100 ML BOTTLE IV ONE (12:39)
--- NOTE | 2018-03-09 12:47 | Emergency Department Note ---
Neuro HPI - General Chief Complaint: Neuro Symptoms/Deficit Stated Complaint: altered LOC Time Seen by Provider: 03/09/18 12:44 Source: other Mode of arrival: wheelchair Limitations: altered mental status - History of Present Illness HPI Narrative: Patient was undergoing dialysis in which not respond verbally for brief time. Unable to get him to respond verbally. Is complaining of a headache during dialysi He had a period of syncope where he not respond verbally. His Accu- Chek was 148 at that time vital signs were stable patient is in the ED at this time he is responding verbally able to answer questions dating that he has no complaints except for the headache. Is no neurologic findings has normal hand grasps Babinski is negative. He is alert and oriented at this time.His temperature is 97 for the pulses 70 blood pressure 174/92 pulse ox is 98% his in a NIH score is 15-16 as he is unable to interpret the pictures, will hold his legs up for 5 seconds but they slowly drop because of weaness. unable to give a smile he does have normal hand grasp bilaterally - Related Data Home Medications: Home Medications Medication Instructions Recorded Confirmed Aspirin [Charmaine Chewable Aspirin] 81 mg PO DAILY 05/23/17 06/05/17 Atorvastatin [Lipitor] 40 mg PO HS 05/23/17 06/05/17 Ferrous Gluconate [Fergon] 324 mg PO DAILY 05/23/17 06/05/17 Furosemide [Lasix] 80 mg PO BID 05/23/17 06/05/17 Gabapentin [Neurontin] 300 mg PO TID 05/23/17 06/05/17 Metoprolol Tartrate [Lopressor] 50 mg PO BID 05/23/17 06/05/17 amLODIPine [Norvasc] 10 mg PO DAILY 05/23/17 06/05/17 bisacodyl 10 mg rectal suppository 10 mg LA QDAY PRN 08/15/17 ceftazidime 2 gram intravenous 2 g IV .M,W,F each 08/15/17 solution insulin detemir (U-100) 100 20 unit SUB-Q BID 08/15/17 unit/mL (3 mL) subcutaneous pen insulin lispro (U-100) 100 unit/mL See Label Instructions SUB-Q 08/15/17 subcutaneous solution .COMPLEX linezolid 600 mg tablet 600 mg PO BID 08/15/17 nut.tx impaired renal each PO QDAY ml 08/15/17 fxn,lac-reduce 0.08 gram-1.8 kcal/mL oral liquid oxycodone-acetaminophen 5 mg-325 1 tab PO Q4H PRN tab 08/15/17 mg tablet polyethylene glycol 3350 17 PO QDAY PRN g 08/15/17 gram/dose oral powder sodium phosphates 19 gram-7 118 ml [place] ONCE PRN 08/15/17 gram/118 mL enema sevelamer carbonate 800 mg tablet See Label Instructions .ROUTE 03/05/18 .COMPLEX Previous Rx's Medication Instructions Recorded Albuterol Sulfate [Ventolin] 2.5 mg NEB Q6HP PRN ampul.neb 05/29/17 Dextrose [Insta-Glucose] 15 gm PO PRN PRN oral.susp 06/04/17 Accu-Chek 1 each FS ACHS strip 06/12/17 Acetaminophen [Tylenol] 650 mg PO Q6HP PRN tablet 06/12/17 Docusate Sodium [Colace] 100 mg PO BID PRN capsule 06/12/17 Heparin 5,000 unit SQ Q12 vial 06/12/17 Magnesium Hydroxide [Milk of 30 ml PO DAILYP PRN oral.susp 06/12/17 Magnesia] Ondansetron HCl [Zofran ODT] 4 mg SL Q4HP PRN #1 tab 06/12/17 Allergies/Adverse Reactions: Allergies Allergy/AdvReac Type Severity Reaction Status Date / Time influenza virus vacc AdvReac Intermediate Other Verified 05/29/17 08:28 trivalent, split [From Fluzone] Review of Systems All systems ED: reviewed and negative except as stated. Constitutional: Reports: as per HPI. Denies: fever, chills Eyes: Denies: eye pain ENT ED: Denies: ear pain Cardiovascular: Denies: chest pain, palpitations Respiratory: Denies: shortness of breath, cough Gastrointestinal: Denies: abdominal pain, nausea, vomiting Genitourinary: Denies: dysuria Musculoskeletal: Denies: back pain Integumentary: Denies: rash Neurological: Denies: headache, numbness, paresthesias, confusion Psychiatric: Denies: anxiety Endocrine: Denies: fatigue Hematological/Lymphatic: Denies: easy bleeding Allergic/Immunologic: Denies: facial swelling Past Medical History - Past Medical History [facility] Narrative: All Active Problems (Last Reviewed 12/06/16 @ 16:26 by Rosa Elena Hernandez MD) ESRD (end stage renal disease) (Chronic) Diabetic foot ulcer (Acute) Cellulitis of foot without toes, right (Acute) Leukocytosis (Acute) Delirium (Acute) DM type 2, uncontrolled, with renal complications (Chronic) Anemia (Acute) Sepsis affecting skin (Acute) Ulcer of right foot due to type 2 diabetes mellitus (Acute) Post-op bleeding (Acute) Tinea corporis (Chronic) Edema of lower extremity (Chronic) CKD stage 4 due to type 2 diabetes mellitus (Chronic) Gastritis (Chronic) CKD (chronic kidney disease), stage III (Chronic) 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) Lone atrial fibrillation (Chronic) Bronchitis (Chronic) Presbyopia (Chronic) Regular astigmatism (Chronic) Hypermetropia (Chronic) Nuclear sclerosis (Chronic) Heat exhaustion (Chronic) Nonproliferative diabetic retinopathy (Chronic) 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) Nuclear senile cataract (Chronic) Diabetic neuropathy (Chronic) Seasonal allergic rhinitis (Chronic) Diabetes mellitus, type II (Chronic) Vitamin D deficiency (Chronic) Cervical nerve root compression (Chronic) Left median nerve neuropathy (Chronic) Low back pain (Chronic) Foot drop (Chronic) Obesity (Chronic) Injury of lumbar spine (Chronic) Injury of cervical spine (Chronic) Shoulder pain (Chronic) Carpal tunnel syndrome (Chronic) Cervical disc disorder (Chronic) Hyperlipidemia (Chronic) Gastritis due to nonsteroidal anti-inflammatory drug (NSAID) (Chronic) Diabetic retinopathy (Chronic) Hypertension (Chronic) Past Surgical History (Last Reviewed 12/06/16 @ 16:26 by Rosa Elena Hernandez MD) History of cholecystectomy (Chronic 06/25/80) Family History (Last Reviewed 12/06/16 @ 16:26 by Rosa Elena Hernandez MD) Father Diabetes mellitus Cerebrovascular accident (CVA) Dementia Mother Diabetes mellitus Systemic Lupus Erythematosus Cardiomegaly Medical history: Reports: DM, renal disease Surgical history ED: Reports: non-contributory - Social History smoking status: Never smoker Alcohol use: Reports: Unknown Drug use: Reports: unknown Physical Exam Limitations: no limitations General appearance: lethargic Head: atraumatic, normocephalic Eye: Present: normal appearance, PERRL ENT: normal exam, normal oropharynx Neck: Present: normal inspection, full ROM Chest: Present: normal inspection, symmetric chest wall rise Respiratory: Present: normal lung sounds bilaterally. Absent: respiratory distress, wheezes Cardiovascular: Present: regular rate, normal rhythm. Absent: bradycardia, tachycardia Abdominal: Present: soft. Absent: distention, tenderness Extremities: Present: normal inspection, full ROM Back: Present: normal inspection Patient oriented to: Present: person, place, time Speech: Present: fluid speech Cranial nerves: EOM function (II, III, IV, ): Normal, facial sensation (V): Normal, facial palsy (VII): Normal, gag reflex (IX): Normal, spinal accessory function (XI): Normal, tongue deviation (XII): Normal Motor strength - LUE: 4/5 Motor strength - RUE: 4/5 Motor strength - LLE: 4/5 Motor strength - RLE: 4/5 Upper motor neuron exam: Babinski sign: Absent bilaterally Sensory exam upper extremity: Normal: light touch Sensory exam lower extremity: Normal: light touch Coma Scale Eye Opening: Spontaneous Coma Scale Motor Response: Obeys Commands Coma Scale Verbal Response: Oriented Coma Scale Total: 15 Course Vital Signs Temperature 97.4 F 03/09/18 12:38 Pulse Rate 70 03/09/18 12:38 Respiratory Rate 19 03/09/18 12:38 Blood Pressure 174/92 03/09/18 12:38 Pulse Oximetry (%) 98 03/09/18 12:38 Temperature 97.4 F 03/09/18 12:38 Pulse Rate 66 03/09/18 15:57 Respiratory Rate 19 03/09/18 15:57 Blood Pressure 165/87 03/09/18 15:32 Pulse Oximetry (%) 95 03/09/18 15:57 Neuro Symptoms/Deficit - MDM Narrative Medical decision making narrative: Head CT and CTA are negative. Stroke neurologist consulted Dr Flores, consulted and felt certainly tPA not indicated. She is currently reviewing the CT and CTA felt that patient should be admitted here observed felt to be more post syncope like patients weakness in the lower legs are bilateral is able to hold up his leg but not for the entire 5 seconds. Bilaterally. dR Azar , HOSPITALIST, consulted and patient to be admitted for tia work-up - Lab Data Result diagrams: 03/09/18 12:39 03/09/18 12:39 Lab Results 03/09/18 03/09/18 03/09/18 Range/Units 12:39 12:39 12:39 WBC 11.6 H (4.5-11.0) K/mcL RBC 4.03 L (4.50-5.90) M/mcL Hgb 11.9 L (13.5-16.5) g/dL Hct 36.0 L (41.0-55.0) % POC Hct 36.0 L (41.0-55.0) % MCV 89.3 (80.0-100.0) fL MCH 29.5 (26.0-34.0) pg MCHC 33.1 (31.0-36.0) g/dL RDW 18.9 H (11.5-14.5) % Plt Count 258 (140-440) K/mcL MPV 7.8 (7.4-10.4) fL Gran % 72.9 (38.0-78.0) % Lymph % (Auto) 13.9 L (15.5-49.0) % [place] % (Auto) 7.5 (1.0-12.0) % Eos % (Auto) 5.1 (0.0-7.0) % Baso % (Auto) 0.6 (0.0-2.0) % Gran # 8.5 H (1.8-8.0) K/mcL Lymph # (Auto) 1.6 (1.5-4.8) K/mcL [place] # (Auto) 0.9 (0.1-0.9) K/mcL Eos # (Auto) 0.6 (0.0-0.7) K/mcL Baso # (Auto) 0.1 (0.0-0.3) K/mcL POC PT 11.1 L (11.9-14.5) sec POC INR < 0.9 L (0.9-1.2) APTT 39 H (20-37) sec POC Sodium 134 (133-145) mmol/L Sodium 133 (133-145) mmol/L POC Potassium 3.8 (3.3-5.1) mmol/L Potassium 3.9 (3.3-5.1) mmol/L POC Chloride 95 L (96-108) mmol/L Chloride 92 L (96-108) mmol/L Carbon Dioxide 27 (22-30) mmol/L POC Total CO2 28 (22-30) mmol/L Anion Gap 14.0 (8-16) POC BUN 31 H (8-23) mg/dl BUN 30 H (8-23) mg/dl Creatinine 4.6 H (0.7-1.2) mg/dl POC Creatinine 5.3 H* (0.7-1.2) mg/dl GFR Calculation 12 Glucose 152 H (70-105) mg/dL POC Glucose 154 H (70-105) mg/dL Calcium 8.6 (8.6-10.4) mg/dl POC WB Ioniz Calcium 0.96 L (1.16-1.32) mmol/L Total Bilirubin 0.4 (0.0-1.0) mg/dL AST 15 (0-37) U/l ALT 9 (0-40) U/l Alkaline Phosphatase 116 (39-117) U/L Troponin T (0-0.03) ng/ml Total Protein 7.8 (5.9-8.4) gm/dL Albumin 4.2 (3.2-5.2) gm/dL Globulin 3.6 (2.2-3.7) gm/dL Albumin/Globulin Ratio 1.2 (1.0-2.3) 03/09/18 Range/Units 12:39 WBC (4.5-11.0) K/mcL RBC (4.50-5.90) M/mcL Hgb (13.5-16.5) g/dL Hct (41.0-55.0) % POC Hct (41.0-55.0) % MCV (80.0-100.0) fL MCH (26.0-34.0) pg MCHC (31.0-36.0) g/dL RDW (11.5-14.5) % Plt Count (140-440) K/mcL MPV (7.4-10.4) fL Gran % (38.0-78.0) % Lymph % (Auto) (15.5-49.0) % [place] % (Auto) (1.0-12.0) % Eos % (Auto) (0.0-7.0) % Baso % (Auto) (0.0-2.0) % Gran # (1.8-8.0) K/mcL Lymph # (Auto) (1.5-4.8) K/mcL [place] # (Auto) (0.1-0.9) K/mcL Eos # (Auto) (0.0-0.7) K/mcL Baso # (Auto) (0.0-0.3) K/mcL POC PT (11.9-14.5) sec POC INR (0.9-1.2) APTT (20-37) sec POC Sodium (133-145) mmol/L Sodium (133-145) mmol/L POC Potassium (3.3-5.1) mmol/L Potassium (3.3-5.1) mmol/L POC Chloride (96-108) mmol/L Chloride (96-108) mmol/L Carbon Dioxide (22-30) mmol/L POC Total CO2 (22-30) mmol/L Anion Gap (8-16) POC BUN (8-23) mg/dl BUN (8-23) mg/dl Creatinine (0.7-1.2) mg/dl POC Creatinine (0.7-1.2) mg/dl GFR Calculation Glucose (70-105) mg/dL POC Glucose (70-105) mg/dL Calcium (8.6-10.4) mg/dl POC WB Ioniz Calcium (1.16-1.32) mmol/L Total Bilirubin (0.0-1.0) mg/dL AST (0-37) U/l ALT (0-40) U/l Alkaline Phosphatase (39-117) U/L Troponin T 0.03 (0-0.03) ng/ml Total Protein (5.9-8.4) gm/dL Albumin (3.2-5.2) gm/dL Globulin (2.2-3.7) gm/dL Albumin/Globulin Ratio (1.0-2.3) Disposition Pt seen by [employer]PERVISOR/PA only: No Clinical Impression: TIA (transient ischemic attack) Disposition: Xfer As Inpt ([facility]) Referrals: Jaleesa Dodson MD [Primary Care Provider] -
--- NOTE | 2018-03-09 13:09 | Cat Scan Report ---
CLINICAL INFORMATION: Code stroke COMPARISON: 05/23/2017 TECHNIQUE: Axial noncontrast-enhanced images through the brain. FINDINGS: No acute intracranial hemorrhage. No subdural hematoma. No subarachnoid hemorrhage. No intra-axial hemorrhage. There is a nonacute infarction in the left globus pallidus. This is unchanged. No new attenuation abnormalities. No localized mass effect. No midline shift. No acute abnormality or interval change. Brainstem and cerebellum are negative. No calvarial lesion. No fracture. No lytic lesion. Temporal bones are negative IMPRESSION: 1. 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 No acute abnormality The exam was performed using radiation dose optimization techniques including, but not limited to, automated exposure control, adjustment of the mA and/or kV according to patient size and use of iterative reconstruction technique. Interpreted and Authenticated by: Kirill Lau 03/09/18
[2018-03-09 13:23] LABS: Basophils # (Auto) 0.1 K/mcL (0.0-0.3); Basophils % (Auto) 0.6 % (0.0-2.0); Eosinophils # (Auto) 0.6 K/mcL (0.0-0.7); Eosinophils % (Auto) 5.1 % (0.0-7.0); Granulocytes % (Auto) 72.9 % (38.0-78.0); Lymphocytes # (Auto) 1.6 K/mcL (1.5-4.8); Lymphocytes % (Auto) 13.9 % (15.5-49.0); Mean Cell Volume 89.3 fL (80.0-100.0); Mean Corpuscular HGB Conc 33.1 g/dL (31.0-36.0); Mean Corpuscular Hemoglobin 29.5 pg (26.0-34.0); Monocytes # (Auto) 0.9 K/mcL (0.1-0.9); Monocytes % (Auto) 7.5 % (1.0-12.0); Platelet Count 258 K/mcL (140-440); RBC 4.03 M/mcL (4.50-5.90); Red Cell Distribution Width 18.9 % (11.5-14.5)
[2018-03-09] MEDS ORDERED: 0.9 % SODIUM CHLORIDE 1,000 ML IV ONE (13:26)
--- NOTE | 2018-03-09 13:29 | Cat Scan Report ---
CLINICAL INFORMATION: Code stroke TECHNIQUE: CTA of the neck and head performed. 100 mL contrast material injected. Scans were performed during arterial phase. Sagittal and axial reformatted images and MIP reformatted images. COMPARISON: Noncontrast enhanced brain CT scan dated 03/09/2018 FINDINGS: Noncontrast enhanced brain CT scans dated 03/09/2018, 05/23/2017. Mild calcification of the aortic arch. Normal left subclavian artery, left common carotid artery, innominate artery, right common carotid artery, right subclavian artery. Origins of the vertebral arteries are negative. There is calcification at the origin of the right internal carotid artery. No hemodynamically significant stenosis. No ulceration. Mild calcification at the origin of the left internal carotid artery. No stenosis. No ulceration. Internal carotid arteries are otherwise negative. Vertebral arteries are negative. No stenosis. No occlusion. Petrous, cavernous, supraclinoid segments of the internal carotid arteries are negative. There is calcification of the cavernous segments. No cavernous carotid aneurysm. M1 segments of middle cerebral arteries and A1 segments of the anterior cerebral arteries are negative. Intracranial vertebral arteries are negative. Basilar artery is negative. Superior cerebellar arteries and posterior cerebral arteries are negative. No intracranial aneurysm or arteriovenous malformation. No detectable occluded branches. No solid or cystic soft tissue mass within the neck. No pathologic adenopathy. There is a small focal infiltrate in the superior segment of the left lower lobe. This is identified on image #1. This may be a focal area of pneumonia. Routine chest x-ray is recommended. Lung apices are otherwise negative. There is inflammatory disease in the left maxillary sinus. There are multiple round densities consistent with retention cysts or polyps. Ethmoid and frontal sinuses are negative. Sphenoid sinuses are negative. IMPRESSION: 1. Mild calcification of the origins of the internal carotid arteries bilaterally, right worse than left. No detectable ulceration. No hemodynamically significant stenosis 2. Otherwise negative CTA of the neck and brain. No occluded branch. No intracranial stenosis or thrombus. 3. Focal infiltrate in the superior segment of the left lower lobe. Recommend chest x-ray Interpreted and Authenticated by: Kirill Lau 03/09/18
[2018-03-09 13:43] LABS: Partial Thromboplastin Time 39 sec (20-37)
[2018-03-09 13:53] LABS: ALT/SGPT 9 U/l (0-40); Albumin 4.2 gm/dL (3.2-5.2); Albumin/Globulin Ratio 1.2 (1.0-2.3); Alkaline Phosphatase 116 U/L (39-117); Blood Urea Nitrogen 30 mg/dl (8-23)
--- NOTE | 2018-03-09 14:44 | XRay Report ---
INDICATION: Abnormal CTA of the neck. Possible focal left lower lobe infiltrate TECHNIQUE: AP chest x-ray, portable upright COMPARISON: CTA dated 03/09/2018 FINDINGS: Image #1 on the neck CTA demonstrated a small focal infiltrate in the superior segment of the left lower lobe. This is not identified on present plain film examination. This could be a small focus of pneumonia or volume loss. This is occult on plain film study. No focal parenchymal infiltrates identified. Heart size and vascularity are normal. No pulmonary edema. No pulmonary congestion. There is a large caliber left-sided central venous catheter with its tip in the right atrium. IMPRESSION: No focal infiltrate. Subtle focal abnormality identified on CT scan is not identified on portable chest x-ray Interpreted and Authenticated by: Kirill Lau 03/09/18
--- NOTE | 2018-03-09 15:47 | Nephrology Consult Note ---
History of Present Illness - Reason for Consult Patient information: Note initiated : 03/09/18 at 3:45 pm Sandro Bailey is a 67-year-old male sent to ED from dialysis unit when he had difficulty of finding words without hypotension or bradycardia and admitted on . Consult date: 03/09/18 end stage renal disease Requesting physician: Linda Eid - Chief Complaint Weakness - History of Present Illness Sandro Bailey is a 67-year-old male with end-stage renal disease on chronic hemodialysis (through right IJ tunneled hemodialysis catheter and left arm AV fistula, at [facility], on TTS, followed by Dr. 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 Review of Systems Constitutional: weakness, no fever(s) Nose, mouth and throat: no nasal congestion, no sore throat Cardiovascular: no chest pain, no palpatations Respiratory: no cough, no dyspnea Gastrointestinal: no abdominal pain, no nausea Genitourinary: other (no urine output) Musculoskeletal: neck pain Integumentary: no erythema, no rash Neurological: no focal weakness, no headache(s) Psychiatric: no anxiety, no panic attacks Endocrine: no cold intolerance, no heat intolerance Hematologic/Lymphatic: no easy bleeding, no easy bruising Allergic/Immunologic: no tongue swelling, no uticaria Past History Past medical history: Medical History (Last Reviewed 12/06/16 @ 16:26 by Rosa Elena Hernandez MD) Tinea corporis (Chronic) Edema of lower extremity (Chronic) CKD stage 4 due to type 2 diabetes mellitus (Chronic) Gastritis (Chronic) CKD (chronic kidney disease), stage III (Chronic) 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) Lone atrial fibrillation (Chronic) Bronchitis (Chronic) Presbyopia (Chronic) Regular astigmatism (Chronic) Hypermetropia (Chronic) Nuclear sclerosis (Chronic) Heat exhaustion (Chronic) Nonproliferative diabetic retinopathy (Chronic) 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) Nuclear senile cataract (Chronic) Diabetic neuropathy (Chronic) Seasonal allergic rhinitis (Chronic) Diabetes mellitus, type II (Chronic) Vitamin D deficiency (Chronic) Cervical nerve root compression (Chronic) Left median nerve neuropathy (Chronic) Low back pain (Chronic) Foot drop (Chronic) Obesity (Chronic) Injury of lumbar spine (Chronic) Injury of cervical spine (Chronic) Shoulder pain (Chronic) Carpal tunnel syndrome (Chronic) Cervical disc disorder (Chronic) Hyperlipidemia (Chronic) Gastritis due to nonsteroidal anti-inflammatory drug (NSAID) (Chronic) Diabetic retinopathy (Chronic) Hypertension (Chronic) Metatarsal fracture (Chronic 01/21/11) Past surgical history: Past Surgical History (Last Reviewed 12/06/16 @ 16:26 by Rosa Elena Hernandez MD) History of cholecystectomy (Chronic 06/25/80) Past family history: Family History (Last Reviewed 12/06/16 @ 16:26 by Rosa Elena Hernandez MD) Father Diabetes mellitus Cerebrovascular accident (CVA) Dementia Mother Diabetes mellitus Systemic Lupus Erythematosus Cardiomegaly Past social history: Does not smoke Medications and Allergies Home Medications Medication Instructions Recorded Confirmed Type Aspirin [Charmaine Chewable Aspirin] 81 mg PO DAILY 05/23/17 06/05/17 History Atorvastatin [Lipitor] 40 mg PO HS 05/23/17 06/05/17 History Ferrous Gluconate [Fergon] 324 mg PO DAILY 05/23/17 06/05/17 History Furosemide [Lasix] 80 mg PO BID 05/23/17 06/05/17 History Gabapentin [Neurontin] 300 mg PO TID 05/23/17 06/05/17 History Metoprolol Tartrate [Lopressor] 50 mg PO BID 05/23/17 06/05/17 History amLODIPine [Norvasc] 10 mg PO DAILY 05/23/17 06/05/17 History Dextrose [Insta-Glucose] 15 gm PO PRN PRN oral.susp 06/04/17 06/05/17 Rx Accu-Chek 1 each FS ACHS strip 06/12/17 Rx Docusate Sodium [Colace] 100 mg PO BID PRN capsule 06/12/17 Rx Heparin 5,000 unit SQ Q12 vial 06/12/17 Rx Magnesium Hydroxide [Milk of 30 ml PO DAILYP PRN oral.susp 06/12/17 Rx Magnesia] Ondansetron HCl [Zofran ODT] 4 mg SL Q4HP PRN #1 tab 06/12/17 Rx ceftazidime 2 gram intravenous 2 g IV .M,W,F each 08/15/17 History solution insulin detemir (U-100) 100 20 unit SUB-Q BID 08/15/17 History unit/mL (3 mL) subcutaneous pen insulin lispro (U-100) 100 unit/mL See Label Instructions SUB-Q 08/15/17 History subcutaneous solution .COMPLEX linezolid 600 mg tablet 600 mg PO BID 08/15/17 History nut.tx impaired renal each PO QDAY ml 08/15/17 History fxn,lac-reduce 0.08 gram-1.8 kcal/mL oral liquid oxycodone-acetaminophen 5 mg-325 1 tab PO Q4H PRN tab 08/15/17 History mg tablet polyethylene glycol 3350 17 PO QDAY PRN g 08/15/17 History gram/dose oral powder sodium phosphates 19 gram-7 118 ml [place] ONCE PRN 08/15/17 History gram/118 mL enema sevelamer carbonate 800 mg tablet See Label Instructions .ROUTE 03/05/18 History .COMPLEX Allergies Allergy/AdvReac Type Severity Reaction Status Date / Time influenza virus vacc AdvReac Intermediate Other Verified 05/29/17 08:28 trivalent, split [From Fluzone] Exam - Vital Signs Vital signs: Temp Pulse Resp BP Pulse Ox 97.4 F 65 19 154/76 95 03/09/18 12:38 03/09/18 15:02 03/09/18 15:02 03/09/18 15:02 03/09/18 15:02 - General Appearance General appearance: chronically ill, fatigue EENT: mucous membranes moist Neck: no JVD Respiratory: clear Cardiology: edema (trace) Gastrointestinal: no tenderness Integumentary: no rash, warm and dry Neurologic: no focal deficit, alert and oriented x3 Musculoskeletal: no deformities Psychiatric: mood/affect appropriate, cooperative Results - Lab Results 03/09/18 12:39 03/09/18 12:39 Most recent lab results Calcium 8.6 mg/dl (8.6-10.4) 03/09/18 12:39 Assessment and Plan (1) ESRD (end stage renal disease) Hemodialysis tomorrow for fluid overload and incomplete treatment on 03/09/18 with Revaclear 400 dialyzer for 3 hours, QB/QD 400/800, dialysate (Potassium 3, Bicarbonate 33, Calcium 2.5, Sodium 140), UF target 2000 ml, Heparin 2000 unit bolus, 1000 unit per hour. Status: Chronic Priority: Medium
--- NOTE | 2018-03-09 15:51 | Internal Med History&Physical ---
Medical - H&P: HPI Patient information: Note initiated : 03/09/18 at 3:44 pm Service Date, if different from initiated Date: [] Patient: Sandro Bailey a 67 y/o M admitted on for altered LOC. Chief Complaint: [] History of present illness: Mr. Bailey is a 67 year old M with h/o DM, ESRD on HD, left arm access/ Left IJ access. He was at his usual health until Hemodialysis session today. He notes that he woke up this AM, and was doing ok, did not have breakfast as he was running late, his sister picked him up for dialysis. During dialysis he felt that he was having some headache/ dizziness, he tried to communicate this to the nurses, but was unable to do so. He became drowsy and lethargic and passed out. His glucose was normal, as per report, Hemodynamically stable, just not arousable. Rapid response team was called He was transferred to the ER for further evaluation. The patient in the ER was drowsy, and minimally responsive in the triage, no obvious focal change was noted, he woke up gradually, enough to get a neuro exam , He had a Head CT and Head / Neck CTA which is neg for acute process. patient neck ct showed infiltrate on the left upper lobe, chest x ray is neg. The patient still feels quite weak, he is poor history provider, as per the sister he has been complaining of some neck pain for last few days, some pain radiating down his jaws? In the ER the patient is aoox3, hemodynamically stable, EKG is sinus,lafb, no acute st wave changes, cxr neg, labs show mild leucocytosis. Tele stroke was consulted, advised to observe the patient. 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) Lone atrial fibrillation (Chronic) Bronchitis (Chronic) Presbyopia (Chronic) Regular astigmatism (Chronic) Hypermetropia (Chronic) Nuclear sclerosis (Chronic) Heat exhaustion (Chronic) Nonproliferative diabetic retinopathy (Chronic) 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) Nuclear senile cataract (Chronic) Diabetic neuropathy (Chronic) Seasonal allergic rhinitis (Chronic) Diabetes mellitus, type II (Chronic) Vitamin D deficiency (Chronic) Cervical nerve root compression (Chronic) Left median nerve neuropathy (Chronic) Low back pain (Chronic) Foot drop (Chronic) Obesity (Chronic) Injury of lumbar spine (Chronic) Injury of cervical spine (Chronic) Shoulder pain (Chronic) Carpal tunnel syndrome (Chronic) Cervical disc disorder (Chronic) Hyperlipidemia (Chronic) Gastritis due to nonsteroidal anti-inflammatory drug (NSAID) (Chronic) Diabetic retinopathy (Chronic) Hypertension (Chronic) Metatarsal fracture (Chronic 01/21/11) Surgical history: Past Surgical History (Last Reviewed 12/06/16 @ 16:26 by Rosa Elena Hernandez MD) History of cholecystectomy (Chronic 06/25/80) Pertinent family history: Family History (Last Reviewed 12/06/16 @ 16:26 by Rosa Elena Hernandez MD) Father Diabetes mellitus Cerebrovascular accident (CVA) Dementia Mother Diabetes mellitus Systemic Lupus Erythematosus Cardiomegaly Medical - H&P: Meds Home Medications Medication Instructions Recorded Confirmed Type Aspirin [Charmaine Chewable Aspirin] 81 mg PO DAILY 05/23/17 06/05/17 History Atorvastatin [Lipitor] 40 mg PO HS 05/23/17 06/05/17 History Ferrous Gluconate [Fergon] 324 mg PO DAILY 05/23/17 06/05/17 History Furosemide [Lasix] 80 mg PO BID 05/23/17 06/05/17 History Gabapentin [Neurontin] 300 mg PO TID 05/23/17 06/05/17 History Metoprolol Tartrate [Lopressor] 50 mg PO BID 05/23/17 06/05/17 History amLODIPine [Norvasc] 10 mg PO DAILY 05/23/17 06/05/17 History Albuterol Sulfate [Ventolin] 2.5 mg NEB Q6HP PRN ampul.neb 05/29/17 06/05/17 Rx Dextrose [Insta-Glucose] 15 gm PO PRN PRN oral.susp 06/04/17 06/05/17 Rx Accu-Chek 1 each FS ACHS strip 06/12/17 Rx Acetaminophen [Tylenol] 650 mg PO Q6HP PRN tablet 06/12/17 Rx Docusate Sodium [Colace] 100 mg PO BID PRN capsule 06/12/17 Rx Heparin 5,000 unit SQ Q12 vial 06/12/17 Rx Magnesium Hydroxide [Milk of 30 ml PO DAILYP PRN oral.susp 06/12/17 Rx Magnesia] Ondansetron HCl [Zofran ODT] 4 mg SL Q4HP PRN #1 tab 06/12/17 Rx bisacodyl 10 mg rectal suppository 10 mg NM QDAY PRN 08/15/17 History ceftazidime 2 gram intravenous 2 g IV .M,W,F each 08/15/17 History solution insulin detemir (U-100) 100 20 unit SUB-Q BID 08/15/17 History unit/mL (3 mL) subcutaneous pen insulin lispro (U-100) 100 unit/mL See Label Instructions SUB-Q 08/15/17 History subcutaneous solution .COMPLEX linezolid 600 mg tablet 600 mg PO BID 08/15/17 History nut.tx impaired renal each PO QDAY ml 08/15/17 History fxn,lac-reduce 0.08 gram-1.8 kcal/mL oral liquid oxycodone-acetaminophen 5 mg-325 1 tab PO Q4H PRN tab 08/15/17 History mg tablet polyethylene glycol 3350 17 PO QDAY PRN g 08/15/17 History gram/dose oral powder sodium phosphates 19 gram-7 118 ml NM ONCE PRN 08/15/17 History gram/118 mL enema sevelamer carbonate 800 mg tablet See Label Instructions .ROUTE 03/05/18 History .COMPLEX Allergies Allergy/AdvReac Type Severity Reaction Status Date / Time influenza virus vacc AdvReac Intermediate Other Verified 05/29/17 08:28 trivalent, split [From Fluzone] Medical - H&P: Exam - Constitutional Vitals: Temp Pulse Resp BP Pulse Ox 97.4 F 65 19 154/76 95 03/09/18 12:38 03/09/18 15:02 03/09/18 15:02 03/09/18 15:02 03/09/18 15:02 Exam: GENERAL: The patient is a well-developed, well-nourished in no apparent distress. Is a bit drowsy but oriented x3. VITAL SIGNS: Reviewed and as noted elsewhere. HEENT: Head is normocephalic and atraumatic. Extraocular muscles are intact. Pupils are equal, round, and reactive to light. Nares appeared normal. Mouth appears any without lesions. Mucous membranes are moist. NECK: Normal to inspection, Supple, No lymphadenopathy or thyromegaly. left IJ HD cath no obvious area of redness, some tenderness to palpation in the C spine. LUNGS: Air entry equal on both sides, no wheezing, crackles or rhonchi noted. No accessory muscles of respiration HEART: Regular rate and rhythm normal, S1 and S2 heard, no Gallop, S3 or Rub Noted, No Gross murmur heard. ABDOMEN: Soft, nontender, and nondistended. Positive bowel sounds. No hepatosplenomegaly was noted. EXTREMITIES: No cyanosis, clubbing, rash, lesions or edema. NEUROLOGIC: Cranial nerves II through XII are grossly intact. motor strenght 4/ 4 in upper and lower extremities, sensory system neg to light touch bilaterally. Pt does have a very mild droop on the right facial side, not sure if this is a chr finding. PSYCHIATRIC: Normal affect, Normal Mood. Appropriate Behavior. SKIN: No ulceration or wounds noted, No jaundice, No rash noted. Medical - H&P: Reslt - Labs CBC & Chem 7: 03/09/18 12:39 03/09/18 12:39 Labs: Short CBC 03/09/18 Range/Units 12:39 WBC 11.6 H (4.5-11.0) K/mcL Hgb 11.9 L (13.5-16.5) g/dL Hct 36.0 L (41.0-55.0) % Plt Count 258 (140-440) K/mcL [facility] 03/09/18 12:39 Sodium 133 Potassium 3.9 Chloride 92 L Carbon Dioxide 27 BUN 30 H Creatinine 4.6 H Glucose 152 H Calcium 8.6 Cardiac Enzymes 03/09/18 Range/Units 12:39 Troponin T 0.03 (0-0.03) ng/ml Liver Function 03/09/18 Range/Units 12:39 Total Bilirubin 0.4 (0.0-1.0) mg/dL AST 15 (0-37) U/l ALT 9 (0-40) U/l Alkaline Phosphatase 116 (39-117) U/L Albumin 4.2 (3.2-5.2) gm/dL Medical - H&P: A/P - Narrative A/P Narrative: A/P Syncope- Etiology? cardiac dizziness? or neurological, TIA? mild facial on right, but otherwise does not have other focal signs. CTA head neck is neg, CT head neg, observe on tele tonight, neurochecks q4hrs, pt already on asa and statin. will consider changing asa to clopidogrel, if we do not find alternative etiolgoy to pts neurological status. Patient does have generalized weakness in his extremities, but no focal weakness. Pneumonia- Noted on CT neck, chest x ray is neg, but CT is much more sensitive test. Given mild leucocytosis, will treat. Get blood cultures, lactic acid, check urine strep, legionelall,mycoplasma antige. start on levofloxacin. Neck pain- chr issue, not sure when it started given has HD catheter as well as a left arm fistula/ graft, will get Neck CT, some tenderness to palpation. he has h/o cervical disc disease/ and chr injury to the neck. ESRD- On HD, Nephrology consulted, HD planned for tomorrow. DM- ssi insulin for glucose control HTN- resume home bp meds once verified and bp stable HLD resume statin DVT hep sq Diet renal/diabetic Full code Plan of care reviewed with the patient and his sister who was at bedside. Social History - Social History marital status: single occupational status: disabled - Tobacco smoking status: Never smoker - Alcohol alcohol intake frequency: holiday/special occasion only
[2018-03-09] MEDS ORDERED: DEXTROSE 50% 50 ML VIAL IV PRN (16:26)
[2018-03-09] MEDS ORDERED: DEXTROSE 31 GM ORAL.SUSP PO PRN (16:26)
[2018-03-09] MEDS ORDERED: NALOXONE HCL 0.4 MG/ML VIAL IV PRN (16:26)
[2018-03-09] MEDS ORDERED: ONDANSETRON 4 MG/2 ML VIAL IV PRN (16:26)
[2018-03-09] MEDS ORDERED: ACETAMINOPHEN 325 MG TABLET PO PRN (16:26)
[2018-03-09] MEDS ORDERED: LEVOFLOXACIN 750 MG/150 ML BAG IV ONE (16:26)
[2018-03-09] MEDS ORDERED: cloNIDine HCL 0.1 MG TABLET PO PRN (17:19)
[2018-03-09] MEDS ORDERED: FUROSEMIDE 80 MG TABLET PO ONE (17:20)
[2018-03-09] MEDS: INSULIN LISPRO 1 UNIT/0.01 ML UNIT SQ SCH ×2 (17:55→21:04)
[2018-03-09] MEDS: HEPARIN 5,000 UNIT/ML VIAL SQ SCH (21:04)
[2018-03-09] MEDS: 0.9 % SODIUM CHLORIDE 10 ML SYRINGE IV SCH (21:05)
[2018-03-10] MEDS: 0.9 % SODIUM CHLORIDE 10 ML SYRINGE IV SCH ×2 (05:49→13:22)
[2018-03-10 07:12] LABS: Basophils # (Auto) 0.1 K/mcL (0.0-0.3); Basophils % (Auto) 0.6 % (0.0-2.0); Eosinophils # (Auto) 0.5 K/mcL (0.0-0.7); Eosinophils % (Auto) 5.5 % (0.0-7.0); Granulocytes % (Auto) 70.2 % (38.0-78.0); Lymphocytes # (Auto) 1.5 K/mcL (1.5-4.8); Lymphocytes % (Auto) 16.7 % (15.5-49.0); Mean Cell Volume 89.5 fL (80.0-100.0); Mean Corpuscular HGB Conc 32.9 g/dL (31.0-36.0); Mean Corpuscular Hemoglobin 29.5 pg (26.0-34.0); Monocytes # (Auto) 0.6 K/mcL (0.1-0.9); Platelet Count 242 K/mcL (140-440); Red Cell Distribution Width 18.4 % (11.5-14.5)
[2018-03-10 07:31] LABS: ALT/SGPT 8 U/l (0-40); Albumin 3.5 gm/dL (3.2-5.2); Alkaline Phosphatase 101 U/L (39-117); Bilirubin,Direct < 0.2 mg/dL (0.0-0.3); Blood Urea Nitrogen 39 mg/dl (8-23); Gamma Glutamyl Transpeptidase 16 U/L (8-61); Uric Acid 4.3 mg/dL (2.5-8.0)
--- NOTE | 2018-03-10 07:51 | Nephrology Progress Note ---
Subjective Patient information: Note initiated : 03/10/18 at 7:49 am Sandro Bailey is a 67-year-old male sent to ED from dialysis unit when he had difficulty of finding words without hypotension or bradycardia and admitted on . Chief Complaint: Weakness Principal diagnosis: End stage renal disease Pertinent ROS: Weakness Neck pain Objective - Vital Signs Vital signs: Vital Signs Temp Pulse Pulse Resp BP BP Pulse Ox 03/10/18 07:31 71 138/90 03/10/18 07:05 69 15 97 03/10/18 07:00 68 138/84 03/10/18 06:35 99 H 146/81 03/10/18 05:59 130 H 159/78 03/10/18 05:52 98.0 F 133 H 154/74 03/10/18 04:01 136/70 03/10/18 02:02 141/65 03/10/18 00:02 142/77 03/09/18 22:01 163/78 03/09/18 20:01 165/83 03/09/18 18:02 159/105 03/09/18 16:41 98.0 F 17 163/86 97 03/09/18 16:20 98.0 F 64 16 163/86 95 03/09/18 15:57 66 19 95 03/09/18 15:32 70 16 165/87 96 03/09/18 15:17 66 9 L 132/76 98 03/09/18 15:02 65 19 154/76 95 03/09/18 14:50 65 15 97 03/09/18 14:47 65 16 146/74 93 03/09/18 14:32 17 151/72 03/09/18 14:17 66 24 H 142/74 95 03/09/18 14:05 65 17 95 03/09/18 14:02 65 150/73 98 03/09/18 13:47 68 14 152/73 95 03/09/18 13:43 67 19 163/74 95 03/09/18 12:38 97.4 F 70 19 174/92 98 Intake and Output 03/09/18 03/10/18 03/10/18 21:59 05:59 13:59 Intake Total 1148 / 1148 300 / 300 Output Total 700 / 700 Balance 448 / 448 300 / 300 Intake: IV 908 / 908 Sodium Chloride 0.9% 1,000 ml @ 758 / 758 Wide Open IV BOLUS ONE Rx#: [id number] Oral 240 / 240 300 / 300 Output: Void Amount 700 / 700 Other: Meal Dinner Percent of Meal Consumed 100% Weight 224 lb 4 oz Intake & Output: Intake & Output 03/09/18 03/10/18 03/10/18 21:59 05:59 13:59 Intake Total 1148 / 1148 300 / 300 Output Total 700 / 700 Balance 448 / 448 300 / 300 Weight 224 lb 4 oz Intake: IV 908 / 908 Sodium Chloride 0.9% 1,000 ml @ 758 / 758 Wide Open IV BOLUS ONE Rx#: [id number] Oral 240 / 240 300 / 300 Output: Void Amount 700 / 700 Other: Meal Dinner Percent of Meal Consumed 100% - General Appearance General appearance: chronically ill, fatigue EENT: mucous membranes moist Neck: supple Respiratory: clear Cardiology: edema Gastrointestinal: no tenderness Integumentary: warm and dry Neurologic: no focal deficit, alert and oriented x3 Musculoskeletal: no deformities Psychiatric: mood/affect appropriate, cooperative - Lab 03/10/18 04:00 03/10/18 04:00 Most recent lab results Calcium 8.3 mg/dl (8.6-10.4) L 03/10/18 04:00 Phosphorus 4.4 mg/dL (2.7-4.5) 03/10/18 04:00 Magnesium 2.0 mg/dL (1.6-2.5) 03/10/18 04:00 Assessment and Plan (1) ESRD (end stage renal disease) Sandro Bailey is a 67-year-old male with end-stage renal disease on chronic hemodialysis (through right IJ tunneled hemodialysis catheter and left arm AV fistula, at [facility], on TTS, followed by Dr. 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 Plan: Hemodialysis today for fluid overload and incomplete treatment on with Revaclear 400 dialyzer for 3 hours, QB/QD 400/800, dialysate (Potassium 3, Bicarbonate 33, Calcium 2.5, Sodium 140), UF target 2000 ml, Heparin 2000 unit bolus, 1000 unit per hour. The patient seen and evaluated during dialysis at 8:40. Status: Chronic Priority: Medium
[2018-03-10] MEDS: INSULIN LISPRO 1 UNIT/0.01 ML UNIT SQ SCH ×2 (08:55→13:22)
[2018-03-10] MEDS: HEPARIN 5,000 UNIT/ML VIAL SQ SCH (08:58)
[2018-03-10] MEDS ORDERED: ASPIRIN 81 MG TAB.CHEW PO SCH (09:00)
[2018-03-10] MEDS ORDERED: CLOPIDOGREL 75 MG TABLET PO SCH (09:00)
--- NOTE | 2018-03-10 10:32 | Discharge Summary ---
Medical - DS: Prov Patient information: Note initiated : 03/10/18 at 10:28 am Service Date, if different from initiated Date: [] Patient: Sandro Bailey 67 y/o M admitted on 03/09/18 for altered LOC. Chief Complaint: [] Date of admission: 03/09/18 16:20 Discharge date: 03/10/18 Primary care physician: Jaleesa Dodson Admitting clinician: Linda Eid Consults: 03/09/18 15:43 Consult to Physician [CONS] Stat Comment: Consulting Provider: Linda Eid Reason For Exam: Physician to Consult 03/09/18 16:26 Consult to Physician [CONS] Stat Comment: Consulting Provider: Tamia Lawrence Reason For Exam: Physician to Consult Discharging clinician: Linda Eid Medical - DS: Meds - Discharge Medications Prescriptions: Levofloxacin 500 mg PO Q48H #3 tab Active and Home Medications: Home Medications Aspirin [Charmaine Chewable Aspirin] 81 mg PO DAILY 05/23/17 [History Confirmed 06/10 Last Taken 06/03/17 81 MG.] Atorvastatin [Lipitor] 40 mg PO HS 05/23/17 [History Confirmed 06/05/17 Last Taken 06/03/17 40 MG.] Ferrous Gluconate [Fergon] 324 mg PO DAILY 05/23/17 [History Confirmed 06/05/17 Last Taken 06/03/17 324 MG.] Furosemide [Lasix] 80 mg PO BID 05/23/17 [History Confirmed 06/05/17 Last Taken 06/03/17 80 MG.] Gabapentin [Neurontin] 300 mg PO TID 05/23/17 [History Confirmed 06/05/17 Last Taken 06/03/17 300 MG.] Metoprolol Tartrate [Lopressor] 50 mg PO BID 05/23/17 [History Confirmed Last Taken 06/03/17 09:00 50 MG.] amLODIPine [Norvasc] 10 mg PO DAILY 05/23/17 [History Confirmed 06/05/17 Last Taken 06/03/17 10 MG.] Dextrose [Insta-Glucose] 15 gm PO PRN PRN oral.susp 06/04/17 [Rx Confirmed 06/10 Last Taken Unknown] Accu-Chek 1 each FS ACHS strip 06/12/17 [Rx Last Taken Unknown] Docusate Sodium [Colace] 100 mg PO BID PRN capsule 06/12/17 [Rx Last Taken Unknown] Heparin 5,000 unit SQ Q12 vial 06/12/17 [Rx Last Taken Unknown] Magnesium Hydroxide [Milk of Magnesia] 30 ml PO DAILYP PRN oral.susp 06/12/17 [ Rx Last Taken Unknown] Ondansetron HCl [Zofran ODT] 4 mg SL Q4HP PRN #1 tab 06/12/17 [Rx Last Taken Unknown] ceftazidime 2 gram intravenous solution 2 g IV .M,W,F each 08/15/17 [History Last Taken Unknown] insulin detemir (U-100) 100 unit/mL (3 mL) subcutaneous pen 20 unit SUB-Q BID [History Last Taken Unknown] insulin lispro (U-100) 100 unit/mL subcutaneous solution See Label Instructions SUB-Q .COMPLEX 08/15/17 [History Last Taken Unknown] linezolid 600 mg tablet 600 mg PO BID 08/15/17 [History Last Taken Unknown] nut.tx impaired renal fxn,lac-reduce 0.08 gram-1.8 kcal/mL oral liquid each PO QDAY ml 08/15/17 [History Last Taken Unknown] oxycodone-acetaminophen 5 mg-325 mg tablet 1 tab PO Q4H PRN tab 08/15/17 [ History Last Taken Unknown] polyethylene glycol 3350 17 gram/dose oral powder PO QDAY PRN g 08/15/17 [ History Last Taken Unknown] sodium phosphates 19 gram-7 gram/118 mL enema 118 ml VA ONCE PRN 08/15/17 [ History Last Taken Unknown] sevelamer carbonate 800 mg tablet See Label Instructions .ROUTE .COMPLEX [History Last Taken Unknown] Medical - DS: Hosp Hospital course: Mr. Bailey is a 67 year old M with h/o DM, ESRD on HD, left arm access/ Left IJ access. He was at his usual health until Hemodialysis session today. He notes that he woke up this AM, and was doing ok, did not have breakfast as he was running late, his sister picked him up for dialysis. During dialysis he felt that he was having some headache/ dizziness, he tried to communicate this to the nurses, but was unable to do so. He became drowsy and lethargic and passed out. His glucose was normal, as per report, Hemodynamically stable, just not arousable. Rapid response team was called He was transferred to the ER for further evaluation. The patient in the ER was drowsy, and minimally responsive in the triage, no obvious focal change was noted, he woke up gradually, enough to get a neuro exam , He had a Head CT and Head / Neck CTA which is neg for acute process. patient neck ct showed infiltrate on the left upper lobe, chest x ray is neg. The patient still feels quite weak, he is poor history provider, as per the sister he has been complaining of some neck pain for last few days, some pain radiating down his jaws? In the ER the patient is aoox3, hemodynamically stable, EKG is sinus,lafb, no acute st wave changes, cxr neg, labs show mild leucocytosis. Tele stroke was consulted, advised to observe the patient. patient was observed overnight, no acute events noted, no events on tele, pt much more alert this AM, patient able to tolerate po well, back to baseline. Patient did not have a TIA or CVA but more likely drowsy secondary to acute infection. I am not making any changes to his regime, pt already on asa and statin. He did have a PNA on the CT neck left lobe infiltrate, he responded well to levofloxacin. will discharge with additional 6 days (500mg q48hrs x 3 doses) of treatment. he had HD today, and will continue HD sessions as outpatient. Discharge diagnosis: pneumonia - Time Spent with Patient Total time spent providing and/or coordinating discharge services: Medical - DS: Exam - Constitutional Vitals: Vital Signs Temp Pulse Pulse Resp BP BP Pulse Ox 03/10/18 08:47 98.0 F 75 146/81 03/10/18 08:35 75 126/77 03/10/18 08:03 70 132/78 03/10/18 07:31 71 138/90 03/10/18 07:05 69 15 97 03/10/18 07:00 68 138/84 03/10/18 06:35 99 H 146/81 03/10/18 05:59 130 H 159/78 03/10/18 05:52 98.0 F 133 H 154/74 03/10/18 04:01 136/70 03/10/18 02:02 141/65 03/10/18 00:02 142/77 03/09/18 22:01 163/78 03/09/18 20:01 165/83 03/09/18 18:02 159/105 03/09/18 16:41 98.0 F 17 163/86 97 03/09/18 16:20 98.0 F 64 16 163/86 95 03/09/18 15:57 66 19 95 03/09/18 15:32 70 16 165/87 96 03/09/18 15:17 66 9 L 132/76 98 03/09/18 15:02 65 19 154/76 95 03/09/18 14:50 65 15 97 03/09/18 14:47 65 16 146/74 93 03/09/18 14:32 17 151/72 03/09/18 14:17 66 24 H 142/74 95 03/09/18 14:05 65 17 95 03/09/18 14:02 65 150/73 98 03/09/18 13:47 68 14 152/73 95 03/09/18 13:43 67 19 163/74 95 03/09/18 12:38 97.4 F 70 19 174/92 98 Intake and Output 03/09/18 03/10/18 03/10/18 21:59 05:59 13:59 Intake Total 1148 / 1148 300 / 300 Output Total 700 / 700 1999 Balance 448 / 448 300 / 300 -1999 Intake: IV 908 / 908 Sodium Chloride 0.9% 1,000 ml @ 758 / 758 Wide Open IV BOLUS ONE Rx#: [id number] Oral 240 / 240 300 / 300 Output: Void Amount 700 / 700 Hemodialysis UF 1999 Other: Meal Dinner Percent of Meal Consumed 100% Weight 224 lb 4 oz Additional comments: Constitutional; Afebrile, cooperative, alert, not in distress. Eyes- No icterus, , No periorbital swelling Ears- Ext ear normal, hearing normal to conversation. Neck- Midline trachea, supple Respiratory system: Air Entry equal on both sides, No crackles or wheezing, no rhonchi. CVS- Rate rhythm regular, S1,S2 heard, no gallop, no rub. Abdomen- Soft nontender abdomen, no organomegaly, no tenderness, no guarding or rigidity, [employer]- AOOx3, moving all extremities, no gross focal deficit noted. , the left facial mild droop? seems like its mild facial ammetry rather than a new change. Medical - DS: Data Labs on day of discharge: Labs from last 24 hours 03/10/18 03/10/18 03/10/18 04:00 04:00 04:00 WBC 9.2 RBC 3.90 L Hgb 11.5 L Hct 34.9 L POC Hct MCV 89.5 MCH 29.5 MCHC 32.9 RDW 18.4 H Plt Count 242 MPV 7.9 Gran % 70.2 Lymph % (Auto) 16.7 [place] % (Auto) 7.0 Eos % (Auto) 5.5 Baso % (Auto) 0.6 Gran # 6.4 Lymph # (Auto) 1.5 [place] # (Auto) 0.6 Eos # (Auto) 0.5 Baso # (Auto) 0.1 ESR POC PT POC INR APTT VBG Lactic Acid POC Sodium Sodium 132 L POC Potassium Potassium 5.1 POC Chloride Chloride 92 L Carbon Dioxide 25 POC Total CO2 Anion Gap 15.0 POC BUN BUN 39 H Creatinine 6.6 H* POC Creatinine GFR Calculation 8 Glucose 94 POC Glucose Uric Acid 4.3 Calcium 8.3 L POC WB Ioniz Calcium Phosphorus 4.4 Magnesium 2.0 Total Bilirubin 0.4 Direct Bilirubin < 0.2 GGT 16 AST 14 ALT 8 Alkaline Phosphatase 101 Lactate Dehydrogenase 230 Troponin T C-Reactive Protein Total Protein 7.0 Albumin 3.5 Globulin 3.5 Albumin/Globulin Ratio 1.0 Triglycerides 128 Procalcitonin TSH 1.07 Mycoplasma pneumon IgM 03/10/18 03/10/18 03/09/18 04:00 04:00 16:26 WBC RBC Hgb Hct POC Hct MCV MCH MCHC RDW Plt Count MPV Gran % Lymph % (Auto) [place] % (Auto) Eos % (Auto) Baso % (Auto) Gran # Lymph # (Auto) [place] # (Auto) Eos # (Auto) Baso # (Auto) ESR 17 H POC PT POC INR APTT VBG Lactic Acid POC Sodium Sodium POC Potassium Potassium POC Chloride Chloride Carbon Dioxide POC Total CO2 Anion Gap POC BUN BUN Creatinine POC Creatinine GFR Calculation Glucose POC Glucose Uric Acid Calcium POC WB Ioniz Calcium Phosphorus Magnesium Total Bilirubin Direct Bilirubin GGT AST ALT Alkaline Phosphatase Lactate Dehydrogenase Troponin T C-Reactive Protein < 0.3 Total Protein Albumin Globulin Albumin/Globulin Ratio Triglycerides Procalcitonin TSH Mycoplasma pneumon IgM Negative 03/09/18 03/09/18 03/09/18 15:46 15:46 12:39 WBC RBC Hgb Hct POC Hct MCV MCH MCHC RDW Plt Count MPV Gran % Lymph % (Auto) [place] % (Auto) Eos % (Auto) Baso % (Auto) Gran # Lymph # (Auto) [place] # (Auto) Eos # (Auto) Baso # (Auto) ESR POC PT POC INR APTT VBG Lactic Acid 1.2 POC Sodium Sodium POC Potassium Potassium POC Chloride Chloride Carbon Dioxide POC Total CO2 Anion Gap POC BUN BUN Creatinine POC Creatinine GFR Calculation Glucose POC Glucose Uric Acid Calcium POC WB Ioniz Calcium Phosphorus Magnesium Total Bilirubin Direct Bilirubin GGT AST ALT Alkaline Phosphatase Lactate Dehydrogenase Troponin T 0.03 C-Reactive Protein Total Protein Albumin Globulin Albumin/Globulin Ratio Triglycerides Procalcitonin 0.47 TSH Mycoplasma pneumon IgM 03/09/18 03/09/18 03/09/18 12:39 12:39 12:39 WBC 11.6 H RBC 4.03 L Hgb 11.9 L Hct 36.0 L POC Hct 36.0 L MCV 89.3 MCH 29.5 MCHC 33.1 RDW 18.9 H Plt Count 258 MPV 7.8 Gran % 72.9 Lymph % (Auto) 13.9 L [place] % (Auto) 7.5 Eos % (Auto) 5.1 Baso % (Auto) 0.6 Gran # 8.5 H Lymph # (Auto) 1.6 [place] # (Auto) 0.9 Eos # (Auto) 0.6 Baso # (Auto) 0.1 ESR POC PT 11.1 L POC INR < 0.9 L APTT 39 H VBG Lactic Acid POC Sodium 134 Sodium 133 POC Potassium 3.8 Potassium 3.9 POC Chloride 95 L Chloride 92 L Carbon Dioxide 27 POC Total CO2 28 Anion Gap 14.0 POC BUN 31 H BUN 30 H Creatinine 4.6 H POC Creatinine 5.3 H* GFR Calculation 12 Glucose 152 H POC Glucose 154 H Uric Acid Calcium 8.6 POC WB Ioniz Calcium 0.96 L Phosphorus Magnesium Total Bilirubin 0.4 Direct Bilirubin GGT AST 15 ALT 9 Alkaline Phosphatase 116 Lactate Dehydrogenase Troponin T C-Reactive Protein Total Protein 7.8 Albumin 4.2 Globulin 3.6 Albumin/Globulin Ratio 1.2 Triglycerides Procalcitonin TSH Mycoplasma pneumon IgM Medical - DS: A/P - Patient/Caregiver Discharge Instructions Activity: increase activity as tolerated Diet: Consistent Carbohydrate, Renal Additional Instructions: Take levofloxacin 500mg every other day for 3 doses. Go to the ER if fever, chills, chest pain, shortness of breath or any other acute concerns. I have not made any changes to your chronic home medication list, please take those as prescribed by your regular doctors. - Follow up Plan Follow up with: Jaleesa Dodson MD [Primary Care Provider] - Disposition: Home, Self-Care Prognosis: Fair Rehab Potential: Fair I certify that the patient requires SNF services: No Overall status at discharge: patient is back to baseline Medical - DS: Qual - VTE Deep Vein Thrombosis/Pulmonary Embolism Present on Admission: No
[2018-03-10] MEDS ORDERED: ATORVASTATIN 20 MG TABLET PO SCH (21:00)
[2018-03-11] MEDS ORDERED: LEVOFLOXACIN 500 MG TABLET PO SCH (09:00)
== END 2018-03-10 12:00 | disposition home or self-care (01) ==
LOC: ICU 12:38 → ED 12:38 → ICU 16:20
PROVIDERS: ADMIT Internal Medicine; ATTEND Internal Medicine

== ENCOUNTER 2019-06-30 19:35 | Inpatient (IN) ==
--- NOTE | 2019-06-30 19:42 | Internal Med History&Physical ---
Medical - H&P: [facility] Patient information: Note initiated : 06/30/19 at 7:40 pm Service Date, if different from initiated Date: [] Patient: Sandro Bailey 68 y/o M admitted on for dialysis. Chief Complaint: [] History of present illness: Mr. Bailey is a 68 year old M Presents to [place] emergency department for altered mental status and shortness of breath. He was unable to talk much because initial shortness of breath. He was placed on oxygen and evaluated in the ED found to have volume overload. Sounds like he is at increased dietary salt intake recently. Troponin unremarkable and lactate unremarkable. He is afebrile. He arrived to ED on 5L simple mask Patient did show improvement in his status during his stay in the ED. Case was discussed with Dr. Cortes who will dialyze the patient in the morning. Patient received 100 mg of Lasix in the ED, unknown urine output. On arrival patient is doing quite well he is satting mid to high 90s on 2 L nasal cannula. He reports that the shortness of breath started early afternoon. He woke up feeling okay. No sick contacts. Denies fever chills. Has a mild dry cough. No chest pain. He has been eating cheeseburgers and tater tots past couple days which likely really resulted in excess salt intake. Review of Systems: Pertinent positives as above. Denies headache/fever/chills/nausea/vomiting/chest or abdominal pain/diarrhea. Remaining 10 point review of systems reviewed negative. Medical - H&P: 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) Nuclear senile cataract (Chronic) Diabetic neuropathy (Chronic) Seasonal allergic rhinitis (Chronic) Diabetes mellitus, type II (Chronic) Vitamin D deficiency (Chronic) Cervical nerve root compression (Chronic) Left median nerve neuropathy (Chronic) Low back pain (Chronic) Foot drop (Chronic) Obesity (Chronic) Injury of lumbar spine (Chronic) Injury of cervical spine (Chronic) Shoulder pain (Chronic) Carpal tunnel syndrome (Chronic) Cervical disc disorder (Chronic) Hyperlipidemia (Chronic) Gastritis due to nonsteroidal anti-inflammatory drug (NSAID) (Chronic) Diabetic retinopathy (Chronic) Hypertension (Chronic) Metatarsal fracture (Chronic 01/21/11) Past Surgical History (Last Reviewed 06/04/18 @ 13:56 by Euseboi Morton MD) History of cholecystectomy (Chronic 06/25/80) Hip surgery Low back surgery right small toe amputation Family History (Last Reviewed 06/04/18 @ 13:56 by Eusebio Morton MD) Father Diabetes mellitus Cerebrovascular accident (CVA) Dementia Mother Diabetes mellitus Systemic Lupus Erythematosus Cardiomegaly Social History (Last Updated 06/04/18 @ 14:05 by Eusebio Morton MD) Quit smoking in 1991 Drinks alcohol rarely Ambulate with a walker Is at home with family Medical - H&P: Meds Home Medications Medication Instructions Recorded Confirmed Type Aspirin [Charmaine Chewable Aspirin] 81 mg PO DAILY 05/23/17 06/21/18 History Atorvastatin [Lipitor] 40 mg PO HS 05/23/17 06/21/18 History Furosemide [Lasix] 80 mg PO BID 05/23/17 06/21/18 History Gabapentin [Neurontin] 300 mg PO TID 05/23/17 06/21/18 History Metoprolol Tartrate [Lopressor] 50 mg PO BID 05/23/17 06/21/18 History amLODIPine [Norvasc] 10 mg PO DAILY 05/23/17 06/21/18 History Dextrose [Insta-Glucose] 15 gm PO PRN PRN oral.susp 06/04/17 06/21/18 Rx Accu-Chek 1 each FS ACHS strip 06/12/17 06/21/18 Rx Docusate Sodium [Colace] 100 mg PO BID PRN cap 06/12/17 06/21/18 Rx polyethylene glycol 3350 17 17 g PO QDAY PRN g 08/15/17 06/21/18 History gram/dose oral powder sevelamer carbonate 800 mg tablet See Rx Instructions .ROUTE .COMPLEX 03/05/18 06/21/18 History Pantoprazole Sodium 40 mg PO QAM 04/07/18 06/21/18 History Insulin Glargine, Human [Lantus] 10 unit SQ QHS unit 04/26/18 06/21/18 Rx Insulin Lispro [Humalog] See Protocol SQ ACHS unit 04/26/18 06/21/18 Rx Ipratropium/Albuterol [Duoneb] 3 ml NEB Q4HRT PRN ampul.neb 04/26/18 06/21/18 Rx oxyCODONE HCL [Roxicodone] 2.5 mg PO Q4HP PRN #20 tab 04/26/18 06/21/18 Rx Allergies Allergy/AdvReac Type Severity Reaction Status Date / Time influenza virus vacc AdvReac Intermediate Other Verified 06/21/18 10:36 trivalent, split [From Fluzone] Medical - H&P: Exam - Constitutional Exam: General: Alert, Awake, No acute Distress, obese Eyes/N/T: EOMI, PERRL, Head/Neck: neck supple, normocephalic atraumatic CV: RRR, No murmurs, normal s1/s2 Pulm: b/l rales, no wheezing Abd: soft, nontender, +BS x4 Ext: no clubbing/cyanosis, trace b/l LE edema Neuro: drowsy, no focal deficits, moves all extremities, CN 2-12 grossly intact, symmetrical strength b/l upper/lower, sensations intact b/l upper/lower Skin: warm/dry Medical - H&P: A/P - Narrative A/P Narrative: A: *Volume overload/chf, acute on chronic: suspect dietary indiscretion *Acute hypoxic respiratory failure: -now on 2L NC from 5L in ED *ESRD: *Anemia, chronic: *DM II w/ neuropathy and retinopathy: On metformin, glipizide, Levemir *HTN: On lisinopril/ Lopressor /diltiazem *PVD: On aspirin/Plavix *Obesity: *Deconditioning/debility: *Chronic low back pain: on Oxycodone *Leukocytosis: ?reactive, pt afebrile, does not appear toxic, occasional nonproductive cough *GERD: P: -Nephro for HD -check echo -O2 supp -BP meds and diuretics per nephro. hold lisinopril for mildly elevated potassium -check PCT and BC, monitor for fever/signs of infection, check UA/BC, hold abx for now -f/u cbc, check man diff -cont asa/plavix - -IS -basal and SSI -pt/ot -ppx: heparin
[2019-06-30] MEDS ORDERED: POLYETHYLENE GLYCOL 3350 17 GM PACKET PO PRN (19:56)
[2019-06-30] MEDS ORDERED: LACTULOSE 20 GM/30 ML ORAL.SOL PO PRN (19:56)
[2019-06-30] MEDS ORDERED: SENNOSIDES 1 TABLET PO PRN (19:56)
[2019-06-30] MEDS ORDERED: ACETAMINOPHEN 325 MG TABLET PO PRN (19:56)
[2019-06-30] MEDS ORDERED: ONDANSETRON 4 MG/2 ML VIAL IV PRN (19:56)
[2019-06-30] MEDS ORDERED: IPRATROPIUM/ALBUTEROL 3 ML AMPUL.NEB NEB PRN (19:56)
[2019-06-30] MEDS ORDERED: DEXTROSE 31 GM ORAL.SUSP PO PRN (19:56)
[2019-06-30] MEDS ORDERED: DEXTROSE 50% 50 ML VIAL IV PRN (19:56)
[2019-06-30] MEDS ORDERED: FUROSEMIDE 40 MG/4 ML VIAL IV ONE (19:59)
[2019-06-30] MEDS ORDERED: FUROSEMIDE 100 MG/10 ML VIAL IV ONE (20:06)
[2019-06-30] MEDS ORDERED: HYDROcodone/APAP 5/325MG TABLET PO PRN (22:17)
[2019-06-30] MEDS ORDERED: HYDROcodone/APAP 5/325MG TABLET PO ONE (22:28)
[2019-06-30] MEDS ORDERED: LABETALOL 5 MG/ML ML IV ONE (22:29)
[2019-06-30] MEDS: LABETALOL 5 MG/ML ML IV PRN (22:33)
[2019-06-30] MEDS: 0.9 % SODIUM CHLORIDE 10 ML SYRINGE IV SCH (22:50)
[2019-06-30] MEDS: FAMOTIDINE 20 MG TABLET PO SCH (22:50)
[2019-06-30] MEDS: INSULIN LISPRO 1 UNIT/0.01 ML UNIT SQ SCH (22:50)
[2019-06-30] MEDS: HEPARIN 5,000 UNIT/ML VIAL SQ SCH (22:50)
[2019-06-30] MEDS: DOCUSATE SODIUM 100 MG CAPSULE PO SCH (22:50)
[2019-07-01] MEDS ORDERED: HYDROcodone/APAP 5/325MG TABLET PO ONE (04:45)
[2019-07-01] MEDS: 0.9 % SODIUM CHLORIDE 10 ML SYRINGE IV SCH ×3 (06:09→21:10)
--- NOTE | 2019-07-01 07:22 | Internal Med Progress Note ---
Medical - PN: Subj Patient information: Note initiated : 07/01/19 at 7:20 am Service Date, if different from initiated Date: [] Patient: Sandro Bailey a 68 y/o M admitted on 06/30/19 for fluid overload chf. Chief Complaint: [] Interval history: Mr. Bailey is a 68 year old M Presents to [place] emergency department for altered mental status and shortness of breath. He was unable to talk much because initial shortness of breath. He was placed on oxygen and evaluated in the ED found to have volume overload. Sounds like he is at increased dietary salt intake recently. Troponin unremarkable and lactate unremarkable. He is afebrile. He arrived to ED on 5L simple mask Patient did show improvement in his status during his stay in the ED. Case was discussed with Dr. Cortes who will dialyze the patient in the morning. Patient received 100 mg of Lasix in the ED, unknown urine output. On arrival patient is doing quite well he is satting mid to high 90s on 2 L nasal cannula. He reports that the shortness of breath started early afternoon. He woke up feeling okay. No sick contacts. Denies fever chills. Has a mild dry cough. No chest pain. He has been eating cheeseburgers and tater tots past couple days which likely really resulted in excess salt intake. / Well this morning was able to get some sleep last night. Denies coughing. Denies shortness of breath. Undergoing dialysis at this time. Review of Systems: denies headache/fever/chills/nausea/vomiting/chest or abdominal pain/cough/ dyspnea/diarrhea. Otherwise see above. - Constitutional Vitals: Vital Signs Temp Pulse Resp BP Pulse Ox 98.5 F 72 20 141/69 100 07/01/19 06:48 07/01/19 07:02 07/01/19 06:48 07/01/19 07:02 07/01/19 06:48 Period Temp Pulse Resp BP Sys/Frank Pulse Ox Last 24 Hr 97.8 F-98.5 F 72-88 16-20 135-153/68-77 93-100 Intake and Output 06/30/19 07/01/19 07/01/19 21:59 05:59 13:59 Intake Total 600 Balance 600 Weight 105.551 kg Intake & Output: Intake & Output 06/30/19 07/01/19 07/01/19 21:59 05:59 13:59 Intake Total 600 Balance 600 Weight 105.551 kg Intake: Oral 600 Other: Meal Ice Cream and rebeca crackers Percent of Meal Consumed 100% Exam: General: Alert, Awake, No acute Distress, obese Eyes/N/T: EOMI, Head/Neck: neck supple CV: RRR, No murmurs, Pulm: b/l rales, no wheezing Abd: soft, nontender, +BS x4 Ext: no clubbing/cyanosis, trace b/l LE edema Neuro: Alert and awake, no focal deficits, moves all extremities, Skin: warm/dry Medical - PN: Obj Da - Labs CBC & Chem 7: 07/01/19 05:00 07/01/19 05:00 Meds: Medications Acetaminophen (Tylenol) 650 mg PO Q6HP PRN PRN Reason: PAIN/FEVER > 101 Hydrocodone Bitart/Acetaminophen ([place] 5/325mg) 1 tab PO Q6HP PRN; Protocol PRN Reason: Per Pain Protocol Albuterol/Ipratropium (Duoneb) 3 ml NEB Q4HP PRN PRN Reason: Shortness Of Breath Dextrose (Dextrose 50%) 0 ml IV UD PRN PRN Reason: Hypoglycemia Diagnostic Test (Pha) (Accu-Chek) 1 each FS [facility] Last Admin: 06/30/19 22:41 Dose: 1 each Documented by: Docusate Sodium (Colace) 100 mg PO BID [facility] Last Admin: 06/30/19 22:50 Dose: Not Given Documented by: Famotidine (Pepcid) 20 mg PO HS [facility] Last Admin: 06/30/19 22:50 Dose: 20 mg Documented by: Glucose (Insta-Glucose) 15 gm PO PRN PRN PRN Reason: Hypoglycemia Heparin Sodium (Porcine) (Heparin) 5,000 unit SQ Q12 [facility] Last Admin: 06/30/19 22:50 Dose: 5,000 unit Documented by: Insulin Human Lispro (Humalog) 0 unit SQ [facility]; Protocol Last Admin: 06/30/19 22:50 Dose: Not Given Documented by: Labetalol HCl (Trandate) 0 mg IV Q2HP PRN PRN Reason: Hypertension Last Admin: 06/30/19 22:33 Dose: 10 mg Documented by: Lactulose (Cephulac) 20 gm PO DAILYP PRN PRN Reason: Constipation Ondansetron HCl (Zofran) 4 mg IV Q4HP PRN PRN Reason: Nausea And Vomiting Polyethylene Glycol (Miralax) 17 gm PO DAILYP PRN PRN Reason: Constipation Senna (Senokot) 2 tab PO DAILYP PRN PRN Reason: Constipation Sodium Chloride (Saline Flush) 10 ml IV Q8 [facility] Last Admin: 07/01/19 06:09 Dose: 10 ml Documented by: Medical - PN: A/P - Time Spent With Patient Total time spent is greater than 50% in coordination of care (as documented) at patient's floor/unit and/or counseling patient: - Narrative A/P Narrative: A: *Volume overload/chf, acute on chronic: suspect dietary indiscretion *Acute hypoxic respiratory failure: -now on ?room air from 5L in ED *ESRD: *Anemia, chronic: *DM II w/ neuropathy and retinopathy: On metformin, glipizide, Levemir *HTN: On lisinopril/ Lopressor /diltiazem *PVD: On aspirin/Plavix *Obesity: *Deconditioning/debility: *Chronic low back pain: on Oxycodone *Leukocytosis: ?reactive, pt afebrile, does not appear toxic, occasional nonproductive cough *GERD: P: -Nephro for HD -updated echo -O2 supp prn -Awaiting follow-up labs -BP meds and diuretics per nephro. hold lisinopril for mildly elevated potassium -check PCT and BC, monitor for fever/signs of infection, check UA/BC, hold abx for now -f/u cbc, check man diff -cont asa/plavix - -IS -basal and SSI -pt/ot -ppx: heparin
[2019-07-01] MEDS: INSULIN LISPRO 1 UNIT/0.01 ML UNIT SQ SCH ×4 (07:30→21:15)
--- NOTE | 2019-07-01 11:27 | Discharge Summary ---
Medical - DS: Prov Patient information: Note initiated : 07/01/19 at 11:26 am Service Date, if different from initiated Date: [] Patient: Sandro Bailey 68 y/o M admitted on 06/30/19 for fluid overload chf. Chief Complaint: [] Date of admission: 06/30/19 21:56 Discharge date: 07/02/19 Consults: 06/30/19 19:58 Consult to Physician [CONS] Routine Comment: Consulting Provider: Marsha Cortes Reason For Exam: Physician to Consult Medical - DS: Meds - Discharge Medications Active and Home Medications: Home Medications Aspirin [Charmaine Chewable Aspirin] 81 mg PO DAILY 05/23/17 [History Confirmed 07/01/19 Last Taken 04/20/18 09:00] Atorvastatin [Lipitor] 40 mg PO HS 05/23/17 [History Confirmed 07/01/19 Last Taken 04/19/18 21:00] Furosemide [Lasix] 80 mg PO BID 05/23/17 [History Confirmed 07/01/19 Last Taken 04/20/18 08:00] Gabapentin [Neurontin] 100 mg PO TID 05/23/17 [History Confirmed 07/01/19 Last Taken 06/03/17 300 MG.] Metoprolol Tartrate [Lopressor] 50 mg PO BID 05/23/17 [History Confirmed 07/01/19 Last Taken 04/18/18 09:00] amLODIPine [Norvasc] 10 mg PO DAILY 05/23/17 [History Confirmed 07/01/19 Last Taken 04/19/18 09:00] Pantoprazole Sodium 40 mg PO QAMAC 04/07/18 [History Confirmed 07/01/19 Last Taken 04/20/18 07:30] Insulin Aspart [Novolog] 0 unit SQ ACHS 07/01/19 [History Confirmed 07/01/19 Last Taken Unknown] Insulin Detemir [Levemir Flextouch] 20 unit SQ BID 07/01/19 [History Confirmed 07/01/19 Last Taken Unknown] Sevelamer [Renvela] 2,400 mg PO TIDCC 07/01/19 [History Confirmed 07/01/19 Last Taken Unknown] Sevelamer [Renvela] 800 mg PO PRN PRN 07/01/19 [History Confirmed 07/01/19 Last Taken Unknown] Medical - DS: Hosp Hospital Course: Mr. Bailey is a 68 year old M Presents to [place] emergency department for altered mental status and shortness of breath. He was unable to talk much because initial shortness of breath. He was placed on oxygen and evaluated in the ED found to have volume overload. Sounds like he is at increased dietary salt intake recently. Troponin unremarkable and lactate unremarkable. He is afebrile. He arrived to ED on 5L simple mask Patient did show improvement in his status during his stay in the ED. Case was discussed with Dr. Cortes who will dialyze the patient in the morning. Patient received 100 mg of Lasix in the ED, unknown urine output. On arrival patient is doing quite well he is satting mid to high 90s on 2 L nasal cannula. He reports that the shortness of breath started early afternoon. He woke up feeling okay. No sick contacts. Denies fever chills. Has a mild dry cough. No chest pain. He has been eating cheeseburgers and tater tots past couple days which likely really resulted in excess salt intake. 07/01 Well this morning was able to get some sleep last night. Denies coughing. Denies shortness of breath. Undergoing dialysis at this time. 07/02 Had dialysis yesterday. Doing well. Good oxygenation on room air. Stable for discharge Discharge diagnosis: Volume overload acute hypoxic restaurant failure end-stage renal disease Secondary discharge diagnosis: Chronic anemia diabetes hypertension obesity peripheral vascular disease chronic low back pain GERD - Time Spent with Patient Total time spent providing and/or coordinating discharge services: Greater than 30 minutes Medical - DS: Exam - Constitutional Vitals: Vital Signs Temp Pulse Pulse Resp BP BP Pulse Ox 07/01/19 10:32 98.4 F 74 133/69 07/01/19 10:03 79 148/73 07/01/19 09:33 75 126/75 07/01/19 09:03 75 131/70 07/01/19 08:33 73 142/70 07/01/19 08:11 75 145/72 07/01/19 08:00 98.5 F 20 149/74 100 07/01/19 07:35 72 127/69 07/01/19 07:02 72 141/69 07/01/19 06:48 98.5 F 20 149/74 100 07/01/19 06:40 98.5 F 77 147/73 07/01/19 03:36 98.0 F 74 18 135/77 93 07/01/19 00:00 97.8 F 72 16 135/68 96 06/30/19 22:45 139/70 06/30/19 22:42 79 20 153/74 95 06/30/19 22:37 97.9 F 88 20 136/68 94 06/30/19 22:30 153/74 06/30/19 22:15 151/73 06/30/19 21:56 20 95 Intake and Output 06/30/19 07/01/19 07/01/19 21:59 05:59 13:59 Intake Total 600 Output Total 3800 Balance 600 -3800 Intake: Oral 600 Output: Hemodialysis UF 3800 Other: Meal Ice Cream and rebeca crackers Percent of Meal Consumed 100% Weight 105.551 kg Medical - DS: Data Labs on day of discharge: Labs from last 24 hours 07/01/19 07/01/19 07/01/19 06:15 05:00 05:00 WBC Pending RBC Pending Hgb Pending Hct Pending MCV Pending MCH Pending MCHC Pending RDW Pending Plt Count Pending MPV Pending Total Counted Pending Band Neutrophils % Pending Platelet Estimate Pending RBC Morphology Pending Sodium Potassium Chloride Carbon Dioxide Anion Gap BUN Creatinine GFR Calculation Glucose Uric Acid Calcium Phosphorus Magnesium Total Bilirubin Direct Bilirubin GGT AST ALT Alkaline Phosphatase Lactate Dehydrogenase Total Protein Albumin Globulin Albumin/Globulin Ratio Triglycerides Procalcitonin Pending Urine Color Pending Urine Appearance Pending Urine pH Pending Ur Specific [place] Pending Urine Protein Pending Urine Glucose (UA) Pending Urine Ketones Pending Urine Occult Blood Pending Urine Nitrate Pending Urine Bilirubin Pending Urine Urobilinogen Pending Ur Leukocyte Esterase Pending 07/01/19 05:00 WBC RBC Hgb Hct MCV MCH MCHC RDW Plt Count MPV Total Counted Band Neutrophils % Platelet Estimate RBC Morphology Sodium Pending Potassium Pending Chloride Pending Carbon Dioxide Pending Anion Gap Pending BUN Pending Creatinine Pending GFR Calculation Pending Glucose Pending Uric Acid Pending Calcium Pending Phosphorus Pending Magnesium Pending Total Bilirubin Pending Direct Bilirubin Pending GGT Pending AST Pending ALT Pending Alkaline Phosphatase Pending Lactate Dehydrogenase Pending Total Protein Pending Albumin Pending Globulin Pending Albumin/Globulin Ratio Pending Triglycerides Pending Procalcitonin Urine Color Urine Appearance Urine pH Ur Specific [place] Urine Protein Urine Glucose (UA) Urine Ketones Urine Occult Blood Urine Nitrate Urine Bilirubin Urine Urobilinogen Ur Leukocyte Esterase Medical - DS: A/P - Patient/Caregiver Discharge Instructions Activity: increase activity as tolerated Diet: Renal/Consistent Carbs - Follow up Plan Follow up with: Marsha Cortes MD [Physician] - Disposition: Home Health Service Prognosis: Undetermined Rehab Potential: Fair Overall status at discharge: patient is progressing back to baseline
[2019-07-01] MEDS: HEPARIN 5,000 UNIT/ML VIAL SQ SCH ×2 (12:24→21:10)
[2019-07-01] MEDS: DOCUSATE SODIUM 100 MG CAPSULE PO SCH ×2 (12:24→21:09)
[2019-07-01 12:58] LABS: Hematocrit 26.5 % (40.1-51.0); Hemoglobin 8.8 g/dL (13.7-17.5); Mean Cell Volume 89.5 fL (80.0-100.0); Mean Corpuscular HGB Conc 33.2 g/dL (31.0-36.0); Platelet Count 250 K/mcL (140-440); RBC 2.96 M/mcL (4.63-6.08); Red Cell Distribution Width 14.8 % (11.5-14.5); WBC 10.6 K/mcL (4.50-11.00)
[2019-07-01 13:00] LABS: Band Neutrophils % 1 % (0-10); Basophils % (Manual) 2 % (0-2); Eosinophils % (Manual) 5 % (0-7); Hypochromasia FEW (NONE SEEN); Lymphocytes % 14 % (15-49); Monocytes % (Manual) 8 % (1-12); Platelet Estimate NORMAL (NORMAL); Polychromasia FEW (NONE SEEN); RBC Morphology ABNORM (NORMAL); Segmented Neutrophils % 70 % (38-78)
--- NOTE | 2019-07-01 16:08 | Nephrology Consult Note ---
History of Present Illness - Reason for Consult Patient information: Note initiated : 07/01/19 at 4:02 pm Service Date, if different from initiated Date: [] Patient: Sandro Bailey 68 y/o M admitted on 06/30/19 for fluid overload chf. Chief Complaint: [] - Chief Complaint SOB - History of Present Illness 68-year-old male with end-stage renal disease on hemodialysis Sunday via AV fistula at the [facility] in [place] transferred from [place] with shortness of breath after eating cheeseburger and tater tots. He has type 2 diabetes, hypertension. He was able to maintain adequate oxygen saturation on 3 L nasal cannula. At the time of my visit his shortness of breath had improved and he was resting. Denies: Fever, chills, cough, nausea, vomiting, swelling. He has difficulty hearing and forgot his hearing aids at home. Otherwise the review of system is negative Past History Past medical history: ESRD on HD TTS Type 2 diabetes Anemia Sepsis Ulcer of the right foot TIA Hip fracture Congestive heart failure Past surgical history: Cholecystectomy Past family history: Diabetes, CVA in his father Lupus his mother Past social history: Non-smoker Medications and Allergies Home Medications Medication Instructions Recorded Confirmed Type Aspirin [Charmaine Chewable Aspirin] 81 mg PO DAILY 05/23/17 07/01/19 History Atorvastatin [Lipitor] 40 mg PO HS 05/23/17 07/01/19 History Furosemide [Lasix] 80 mg PO BID 05/23/17 07/01/19 History Gabapentin [Neurontin] 100 mg PO TID 05/23/17 07/01/19 History Metoprolol Tartrate [Lopressor] 50 mg PO BID 05/23/17 07/01/19 History amLODIPine [Norvasc] 10 mg PO DAILY 05/23/17 07/01/19 History Pantoprazole Sodium 40 mg PO QAMAC 04/07/18 07/01/19 History Insulin Aspart [Novolog] 0 unit SQ ACHS 07/01/19 07/01/19 History Insulin Detemir [Levemir Flextouch] 20 unit SQ BID 07/01/19 07/01/19 History Sevelamer [Renvela] 2,400 mg PO TIDCC 07/01/19 07/01/19 History Sevelamer [Renvela] 800 mg PO PRN PRN 07/01/19 07/01/19 History Allergies Allergy/AdvReac Type Severity Reaction Status Date / Time influenza virus vacc AdvReac Intermediate Other Verified 06/21/18 10:36 trivalent, split [From Fluzone] Exam - Vital Signs Vital signs: Temp Pulse Resp BP Pulse Ox 37.6 C H 74 20 157/75 97 07/01/19 15:39 07/01/19 10:32 07/01/19 15:39 07/01/19 15:39 07/01/19 15:39 - General Appearance General appearance: obese Exam Narrative: HEENT head is normocephalic and atraumatic; nonicteric sclera Neck wide Respiratory nonlabored respirations, on 3 L nasal cannula setting 94%, scattered coarse breath sounds, decreased breath sounds right base Cardiovascular regular rate and rhythm, no rub, no gallop. Left upper extremity fistula with good bruit and thrill Abdomen soft, nontender, present bowel sounds Skin warm and dry Neuro hypoacusis; clear speech, alert, oriented to place, self, situation Vital signs reviewed Extremities no cyanosis; trace lower extremity edema Results - Lab Results 07/01/19 11:48 07/01/19 05:00 Assessment and Plan (1) Fluid overload Status: Acute Priority: High Qualifiers: Hypervolemia type: other Qualified Code(s): E87.79 - Other fluid overload (2) ESRD (end stage renal disease) Status: Chronic Priority: Medium - Narrative A/P Narrative: This is a late documentation for the visit done 07/01/2019, approximately 4:45 AM. I saw the patient later on while he was on dialysis. He was asleep, tolerating the procedure well. ESRD on HD TTS Dialysis 07/01/2019 2K bath, 4 L UF Estimated dry weight 105.5 kg. Next dialysis per home schedule *renal/diabetic diet Access left upper extremity AV fistula good bruit and thrill Hemodynamics and volume Volume overload 2/2 dietary indiscretion. The patient had high salt intake. 4 L UF as above. We will continue to challenge his dry weight. Echocardiogram 03/30/2017 read as LV mildly dilated, LVEF 55%. Mild cLVH. LA moderately dilated. Mild MR. Acid-base Balance maintained with hemodialysis Bone mineral Vitamin D 15.7. PTH 493 in June 2019. Results obtained from outpatient dialysis lab. He has secondary hyperparathyroidism of renal origin, will be managed outpatient. No calcium and phosphorus available for review at the time of this dictation. *Continue outpatient binders Hematologic Anemia, hemoglobin 8.8. This is in part dilutional. Ferritin 847, T sat 23. Managed outpatient with Aranesp. We will continue outpatient management
[2019-07-01] MEDS ORDERED: SEVELAMER 800 MG TABLET PO PRN (17:55)
[2019-07-01] MEDS: SEVELAMER 800 MG TABLET PO SCH (18:56)
[2019-07-01] MEDS ORDERED: ATORVASTATIN 40 MG TABLET PO SCH (21:00)
[2019-07-01] MEDS: FAMOTIDINE 20 MG TABLET PO SCH (21:09)
[2019-07-01] MEDS: METOPROLOL TARTRATE 50 MG TABLET PO SCH (21:09)
[2019-07-01] MEDS: FUROSEMIDE 80 MG TABLET PO SCH (21:09)
[2019-07-01] MEDS: GABAPENTIN 100 MG CAPSULE PO SCH (21:09)
[2019-07-01] MEDS: INSULIN GLARGINE, HUMAN 1 UNIT/0.01 ML SQ SCH (21:15)
[2019-07-02] MEDS: LABETALOL 5 MG/ML ML IV PRN ×2 (00:15→05:15)
[2019-07-02] MEDS: 0.9 % SODIUM CHLORIDE 10 ML SYRINGE IV SCH (05:15)
[2019-07-02] MEDS: INSULIN LISPRO 1 UNIT/0.01 ML UNIT SQ SCH (08:15)
[2019-07-02] MEDS: HEPARIN 5,000 UNIT/ML VIAL SQ SCH (08:58)
[2019-07-02] MEDS: DOCUSATE SODIUM 100 MG CAPSULE PO SCH (08:58)
[2019-07-02] MEDS: FUROSEMIDE 80 MG TABLET PO SCH (08:58)
[2019-07-02] MEDS: METOPROLOL TARTRATE 50 MG TABLET PO SCH (08:58)
[2019-07-02] MEDS: SEVELAMER 800 MG TABLET PO SCH (08:58)
[2019-07-02] MEDS: GABAPENTIN 100 MG CAPSULE PO SCH (08:58)
[2019-07-02] MEDS: INSULIN GLARGINE, HUMAN 1 UNIT/0.01 ML SQ SCH (08:59)
[2019-07-02] MEDS ORDERED: amLODIPine 10 MG TABLET PO SCH (09:00)
[2019-07-02] MEDS ORDERED: ASPIRIN 81 MG TAB.CHEW PO SCH (09:00)
== END 2019-07-02 11:40 | disposition home health service (06) | DRG 291 ==
LOC: ICU 21:56
PROVIDERS: ADMIT Internal Medicine; ATTEND Internal Medicine